=== PATIENT | female | born 1935 | race Caucasian/White ===

== ENCOUNTER 2019-08-09 13:20 | Observation (INO) | payer MEDICARE, SELFPAY ==
[2019-08-09] VITALS (11 sets, daily range): BP systolic 125–158; BP diastolic 63–87; PULSE 82–100; RESP 15–20; TEMP 36.5–36.9; O2SAT 92–100; BMI 21.1; BMI 14.7
--- NOTE | 2019-08-09 14:17 | DI.CT.S_ITS ---
PROCEDURE: CT ABDOMEN PELVIS W CON INDICATIONS: hx of bowel obstruction, nausea and abd pain TECHNIQUE: After the administration of intravenous contrast, 5 mm thick sections acquired from the diaphragm to the symphysis. 5 mm coronal and sagittal reformats were acquired. For radiation dose reduction, the following was used: automated exposure control, adjustment of mA and/or kV according to patient size. COMPARISON: None. FINDINGS: Image quality: Excellent. ABDOMEN: Lung bases: Lung bases are clear. Heart size is normal. Solid organs: Normal size and enhance the liver. Surgically absent gallbladder. There is dilatation of the common bile duct in keeping with prior cholecystectomy. Unremarkable pancreas. 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 Unremarkable adrenal glands. Symmetric enhancement of the kidneys apart from a 1 cm region of cortical hypoenhancement in the right interpolar kidney, likely sequela of remote infection or infarct. Peritoneum and bowel: Unremarkable appearance of the stomach. The bowel is fluid-filled with a centrally diffuse mild mucosal hyperenhancement. While the majority of the small bowel is not currently dilated, loops of small bowel in the left upper abdomen, likely proximal jejunum measure up to approximately 3.2 cm in diameter. There is no focal transition point identified, including at an anterior pelvic floor hernia which contains a portion of small bowel wall and intra-abdominal fluid. Surgical anastomosis present near the terminal ileum the small bowel. 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 There is stool and air throughout the colon. The small and free fluid in the pelvis. Nodes and vessels: No retroperitoneal or mesenteric adenopathy by size criteria. Aorta and inferior vena cava are normal in size. Miscellaneous: No ventral hernias. PELVIS: Genitourinary: Surgically absent bladder and uterus. Miscellaneous: Small hernia through the center pelvic floor anteriorly series 4, image 26) containing portion of a wall of a loop of bowel and peritoneal fluid. Bones: No suspicious bony lesions. No vertebral body compression fractures. Degenerative changes of the MR spine, marked at L4-5 and L5-S1 levels. IMPRESSION: Fluid filled, hyperemic appearance of the small and large bowel with a smaller region of mild bowel dilation to 3.2 cm and the left upper abdomen. This could represent very early / partial small bowel obstruction versus enteric infectious process. No transition point identified. Small hernia through defect in the anterior pelvic floor containing a portion of a loop of small bowel and intraperitoneal fluid. Small volume of free fluid in the pelvis. Dictated by: Branden Richards M.D. on 08/09/2019 at 14:50 Approved by: Branden Richards M.D. on 08/09/2019 at 15:12
[2019-08-09] MEDS: ONDANSETRON 4 MG/2 ML INJ IV (14:33)
[2019-08-09] MEDS: SODIUM CHLORIDE 0.9% 1,000 ML 150 ML IV (14:33)
[2019-08-09 14:36] LABS: Add Manual Diff / Slide Review NO; Basophils Absolute Auto 0 /uL (0-100); Basophils Percent Auto 0.4 % (0-2); Eosinophils Absolute Auto 0 /uL (0-450); Eosinophils Percent Auto 0.2 % (2-4); Hematocrit 37.2 % (36-46); Hemoglobin 12.8 g/dL (12.0-16.0); Lymphocytes Absolute Auto 700 /uL (1100-4500); Lymphocytes Percent Auto 10.6 % (25-40); Mean Corpuscular HGB Conc 34.5 % (30-36); Mean Corpuscular Hemoglobin 30.3 PG (26-34); Mean Corpuscular Volume 87.8 fL (80-100); Monocytes Absolute Auto 400 /uL (0-900); Monocytes Percent Auto 5.5 % (3-14); Neutrophils Absolute Auto 5700 /uL (1500-7000); Neutrophils Percent Auto 83.3 % (50-75); Platelet Count 226 X10^3/uL (150-400); Red Blood Cell Count 4.23 X10^6/uL (4.0-5.2); Red Cell Distribution Width 13.7 % (11.6-14.8); White Blood Cell Count 6.8 X10^3/uL (4.5-11.0)
[2019-08-09 14:55] LABS: PTT Partial Thromboplastin Tim 32 SECONDS (26.4-36.2)
[2019-08-09 14:59] LABS: Alanine Aminotransferase 17 IU/L (9-52); Albumin 4.5 g/dL (3.5-5.0); Albumin Globulin Ratio 1.4 (1.0-2.8); Alkaline Phosphatase 54 U/L (38-126); Aspartate Aminotransferase 25 IU/L (14-36); BUN Creatinine Ratio 21.1 (6-22); Bilirubin Total 1.3 mg/dL (0.2-1.3); Blood Urea Nitrogen 19 mg/dL (7-17); Calcium 10.1 mg/dL (8.4-10.2); Carbon Dioxide 29 mmol/L (22-32); Chloride 97 mmol/L (98-107); Estimated Glomerular Filt Rate 59.9 mL/min (>60); Globulin 3.2 g/dL (1.7-4.1); Glucose 113 mg/dL (80-110); HEMOLYSIS < 15 (0-50); Lipase 74 U/L (23-300); Potassium 3.3 mmol/L (3.4-5.1); Sodium 136 mmol/L (137-145); Total Protein 7.7 g/dL (6.3-8.2)
[2019-08-09 15:00] LABS: Lactate (Lactic Acid) 0.8 mmol/L (0.7-2.1)
[2019-08-09] MEDS: POTASSIUM CHLORIDE 20 MEQ TAB PO (15:23)
--- NOTE | 2019-08-09 15:52 | ED.ABDPAIN ---
HPI - Abdominal Pain <ROBINSON Kee - Last Filed: 08/09/19 23:44> General Chief Complaint: Abdominal Pain Stated Complaint: blockage, vomiting Time Seen by Provider: 08/09/19 13:26 Source: patient Mode of arrival: Ambulatory Limitations: no limitations History of Present Illness HPI narrative: This is a pleasant 83 year female who appears to be younger than her stated age, prior smoker, who presents to ED with her daughter with concerns of bowel obstruction. Patient reports she has history of bowel obstruction in April 2019 and was hospitalized with a NGT. She states she was feeling sick and throwing up x 4-5 times since yesterday morning with food particles with liquid and feeling fatigued. She reports decreased appetite and no bowel movements or flatulence for 2 days and feeling bloated in her abdomen. She denies fever or chills. She has urostomy and has a history of radical hysterectomy due to cervical cancer, cholecystectomy. She also states has a problem with bowel prolapse and at times she has to manually reduce it. She has been on low-fiber diet since last bowel obstruction per her GI specialist. She recently moved to [facility] from [place] after she lost her and to be close to her children. This has been of major stress in her life at this time. Related Data Home Medications Medication Instructions Recorded Confirmed losartan-hydrochlorothiazide 1 tab PO QAM 08/09/19 08/09/19 sertraline 25 mg PO DAILY 08/09/19 08/09/19 Previous Rx's Medication Instructions Recorded ciprofloxacin HCl 500 mg PO BID #4 tab 08/11/19 Allergies Allergy/AdvReac Type Severity Reaction Status Date / Time Sulfa (Sulfonamide Allergy Unknown Verified 08/09/19 13:32 Antibiotics) trimethaphan Allergy Unknown Verified 08/10/19 07:58 Review of Systems <ROBINSON Kee - Last Filed: 08/09/19 23:44> Review of Systems Narrative: General: See HPI HEENT: Denies sinus pain, ear pain, sore throat, difficulty swallowing, dizziness. Respiratory: Denies dyspnea, cough, wheezing, hemoptysis, sputum. Cardiovascular: Denies chest pain, palpitations, orthopnea, edema. Gastrointestinal: See HPI : See HPI Musculoskeletal: Denies weakness, joint pain or bony pain. Skin: Denies rash, skin lesions, or other. Neurologic: Denies weakness, headache, numbness, change in speech, confusion, seizures, incoordination. Psychiatric: No concerning psychosocial issues. 12-point review of systems is negative except for those stated above. Patient History <ROBINSON Kee - Last Filed: 08/09/19 23:44> Medical History (Updated 08/09/19 @ 18:42 by ROBINSON Kee) Cervical cancer (Acute) GERD (gastroesophageal reflux disease) (Acute) Hypertension (Acute) Surgical History History of cholecystectomy (Acute) History of radical hysterectomy (Acute) History of urostomy (Acute) Family History (Updated 08/09/19 @ 18:20 by Ethan Blancas MD) Father Cancer Social History (Updated 08/09/19 @ 16:03 by ROBINSON Kee) household members: none Smoking Status: Former smoker alcohol intake frequency: 0-2 drinks per day Substance Use Type: does not use Exam <ROBINSON Kee - Last Filed: 08/09/19 23:44> Narrative Exam Narrative: GEN: Alert, oriented x 3, well appearing and nourished, and in no acute distress. Head: Normal cephalic, atraumatic. No scalp or temporal tenderness, palpable mass or rash. EYES: Pupils are equal, round, and reactive to light and accommodation. Extraocular muscles are intact bilaterally. There is no subconjunctival hemorrhage, exudate and sclera non-icteric. ENT: Bilateral auditory canals and tympanic membranes clear. Hearing grossly intact. Nose without bleeding, purulent discharge or deviation. Facial sinuses nontender to palpate. Mucous membrane moist, no mucosal lesion. Throat without erythema, tonsillar hypertrophy or exudate. Uvula in midline, airway patent. Neck: Trachea in midline. No JVD, non-tender without lymphadenopathy. No masses or thyroid megaly. Supple, non-tender and no meningeal signs. CARDIAC: Normal regular rate and rhythm without murmurs, gallops, or rubs. No chest wall tenderness. No peripheral edema, cyanosis or pallor. Capillary refill is less than 2 seconds. RESPIRATORY: Lungs are cleat to auscultate bilaterally. No cough, wheezes, rales, or rhonchi. No stridor, respiratory distress, increase work of breathing, or accessary muscle used. ABD: Abdomen soft, mild tenderness to palpate in mid abdomen and non-distended. No guarding or rebound tenderness to palpate. Bowel sounds are normal in all 4 quadrants. There is no palpable masses or organomegaly. EXT: Full painless ROM of all extremities with no loss of sensation, strength, effusion or edema. SKIN: Warm, dry, normal color for patient. No erythema, lesions or rash over visible areas. BACK: Nontender without deformity or crepitance. No flank tenderness. NEUROLOGICAL: Alert and oriented to place, time and person. Sensation and motor function intact bilaterally. No facial droops, dysphasia. PSYCHIATRIC: Good judgement and reason, without hallucinations, abnormal affect or abnormal behaviors during the examination. Initial Vital Signs Initial Vital Signs: Vital Signs Temperature 97.7 F 08/09/19 13:28 Pulse Rate 100 H 08/09/19 13:28 Respiratory Rate 15 08/09/19 13:28 Blood Pressure 133/87 08/09/19 13:28 Pulse Oximetry 100 08/09/19 13:28 <Shona Krishnamurthy DO - Last Filed: 08/13/19 18:18> Initial Vital Signs Initial Vital Signs: Vital Signs Temperature 97.7 F 08/09/19 13:28 Pulse Rate 100 H 08/09/19 13:28 Respiratory Rate 15 08/09/19 13:28 Blood Pressure 133/87 08/09/19 13:28 Pulse Oximetry 100 08/09/19 13:28 Course <ROBINSON Kee - Last Filed: 08/09/19 23:44> Orders Ordered: Discontinued Medications Ciprofloxacin (Cipro) 250 mg PO BID [facility] Ciprofloxacin (Cipro) 500 mg PO BID [facility] Last Admin: 08/11/19 10:08 Dose: 500 mg Documented by: Admin: 08/10/19 21:41 Dose: 500 mg Documented by: SLY Enoxaparin Sodium (Lovenox) 40 mg SUBCUT DAILY [facility] Last Admin: 08/10/19 09:38 Dose: Not Given Documented by: CMCFARL Enoxaparin Sodium (Lovenox) 30 mg SUBCUT DAILY [facility] Last Admin: 08/11/19 10:09 Dose: 30 mg Documented by: WAYNE Hydrochlorothiazide (Hydrochlorothiazide) 25 mg PO DAILY [facility] Last Admin: 08/11/19 10:08 Dose: 25 mg Documented by: Admin: 08/10/19 09:37 Dose: 25 mg Documented by: BOOGIEFARОлег Sodium Chloride (Normal Saline 0.9%) 1,000 mls @ 150 mls/hr IV CONT [facility] Last Infusion: 08/09/19 20:56 Dose: 150 mls/hr Documented by: Admin: 08/09/19 14:33 Dose: 150 mls/hr Documented by: BELEMOTEWendi Sodium Chloride (Normal Saline 0.9%) 1,000 mls @ 150 mls/hr IV CONT [facility] Last Admin: 08/09/19 15:23 Dose: Not Given Documented by: SHASHI Lactated Ringer's (Lactated Ringers) 1,000 mls @ 125 mls/hr IV CONT [facility] Last Admin: 08/09/19 22:36 Dose: 125 mls/hr Documented by: REBECCA Potassium Chloride 40 meq/ (Sodium Chloride) 520 mls @ 130 mls/hr IV NOW ONE Stop: 08/10/19 01:02 Last Admin: 08/10/19 01:05 Dose: 130 mls/hr Documented by: CARLITOS Aldrichigned by: ELIAS Ciprofloxacin (Cipro) 400 mg in 200 mls @ 200 mls/hr IV Q12H [facility] Last Admin: 08/10/19 09:31 Dose: Not Given Documented by: Infusion: 08/10/19 09:31 Dose: 0 mls/hr Documented by: BOOGIEFARОлег Admin: 08/09/19 22:35 Dose: 200 mls/hr Documented by: REBECCA Influenza Virus Vaccine (Flu Vaccine) 0.5 ml IM .ONCE ONE Stop: 08/10/19 14:05 Last Admin: 08/10/19 16:12 Dose: 0.5 ml Documented by: SLY Losartan Potassium (Cozaar) 100 mg PO DAILY [facility] Last Admin: 08/11/19 10:09 Dose: 100 mg Documented by: Admin: 08/10/19 09:37 Dose: 100 mg Documented by: EDA Naloxone HCl (Narcan) 0.2 mg IV Q2MIN PRN PRN Reason: Opiate Reversal Ondansetron HCl (Zofran) 4 mg IV NOW ONE Stop: 08/09/19 14:04 Last Admin: 08/09/19 14:33 Dose: 4 mg Documented by: KATHY Ondansetron HCl (Zofran) 4 mg IV Q4HR PRN PRN Reason: Nausea And Vomiting Pantoprazole Sodium (Protonix) 40 mg IV NOW ONE Stop: 08/09/19 21:04 Last Admin: 08/09/19 22:36 Dose: 40 mg Documented by: REBECCA Pantoprazole Sodium (Protonix) 40 mg IV DAILY [facility] Last Admin: 08/10/19 09:31 Dose: Not Given Documented by: BOOGIEFARL Pantoprazole Sodium (Protonix) 40 mg PO 0700 [facility] Last Admin: 08/11/19 06:47 Dose: 40 mg Documented by: Admin: 08/10/19 10:27 Dose: 40 mg Documented by: EDA Potassium Chloride (Klor-Con M20) 20 meq PO NOW ONE Stop: 08/09/19 15:06 Last Admin: 08/09/19 15:23 Dose: 20 meq Documented by: SHASHI Reevaluation(s) Reevaluation #1: Reports feeling better Time: 15:30 Reevaluation #2: Recurring mild nausea and fatigue Time: 16:31 Consultations Consultation #1: Dr Blancas Time: 16:30 Vital Signs Vital signs: Vital Signs - 8 hr 08/09/19 16:53 08/09/19 17:43 Pulse Rate 83 92 H Respiratory Rate 16 Blood Pressure [Right Arm] 148/71 H 151/73 H Pulse Oximetry 97 96 <Shona Krishnamurthy DO - Last Filed: 08/13/19 18:18> Orders Ordered: Discontinued Medications Ciprofloxacin (Cipro) 250 mg PO BID [facility] Ciprofloxacin (Cipro) 500 mg PO BID [facility] Last Admin: 08/11/19 10:08 Dose: 500 mg Documented by: Admin: 08/10/19 21:41 Dose: 500 mg Documented by: SLY Enoxaparin Sodium (Lovenox) 40 mg SUBCUT DAILY [facility] Last Admin: 08/10/19 09:38 Dose: Not Given Documented by: BOOGIEFARL Enoxaparin Sodium (Lovenox) 30 mg SUBCUT DAILY [facility] Last Admin: 08/11/19 10:09 Dose: 30 mg Documented by: WAYNE Hydrochlorothiazide (Hydrochlorothiazide) 25 mg PO DAILY [facility] Last Admin: 08/11/19 10:08 Dose: 25 mg Documented by: Admin: 08/10/19 09:37 Dose: 25 mg Documented by: CMCFARОлег Sodium Chloride (Normal Saline 0.9%) 1,000 mls @ 150 mls/hr IV CONT [facility] Last Infusion: 08/09/19 20:56 Dose: 150 mls/hr Documented by: Admin: 08/09/19 14:33 Dose: 150 mls/hr Documented by: KBROTEM Sodium Chloride (Normal Saline 0.9%) 1,000 mls @ 150 mls/hr IV CONT [facility] Last Admin: 08/09/19 15:23 Dose: Not Given Documented by: SHASHI Lactated Ringer's (Lactated Ringers) 1,000 mls @ 125 mls/hr IV CONT [facility] Last Admin: 08/09/19 22:36 Dose: 125 mls/hr Documented by: REBECCA Potassium Chloride 40 meq/ (Sodium Chloride) 520 mls @ 130 mls/hr IV NOW ONE Stop: 08/10/19 01:02 Last Admin: 08/10/19 01:05 Dose: 130 mls/hr Documented by: CARLITOS Aldrichigned by: ELIAS Ciprofloxacin (Cipro) 400 mg in 200 mls @ 200 mls/hr IV Q12H [facility] Last Admin: 08/10/19 09:31 Dose: Not Given Documented by: Infusion: 08/10/19 09:31 Dose: 0 mls/hr Documented by: Admin: 08/09/19 22:35 Dose: 200 mls/hr Documented by: GPRAMAN Influenza Virus Vaccine (Flu Vaccine) 0.5 ml IM .ONCE ONE Stop: 08/10/19 14:05 Last Admin: 08/10/19 16:12 Dose: 0.5 ml Documented by: SLY Losartan Potassium (Cozaar) 100 mg PO DAILY [facility] Last Admin: 08/11/19 10:09 Dose: 100 mg Documented by: Admin: 08/10/19 09:37 Dose: 100 mg Documented by: EDA Naloxone HCl (Narcan) 0.2 mg IV Q2MIN PRN PRN Reason: Opiate Reversal Ondansetron HCl (Zofran) 4 mg IV NOW ONE Stop: 08/09/19 14:04 Last Admin: 08/09/19 14:33 Dose: 4 mg Documented by: KBRCORNELIO Ondansetron HCl (Zofran) 4 mg IV Q4HR PRN PRN Reason: Nausea And Vomiting Pantoprazole Sodium (Protonix) 40 mg IV NOW ONE Stop: 08/09/19 21:04 Last Admin: 08/09/19 22:36 Dose: 40 mg Documented by: REBECCA Pantoprazole Sodium (Protonix) 40 mg IV DAILY [facility] Last Admin: 08/10/19 09:31 Dose: Not Given Documented by: CMCFARL Pantoprazole Sodium (Protonix) 40 mg PO 0700 [facility] Last Admin: 08/11/19 06:47 Dose: 40 mg Documented by: Admin: 08/10/19 10:27 Dose: 40 mg Documented by: BOOGIEFARL Potassium Chloride (Klor-Con M20) 20 meq PO NOW ONE Stop: 08/09/19 15:06 Last Admin: 08/09/19 15:23 Dose: 20 meq Documented by: SHASHI Vital Signs Vital signs: Vital Signs - 8 hr 08/09/19 16:53 08/09/19 17:43 Pulse Rate 83 92 H Respiratory Rate 16 Blood Pressure [Right Arm] 148/71 H 151/73 H Pulse Oximetry 97 96 MDM - Abdominal Pain <Keon ROBINSON Lakhani - Last Filed: 08/09/19 23:44> Differential Diagnosis Differential diagnosis: Likely abdominal pain, small bowel obstruction and other (Constipation) Medical Records Attestation: I reviewed the patient's medical records. Lab Data Attestation: I reviewed the patient's lab results. Result diagrams: 08/10/19 05:39 08/10/19 05:39 Labs: Lab Results 08/09/19 08/09/19 08/09/19 Range/Units 14:25 14:25 14:25 WBC 6.8 (4.5-11.0) X10^3/uL RBC 4.23 (4.0-5.2) X10^6/uL Hgb 12.8 (12.0-16.0) g/dL Hct 37.2 (36-46) % MCV 87.8 (80-100) fL MCH 30.3 (26-34) PG MCHC 34.5 (30-36) % RDW 13.7 (11.6-14.8) % Plt Count 226 (150-400) X10^3/uL Neut % (Auto) 83.3 H (50-75) % Lymph % (Auto) 10.6 L (25-40) % [place] % (Auto) 5.5 (3-14) % Eos % (Auto) 0.2 L (2-4) % Baso % (Auto) 0.4 (0-2) % Neut # (Auto) 5700 (0389-5724) /uL Lymph # (Auto) 700 L (0641-9479) /uL [place] # (Auto) 400 (0-900) /uL Eos # (Auto) 0 (0-450) /uL Baso # (Auto) 0 (0-100) /uL PT 11.0 (10.1-12.7) SECONDS INR 1.0 (0.9-1.3) APTT 32 (26.4-36.2) SECONDS Sodium 136 L (137-145) mmol/L Potassium 3.3 L (3.4-5.1) mmol/L Chloride 97 L (98-107) mmol/L Carbon Dioxide 29 (22-32) mmol/L BUN 19 H (7-17) mg/dL Creatinine 0.90 (0.52-1.04) mg/dL Estimated GFR 59.9 L (>60) mL/min BUN/Creatinine Ratio 21.1 (6-22) Glucose 113 H (80-110) mg/dL Lactate (0.7-2.1) mmol/L Calcium 10.1 (8.4-10.2) mg/dL Total Bilirubin 1.3 (0.2-1.3) mg/dL AST 25 (14-36) IU/L ALT 17 (9-52) IU/L Alkaline Phosphatase 54 (38-126) U/L Total Protein 7.7 (6.3-8.2) g/dL Albumin 4.5 (3.5-5.0) g/dL Globulin 3.2 (1.7-4.1) g/dL Albumin/Globulin Ratio 1.4 (1.0-2.8) Lipase 74 (23-300) U/L Urine RBC (0-5/HPF) Urine WBC (0-5/HPF) Urine Bacteria (None) Ur Culture Indicated? 08/09/19 08/09/19 Range/Units 14:25 16:38 WBC (4.5-11.0) X10^3/uL RBC (4.0-5.2) X10^6/uL Hgb (12.0-16.0) g/dL Hct (36-46) % MCV (80-100) fL MCH (26-34) PG MCHC (30-36) % RDW (11.6-14.8) % Plt Count (150-400) X10^3/uL Neut % (Auto) (50-75) % Lymph % (Auto) (25-40) % [place] % (Auto) (3-14) % Eos % (Auto) (2-4) % Baso % (Auto) (0-2) % Neut # (Auto) (2490-7842) /uL Lymph # (Auto) (3549-3408) /uL [place] # (Auto) (0-900) /uL Eos # (Auto) (0-450) /uL Baso # (Auto) (0-100) /uL PT (10.1-12.7) SECONDS INR (0.9-1.3) APTT (26.4-36.2) SECONDS Sodium (137-145) mmol/L Potassium (3.4-5.1) mmol/L Chloride (98-107) mmol/L Carbon Dioxide (22-32) mmol/L BUN (7-17) mg/dL Creatinine (0.52-1.04) mg/dL Estimated GFR (>60) mL/min BUN/Creatinine Ratio (6-22) Glucose (80-110) mg/dL Lactate 0.8 (0.7-2.1) mmol/L Calcium (8.4-10.2) mg/dL Total Bilirubin (0.2-1.3) mg/dL AST (14-36) IU/L ALT (9-52) IU/L Alkaline Phosphatase (38-126) U/L Total Protein (6.3-8.2) g/dL Albumin (3.5-5.0) g/dL Globulin (1.7-4.1) g/dL Albumin/Globulin Ratio (1.0-2.8) Lipase (23-300) U/L Urine RBC 1-5/hpf (0-5/HPF) Urine WBC 5-10/hpf H (0-5/HPF) Urine Bacteria Many (>30) H (None) Ur Culture Indicated? Specimen cultured Point of care testing: Urine Dip Bedside Urine Glucose Negative Bedside Urine Bilirubin - Negative Bedside Urine Ketone - Negative Urine Specific Fortine 1.010 Bedside Urine Occult Blood - Negative Bedside Urine pH 6.0 Bedside Urine Protein +/- 15 Bedside Urine Urobilinogen - Negative Bedside Urine Nitrite + Positive Bedside Urine Leukocytes ++ [address] scan - abdomen: Radiologist's impression: [address] [address] [address] Scan Report Signed Patient: Hortencia Lin JMR#: [id number] : 7Acct:[id number] Age/Sex: 83 / FDate of Service: 08/09/19 Loc: ED Accession Number: [id number] Procedure: CT abdomen pelvis w con Ordering Provider: Keon Lakhani PROCEDURE: CT ABDOMEN PELVIS W CON INDICATIONS: hx of bowel obstruction, nausea and abd pain TECHNIQUE: After the administration of intravenous contrast, 5 mm thick sections acquired from the diaphragm to the symphysis. 5 mm coronal and sagittal reformats were acquired. For radiation dose reduction, the following was used: automated exposure control, adjustment of mA and/or kV according to patient size. COMPARISON: None. FINDINGS: Image quality: Excellent. ABDOMEN: Lung bases: Lung bases are clear. Heart size is normal. Solid organs: Normal size and enhance the liver. Surgically absent gallbladder. There is dilatation of the common bile duct in keeping with prior cholecystectomy. Unremarkable pancreas. 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 Unremarkable adrenal glands. Symmetric enhancement of the kidneys apart from a 1 cm region of cortical hypoenhancement in the right interpolar kidney, likely sequela of remote infection or infarct. Peritoneum and bowel: Unremarkable appearance of the stomach. The bowel is fluid-filled with a centrally diffuse mild mucosal hyperenhancement. While the majority of the small bowel is not currently dilated, loops of small bowel in the left upper abdomen, likely proximal jejunum measure up to approximately 3.2 cm in diameter. There is no focal transition point identified, including at an anterior pelvic floor hernia which contains a portion of small bowel wall and intra-abdominal fluid. Surgical anastomosis present near the terminal ileum the small bowel. 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 There is stool and air throughout the colon. The small and free fluid in the pelvis. Nodes and vessels: No retroperitoneal or mesenteric adenopathy by size criteria. Aorta and inferior vena cava are normal in size. Miscellaneous: No ventral hernias. PELVIS: Genitourinary: Surgically absent bladder and uterus. Miscellaneous: Small hernia through the center pelvic floor anteriorly series 4, image 26) containing portion of a wall of a loop of bowel and peritoneal fluid. Bones: No suspicious bony lesions. No vertebral body compression fractures. Degenerative changes of the MR spine, marked at L4-5 and L5-S1 levels. IMPRESSION: Fluid filled, hyperemic appearance of the small and large bowel with a smaller region of mild bowel dilation to 3.2 cm and the left upper abdomen. This could represent very early / partial small bowel obstruction versus enteric infectious process. No transition point identified. Small hernia through defect in the anterior pelvic floor containing a portion of a loop of small bowel and intraperitoneal fluid. Small volume of free fluid in the pelvis. Dictated by: Branden Richards M.D. on 08/09/2019 at 14:50 Approved by: Branden Richards M.D. on 08/09/2019 at 15:12 ECG Data Attestation: I personally reviewed and interpreted this ECG as follows: Prior ECG tracings: not available for review Interpretation: SR rate in 84 marked L asix deviation No ST elevation or depression MDM Narrative Medical decision making narrative: This is a pleasant 83-year-old female presents to ED with nausea and vomiting for 4-5x since yesterday with abdominal discomfort. Patient complains of feeling bloated and no bowel movements or flatulence for last 2 days with no appetite. Patient complains of feeling fatigued but denies fever or chills. Patient has history of bowel obstruction in April 2019 and she was admitted to the hospital with NG tube and IV hydration and bowel rest which resolved spontaneously. Since then she has been eating low fiber diet as suggested by GI specialist at that time. Patient has history of cholecystectomy, radical hysterectomy with urostomy due to cancer in 2006. She also states, has been experiencing prolapsed bowel through her vagina at times and she has been able to reduced this. She does takes omeprazole daily with loperamide and small dose of metalmucil. Since she has recently moved to [place] to be closed with her daughters after her 's passing, she has been experiencing increased stressed in her life. She currently does not have primary care physician established in [facility]. She has normal white count with elevated neutrophils. Mildly decreased sodium, potassium, chloride. Patient has been gently hydrated with normal saline while in ED, potassium was replaced with 20 mEq of p.o. KCl. Urine sample was obtained through urostomy which showed positive nitrite, ++ leukocytes many urine bacteria and urine WBC. Patient was not addressed with antibiotic medications at this time and is waiting for urine culture test. Abdomen CT indicates fluid filled hyperemic appearance of the small and large bowel with mild bowel dilation in the left upper abdomen which could be very early partial small-bowel obstruction versus enteric infectious process. Dr. Blanacs was consulted due to patient's advanced age and extensive abdominal surgical history and small bowel obstruction and given patient does not have PCP established in [facility]. Dr. Blancas kindly accepted patient's care. Patient was informed of treatment plan and verbalized understanding and agrees with the plan. <Shona Krishnamurthy, DO - Last Filed: 08/13/19 18:18> Lab Data Labs: Lab Results 08/09/19 08/09/19 08/09/19 Range/Units 14:25 14:25 14:25 WBC 6.8 (4.5-11.0) X10^3/uL RBC 4.23 (4.0-5.2) X10^6/uL Hgb 12.8 (12.0-16.0) g/dL Hct 37.2 (36-46) % MCV 87.8 (80-100) fL MCH 30.3 (26-34) PG MCHC 34.5 (30-36) % RDW 13.7 (11.6-14.8) % Plt Count 226 (150-400) X10^3/uL Neut % (Auto) 83.3 H (50-75) % Lymph % (Auto) 10.6 L (25-40) % [place] % (Auto) 5.5 (3-14) % Eos % (Auto) 0.2 L (2-4) % Baso % (Auto) 0.4 (0-2) % Neut # (Auto) 5700 (8256-6500) /uL Lymph # (Auto) 700 L (8390-9118) /uL [place] # (Auto) 400 (0-900) /uL Eos # (Auto) 0 (0-450) /uL Baso # (Auto) 0 (0-100) /uL PT 11.0 (10.1-12.7) SECONDS INR 1.0 (0.9-1.3) APTT 32 (26.4-36.2) SECONDS Sodium 136 L (137-145) mmol/L Potassium 3.3 L (3.4-5.1) mmol/L Chloride 97 L (98-107) mmol/L Carbon Dioxide 29 (22-32) mmol/L BUN 19 H (7-17) mg/dL Creatinine 0.90 (0.52-1.04) mg/dL Estimated GFR 59.9 L (>60) mL/min BUN/Creatinine Ratio 21.1 (6-22) Glucose 113 H (80-110) mg/dL Lactate (0.7-2.1) mmol/L Calcium 10.1 (8.4-10.2) mg/dL Total Bilirubin 1.3 (0.2-1.3) mg/dL AST 25 (14-36) IU/L ALT 17 (9-52) IU/L Alkaline Phosphatase 54 (38-126) U/L Total Protein 7.7 (6.3-8.2) g/dL Albumin 4.5 (3.5-5.0) g/dL Globulin 3.2 (1.7-4.1) g/dL Albumin/Globulin Ratio 1.4 (1.0-2.8) Lipase 74 (23-300) U/L Urine RBC (0-5/HPF) Urine WBC (0-5/HPF) Urine Bacteria (None) Ur Culture Indicated? 08/09/19 08/09/19 Range/Units 14:25 16:38 WBC (4.5-11.0) X10^3/uL RBC (4.0-5.2) X10^6/uL Hgb (12.0-16.0) g/dL Hct (36-46) % MCV (80-100) fL MCH (26-34) PG MCHC (30-36) % RDW (11.6-14.8) % Plt Count (150-400) X10^3/uL Neut % (Auto) (50-75) % Lymph % (Auto) (25-40) % [place] % (Auto) (3-14) % Eos % (Auto) (2-4) % Baso % (Auto) (0-2) % Neut # (Auto) (1318-3549) /uL Lymph # (Auto) (0183-1186) /uL [place] # (Auto) (0-900) /uL Eos # (Auto) (0-450) /uL Baso # (Auto) (0-100) /uL PT (10.1-12.7) SECONDS INR (0.9-1.3) APTT (26.4-36.2) SECONDS Sodium (137-145) mmol/L Potassium (3.4-5.1) mmol/L Chloride (98-107) mmol/L Carbon Dioxide (22-32) mmol/L BUN (7-17) mg/dL Creatinine (0.52-1.04) mg/dL Estimated GFR (>60) mL/min BUN/Creatinine Ratio (6-22) Glucose (80-110) mg/dL Lactate 0.8 (0.7-2.1) mmol/L Calcium (8.4-10.2) mg/dL Total Bilirubin (0.2-1.3) mg/dL AST (14-36) IU/L ALT (9-52) IU/L Alkaline Phosphatase (38-126) U/L Total Protein (6.3-8.2) g/dL Albumin (3.5-5.0) g/dL Globulin (1.7-4.1) g/dL Albumin/Globulin Ratio (1.0-2.8) Lipase (23-300) U/L Urine RBC 1-5/hpf (0-5/HPF) Urine WBC 5-10/hpf H (0-5/HPF) Urine Bacteria Many (>30) H (None) Ur Culture Indicated? Specimen cultured Point of care testing: Urine Dip Bedside Urine Glucose Negative Bedside Urine Bilirubin - Negative Bedside Urine Ketone - Negative Urine Specific Fortine 1.010 Bedside Urine Occult Blood - Negative Bedside Urine pH 6.0 Bedside Urine Protein +/- 15 Bedside Urine Urobilinogen - Negative Bedside Urine Nitrite + Positive Bedside Urine Leukocytes ++ 125 Esterase Discharge Plan Departure Patient Disposition: Admitted As Inpatient Clinical Impression: Small bowel obstruction, Hypokalemia Discharge Date/Time: 08/09/19 20:40 Instructions: Low-Fiber/Low-Residue Diet, DI for Small Bowel Obstruction, DI for Urinary Tract Infection (UTI), Ciprofloxacin Admit Date/Time: 08/09/19 17:46 Admit Provider: Ethan Blancas
[2019-08-09 17:02] LABS: Bacteria Urine Many (>30); RBC Urine 1-5/HPF (0-5/HPF); WBC Urine 5-10/HPF (0-5/HPF)
[2019-08-09 17:03] LABS: Culture Indicated Urine Specimen Cultured
--- NOTE | 2019-08-09 18:13 | PM.HP.1 ---
History of Present Illness History of Present Illness Date Patient Seen: 08/09/19 Time Patient Seen: 18:00 Chief complaint: blockage, vomiting Narrative: The patient is an 83-year-old with a 2 day history of nausea and vomiting. No flatus or bowel movement for the last 2 days. She did have some continuous mid abdominal pain which has resolved with anti nausea medication. She had a similar episode like this in April. She was hospitalized for 3 or 4 days with an NG tube. It resolved on her own and she has been trying to eat soft easily digestable food at the recommendation of that . She has been under a lot of stress of late including the of her and moving to [place] from [place]. Her daughter lives here in [place]. She has had a laparoscopic cholecystectomy and a cystectomy with a radical hysterectomy for vulvar cancer. She has a urostomy in her right lower quadrant. The patient is usually troubled by diarrhea and actually takes Lomotil or similar meds along with Metamucil in order to control it. Patient History Medical History (Updated 08/09/19 @ 18:41 by Ethan Blancas MD) Cervical cancer (Acute) GERD (gastroesophageal reflux disease) (Acute) Hypertension (Acute) Surgical History History of cholecystectomy (Acute) History of radical hysterectomy (Acute) History of urostomy (Acute) Family History (Updated 08/09/19 @ 18:20 by Ethan Blancas MD) Father Cancer Social History (Updated 08/09/19 @ 16:03 by ROBINSON Kee) Smoking Status: Former smoker Family & Social History Family History (Updated 08/09/19 @ 18:20 by Ethan Blancas MD) Father Cancer Safety & Behavioral: Feels Safe in Current Yes Environment Been Physically Hurt or No Threatened By a Person Tobacco & Substance use: Smoking Status Former smoker alcohol intake frequency 0-2 drinks per day Substance Use Type does not use Meds Home Medications and Allergies Home Medications Medication Instructions Recorded Confirmed Type losartan-hydrochlorothiazide 1 tab PO QAM 08/09/19 08/09/19 History Allergies Allergy/AdvReac Type Severity Reaction Status Date / Time Sulfa (Sulfonamide Allergy Unknown Verified 08/09/19 13:32 Antibiotics) TRIMETHAPHAN Allergy Unknown Uncoded 04/11/18 12:30 Review of Systems Review of Systems Narrative: No visual difficulties. No problems with her teeth. No difficulty swallowing. Unknown that she has problems with thyroid pancreas. No problems breathing cough or cold. No chest pain or heart problems. She does get reflux symptoms and is on omeprazole. Empties a run urostomy. No seizures or blackouts. Sometimes anxious. No bipolar disease. It no difficulty ambulating. No unusual bruising or bleeding. Last colonoscopy was 4 years ago. She was told she should not have any after this. Exam Vital Signs (past 8 hours): - 08/09/19 13:28 08/09/19 14:38 08/09/19 15:36 Temperature 97.7 F Pulse Rate 100 H 83 83 Respiratory Rate 15 17 18 Blood Pressure 133/87 Blood Pressure [Right Arm] 125/69 140/78 Pulse Oximetry 100 96 97 08/09/19 16:53 08/09/19 17:43 Temperature Pulse Rate 83 92 H Respiratory Rate 16 Blood Pressure Blood Pressure [Right Arm] 148/71 H 151/73 H Pulse Oximetry 97 96 Oxygen Delivery Method Room Air Narrative Exam Narrative: Thin pleasant woman in no apparent distress. Her eyes are nonicteric. Conjunctivae are little pale. Sclera white. Pupils equal round reactive to light. No swelling of the lids. She wears ear rings. No other lesions in her ears. Nasal septum is midline. Oral mucosa is pink a little dry. No open lesions. Teeth are intact. There are no nodes in the neck or supraclavicular areas. Trachea is midline and mobile. Thyroid is not enlarged. Lungs are clear to auscultation. No rales or rhonchi. Excellent effort. Abdominal symptoms do not appear to have any effect on her ability to breathe deeply. She has a 2/6 systolic murmur heard best at the right sternal border with slight radiation of the right neck. 2+ radial and brachial pulses. Her abdomen is mildly distended. There are hyperactive bowel sounds. They are fairly normal pitch. Her abdomen is soft and nontender. I do not appreciate any hernias. She has a midline scar from just above her umbilicus down to her suprapubic area. She has 3 scars barely visible under her costal margin presumptively from her laparoscopic cholecystectomy. No deformity of her 4 extremities. Her skin is attenuated and thin with some bruising where IVs were attempted. She is alert and oriented x3. Speech rate and content are appropriate. Affect is appropriate. Objective ECG Impression: CT abdomen pelvis reviewed. This may represent an early SBO. The urostomy is no the right lower quadrant. It is collapsed. Staple line also noted in the right lower quadrant from the anastomosis presumptively of small bowel to small bowel. Large amount of stool in the colon. No distention of the colon. No parastomal hernias seen. No obvious hernia elsewhere is seen either. Labs Result Diagrams: 08/09/19 14:25 08/09/19 14:25 Labs: Laboratory Results - last 24 hr 08/09/19 08/09/19 08/09/19 14:25 14:25 14:25 WBC 6.8 RBC 4.23 Hgb 12.8 Hct 37.2 MCV 87.8 MCH 30.3 MCHC 34.5 RDW 13.7 Plt Count 226 Neut % (Auto) 83.3 H Lymph % (Auto) 10.6 L [place] % (Auto) 5.5 Eos % (Auto) 0.2 L Baso % (Auto) 0.4 Neut # (Auto) 5700 Lymph # (Auto) 700 L [place] # (Auto) 400 Eos # (Auto) 0 Baso # (Auto) 0 PT 11.0 INR 1.0 APTT 32 Sodium 136 L Potassium 3.3 L Chloride 97 L Carbon Dioxide 29 BUN 19 H Creatinine 0.90 Estimated GFR 59.9 L BUN/Creatinine Ratio 21.1 Glucose 113 H Lactate Calcium 10.1 Total Bilirubin 1.3 AST 25 ALT 17 Alkaline Phosphatase 54 Total Protein 7.7 Albumin 4.5 Globulin 3.2 Albumin/Globulin Ratio 1.4 Lipase 74 Urine RBC Urine WBC Urine Bacteria Ur Culture Indicated? 08/09/19 08/09/19 14:25 16:38 WBC RBC Hgb Hct MCV MCH MCHC RDW Plt Count Neut % (Auto) Lymph % (Auto) [place] % (Auto) Eos % (Auto) Baso % (Auto) Neut # (Auto) Lymph # (Auto) [place] # (Auto) Eos # (Auto) Baso # (Auto) PT INR APTT Sodium Potassium Chloride Carbon Dioxide BUN Creatinine Estimated GFR BUN/Creatinine Ratio Glucose Lactate 0.8 Calcium Total Bilirubin AST ALT Alkaline Phosphatase Total Protein Albumin Globulin Albumin/Globulin Ratio Lipase Urine RBC 1-5/hpf Urine WBC 5-10/hpf H Urine Bacteria Many (>30) H Ur Culture Indicated? Specimen cultured Assessment & Plan Assessment and plan (1) Hypertension: Problem details: Will observe for now. When she resumes p.o. will restart her medication regimen. May need to give IV meds if her blood pressure becomes an issue. Current visit: Yes Status: Acute (2) GERD (gastroesophageal reflux disease): Problem details: Will continue a proton pump inhibitor Current visit: Yes Status: Acute (3) Nausea & vomiting: Problem details: Stomach is collapsed so I will not place an NG at this time. Will give anti nausea meds however. Current visit: Yes Status: Acute (4) Abdominal pain: Problem details: Patient may have an ileus or an obstructive process that is early. We will hydrate her with fluid. Will begin a small-bowel follow-through with water soluble contrast. Current visit: Yes Status: Acute (5) Abnormal finding on urinalysis: Problem details: Not sure what to make of the urinalysis. Since the urostomy connects to the skin there may be some skin jackie there. However she also has white blood cell counts and numerous bacteria. Because a urinary tract infection could certainly cause an ileus I will begin her on broad-spectrum antibiotics awaiting the culture results. Current visit: Yes Status: Acute
--- NOTE | 2019-08-09 19:00 | DI.RAD.S_ITS ---
PROCEDURE: FL SMALL BOWEL FOLLOW THROUGH INDICATIONS: SBFT FILMS COMPARISON: [facility], CT, CT ABDOMEN PELVIS W CON, 08/09/2019, 15:08. FINDINGS: Enteric radiopaque contrast is present in the stomach through the small bowel contains the least the mid colon. No current suggestion of distended small bowel on this limited supine radiograph. Excretory contrast also present in the kidneys from prior intravenous contrast. Surgical clips are present in the pelvis. Lung bases are clear. No acute bony abnormality. Degenerative changes of the spine. IMPRESSION: Enteric contrast containing through the small bowel into the large bowel. No identified distended loops of bowel. Dictated by: Branden Richards M.D. on 08/10/2019 at 8:40 Approved by: Branden Richards M.D. on 08/10/2019 at 8:47
[2019-08-09] MEDS: CIPROFLOXACIN 400 MG/200 ML PIGGYBACK 200 MG IV (22:35)
[2019-08-09] MEDS: PANTOPRAZOLE 40 MG VIAL IV (22:36)
[2019-08-09] MEDS: LACTATED RINGERS 1,000 ML 125 ML IV (22:36)
--- NOTE | 2019-08-09 23:28 | PC.ADMIT ---
2006 [facility] Admission Note: The patient,Hortencia Lin,83 y/o, was given written information regarding hospital policies, unit procedures and contact persons. Patient's smoking status: Former smoker. Pt arrived from ED at approx 2015. A/O. Ambulating to bathroom having watery stools from oral contrast given. Denies abd pain. Has urostomy that she care for independently. Measuring device placed in bathroom for accurate output. NPO. Oral care provided. Oriented to room and call system. Call light within reach. Vital Signs - 8 hr 08/09/19 15:36 08/09/19 16:53 08/09/19 17:43 Temperature Pulse Rate 83 83 92 H Respiratory Rate 18 16 Blood Pressure Blood Pressure [Right Arm] 140/78 148/71 H 151/73 H Pulse Oximetry 97 97 96 08/09/19 18:10 08/09/19 18:45 08/09/19 19:50 Temperature Pulse Rate 89 85 82 Respiratory Rate 18 18 Blood Pressure Blood Pressure [Right Arm] 144/67 H 134/76 151/63 H Pulse Oximetry 92 98 97 08/09/19 20:35 08/09/19 21:03 08/09/19 21:04 Temperature 98.5 F Pulse Rate 96 H 84 Respiratory Rate 20 Blood Pressure 158/87 H Blood Pressure [Right Arm] Pulse Oximetry 94 95 95
[2019-08-10] VITALS (10 sets, daily range): BP systolic 151–161; BP diastolic 74–97; PULSE 77–101; RESP 16–20; TEMP 36.3–37.3; O2SAT 92–99
[2019-08-10] MEDS: POTASSIUM CHLORIDE 40 MEQ in SODIUM CHLORIDE 0.9% 500 ML 130 ML IV (01:05)
[2019-08-10 06:05] LABS: Add Manual Diff / Slide Review NO; Basophils Absolute Auto 0 /uL (0-100); Basophils Percent Auto 0.4 % (0-2); Eosinophils Absolute Auto 0 /uL (0-450); Eosinophils Percent Auto 0.2 % (2-4); Hematocrit 36.4 % (36-46); Hemoglobin 12.1 g/dL (12.0-16.0); Lymphocytes Absolute Auto 700 /uL (1100-4500); Lymphocytes Percent Auto 17.5 % (25-40); Mean Corpuscular HGB Conc 33.4 % (30-36); Mean Corpuscular Volume 89.8 fL (80-100); Monocytes Absolute Auto 300 /uL (0-900); Monocytes Percent Auto 7.7 % (3-14); Neutrophils Absolute Auto 2900 /uL (1500-7000); Neutrophils Percent Auto 74.2 % (50-75); Platelet Count 208 X10^3/uL (150-400); Red Blood Cell Count 4.05 X10^6/uL (4.0-5.2); Red Cell Distribution Width 13.8 % (11.6-14.8); White Blood Cell Count 3.9 X10^3/uL (4.5-11.0)
[2019-08-10 06:14] LABS: BUN Creatinine Ratio 21.3 (6-22); Blood Urea Nitrogen 17 mg/dL (7-17); Calcium 9.8 mg/dL (8.4-10.2); Carbon Dioxide 28 mmol/L (22-32); Chloride 111 mmol/L (98-107); Estimated Glomerular Filt Rate > 60.0 mL/min (>60); Glucose 116 mg/dL (80-110); HEMOLYSIS < 15 (0-50); Magnesium 1.9 mg/dL (1.6-2.3); Potassium 4.1 mmol/L (3.4-5.1); Sodium 146 mmol/L (137-145)
[2019-08-10] MEDS: hydroCHLOROthiazide 25 MG TABLET PO (09:37)
[2019-08-10] MEDS: LOSARTAN 50 MG TABLET 100 MG PO (09:37)
[2019-08-10] MEDS: PANTOPRAZOLE 40 MG TABLET PO (10:27)
--- NOTE | 2019-08-10 14:15 | P.PN_ITS ---
Subjective Subjective Date Patient Seen: 08/10/19 Time Patient Seen: 14:00 Interval history: Patient feeling much better. Had a small-bowel follow- through. Contrast went straight through. She was begun on clear liquids which she tolerated well. Exam Vital Signs (past 8 hours): - 08/10/19 08:00 08/10/19 09:37 Temperature 97.7 F Pulse Rate 87 Respiratory Rate 17 Blood Pressure 151/88 H 158/81 H Pulse Oximetry 98 Fraction of Inspired Oxygen 21 Oxygen Delivery Method Room Air Oxygen Flow Rate 0 Narrative Exam Narrative: No apparent distress. Abdomen is scaphoid. No tenderness. Lungs are clear. Objective Labs Result Diagrams: 08/10/19 05:39 08/10/19 05:39 Labs: Laboratory Results - last 24 hr 08/09/19 08/09/19 08/09/19 14:25 14:25 14:25 WBC 6.8 RBC 4.23 Hgb 12.8 Hct 37.2 MCV 87.8 MCH 30.3 MCHC 34.5 RDW 13.7 Plt Count 226 Neut % (Auto) 83.3 H Lymph % (Auto) 10.6 L [place] % (Auto) 5.5 Eos % (Auto) 0.2 L Baso % (Auto) 0.4 Neut # (Auto) 5700 Lymph # (Auto) 700 L [place] # (Auto) 400 Eos # (Auto) 0 Baso # (Auto) 0 PT 11.0 INR 1.0 APTT 32 Sodium 136 L Potassium 3.3 L Chloride 97 L Carbon Dioxide 29 BUN 19 H Creatinine 0.90 Estimated GFR 59.9 L BUN/Creatinine Ratio 21.1 Glucose 113 H Lactate Calcium 10.1 Magnesium Total Bilirubin 1.3 AST 25 ALT 17 Alkaline Phosphatase 54 Total Protein 7.7 Albumin 4.5 Globulin 3.2 Albumin/Globulin Ratio 1.4 Lipase 74 Urine RBC Urine WBC Urine Bacteria Ur Culture Indicated? 08/09/19 08/09/19 08/10/19 14:25 16:38 05:39 WBC 3.9 L RBC 4.05 Hgb 12.1 Hct 36.4 MCV 89.8 MCH 30.0 MCHC 33.4 RDW 13.8 Plt Count 208 Neut % (Auto) 74.2 Lymph % (Auto) 17.5 L [place] % (Auto) 7.7 Eos % (Auto) 0.2 L Baso % (Auto) 0.4 Neut # (Auto) 2900 Lymph # (Auto) 700 L [place] # (Auto) 300 Eos # (Auto) 0 Baso # (Auto) 0 PT INR APTT Sodium Potassium Chloride Carbon Dioxide BUN Creatinine Estimated GFR BUN/Creatinine Ratio Glucose Lactate 0.8 Calcium Magnesium Total Bilirubin AST ALT Alkaline Phosphatase Total Protein Albumin Globulin Albumin/Globulin Ratio Lipase Urine RBC 1-5/hpf Urine WBC 5-10/hpf H Urine Bacteria Many (>30) H Ur Culture Indicated? Specimen cultured 08/10/19 05:39 WBC RBC Hgb Hct MCV MCH MCHC RDW Plt Count Neut % (Auto) Lymph % (Auto) [place] % (Auto) Eos % (Auto) Baso % (Auto) Neut # (Auto) Lymph # (Auto) [place] # (Auto) Eos # (Auto) Baso # (Auto) PT INR APTT Sodium 146 H D Potassium 4.1 Chloride 111 H Carbon Dioxide 28 BUN 17 Creatinine 0.80 Estimated GFR > 60.0 BUN/Creatinine Ratio 21.3 Glucose 116 H Lactate Calcium 9.8 Magnesium 1.9 Total Bilirubin AST ALT Alkaline Phosphatase Total Protein Albumin Globulin Albumin/Globulin Ratio Lipase Urine RBC Urine WBC Urine Bacteria Ur Culture Indicated? Assessment & Plan Assessment & Plan narrative: Have not seen results of the urine culture. Continue Cipro p.o.. Advance diet. Probable discharge in the morning. I have ordered a dietary consult to explain to her what a low residue diet would consist of. I spent some time talking to her about that as well.
--- NOTE | 2019-08-10 14:52 | PC.NURSE ---
Rec'd report and assumed care. Pt restful in bed and on phone. Offers no overt c/o.
--- NOTE | 2019-08-10 14:55 | CM.DANOTE ---
Discharge Planning/Care Management DCP assessment: case received, EMR reviewed and met with pt. Introduced self and role. Pt is up in room independently and says she is feeling much better. Diet is advancing and Dr. Blancas is hopeful that she will be able to go home tomorrow. Pt echos same. DCP team will follow prn for any needs that may arise but at this time a d/c tomorrow and clinic follow appears probable. Advanced directive, confirm from FAMILY Start: 08/09/19 22:19 Freq: Q24H Status: Active Protocol: Document 08/10/19 08:00 CM (Rec: 08/10/19 11:10 CM [id number]) Advance Directive, confirm on record Time 11:03 Person contacted pt Copy received No CM Discharge Assessment Start: 08/10/19 14:53 Freq: Status: Active Protocol: Document 08/10/19 14:53 ITV (Rec: 08/10/19 14:55 ITV [id number]) Discharge Planning Assessment Advance Directives? Yes History Provided By Patient,Medical Record Prior Living Arrangements House Household Members none Independent with ADL's Yes Is patient alert and oriented? Yes Comment adeel keeps me fit Review Status In Process
[2019-08-10] MEDS: INFLUENZA VACCINE 0.5 ML SYRINGE IM (16:12)
--- NOTE | 2019-08-10 17:49 | PC.NURSE ---
Assumed care of pt at 1500. Pt resting in bed during bedside hand-off. Reports she is still having watery stools. Wearing briefs and nabil-pad for dribbling of stool. No IV Access. Steady on feet. Now independent in room. Pt is to notify staff if she feels weak or changes to her mobility status occur. Flu Vaccine given; CDC hand-out given. Student nurse participating in care/assessments, all care provided by student has been under the supervision of this card writer hand.
[2019-08-10] MEDS: CIPROFLOXACIN 500 MG TABLET PO (21:41)
[2019-08-11] VITALS: BP 148/86; PULSE 78; RESP 16; TEMP 36.7; O2SAT 95
[2019-08-11 04:35] VITALS: BP 146/93; PULSE 80; RESP 16; TEMP 36.9; O2SAT 95
[2019-08-11] MEDS: PANTOPRAZOLE 40 MG TABLET PO (06:47)
[2019-08-11 08:40] VITALS: BP 140/77; PULSE 85; RESP 14; O2SAT 100
[2019-08-11 10:00] VITALS: O2SAT 99
[2019-08-11] MEDS: hydroCHLOROthiazide 25 MG TABLET PO (10:08)
[2019-08-11] MEDS: CIPROFLOXACIN 500 MG TABLET PO (10:08)
[2019-08-11] MEDS: LOSARTAN 50 MG TABLET 100 MG PO (10:09)
[2019-08-11] MEDS: ENOXAPARIN 30 MG/0.3 ML SYRINGE SUBCUT (10:09)
--- NOTE | 2019-08-11 11:36 | DIET.PN ---
Dietary Note Assessment: Ms. Lin is a 83 yof admitted for GI blockage with complaints of vomiting and abdominal pain. She reports hx of previous intestinal surgery r/t obstruction in April. HT: 154.64cm WT: 35.3 BMI: 14.7 Labs: Na: 146 Gluc: 116 MNA: 7 (malnourished) unclear if weights are accurate Milo: 19 Nutrition Diagnosis: Acute severe pcm r/t GI complications/obstruction aeb energy intake <50%EER, GI symptoms (N/V/Abd pain), BMI < 16, hx of bowel obstruction. Interventions: 1. Discussed low residue diet with patient. Recommended 8-10 g/day. Provided handouts on foods recommended and foods to avoid. 2. Discussed importance of protein and recommended amounts. 3. Discussed fluid intake and aiming for >64oz/day. 4. Discussed importance of cooked veg and peeling the skin before consumption of all produce. 5. Will order ONS ensure enlive if PO <70%. Diet Order: General EER: Basilio: 1200 basilio @ 25 basilio/kg IBW Pro: 57g @ 1.2g/kg IBW Monitoring/Evaluations: Weight, PO intake, Need for ONS
[2019-08-11 12:16] VITALS: BP 136/84; PULSE 98; RESP 15; TEMP 36.6; O2SAT 96
--- NOTE | 2019-08-11 13:12 | PC.NURSE ---
Discharge: IV dc'd previously. Reviewed all instructions thoroughly with patient. Only new script (Cipro) was called in to [facility] per patient request. Given phone #'s of 3 PCP offices in [facility] and [facility] management). Was seen by dietary and given info on low fiber/residue diet. Verbalized understanding of d/c info and stated no further questions. All belongings sent with patient at discharge. Wheeled out to private vehicle by nursing staff.
--- NOTE | 2019-08-18 10:11 | PC.NURSE ---
late entry: Potassium chloride stopped 08/10 4110
== END 2019-08-11 13:19 | disposition home or self-care (01) ==
LOC: ED 13:30 → AC 18:08
PROVIDERS: Emergency Medicine; Admitting Provider Specialist; Emergency Provider Nurse Practitioner Family; Visit Provider Specialist
DX: R10.9 Unspecified abdominal pain (principal); I10 Essential (primary) hypertension; R11.2 Nausea with vomiting, unspecified; Z23 Encounter for immunization; K21.9 Gastro-esophageal reflux disease without esophagitis; R82.90 Unspecified abnormal findings in urine
CPT/HCPCS: 36415; 74018; 74177; 74250; 80048; 80053; 81003; 81015; 83605; 83690; 83735; 85025; 85610; 85730; 87077; 87086; 87186; 90471; 90656; 93005; 94762; 96361; 96365; 96366; 96372; 96375; 99219; 99224; 99283; 99285; G0378; C9113; J0744; J1650; J2405; J3480; Q2038; Q9967

== ENCOUNTER → 2020-08-27 09:24 | Outpatient (CLI) | payer OTHER, SELFPAY ==
[2019-08-09 21:03] VITALS: BMI 14.7
[2020-08-27 10:00] LABS: Add Manual Diff / Slide Review NO; Basophils Absolute Auto 0 /uL (0-100); Basophils Percent Auto 0.7 % (0-2); Eosinophils Absolute Auto 100 /uL (0-450); Eosinophils Percent Auto 2.3 % (2-4); Hematocrit 37.4 % (36-46); Hemoglobin 12.7 g/dL (12.0-16.0); Lymphocytes Absolute Auto 900 /uL (1100-4500); Lymphocytes Percent Auto 19.6 % (25-40); Mean Corpuscular HGB Conc 33.9 % (30-36); Mean Corpuscular Hemoglobin 31.7 PG (26-34); Mean Corpuscular Volume 93.4 fL (80-100); Monocytes Absolute Auto 300 /uL (0-900); Monocytes Percent Auto 6.8 % (3-14); Neutrophils Absolute Auto 3200 /uL (1500-7000); Neutrophils Percent Auto 70.6 % (50-75); Platelet Count 223 X10^3/uL (150-400); Red Blood Cell Count 4.01 X10^6/uL (4.0-5.2); Red Cell Distribution Width 13.4 % (11.6-14.8); White Blood Cell Count 4.5 X10^3/uL (4.5-11.0)
[2020-08-27 10:37] LABS: Alanine Aminotransferase 18 IU/L (<35); Albumin 4.4 g/dL (3.5-5.0); Albumin Globulin Ratio 1.2 (1.0-2.8); Alkaline Phosphatase 54 U/L (38-126); Aspartate Aminotransferase 26 IU/L (14-36); BUN Creatinine Ratio 25.7 (6-22); Bilirubin Total 0.7 mg/dL (0.2-1.3); Blood Urea Nitrogen 18 mg/dL (7-17); Calcium 9.7 mg/dL (8.4-10.2); Carbon Dioxide 30 mmol/L (22-32); Chloride 94 mmol/L (98-107); Cholesterol 173 mg/dL (140-199); Estimated Glomerular Filt Rate > 60.0 mL/min (>60); Globulin 3.6 g/dL (1.7-4.1); Glucose 108 mg/dL (80-110); HDL Cholesterol 46 mg/dL (40-60); HEMOLYSIS < 15 (0-50); LDL Cholesterol Calculated 107 mg/dL (<100); Potassium 4.2 mmol/L (3.4-5.1); Sodium 130 mmol/L (137-145); Triglycerides 100 mg/dL (35-150)
[2020-08-27 11:03] LABS: TSH w/ Reflex to FT4 1.75 uIU/mL (0.47-4.68)
== END ==
PROVIDERS: PCP Registered Nurse Diabetes Educator; Referring Provider Registered Nurse Diabetes Educator; Visit Provider Registered Nurse Diabetes Educator
DX: Z00.00 Encounter for general adult medical examination without abnormal findings (principal)
CPT/HCPCS: 36415; 80053; 80061; 84443; 85025

== ENCOUNTER → 2020-09-20 14:53 | Outpatient (CLI) | payer OTHER, SELFPAY ==
[2019-08-09 21:03] VITALS: BMI 14.7
[2020-09-20 17:12] LABS: BUN Creatinine Ratio 25.3 (6-22); Blood Urea Nitrogen 21 mg/dL (7-17); Calcium 9.6 mg/dL (8.4-10.2); Carbon Dioxide 32 mmol/L (22-32); Chloride 100 mmol/L (98-107); Estimated Glomerular Filt Rate > 60.0 mL/min (>60); Glucose 108 mg/dL (80-110); HEMOLYSIS < 15 (0-50); Potassium 3.8 mmol/L (3.4-5.1); Sodium 136 mmol/L (137-145)
== END ==
PROVIDERS: PCP Registered Nurse Diabetes Educator; Referring Provider Registered Nurse Diabetes Educator; Visit Provider Registered Nurse Diabetes Educator
DX: E87.1 Hypo-osmolality and hyponatremia (principal)
CPT/HCPCS: 36415; 80048

== ENCOUNTER → 2020-10-07 16:26 | Outpatient (CLI) | payer OTHER, SELFPAY ==
[2019-08-09 21:03] VITALS: BMI 14.7
[2020-10-07 17:23] LABS: BUN Creatinine Ratio 22.5 (6-22); Blood Urea Nitrogen 18 mg/dL (7-17); Calcium 9.9 mg/dL (8.4-10.2); Carbon Dioxide 28 mmol/L (22-32); Chloride 104 mmol/L (98-107); Estimated Glomerular Filt Rate > 60.0 mL/min (>60); Glucose 116 mg/dL (80-110); HEMOLYSIS < 15 (0-50); Potassium 4.1 mmol/L (3.4-5.1); Sodium 137 mmol/L (137-145)
== END ==
PROVIDERS: PCP Registered Nurse Diabetes Educator; Referring Provider Registered Nurse Diabetes Educator; Visit Provider Registered Nurse Diabetes Educator
DX: I10 Essential (primary) hypertension (principal)
CPT/HCPCS: 36415; 80048

== ENCOUNTER → 2020-10-25 13:09 | Outpatient (CLI) | payer OTHER, SELFPAY ==
[2019-08-09 21:03] VITALS: BMI 14.7
[2020-10-25 14:27] LABS: BUN Creatinine Ratio 27.8 (6-22); Blood Urea Nitrogen 22 mg/dL (7-17); Calcium 9.7 mg/dL (8.4-10.2); Carbon Dioxide 28 mmol/L (22-32); Chloride 98 mmol/L (98-107); Estimated Glomerular Filt Rate > 60.0 mL/min (>60); Glucose 116 mg/dL (80-110); HEMOLYSIS < 15 (0-50); Potassium 4.4 mmol/L (3.4-5.1); Sodium 134 mmol/L (137-145)
== END ==
PROVIDERS: PCP Registered Nurse Diabetes Educator; Referring Provider Registered Nurse Diabetes Educator; Visit Provider Registered Nurse Diabetes Educator
DX: F32.9 Major depressive disorder, single episode, unspecified (principal)
CPT/HCPCS: 36415; 80048

== ENCOUNTER → 2021-01-12 09:06 | Outpatient (CLI) | payer MEDICARE, SELFPAY ==
[2019-08-09 21:03] VITALS: BMI 14.7
[2021-01-12 13:35] LABS: COVID19 -Nasal RAPID Negative (Negative)
== END ==
PROVIDERS: PCP Registered Nurse Diabetes Educator; Visit Provider Student in an Organized Health Care Education/Training Program
DX: Z20.822 Contact with and (suspected) exposure to COVID-19 (principal)
CPT/HCPCS: 87635; C9803

== ENCOUNTER → 2021-06-21 15:14 | Outpatient (CLI) | payer MEDICARE, SELFPAY ==
[2021-03-28 11:43] VITALS: BMI 14.7
[2021-06-21 16:39] LABS: BUN Creatinine Ratio 31.2 (6-22); Blood Urea Nitrogen 29 mg/dL (7-17); Calcium 9.8 mg/dL (8.4-10.2); Carbon Dioxide 27 mmol/L (22-32); Chloride 104 mmol/L (98-107); Estimated Glomerular Filt Rate 57.4 mL/min (>60); Glucose 88 mg/dL (80-110); HEMOLYSIS < 15 (0-50); Potassium 4.6 mmol/L (3.4-5.1); Sodium 139 mmol/L (137-145)
== END ==
PROVIDERS: PCP Registered Nurse Diabetes Educator; Referring Provider Registered Nurse Diabetes Educator; Visit Provider Registered Nurse Diabetes Educator
DX: Z51.81 Encounter for therapeutic drug level monitoring (principal)
CPT/HCPCS: 36415; 80048

== ENCOUNTER 2021-07-14 16:35 | Inpatient (IN) | payer MEDICARE, SELFPAY ==
[2021-03-28 11:43] VITALS: BMI 14.7
[2021-07-14 16:43] VITALS: BP 171/91; PULSE 100; RESP 16; TEMP 36.8; O2SAT 95; BMI 23.0
[2021-07-14 17:29] LABS: Add Manual Diff / Slide Review NO; Basophils Absolute Auto 0 /uL (0-100); Basophils Percent Auto 0.4 % (0-2); Eosinophils Absolute Auto 0 /uL (0-450); Eosinophils Percent Auto 0.4 % (2-4); Hematocrit 41.7 % (36-46); Hemoglobin 14.4 g/dL (12.0-16.0); Lymphocytes Absolute Auto 1300 /uL (1100-4500); Lymphocytes Percent Auto 15.3 % (25-40); Mean Corpuscular HGB Conc 34.5 % (30-36); Mean Corpuscular Hemoglobin 31.7 PG (26-34); Mean Corpuscular Volume 91.9 fL (80-100); Monocytes Absolute Auto 500 /uL (0-900); Monocytes Percent Auto 5.4 % (3-14); Neutrophils Absolute Auto 6900 /uL (1500-7000); Neutrophils Percent Auto 78.5 % (50-75); Platelet Count 262 X10^3/uL (150-400); Red Blood Cell Count 4.53 X10^6/uL (4.0-5.2); Red Cell Distribution Width 13.6 % (11.6-14.8); White Blood Cell Count 8.8 X10^3/uL (4.5-11.0)
[2021-07-14] MEDS: ONDANSETRON 4 MG/2 ML INJ (17:30)
[2021-07-14 17:40] LABS: Alanine Aminotransferase 29 IU/L (<35); Albumin 4.8 g/dL (3.5-5.0); Albumin Globulin Ratio 1.4 (1.0-2.8); Alkaline Phosphatase 65 U/L (38-126); Aspartate Aminotransferase 39 IU/L (14-36); BUN Creatinine Ratio 33.3 (6-22); Bilirubin Total 0.8 mg/dL (0.2-1.3); Blood Urea Nitrogen 27 mg/dL (7-17); Calcium 10.8 mg/dL (8.4-10.2); Carbon Dioxide 32 mmol/L (22-32); Chloride 97 mmol/L (98-107); Estimated Glomerular Filt Rate > 60.0 mL/min (>60); Globulin 3.5 g/dL (1.7-4.1); Glucose 127 mg/dL (80-110); HEMOLYSIS < 15 (0-50); Lipase 215 U/L (23-300); Potassium 3.9 mmol/L (3.4-5.1); Sodium 139 mmol/L (137-145); Total Protein 8.3 g/dL (6.3-8.2)
--- NOTE | 2021-07-14 17:40 | ED.ABDPAIN ---
HPI - Abdominal Pain <Alex Chu PA-C - Last Filed: 07/15/21 15:45> General Chief Complaint: Abdominal Pain Stated Complaint: Possible Bowel Obstruction Time Seen by Provider: 07/14/21 17:37 Source: patient and family Mode of arrival: Wheelchair Limitations: no limitations History of Present Illness HPI narrative: Hortencia presents today with chief complaint of abdominal pain, distension, not passing any gas, nausea with vomiting. She reports that her symptoms started Sunday night after she had a small hamburger. She has had multiple bowel obstructions over the last few years and reports that this feels the same as her last 1. She denies any fever, urinary symptoms, blood in her stool, rash or any other acute concerns or complaints at this time. She is vaccinated for COVID. Related Data Home Medications Medication Instructions Recorded Confirmed Bifidobacterium infantis 4 mg 4 mg PO DAILY 08/24/20 01/05/21 capsule (Align) cholecalciferol (vitamin D3) PO 08/24/20 01/05/21 loperamide 2 mg tablet (Imodium 2 mg PO Q6H PRN 08/24/20 01/05/21 A-D) magnesium chloride PO 08/24/20 01/05/21 psyllium husk (with sugar) 3.4 1 tbsp PO DAILY 08/24/20 01/05/21 gram/12 gram oral powder (Metamucil (with sugar)) triamcinolone acetonide 55 mcg 1 spray NASAL DAILY 08/24/20 01/05/21 nasal spray aerosol (Nasacort) vitamin B complex [B PO 08/24/20 01/05/21 Complex-Vitamin B12] Previous Rx's Medication Instructions Recorded losartan 100 mg tablet 100 mg PO DAILY #90 tab 10/11/20 omeprazole 20 mg capsule,delayed 20 mg PO DAILY #90 cap 12/16/20 release furosemide 20 mg tablet (Lasix) 10 mg PO QAM #30 tab 06/07/21 ketoconazole 2 % topical cream 1 applic TOPICAL BID #60 g 06/07/21 Allergies Allergy/AdvReac Type Severity Reaction Status Date / Time Sulfa (Sulfonamide Allergy Unknown Verified 01/05/21 13:40 Antibiotics) trimethaphan Allergy Unknown Verified 01/05/21 13:40 Review of Systems <Alex Chu PA-C - Last Filed: 07/15/21 15:45> Review of Systems Narrative: As per HPI Patient History <Alex Chu PA-C - Last Filed: 07/15/21 15:45> Medical History Abnormal Pap smear of cervix (~2001) Anxiety (~1977) Cervical cancer Depression (~1977) GERD (gastroesophageal reflux disease) (~1989) Hemorrhoid (~1959) Hernia, perineal History of bladder cancer (~2002) History of cervical cancer (~2002) History of urinary incontinence (~2019) History of uterine cancer (~2002) Human papilloma virus (~2001) Hypertension Measles (~194) Recurrent sinusitis (~1964) Surgical History Anesthesia History of cholecystectomy (~2001) History of hemorrhoidectomy (~1970) History of radical hysterectomy History of urostomy Family History Father Cancer Mother Hypertension Mental health problem Grandfather Diabetes mellitus Grandmother Diabetes mellitus Grandmother Diabetes mellitus Social History (Updated 08/09/19 @ 16:03 by ROBINSON Kee) household members: children Smoking Status: Former smoker Smoking Status: Current some day smoker tobacco type: vaping alcohol intake frequency: 0-2 drinks per day Alcohol type: wine Substance Use Type: does not use Exam <Alex Chu PA-C - Last Filed: 07/15/21 15:45> Narrative Exam Narrative: Exam Narrative: Const General: cooperative, healthy appearing, comfortable, no acute distress, well developed and well groomed Nutritional Appearance: average body habitus Orientation: alert and oriented x3 HENMT Head: normal to inspection and atraumatic Ears: hearing grossly normal bilaterally Nose: external nose normal and nares normal Face and sinus: normal facial exam Neck Neck: normal visual inspection and supple Resp Effort & Inspection: normal respiratory effort, able to speak in complete sentences, no audible wheezes, not labored, no nasal flaring and no respiratory distress, clear to auscultation bilaterally GI Nondistended, generalized mild tenderness with palpation. Decreased bowel sounds. Neuro General: alert, oriented x3, gait normal, tone normal and moves all extremities Cognition: normal cognition Speech: speech normal Gait: normal gait Psych Appearance: grossly normal and well kempt Mental Status: mental status grossly normal Speech and Movement: speech and movement normal Mood: congruent mood Affect: normal affect Initial Vital Signs Initial Vital Signs: Vital Signs Temperature 98.3 F 07/14/21 16:43 Pulse Rate 100 H 07/14/21 16:43 Respiratory Rate 16 07/14/21 16:43 Blood Pressure 171/91 H 07/14/21 16:43 Pulse Oximetry 95 07/14/21 16:43 <Dread Aviles DO - Last Filed: 07/18/21 07:32> Initial Vital Signs Initial Vital Signs: Vital Signs Temperature 98.3 F 07/14/21 16:43 Pulse Rate 100 H 07/14/21 16:43 Respiratory Rate 16 07/14/21 16:43 Blood Pressure 171/91 H 07/14/21 16:43 Pulse Oximetry 95 07/14/21 16:43 Course <Alex Chu PA-C - Last Filed: 07/15/21 15:45> Orders Ordered: Discontinued Medications Acetaminophen (Acetaminophen 325 Mg Tablet) 650 mg PO Q6HR PRN PRN Reason: Fever/Mild Pain (1-3) Last Admin: 07/15/21 13:21 Dose: 650 mg Documented by: BENSON Sodium Chloride (Normal Saline 0.9%) 1,000 mls @ 150 mls/hr IV CONT SMILEY Last Admin: 07/15/21 07:35 Dose: Not Given Documented by: BENSON Dextrose/Sodium Chloride (Dextrose 5%-0.45% Ns) 1,000 mls @ 100 mls/hr IV CONT SMILEY Last Infusion: 07/15/21 15:22 Dose: 0 mls/hr Documented by: Admin: 07/15/21 10:36 Dose: 100 mls/hr Documented by: Infusion: 07/15/21 10:35 Dose: 0 mls/hr Documented by: Admin: 07/14/21 22:22 Dose: 100 mls/hr Documented by: ZAK Sodium Chloride (Normal Saline 0.9%) 1,000 mls @ 150 mls/hr IV CONT SMILEY Last Admin: 07/15/21 07:35 Dose: Not Given Documented by: BENSON Morphine Sulfate (Morphine 2 Mg/Ml Inj) 2 mg IV Q4HR PRN PRN Reason: Pain, Moderate (4-6) Naloxone HCl (Naloxone 0.4 Mg/Ml Vial) 0.2 mg IV Q2MIN PRN PRN Reason: Opiate Reversal Ondansetron HCl (Ondansetron 4 Mg/2 Ml Inj) 4 mg IV NOW ONE Stop: 07/14/21 18:52 Last Admin: 07/14/21 18:53 Dose: 4 mg Documented by: NUIRS Ondansetron HCl (Ondansetron 4 Mg/2 Ml Inj) 4 mg IV Q8HR PRN PRN Reason: Nausea And Vomiting Last Admin: 07/15/21 08:08 Dose: 4 mg Documented by: BENSON Vital Signs Vital signs: Vital Signs - 8 hr 07/14/21 16:43 Temperature 98.3 F Pulse Rate 100 H Respiratory Rate 16 Blood Pressure 171/91 H Pulse Oximetry 95 <Dread Aviles DO - Last Filed: 07/18/21 07:32> Orders Ordered: Discontinued Medications Acetaminophen (Acetaminophen 325 Mg Tablet) 650 mg PO Q6HR PRN PRN Reason: Fever/Mild Pain (1-3) Last Admin: 07/15/21 13:21 Dose: 650 mg Documented by: BENSON Sodium Chloride (Normal Saline 0.9%) 1,000 mls @ 150 mls/hr IV CONT [facility] Last Admin: 07/15/21 07:35 Dose: Not Given Documented by: BENSON Dextrose/Sodium Chloride (Dextrose 5%-0.45% Ns) 1,000 mls @ 100 mls/hr IV CONT [facility] Last Infusion: 07/15/21 15:22 Dose: 0 mls/hr Documented by: Admin: 07/15/21 10:36 Dose: 100 mls/hr Documented by: Infusion: 07/15/21 10:35 Dose: 0 mls/hr Documented by: Admin: 07/14/21 22:22 Dose: 100 mls/hr Documented by: ZAK Sodium Chloride (Normal Saline 0.9%) 1,000 mls @ 150 mls/hr IV CONT [facility] Last Admin: 07/15/21 07:35 Dose: Not Given Documented by: BENSON Morphine Sulfate (Morphine 2 Mg/Ml Inj) 2 mg IV Q4HR PRN PRN Reason: Pain, Moderate (4-6) Naloxone HCl (Naloxone 0.4 Mg/Ml Vial) 0.2 mg IV Q2MIN PRN PRN Reason: Opiate Reversal Ondansetron HCl (Ondansetron 4 Mg/2 Ml Inj) 4 mg IV NOW ONE Stop: 07/14/21 18:52 Last Admin: 07/14/21 18:53 Dose: 4 mg Documented by: NURIS Ondansetron HCl (Ondansetron 4 Mg/2 Ml Inj) 4 mg IV Q8HR PRN PRN Reason: Nausea And Vomiting Last Admin: 07/15/21 08:08 Dose: 4 mg Documented by: BENSON Vital Signs Vital signs: Vital Signs - 8 hr 07/14/21 16:43 Temperature 98.3 F Pulse Rate 100 H Respiratory Rate 16 Blood Pressure 171/91 H Pulse Oximetry 95 MDM - Abdominal Pain <Alex Chu PA-C - Last Filed: 07/15/21 15:45> Lab Data Result diagrams: 07/14/21 17:20 07/14/21 17:20 Labs: Lab Results 07/14/21 07/14/21 07/14/21 Range/Units 17:20 17:20 18:55 WBC 8.8 (4.5-11.0) X10^3/uL RBC 4.53 (4.0-5.2) X10^6/uL Hgb 14.4 (12.0-16.0) g/dL Hct 41.7 (36-46) % MCV 91.9 (80-100) fL MCH 31.7 (26-34) PG MCHC 34.5 (30-36) % RDW 13.6 (11.6-14.8) % Plt Count 262 (150-400) X10^3/uL Neut % (Auto) 78.5 H (50-75) % Lymph % (Auto) 15.3 L (25-40) % Benson % (Auto) 5.4 (3-14) % Eos % (Auto) 0.4 L (2-4) % Baso % (Auto) 0.4 (0-2) % Neut # (Auto) 6900 (2207-0292) /uL Lymph # (Auto) 1300 (3788-3966) /uL [place] # (Auto) 500 (0-900) /uL Eos # (Auto) 0 (0-450) /uL Baso # (Auto) 0 (0-100) /uL Sodium 139 (137-145) mmol/L Potassium 3.9 (3.4-5.1) mmol/L Chloride 97 L (98-107) mmol/L Carbon Dioxide 32 (22-32) mmol/L BUN 27 H (7-17) mg/dL Creatinine 0.81 (0.52-1.04) mg/dL Estimated GFR > 60.0 (>60) mL/min BUN/Creatinine Ratio 33.3 H (6-22) Glucose 127 H (80-110) mg/dL Calcium 10.8 H (8.4-10.2) mg/dL Total Bilirubin 0.8 (0.2-1.3) mg/dL AST 39 H (14-36) IU/L ALT 29 (<35) IU/L Alkaline Phosphatase 65 (38-126) U/L Total Protein 8.3 H (6.3-8.2) g/dL Albumin 4.8 (3.5-5.0) g/dL Globulin 3.5 (1.7-4.1) g/dL Albumin/Globulin Ratio 1.4 (1.0-2.8) Lipase 215 (23-300) U/L SARS-CoV-2 (PCR) Negative (Negative) MDM Narrative Medical decision making narrative: Patient has a bowel obstruction diagnosed on CT scan. I consulted with General surgery Dr. Goodman and he agreed to admit this patient. No obvious evidence of infection at this time. All of this was discussed with the patient and she agreed to the plan. <Dread Aviles, DO - Last Filed: 07/18/21 07:32> Lab Data Labs: Lab Results 07/14/21 07/14/21 07/14/21 Range/Units 17:20 17:20 18:55 WBC 8.8 (4.5-11.0) X10^3/uL RBC 4.53 (4.0-5.2) X10^6/uL Hgb 14.4 (12.0-16.0) g/dL Hct 41.7 (36-46) % MCV 91.9 (80-100) fL MCH 31.7 (26-34) PG MCHC 34.5 (30-36) % RDW 13.6 (11.6-14.8) % Plt Count 262 (150-400) X10^3/uL Neut % (Auto) 78.5 H (50-75) % Lymph % (Auto) 15.3 L (25-40) % Benson % (Auto) 5.4 (3-14) % Eos % (Auto) 0.4 L (2-4) % Baso % (Auto) 0.4 (0-2) % Neut # (Auto) 6900 (9081-1302) /uL Lymph # (Auto) 1300 (0801-9090) /uL Benson # (Auto) 500 (0-900) /uL Eos # (Auto) 0 (0-450) /uL Baso # (Auto) 0 (0-100) /uL Sodium 139 (137-145) mmol/L Potassium 3.9 (3.4-5.1) mmol/L Chloride 97 L (98-107) mmol/L Carbon Dioxide 32 (22-32) mmol/L BUN 27 H (7-17) mg/dL Creatinine 0.81 (0.52-1.04) mg/dL Estimated GFR > 60.0 (>60) mL/min BUN/Creatinine Ratio 33.3 H (6-22) Glucose 127 H (80-110) mg/dL Calcium 10.8 H (8.4-10.2) mg/dL Total Bilirubin 0.8 (0.2-1.3) mg/dL AST 39 H (14-36) IU/L ALT 29 (<35) IU/L Alkaline Phosphatase 65 (38-126) U/L Total Protein 8.3 H (6.3-8.2) g/dL Albumin 4.8 (3.5-5.0) g/dL Globulin 3.5 (1.7-4.1) g/dL Albumin/Globulin Ratio 1.4 (1.0-2.8) Lipase 215 (23-300) U/L SARS-CoV-2 (PCR) Negative (Negative) Discharge Plan Departure Patient Disposition: Admitted As Inpatient Clinical Impression: Partial obstruction of small intestine Admit Date/Time: 07/14/21 20:36 Admit Provider: Yao Goodman
--- NOTE | 2021-07-14 17:52 | DI.CT.S_ITS ---
PROCEDURE: CT ABDOMEN PELVIS W CON INDICATIONS: possible bowel obstruction TECHNIQUE: After the administration of oral and IV contrast, axial sections were acquired from the lung bases to the pubic symphysis. Coronal and sagittal reformats were performed. For radiation dose reduction, the following was used: automated exposure control, adjustment of mA and/or kV according to patient size. COMPARISON: [facility], CT, CT ABDOMEN PELVIS W CON, 08/09/2019, 15:08. FINDINGS: Lower thorax: The lung bases are clear. Heart size normal. No hiatal hernia. Liver: Normal in size and attenuation. No contour deformity present. Biliary system: Cholecystectomy. No intra or extrahepatic bile duct dilation. Pancreas: Unremarkable without mass or inflammation evident. Spleen: Benign-appearing 1.9 cm low-density splenic lesion remains unchanged Adrenals: Normal morphology and density. Reproductive system: Unremarkable as visualized. Urinary system: Old right renal scar noted. Prior cystectomy associated with presacral soft tissue thickening, stable from the prior. There is an ostomy in the right lower quadrant. Gastrointestinal system: Fluid distension of the proximal small bowel measuring up to 3.8 cm in diameter, and the distal most small bowel is decompressed. The transition in the right lower quadrant was there is bowel wall edema several surgical clips present. Several foci bowel anastomosis Appendix: No findings to suggest acute appendicitis. Peritoneal spaces: No mesenteric or retroperitoneal adenopathy. No free air. No free fluid. Vasculature: The IVC, aorta and iliac vasculature are unremarkable. Musculoskeletal: Normal bone mineralization. Degenerative disc disease and arthropathy noted in lower lumbar spine. Severe central stenosis noted at L3-4. No acute fractures. Abdominal wall intact without evidence of ventral or inguinal hernias. IMPRESSION: 1. Small-bowel obstruction. Proximal small bowel is dilated to 3.8 cm, distal small bowel is decompressed. Transition point in the right lower quadrant. 2. Cystectomy and associated right lower quadrant ostomy, stable from the prior Approved by: Munir Bautista M.D. on 07/14/2021 at 17:30
[2021-07-14] MEDS: ONDANSETRON 4 MG/2 ML INJ IV (18:53)
--- NOTE | 2021-07-14 19:57 | DI.RAD.S_ITS ---
PROCEDURE: XR CHEST 1V INDICATIONS: NG tube placement TECHNIQUE: One view of the chest was acquired. COMPARISON: None. FINDINGS: Surgical changes and devices: Nasogastric tube has been placed. Distal side port appears to be near the level of the gastroesophageal junction. Lungs and pleura: Lungs are clear. No pleural effusions or pneumothorax. Mediastinum: Mediastinal contours appear normal. Heart size is normal. Bones and chest wall: No suspicious bony lesions. Overlying soft tissues appear unremarkable. IMPRESSION: Nasogastric tube is in place with the distal tip projecting below the level of the diaphragm. However, the distal side port appears to project at the level of the gastroesophageal junction. Recommend repositioning by advancing approximately 6 cm. Dictated by: Alberto Mei M.D. on 07/14/2021 at 20:12 Approved by: Alberto Mei M.D. on 07/14/2021 at 20:14
[2021-07-14 20:22] LABS: COVID19 - ADMIT (NP swab/PCR) Negative (Negative)
[2021-07-14 21:00] VITALS: BP 188/95; PULSE 90; RESP 16; TEMP 36.7; O2SAT 97
--- NOTE | 2021-07-14 21:07 | P.HP_ITS ---
History of Present Illness History of Present Illness Date Patient Seen: 07/14/21 Time Patient Seen: 21:07 Date of Onset of Symptoms: 07/14/21 Chief complaint: Possible Bowel Obstruction Narrative: Started having abdominal cramping, Nausea and vomiting earlier today Presented to ED, w/u revealed PSBO Patient History Medical History Abnormal Pap smear of cervix (~2001) Anxiety (~1977) Cervical cancer Depression (~1977) GERD (gastroesophageal reflux disease) (~1989) Hemorrhoid (~1959) Hernia, perineal History of bladder cancer (~2002) History of cervical cancer (~2002) History of urinary incontinence (~2019) History of uterine cancer (~2002) Human papilloma virus (~2001) Hypertension Measles (~194) Recurrent sinusitis (~1964) Surgical History Anesthesia History of cholecystectomy (~2001) History of hemorrhoidectomy (~1970) History of radical hysterectomy History of urostomy Comment: Major abdominal surgery including pelvic hernia and abdominal wall repair at in December Family & Social History Family History Father Cancer Mother Hypertension Mental health problem Grandfather Diabetes mellitus Grandmother Diabetes mellitus Grandmother Diabetes mellitus Social History: household members none Safety & Behavioral: Feels Safe in Current Yes Environment Been Physically Hurt or No Threatened By a Person Tobacco & Substance use: Smoking Status Current some day smoker alcohol intake frequency 0-2 drinks per day Substance Use Type does not use Meds Home Medications and Allergies Home Medications Medication Instructions Recorded Confirmed Type Bifidobacterium infantis 4 mg 4 mg PO DAILY 08/24/20 01/05/21 History capsule (Align) cholecalciferol (vitamin D3) PO 08/24/20 01/05/21 History loperamide 2 mg tablet (Imodium 2 mg PO Q6H PRN 08/24/20 01/05/21 History A-D) magnesium chloride PO 08/24/20 01/05/21 History psyllium husk (with sugar) 3.4 1 tbsp PO DAILY 08/24/20 01/05/21 History gram/12 gram oral powder (Metamucil (with sugar)) triamcinolone acetonide 55 mcg 1 spray NASAL DAILY 08/24/20 01/05/21 History nasal spray aerosol (Nasacort) vitamin B complex [B PO 08/24/20 01/05/21 History Complex-Vitamin B12] losartan 100 mg tablet 100 mg PO DAILY #90 tab 10/11/20 01/05/21 Rx omeprazole 20 mg capsule,delayed 20 mg PO DAILY #90 cap 12/16/20 01/05/21 Rx release furosemide 20 mg tablet (Lasix) 10 mg PO QAM #30 tab 06/07/21 06/07/21 Rx ketoconazole 2 % topical cream 1 applic TOPICAL BID #60 g 06/07/21 06/07/21 Rx Allergies Allergy/AdvReac Type Severity Reaction Status Date / Time Sulfa (Sulfonamide Allergy Unknown Verified 01/05/21 13:40 Antibiotics) trimethaphan Allergy Unknown Verified 01/05/21 13:40 Review of Systems Review of Systems ROS: Yes All systems reviewed with the patient and are negative except as otherwise documented Gastrointestinal Gastrointestinal: Reports abdominal pain, Reports bloating, Reports cramping, Reports nausea and Reports vomiting Exam Vital Signs (past 8 hours): - 07/14/21 16:43 Temperature 98.3 F Pulse Rate 100 H Respiratory Rate 16 Blood Pressure 171/91 H Pulse Oximetry 95 Oxygen Delivery Method Room Air Narrative Exam Narrative: She is a healthy appearing older lady in NAD Const General: cooperative HENMT Head: normal to inspection Face and sinus: normal facial exam Eyes General: appearance normal, both eyes and all related structures Pupils: PERRL EOM: EOM intact bilaterally Neck Neck: normal visual inspection and full ROM Resp Effort & Inspection: normal respiratory effort and able to speak in complete sentences Auscultation: clear to auscultation bilaterally Cardio Rate: regular rate Rhythm: regular rhythm GI Inspection: distended (mildly) and scar Palpation: soft Auscultation: hypoactive bowel sounds Skin General: dry skin and warm Neuro General: patient alert and patient awake Extrem General: normal to inspection and no pedal edema Psych Speech and Movement: speech and movement normal Affect: normal affect Attitude: cooperative Thought Process: normal Thought Content: normal Judgment: judgment good Objective Labs Result Diagrams: 07/14/21 17:20 07/14/21 17:20 Labs: Laboratory Results - last 24 hr 07/14/21 07/14/21 07/14/21 17:20 17:20 18:55 WBC 8.8 RBC 4.53 Hgb 14.4 Hct 41.7 MCV 91.9 MCH 31.7 MCHC 34.5 RDW 13.6 Plt Count 262 Neut % (Auto) 78.5 H Lymph % (Auto) 15.3 L [place] % (Auto) 5.4 Eos % (Auto) 0.4 L Baso % (Auto) 0.4 Neut # (Auto) 6900 Lymph # (Auto) 1300 [place] # (Auto) 500 Eos # (Auto) 0 Baso # (Auto) 0 Sodium 139 Potassium 3.9 Chloride 97 L Carbon Dioxide 32 BUN 27 H Creatinine 0.81 Estimated GFR > 60.0 BUN/Creatinine Ratio 33.3 H Glucose 127 H Calcium 10.8 H Total Bilirubin 0.8 AST 39 H ALT 29 Alkaline Phosphatase 65 Total Protein 8.3 H Albumin 4.8 Globulin 3.5 Albumin/Globulin Ratio 1.4 Lipase 215 SARS-CoV-2 (PCR) Negative Assessment & Plan Assessment & Plan narrative: Partial Small Bowel Obstruction Admit, NG suction, IVF's, Gastrograffin challenge in AM Time Spent With Patient Time with patient: 30 to 49 minutes with 50% spent counseling/coordinating care Critical Care time: I spent a total of [] minutes of critical care time on this patient's care today; this time is exclusive of procedural time.
[2021-07-14 21:39] VITALS: BMI 23.0
[2021-07-14] MEDS: DEXTROSE 5%-0.45% NS 1,000 ML 100 ML IV (22:22)
[2021-07-14 23:00] VITALS: O2SAT 95
[2021-07-15] VITALS: BP 143/93; PULSE 90; RESP 16; TEMP 36.6; O2SAT 95
--- NOTE | 2021-07-15 00:14 | PC.ADMIT ---
[email or web address] Admission Note: Patient arrived to floor at 21:00 via wheelchair. Alert and oriented x 4, able to make needs known. Shown how to use call light and brakes on bed locked. The patient,Hortencia Lin,85 y/o, was given written information regarding hospital policies, unit procedures and contact persons. Patient's smoking status: Former smoker. Vital Signs - 8 hr 07/14/21 16:43 07/14/21 21:00 Temperature 98.3 F 98.1 F Pulse Rate 100 H 90 Respiratory Rate 16 16 Blood Pressure 171/91 H 188/95 H Pulse Oximetry 95 97
[2021-07-15 05:25] VITALS: BP 154/76; PULSE 87; RESP 16; TEMP 36.1; O2SAT 92
--- NOTE | 2021-07-15 06:00 | DI.RAD.S_ITS ---
PROCEDURE: XR GASTROGRAFIN CHALLENGE COMPARISON: [facility], CT, CT ABDOMEN PELVIS W CON, 07/14/2021, 18:03. INDICATIONS: SBO FINDINGS: Enteric tube projects over the stomach. Post cholecystectomy clips. Clips in the pelvis. Stomach is not distended. There is prominent loops of bowel in the left abdomen. Enteric contrast transits into the proximal colon at 4 hours. No suspicious osseous lesion. Lung bases are clear. IMPRESSION: Administered contrast transits into the proximal colon at 4 hours. There are mildly dilated loops of bowel in the left abdomen. Findings most consistent with partial or resolving SBO. Dictated by: Roby Juarez M.D. on 07/15/2021 at 13:37 Approved by: Roby Juarez M.D. on 07/15/2021 at 13:39
--- NOTE | 2021-07-15 06:15 | PC.NURSE ---
2 bottles administered per NGT. Patient tolerated well.
[2021-07-15 07:23] VITALS: BP 142/81; PULSE 87; RESP 18; TEMP 36.6; O2SAT 95
[2021-07-15] MEDS: ONDANSETRON 4 MG/2 ML INJ IV (08:08)
[2021-07-15] MEDS: DEXTROSE 5%-0.45% NS 1,000 ML 100 ML IV (10:36)
[2021-07-15 11:00] VITALS: O2SAT 96
--- NOTE | 2021-07-15 11:11 | CM.DANOTE ---
Patient is an 85 yo female who was admitted on 07/14/21 for Possible SBO. Pt has [facility] and [employer] for insurance and her PCP is [place] at [facility]. EMR was reviewed. Per MD, pt with possible SBO and has NG tube and IV fluids and to have SBFT today. Per RN, pt had her contrast this morning and SBFT late morning and pt has had copious amounts of liquid stool and voiding but unclear until SBFT if her SBO is resolving conservatively. SW met bedside with pt and explained role and pt confirms that she lives at [facility] in [place] and its a cond and no assistance provided and her Dtr/DPOA Katie is currently staying with her and available for assist at d/c if needed. 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 Pt denies any hx of HH or SNF and is hopeful to treat her SBO conservatively and be able to d/c home soon. Pt states her spouse in 2018 and she then moved from [place] to live here in [place] near her two adult Dtrs and pt has remained active and independent and does not anticipate any needs at d/c at this time since her Dtr Katie is available. Plan: SW to follow closely after SBFT to determine any medical needs and confirm plan of return home with Dtr Katie to stay and assist and pt has felt quite weak and r/o HH. UNRULY Currie Discharge Planning/Care Management Advanced directive, confirm from FAMILY Start: 07/14/21 23:12 Freq: Q24H Status: Active Protocol: Document 07/15/21 00:00 DL (Rec: 07/15/21 06:23 DL [id number]) Advance Directive, confirm on record Time 00:00 Person contacted patient Copy received No CM Discharge Assessment Start: 07/15/21 11:09 Freq: Status: Active Protocol: Document 07/15/21 11:09 BF (Rec: 07/15/21 11:11 BF [id number]) Discharge Planning Assessment Assigned Blood Bank Worker UNRULY Sparrow DPXI/Assigned Designee Name Dtr Katie Mock Contact Information [phone] Advance Directives? Yes Advance Directives on File No History Provided By Patient,Medical Record Has Patient been admitted in last 30 No days? Prior Living Arrangements Apartment/Condo Household Members children Comment Pt lives in Senior [facility] and Dtr Katie has been staying with her and available to assist if needed Type of transporation used prior to Relies on Others admit Independent with ADL's Yes Is patient alert and oriented? Yes Caregiver for Another No Barriers to Discharge No Discharge Plan Home Transportation Arrangement Dtr Katie or Dtr Edith can transport at d/c, both local Referrals Initiated None needed Additional Comment Pending pt's SBFT and progress with SBO Whiteboard Updated in Patient Room with Yes name and ext. # of Blood Bank Worker Review Status In Process Please Provide Date Initial DC 07/15/21 Assessment Was Performed Next Review Type Continued Stay Review
[2021-07-15 11:32] VITALS: BP 145/87; PULSE 84; RESP 16; TEMP 36.6; O2SAT 98
[2021-07-15] MEDS: ACETAMINOPHEN 325 MG TABLET 650 MG PO (13:21)
--- NOTE | 2021-07-15 13:33 | P.PN_ITS ---
Subjective Subjective Time Patient Seen: 11:30 Interval history: Feels much better. + Flatus, multiple BM's Exam Vital Signs (past 8 hours): - 07/15/21 07:23 07/15/21 11:00 07/15/21 11:32 Temperature 97.9 F 97.8 F Pulse Rate 87 84 Respiratory Rate 18 16 Blood Pressure 142/81 H 145/87 H Pulse Oximetry 95 96 98 Oxygen Delivery Method Room Air Oxygen Flow Rate 0 GI Palpation: soft Objective Labs Result Diagrams: 07/14/21 17:20 07/14/21 17:20 Labs: Laboratory Results - last 24 hr 07/14/21 07/14/21 07/14/21 17:20 17:20 18:55 WBC 8.8 RBC 4.53 Hgb 14.4 Hct 41.7 MCV 91.9 MCH 31.7 MCHC 34.5 RDW 13.6 Plt Count 262 Neut % (Auto) 78.5 H Lymph % (Auto) 15.3 L [place] % (Auto) 5.4 Eos % (Auto) 0.4 L Baso % (Auto) 0.4 Neut # (Auto) 6900 Lymph # (Auto) 1300 [place] # (Auto) 500 Eos # (Auto) 0 Baso # (Auto) 0 Sodium 139 Potassium 3.9 Chloride 97 L Carbon Dioxide 32 BUN 27 H Creatinine 0.81 Estimated GFR > 60.0 BUN/Creatinine Ratio 33.3 H Glucose 127 H Calcium 10.8 H Total Bilirubin 0.8 AST 39 H ALT 29 Alkaline Phosphatase 65 Total Protein 8.3 H Albumin 4.8 Globulin 3.5 Albumin/Globulin Ratio 1.4 Lipase 215 SARS-CoV-2 (PCR) Negative [facility] Medical History Abnormal Pap smear of cervix (~2001) Anxiety (~1977) Cervical cancer Depression (~1977) GERD (gastroesophageal reflux disease) (~1989) Hemorrhoid (~1959) Hernia, perineal History of bladder cancer (~2002) History of cervical cancer (~2002) History of urinary incontinence (~2019) History of uterine cancer (~2002) Human papilloma virus (~2001) Hypertension Measles (~1945) Recurrent sinusitis (~1965) Surgical History Anesthesia History of cholecystectomy (~2001) History of hemorrhoidectomy (~1970) History of radical hysterectomy History of urostomy Family History Father Cancer Mother Hypertension Mental health problem Grandfather Diabetes mellitus Grandmother Diabetes mellitus Grandmother Diabetes mellitus Social History (Updated 08/09/19 @ 16:03 by ROBINSON Kee) household members: children Smoking Status: Former smoker Assessment & Plan Assessment & Plan narrative: PSBO Resolved with gastrograffin Clear liq diet, adv as vinay prob home later today Time Spent With Patient Time with patient: less than 30 minutes Critical Care time: I spent a total of [] minutes of critical care time on this patient's care today; this time is exclusive of procedural time. Quality VTE Deep Vein Thrombosis/Pulmonary Embolism Present on Admission: No
[2021-07-15 15:50] VITALS: BP 117/72; PULSE 81; RESP 17; TEMP 36.9; O2SAT 97
--- NOTE | 2021-07-15 16:29 | P.DS_ITS ---
History of Present Illness History of Present Illness Date Patient Seen: 07/15/21 Time Patient Seen: 16:29 Date of Onset of Symptoms: 07/13/21 Chief complaint: Possible Bowel Obstruction Narrative: Started having abdominal cramping, Nausea and vomiting earlier today Presented to ED, w/u revealed PSBO Discharge Providers Provider Date of admission: 07/14/21 20:36 Discharge Date: 07/15/21 Primary care physician: ROBINSON Murcia Discharge provider: Yao Goodman MD Summary Hospital Course Discharge Diagnosis: Partial SBO Hospital Course: Admitted, NG placed. Gastrograffin given, sbo resolved Status at Discharge Cognitive/behavioral status at discharge: oriented Functional status at discharge: independent ambulation Overall status at discharge: patient is back to baseline Time Spent with Patient Time spent: Less than 30 minutes Exam Vital Signs (past 8 hours): - 07/15/21 11:00 07/15/21 11:32 07/15/21 15:50 Temperature 97.8 F 98.5 F Pulse Rate 84 81 Respiratory Rate 16 17 Blood Pressure 145/87 H 117/72 Pulse Oximetry 96 98 97 Oxygen Delivery Method Room Air Oxygen Flow Rate 0 Const General: cooperative, healthy appearing and comfortable Orientation: alert and awake HENMT Head: normal to inspection Eyes General: appearance normal, both eyes and all related structures Pupils: PERRL EOM: EOM intact bilaterally Neck Neck: normal visual inspection and full ROM Resp Effort & Inspection: normal respiratory effort Auscultation: clear to auscultation bilaterally Cardio Rate: regular rate Rhythm: regular rhythm GI Inspection: normal to inspection Palpation: soft Skin General: dry skin and warm Other: Midline scar well healed, no hernia Neuro General: patient alert and patient awake Extrem General: normal to inspection Psych Mental Status: mental status grossly normal Speech and Movement: speech and movement normal Affect: normal affect Attitude: cooperative Thought Process: normal Thought Content: normal Judgment: judgment good Objective Labs Result Diagrams: 07/14/21 17:20 07/14/21 17:20 Labs: Laboratory Results - last 24 hr 07/14/21 07/14/21 07/14/21 17:20 17:20 18:55 WBC 8.8 RBC 4.53 Hgb 14.4 Hct 41.7 MCV 91.9 MCH 31.7 MCHC 34.5 RDW 13.6 Plt Count 262 Neut % (Auto) 78.5 H Lymph % (Auto) 15.3 L [place] % (Auto) 5.4 Eos % (Auto) 0.4 L Baso % (Auto) 0.4 Neut # (Auto) 6900 Lymph # (Auto) 1300 [place] # (Auto) 500 Eos # (Auto) 0 Baso # (Auto) 0 Sodium 139 Potassium 3.9 Chloride 97 L Carbon Dioxide 32 BUN 27 H Creatinine 0.81 Estimated GFR > 60.0 BUN/Creatinine Ratio 33.3 H Glucose 127 H Calcium 10.8 H Total Bilirubin 0.8 AST 39 H ALT 29 Alkaline Phosphatase 65 Total Protein 8.3 H Albumin 4.8 Globulin 3.5 Albumin/Globulin Ratio 1.4 Lipase 215 SARS-CoV-2 (PCR) Negative [facility] Medical History Abnormal Pap smear of cervix (~2001) Anxiety (~1977) Cervical cancer Depression (~1977) GERD (gastroesophageal reflux disease) (~1989) Hemorrhoid (~1959) Hernia, perineal History of bladder cancer (~2002) History of cervical cancer (~2002) History of urinary incontinence (~2019) History of uterine cancer (~2002) Human papilloma virus (~2001) Hypertension Measles (~1945) Recurrent sinusitis (~1964) Surgical History Anesthesia History of cholecystectomy (~2001) History of hemorrhoidectomy (~1970) History of radical hysterectomy History of urostomy Family History Father Cancer Mother Hypertension Mental health problem Grandfather Diabetes mellitus Grandmother Diabetes mellitus Grandmother Diabetes mellitus Social History (Updated 08/09/19 @ 16:03 by ROBINSON Kee) household members: children Smoking Status: Former smoker Discharge Assessment & Plan Assessment and Plan Assessment: Admitted with partial small bowel obstruction - Plan of Treatment: Resolved with gastrograffin Discharge Plan Discharge Plan Patient Disposition: Home Discharge orders & Medications Prescriptions: Continued omeprazole 20 mg capsule,delayed release(DR/EC) 20 mg PO DAILY Qty: 90 RF: 3 furosemide [Lasix] 20 mg tablet 10 mg PO QAM Qty: 30 RF: 0 ketoconazole 2 % cream 1 applic topical BID Qty: 60 RF: 1 loperamide [Imodium A-D] 2 mg tablet 2 mg PO Q6H PRNRF: 0 Align 4 mg capsule 4 mg PO DAILY RF: 0 Metamucil (with sugar) 3.4 gram/12 gram powder 1 tbsp PO DAILY RF: 0 triamcinolone acetonide [Nasacort] 55 mcg aerosol,spray 1 spray NASAL DAILY RF: 0 magnesium chloride PO RF: 0 vitamin B complex PO RF: 0 cholecalciferol (vitamin D3) PO RF: 0 losartan 100 mg tablet 100 mg PO DAILY Qty: 90 RF: 3 Follow up/Referrals: [place] ARNP [Primary Care Provider] - Yao Goodman MD [Physician] - (Call office for questions/problems) Skin/Wound/Dressing Care Report to your healthcare provider any signs of infection, such as:: increased pain Discharge Data Primary Care Provider: [place] VTE Deep Vein Thrombosis/Pulmonary Embolism Present on Admission: No
--- NOTE | 2021-07-15 18:32 | PC.NURSE ---
Patient discharged in stable condition at 18:20, daughter present. Discharge instructions reviewed with patient. Patient taken down via wheelchair by this RN met by daughter, all belongings taken with patient.
--- NOTE | 2021-07-16 07:53 | CM.DPC ---
DCP Discharge Home Per Surgeon, pt was medically stable to d/c home last night after SW shift as her SBFT had good results and pt was able to have bowel tones and bm. Plan: Patient discharged home via Dtr POV last night and no further SW needs. UNRULY Currie
== END 2021-07-15 18:20 | disposition home or self-care (01) | DRG 390 ==
LOC: ED 18:11 → AC 20:38
PROVIDERS: Emergency Medicine; Admitting Provider Surgery; Emergency Provider Physician Assistant; PCP Registered Nurse Diabetes Educator; Referring Provider Physician Assistant; Visit Provider Surgery
DX: K56.600 Partial intestinal obstruction, unspecified as to cause (principal); F17.200 Nicotine dependence, unspecified, uncomplicated; K21.9 Gastro-esophageal reflux disease without esophagitis; I10 Essential (primary) hypertension; Z20.822 Contact with and (suspected) exposure to COVID-19
CPT/HCPCS: 36415; 71045; 74018; 74177; 80053; 83690; 85025; 87635; 94760; 96374; 99221; 99238; 99284; 99285; C9803; J2405; Q9967

== ENCOUNTER → 2021-07-20 16:46 | Outpatient (CLI) | payer MEDICARE, SELFPAY ==
[2021-07-14 21:39] VITALS: BMI 23.0
[2021-07-20 18:14] LABS: Alanine Aminotransferase 34 IU/L (<35); Albumin Globulin Ratio 1.4 (1.0-2.8); Alkaline Phosphatase 50 U/L (38-126); Aspartate Aminotransferase 23 IU/L (14-36); BUN Creatinine Ratio 25.3 (6-22); Bilirubin Total 0.3 mg/dL (0.2-1.3); Blood Urea Nitrogen 21 mg/dL (7-17); Calcium 9.4 mg/dL (8.4-10.2); Carbon Dioxide 29 mmol/L (22-32); Chloride 101 mmol/L (98-107); Estimated Glomerular Filt Rate > 60.0 mL/min (>60); Globulin 2.8 g/dL (1.7-4.1); Glucose 101 mg/dL (80-110); HEMOLYSIS < 15 (0-50); Potassium 3.8 mmol/L (3.4-5.1); Sodium 137 mmol/L (137-145); Total Protein 6.8 g/dL (6.3-8.2)
[2021-07-21 13:14] LABS: Calcium 9.4 mg/dL (8.7-10.3); Parathyroid Hormone, Intact 31 pg/mL (15-65)
== END ==
PROVIDERS: PCP Registered Nurse Diabetes Educator; Referring Provider Family Medicine; Visit Provider Family Medicine
DX: E87.1 Hypo-osmolality and hyponatremia (principal); E87.6 Hypokalemia; I10 Essential (primary) hypertension; K56.600 Partial intestinal obstruction, unspecified as to cause; E83.52 Hypercalcemia
CPT/HCPCS: 36415; 80053; 82310; 83970

== ENCOUNTER 2021-11-17 12:25 | Inpatient (IN) | payer MEDICARE, SELFPAY ==
[2021-11-17] VITALS (12 sets, daily range): BP systolic 142–188; BP diastolic 74–109; PULSE 80–96; RESP 14–18; TEMP 36.7–37.1; O2SAT 95–98; BMI 22.6
[2021-11-17 12:55] LABS: Add Manual Diff / Slide Review NO; Basophils Absolute Auto 0 /uL (0-100); Basophils Percent Auto 0.6 % (0-2); Eosinophils Absolute Auto 0 /uL (0-450); Eosinophils Percent Auto 0.3 % (2-4); Hematocrit 39.6 % (36-46); Hemoglobin 13.6 g/dL (12.0-16.0); Lymphocytes Absolute Auto 1000 /uL (1100-4500); Lymphocytes Percent Auto 14.4 % (25-40); Mean Corpuscular HGB Conc 34.4 % (30-36); Mean Corpuscular Hemoglobin 31.5 PG (26-34); Mean Corpuscular Volume 91.6 fL (80-100); Monocytes Absolute Auto 400 /uL (0-900); Monocytes Percent Auto 5.6 % (3-14); Neutrophils Absolute Auto 5600 /uL (1500-7000); Neutrophils Percent Auto 79.1 % (50-75); Platelet Count 239 X10^3/uL (150-400); Red Blood Cell Count 4.32 X10^6/uL (4.0-5.2); Red Cell Distribution Width 13.1 % (11.6-14.8); White Blood Cell Count 7.1 X10^3/uL (4.5-11.0)
[2021-11-17 13:05] LABS: Alanine Aminotransferase 22 IU/L (<35); Albumin 4.7 g/dL (3.5-5.0); Albumin Globulin Ratio 1.3 (1.0-2.8); Alkaline Phosphatase 62 U/L (38-126); Aspartate Aminotransferase 29 IU/L (14-36); BUN Creatinine Ratio 26.1 (6-22); Bilirubin Total 1.6 mg/dL (0.2-1.3); Blood Urea Nitrogen 24 mg/dL (7-17); Calcium 10.4 mg/dL (8.4-10.2); Carbon Dioxide 26 mmol/L (22-32); Chloride 102 mmol/L (98-107); Estimated Glomerular Filt Rate 58.2 mL/min (>60); Globulin 3.6 g/dL (1.7-4.1); Glucose 132 mg/dL (80-110); HEMOLYSIS < 15 (0-50); Lipase 79 U/L (23-300); Sodium 137 mmol/L (137-145); Total Protein 8.3 g/dL (6.3-8.2)
--- NOTE | 2021-11-17 13:26 | DI.CT.S_ITS ---
PROCEDURE: CT ABDOMEN PELVIS W CON INDICATIONS: Abdominal pain, history of small-bowel obstructions TECHNIQUE: After the administration of intravenous contrast, axial sections acquired from the lung bases to the pubic symphysis. Coronal and sagittal reformats were performed. For radiation dose reduction, the following was used: automated exposure control, adjustment of mA and/or kV according to patient size. COMPARISON: [facility], CT, CT ABDOMEN PELVIS W CON, 07/14/2021, 18:03. FINDINGS: Image quality: Excellent. Lung bases: Unremarkable. Heart: No significant findings. ABDOMEN: Liver: Unremarkable. Gallbladder: Is surgically absent Biliary ducts: No change in mild intrahepatic and extrahepatic biliary ductal dilatation.. Pancreas: Unremarkable. Spleen: No change in lobular low-density focus within the medial spleen measuring roughly 22 mm diameter. Adrenal Glands: Unremarkable. Kidneys and Ureters: Mild bilateral renal scarring. Stomach and Bowel: Stomach is moderately distended. There is moderate distension of multiple proximal and mid small bowel loops within the abdomen, and pelvis. Distal ileum is decompressed. Multiple scattered regions of nodular mural enhancement within the small bowel lumen are present. Peritoneum: Small amount of free pelvic fluid. No free air. Ventral Wall: No hernias. Abdominal Nodes: No retroperitoneal or mesenteric adenopathy by size criteria. Vessels: Aorta and inferior vena cava are normal in size. PELVIS: Pelvic Organs: Unremarkable. Bladder: Unremarkable. Pelvic Nodes: No enlarged lymph nodes. Miscellaneous: No hernias are seen. Bones: Unremarkable. IMPRESSION: 1. Small-bowel obstruction. 2. Multiple enhancing mural foci within the small bowel, possibly indicating metastatic disease. 3. Small amount of free fluid in the pelvis. Dictated by: Yu Davila M.D. on 11/17/2021 at 13:50 Approved by: Yu Davila M.D. on 11/17/2021 at 13:55
[2021-11-17] MEDS: ONDANSETRON 4 MG/2 ML INJ IV ×2 (13:35→16:02)
[2021-11-17] MEDS: SODIUM CHLORIDE 0.9% 1,000 ML 100 ML IV ×2 (13:35→16:02)
--- NOTE | 2021-11-17 14:29 | ED.GENADULT ---
HPI - General Adult General Chief complaint: Abdominal Pain Stated complaint: STOMACH ACHE NAUSEA FATIGUE Time Seen by Provider: 11/17/21 13:26 Source: patient Mode of arrival: Ambulatory History of Present Illness HPI narrative: 85-year-old female who is here for evaluation of approximately 4 days of nausea and fatigue in a stomach pain. She has had bowel obstructions in the past but has never required surgery. 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 Has had her bladder removed. Has a cystostomy tube in place. This was done almost 20 years ago. She is having nausea. No vomiting. She has had a bowel movement since the onset of the symptoms but this was a couple days ago. She is not passing flatus. She does feel like her abdomen is distended. No fevers. Related Data Home Medications Medication Instructions Recorded Confirmed Bifidobacterium infantis 4 mg 4 mg PO DAILY 08/24/20 07/20/21 capsule (Align) cholecalciferol (vitamin D3) PO 08/24/20 07/20/21 loperamide 2 mg tablet (Imodium 2 mg PO Q6H PRN 08/24/20 07/20/21 A-D) magnesium chloride PO 08/24/20 07/20/21 triamcinolone acetonide 55 mcg 1 spray NASAL DAILY 08/24/20 07/20/21 nasal spray aerosol (Nasacort) vitamin B complex [B PO 08/24/20 07/20/21 Complex-Vitamin B12] polyethylene glycol 3350 17 17 g PO DAILY 08/12/21 08/12/21 gram/dose oral powder (Miralax) simethicone 125 mg capsule (Gas-X 125 mg PO QD-BID PRN 08/12/21 08/12/21 Extra Strength) Previous Rx's Medication Instructions Recorded losartan 100 mg tablet 100 mg PO DAILY #90 tab 10/11/20 omeprazole 20 mg capsule,delayed 20 mg PO DAILY #90 cap 12/16/20 release ketoconazole 2 % topical cream 1 applic TOPICAL BID #60 g 06/07/21 furosemide 20 mg tablet (Lasix) 10 mg PO QAM PRN #45 tab 07/25/21 Allergies Allergy/AdvReac Type Severity Reaction Status Date / Time Sulfa (Sulfonamide Allergy Unknown Verified 11/17/21 12:41 Antibiotics) trimethaphan Allergy Unknown Verified 11/17/21 12:41 Review of Systems Constitutional Constitutional: Reports system reviewed and no additional complaints, except as documented Cardiovascular Cardiovascular: Reports system reviewed and no additional complaints, except as documented Gastrointestinal Gastrointestinal: Reports as per HPI and Reports system reviewed and no additional complaints, except as documented Genitourinary Genitourinary: Reports system reviewed and no additional complaints, except as documented and Reports as per HPI Integumentary/Breasts Skin/Breast: Reports system reviewed and no additional complaints, except as documented Neurologic Neurologic: Reports system reviewed and no additional complaints, except as documented Hematologic/Lymphatic On Anticoagulants: No Patient History Medical History Abnormal Pap smear of cervix (~2001) Anxiety (~1977) Cervical cancer Depression (~1977) GERD (gastroesophageal reflux disease) (~1989) Hemorrhoid (~1959) Hernia, perineal History of bladder cancer (~2002) History of cervical cancer (~2002) History of urinary incontinence (~2019) History of uterine cancer (~2002) Human papilloma virus (~2001) Hypertension Measles (~1945) Recurrent sinusitis (~1964) Surgical History Anesthesia History of cholecystectomy (~2001) History of hemorrhoidectomy (~1970) History of radical hysterectomy History of urostomy Family History Father Cancer Mother Hypertension Mental health problem Grandfather Diabetes mellitus Grandmother Diabetes mellitus Grandmother Diabetes mellitus Social History household members: children Smoking Status: Former smoker Smoking Status: Former smoker tobacco type: vaping alcohol intake frequency: 0-2 drinks per day Alcohol type: wine Substance Use Type: does not use Exam Initial Vital Signs Initial Vital Signs: Vital Signs Temperature 98.4 F 11/17/21 12:41 Pulse Rate 96 H 11/17/21 12:41 Respiratory Rate 14 11/17/21 12:41 Blood Pressure 142/109 H 11/17/21 12:41 Pulse Oximetry 96 11/17/21 12:41 HENMT Head: normal to inspection and normocephalic Resp Effort & Inspection: normal respiratory effort Auscultation: clear to auscultation bilaterally Cardio Rate: regular rate Rhythm: regular rhythm GI Inspection: distended Palpation: soft and tender Other: Cystostomy tube right lower quadrant, ostomy appears well Skin General: no rashes or lesions noted Neuro General: patient alert, patient awake and moves all extremities Extrem General: normal to inspection and capillary refill normal Psych Appearance: grossly normal and well kempt Course Orders Ordered: ED Orders 11/17/21 12:43 EKG-12 Lead Stat 11/17/21 12:46 Complete Blood Count AUTO DIFF Stat Comprehensive Metabolic Panel Stat Lipase Stat 11/17/21 13:26 CT abdomen pelvis w con Stat 11/17/21 14:45 COVID19 - ADMIT ([facility]IKI PRACTITIONER swab/PCR) Stat 11/17/21 14:53 Urine Culture Stat Urine Microscopic Stat Enoxaparin Sodium (Enoxaparin 40 Mg/0.4 Ml Syringe) 40 mg SUBCUT DAILY SMILEY Hydromorphone HCl (Hydromorphone 0.5 Mg Inj) 0.5 mg IV Q6H PRN PRN Reason: Pain, Moderate (4-6) Last Admin: 11/17/21 16:02 Dose: 0.5 mg Documented by: CY Sodium Chloride (Normal Saline 0.9%) 1,000 mls @ 100 mls/hr IV CONT SMILEY Last Admin: 11/17/21 16:02 Dose: 100 mls/hr Documented by: Infusion: 11/17/21 16:02 Dose: 0 mls/hr Documented by: Infusion: 11/17/21 14:59 Dose: 0 mls/hr Documented by: Admin: 11/17/21 13:35 Dose: 100 mls/hr Documented by: MARVA Losartan Potassium (Losartan 50 Mg Tablet) 100 mg PO DAILY SMILEY Naloxone HCl (Naloxone 0.4 Mg/Ml Vial) 0.2 mg IV Q2MIN PRN PRN Reason: Opiate Reversal Ondansetron HCl (Ondansetron 4 Mg/2 Ml Inj) 4 mg IV Q8HR PRN PRN Reason: Nausea And Vomiting Last Admin: 11/17/21 16:02 Dose: 4 mg Documented by: CY Discontinued Medications Ondansetron HCl (Ondansetron 4 Mg/2 Ml Inj) 4 mg IV NOW ONE Stop: 11/17/21 13:27 Last Admin: 11/17/21 13:35 Dose: 4 mg Documented by: ATAYLOR Vital Signs Vital signs: Vital Signs - 8 hr 11/17/21 12:41 11/17/21 13:47 11/17/21 13:48 Temperature 98.4 F Pulse Rate 96 H 84 Respiratory Rate 14 Blood Pressure 142/109 H 172/74 H Pulse Oximetry 96 96 98 11/17/21 14:00 11/17/21 14:31 Temperature Pulse Rate 81 82 Respiratory Rate Blood Pressure 167/74 H Pulse Oximetry 97 97 Medical Decision Making Medical Records Medical records reviewed: Yes I reviewed the patient's medical records. Lab Data Lab results reviewed: Yes I reviewed the patient's lab results. Result diagrams: 11/17/21 12:46 11/17/21 12:46 Labs: Lab Results 11/17/21 11/17/21 11/17/21 Range/Units 12:46 12:46 14:45 WBC 7.1 (4.5-11.0) X10^3/uL RBC 4.32 (4.0-5.2) X10^6/uL Hgb 13.6 (12.0-16.0) g/dL Hct 39.6 (36-46) % MCV 91.6 (80-100) fL MCH 31.5 (26-34) PG MCHC 34.4 (30-36) % RDW 13.1 (11.6-14.8) % Plt Count 239 (150-400) X10^3/uL Neut % (Auto) 79.1 H (50-75) % Lymph % (Auto) 14.4 L (25-40) % [place] % (Auto) 5.6 (3-14) % Eos % (Auto) 0.3 L (2-4) % Baso % (Auto) 0.6 (0-2) % Neut # (Auto) 5600 (8152-8071) /uL Lymph # (Auto) 1000 L (8812-1708) /uL [place] # (Auto) 400 (0-900) /uL Eos # (Auto) 0 (0-450) /uL Baso # (Auto) 0 (0-100) /uL Sodium 137 (137-145) mmol/L Potassium 4.0 (3.4-5.1) mmol/L Chloride 102 (98-107) mmol/L Carbon Dioxide 26 (22-32) mmol/L BUN 24 H (7-17) mg/dL Creatinine 0.92 (0.52-1.04) mg/dL Estimated GFR 58.2 L (>60) mL/min BUN/Creatinine Ratio 26.1 H (6-22) Glucose 132 H (80-110) mg/dL Calcium 10.4 H (8.4-10.2) mg/dL Total Bilirubin 1.6 H (0.2-1.3) mg/dL AST 29 (14-36) IU/L ALT 22 (<35) IU/L Alkaline Phosphatase 62 (38-126) U/L Total Protein 8.3 H (6.3-8.2) g/dL Albumin 4.7 (3.5-5.0) g/dL Globulin 3.6 (1.7-4.1) g/dL Albumin/Globulin Ratio 1.3 (1.0-2.8) Lipase 79 (23-300) U/L SARS-CoV-2 (PCR) Negative (Negative) Urine Dip Bedside Urine Glucose Negative Bedside Urine Bilirubin - Negative Bedside Urine Ketone - Negative Urine Specific [place] 1.010 Bedside Urine Occult Blood - Negative Bedside Urine pH 6.0 Bedside Urine Protein +/- 15 Bedside Urine Urobilinogen - Negative Bedside Urine Nitrite - Negative Bedside Urine Leukocytes - Negative Esterase Point of care testing: Urine Dip Bedside Urine Glucose Negative Bedside Urine Bilirubin - Negative Bedside Urine Ketone - Negative Urine Specific [place] 1.010 Bedside Urine Occult Blood - Negative Bedside Urine pH 6.0 Bedside Urine Protein +/- 15 Bedside Urine Urobilinogen - Negative Bedside Urine Nitrite - Negative Bedside Urine Leukocytes - Negative Esterase Imaging Data CT scan - abdomen/pelvis: Radiologist's Impression: [address] [address] [address] Scan Report Signed Patient: Hortencia Lin MR#: [id number] : 1935 Acct:[id number] Age/Sex: 85 / F Date of Service: 11/17/21 Loc: ED Accession Number: [id number] ?? Procedure: CT abdomen pelvis w con Ordering Provider: Stephan Herrera D.O. PROCEDURE:? CT ABDOMEN PELVIS W CON ? INDICATIONS:? Abdominal pain, history of small-bowel obstructions ? TECHNIQUE:? After the administration of intravenous contrast, axial sections acquired from the lung bases to the pubic symphysis.? Coronal and sagittal reformats were performed.? For radiation dose reduction, the following was used:? automated exposure control, adjustment of mA and/or kV according to patient size.? ? COMPARISON:? [facility], CT, CT ABDOMEN PELVIS W CON, 07/14/2021, 18:03. ? FINDINGS:? Image quality:? Excellent.? ? Lung bases:? Unremarkable. Heart:? No significant findings. ? ABDOMEN: Liver:? Unremarkable.? ? Gallbladder:? Is surgically absent? ? Biliary ducts:? No change in mild intrahepatic and extrahepatic biliary ductal dilatation..? ? Pancreas:? Unremarkable.? ? Spleen:? No change in lobular low-density focus within the medial spleen measuring roughly 22 mm diameter. Adrenal Glands:? Unremarkable.? ? Kidneys and Ureters:? Mild bilateral renal scarring. ? Stomach and Bowel:? Stomach is moderately distended.? There is moderate distension of multiple proximal and mid small bowel loops within the abdomen, and pelvis.? Distal ileum is decompressed.? Multiple scattered regions of nodular mural enhancement within the small bowel lumen are present.? Peritoneum:? Small amount of free pelvic fluid.? No free air.? ? Ventral Wall: ? No hernias.? Abdominal Nodes:? No retroperitoneal or mesenteric adenopathy by size criteria.? Vessels:? Aorta and inferior vena cava are normal in size.? ? PELVIS: Pelvic Organs:? Unremarkable.? ? Bladder:? Unremarkable.? ? Pelvic Nodes: No enlarged lymph nodes.? Miscellaneous: No hernias are seen. ? ? ? Bones:? Unremarkable.? IMPRESSION:? 1. Small-bowel obstruction. 2. Multiple enhancing mural foci within the small bowel, possibly indicating metastatic disease. 3. Small amount of free fluid in the pelvis.? ? ? Dictated by: Yu Davila M.D. on 11/17/2021 at 13:50 ? ? Approved by: Yu Davila M.D. on 11/17/2021 at 13:55?? ECG Data Attestation: I personally reviewed and interpreted this ECG as follows: Interpretation: Sinus rhythm Ventricular rate 88 Normal axis Normal QRS Normal QTC No ST T wave changes MDM Narrative Medical decision making narrative: History and physical and CT scan consistent with small-bowel obstruction. Patient understands this she has had these in the past. Her nausea has improved with the Zofran. She would like to hold on a NG tube for now but understands she made knee does later on if her symptoms worsened. I did discuss the case with Dr. Ardon. We will of it for further evaluation and treatment. Patient expressed understanding agreement this plan. Discharge Plan Departure Patient Disposition: Admitted As Inpatient Clinical Impression: Small bowel obstruction Admit Date/Time: 11/17/21 14:48 Admit Provider: Rei Ardon
--- NOTE | 2021-11-17 15:31 | P.HP_ITS ---
History of Present Illness History of Present Illness Date Patient Seen: 11/17/21 Time Patient Seen: 15:31 Chief complaint: STOMACH ACHE NAUSEA FATIGUE Narrative: Hortencia Lin is an 85-year-old woman with a history of multiple prior abdominal surgeries who was admitted to the hospital for a small-bowel obstruction. She presented with abdominal pain, distension, nausea and emesis. At admission hemodynamically stable. CT abdomen and pelvis demonstrates dilated loops of small bowel with a transition point in the distal small bowel with a small amount of intra abdominal free fluid no free air. At admission WBC 7, afebrile. She has a history cervical and vulvar cancer initially treated with radiation, recurrence treated with an anterior exenteration with ileoconduit. She developed a perineal hernia which was repaired 12/2020 at , surgery was complicated by small bowel resection. She has had several previous episodes of sbo that resolved non operatively. Patient History Medical History Abnormal Pap smear of cervix (~2001) Anxiety (~1977) Cervical cancer Depression (~1977) GERD (gastroesophageal reflux disease) (~1989) Hemorrhoid (~1959) Hernia, perineal History of bladder cancer (~2002) History of cervical cancer (~2002) History of urinary incontinence (~2019) History of uterine cancer (~2002) Human papilloma virus (~2001) Hypertension Measles (~1945) Recurrent sinusitis (~1964) Surgical History Anesthesia History of cholecystectomy (~2001) History of hemorrhoidectomy (~1970) History of radical hysterectomy History of urostomy Family & Social History Family History Father Cancer Mother Hypertension Mental health problem Grandfather Diabetes mellitus Grandmother Diabetes mellitus Grandmother Diabetes mellitus Social History: household members children Safety & Behavioral: Feels Safe in Current Yes Environment Been Physically Hurt or No Threatened By a Person Tobacco & Substance use: Tobacco type cigarettes Smoking Status Former smoker alcohol intake frequency 0-2 drinks per day Substance Use Type does not use Meds Home Medications and Allergies Home Medications Medication Instructions Recorded Confirmed Type Bifidobacterium infantis 4 mg 4 mg PO DAILY 08/24/20 07/20/21 History capsule (Align) cholecalciferol (vitamin D3) PO 08/24/20 07/20/21 History loperamide 2 mg tablet (Imodium 2 mg PO Q6H PRN 08/24/20 07/20/21 History A-D) magnesium chloride PO 08/24/20 07/20/21 History triamcinolone acetonide 55 mcg 1 spray NASAL DAILY 08/24/20 07/20/21 History nasal spray aerosol (Nasacort) vitamin B complex [B PO 08/24/20 07/20/21 History Complex-Vitamin B12] losartan 100 mg tablet 100 mg PO DAILY #90 tab 10/11/20 07/20/21 Rx omeprazole 20 mg capsule,delayed 20 mg PO DAILY #90 cap 12/16/20 07/20/21 Rx release ketoconazole 2 % topical cream 1 applic TOPICAL BID #60 g 06/07/21 07/20/21 Rx furosemide 20 mg tablet (Lasix) 10 mg PO QAM PRN #45 tab 07/25/21 Rx polyethylene glycol 3350 17 17 g PO DAILY 08/12/21 08/12/21 History gram/dose oral powder (Miralax) simethicone 125 mg capsule (Gas-X 125 mg PO QD-BID PRN 08/12/21 08/12/21 History Extra Strength) Allergies Allergy/AdvReac Type Severity Reaction Status Date / Time Sulfa (Sulfonamide Allergy Unknown Verified 11/17/21 12:41 Antibiotics) trimethaphan Allergy Unknown Verified 11/17/21 12:41 Exam Vital Signs (past 8 hours): - 11/17/21 12:41 11/17/21 13:47 11/17/21 13:48 Temperature 98.4 F Pulse Rate 96 H 84 Respiratory Rate 14 Blood Pressure 142/109 H 172/74 H Pulse Oximetry 96 96 98 11/17/21 14:00 11/17/21 14:31 11/17/21 15:00 Temperature Pulse Rate 81 82 80 Respiratory Rate 16 Blood Pressure 167/74 H Pulse Oximetry 97 97 95 Oxygen Delivery Method Room Air Narrative Exam Narrative: GENERAL: Elderly woman in no apparent distress HEENT: No scleral icterus CV: Regular rate, no peripheral edema LUNGS: No increased work of breathing. Patient speaks in full sentences without oxygen support. ABDOMEN: Moderately distended, urostomy right lower quadrant, no peritonitis NEURO: Nonfocal, normal strength throughout SKIN: Warm and dry Objective Labs Result Diagrams: 11/17/21 12:46 11/17/21 12:46 Labs: Laboratory Results - last 24 hr 11/17/21 11/17/21 12:46 12:46 WBC 7.1 RBC 4.32 Hgb 13.6 Hct 39.6 MCV 91.6 MCH 31.5 MCHC 34.4 RDW 13.1 Plt Count 239 Neut % (Auto) 79.1 H Lymph % (Auto) 14.4 L [place] % (Auto) 5.6 Eos % (Auto) 0.3 L Baso % (Auto) 0.6 Neut # (Auto) 5600 Lymph # (Auto) 1000 L [place] # (Auto) 400 Eos # (Auto) 0 Baso # (Auto) 0 Sodium 137 Potassium 4.0 Chloride 102 Carbon Dioxide 26 BUN 24 H Creatinine 0.92 Estimated GFR 58.2 L BUN/Creatinine Ratio 26.1 H Glucose 132 H Calcium 10.4 H Total Bilirubin 1.6 H AST 29 ALT 22 Alkaline Phosphatase 62 Total Protein 8.3 H Albumin 4.7 Globulin 3.6 Albumin/Globulin Ratio 1.3 Lipase 79 Assessment & Plan Assessment and plan (1) Small bowel obstruction: Status: Acute Assessment & Plan narrative: 85-year-old woman history of recurrent cervical and vulvar cancer status post radiation and anterior exoneration with ileoconduit who presents with a small- bowel obstruction. No immediate indications for operative intervention. CT personally reviewed dilated loops of small bowel with distal transition point, small amount of free fluid no free air. Discussed management of SBO with patient including conservative and operative therapy. Will proceed with non operative treatment at this time. -Small bowel follow through study -NPO ok for ice chips -If persistent emesis or worsening abdominal distention NGT -SCDs and pLovenox Time Spent With Patient Critical Care time: I spent a total of [] minutes of critical care time on this patient's care today; this time is exclusive of procedural time.
[2021-11-17 15:43] LABS: Bacteria Urine Many (>30); Culture Indicated Urine Specimen Cultured; Mucus Urine 1+ (Negative); RBC Urine 0-1/HPF (0-5/HPF); Squamous Epithelial Cell Urine 0-1 /HPF (0-5/HPF); WBC Urine 5-10/HPF (0-5/HPF)
--- NOTE | 2021-11-17 15:47 | DI.RAD.S_ITS ---
PROCEDURE: [place] SMALL BOWEL FOLLOW THROUGH INDICATIONS: small bowel obstruction. Perform with gastrografin. COMPARISON: [facility], CT, CT ABDOMEN PELVIS W CON, 11/17/2021, 13:34. [facility], [place], [place] SMALL BOWEL FOLLOW THROUGH, 08/09/2019, 21:33. FINDINGS: KUB: Preprocedural geological scout film demonstrates moderate gaseous distension of small bowel, particularly seen in the mid abdomen. Findings are compatible with small bowel obstruction seen on comparison CT. No suspicious abdominal calcifications. Visualized solid organ contours appear normal. No suspicious bony abnormalities. Surgical clips project in the pelvis. Contrast opacifies the bilateral renal pelvis compatible with excretion of intravenous contrast from recent CT. Small bowel: Oral contrast on immediate images after administration of Gastrografin demonstrates relative rapid transit into the proximal small bowel. Persistent distension of small bowel in the mid abdomen. Subsequent imaging at the 3 hour-20 minutes jennifer demonstrates transit of oral contrast into the colon with resolution of small bowel distension. The 5 hour image demonstrates continued transit of oral contrast into the colon. This is compatible with reported history of patient having multiple bowel movements. Mucosal folds are smooth and of normal thickness. No obvious strictures, intraluminal masses, or extrinsic mass effects are noted. IMPRESSION: Ingested oral contrast demonstrates transit from the stomach through the colon with interval resolution of initially visualized dilated loops of small bowel. Dictated by: Alberto Mei M.D. on 11/17/2021 at 21:29 Approved by: Alberto Mei M.D. on 11/17/2021 at 21:35
[2021-11-17 15:49] LABS: COVID19 - ADMIT (NP swab/PCR) Negative (Negative)
[2021-11-17] MEDS: HYDROMORPHONE 0.5 MG INJ IV (16:02)
--- NOTE | 2021-11-17 19:14 | PC.NURSE ---
A&Ox4. VSS. Arrived from ED this afternoon. Pain 7/10 and nauseous, given PRN IV dilaudid and IV zofran. Given solution for small bowl flow test, at 1845 had explosive diarrhea and emesis. Diarrhea was watery and green. Ns @ 125. NPO besides ice chips. SCDs on BLE. Bed low, call light within reach.
[2021-11-17 21:13] LABS: Add Manual Diff / Slide Review NO; Basophils Absolute Auto 0 /uL (0-100); Basophils Percent Auto 0.3 % (0-2); Eosinophils Absolute Auto 0 /uL (0-450); Eosinophils Percent Auto 0.2 % (2-4); Hemoglobin 13.7 g/dL (12.0-16.0); Lymphocytes Absolute Auto 800 /uL (1100-4500); Lymphocytes Percent Auto 9.6 % (25-40); Mean Corpuscular HGB Conc 33.4 % (30-36); Mean Corpuscular Hemoglobin 31.3 PG (26-34); Mean Corpuscular Volume 93.7 fL (80-100); Monocytes Absolute Auto 300 /uL (0-900); Monocytes Percent Auto 3.9 % (3-14); Neutrophils Absolute Auto 7400 /uL (1500-7000); Platelet Count 223 X10^3/uL (150-400); Red Blood Cell Count 4.37 X10^6/uL (4.0-5.2); Red Cell Distribution Width 13.2 % (11.6-14.8); White Blood Cell Count 8.6 X10^3/uL (4.5-11.0)
[2021-11-17 21:16] LABS: BUN Creatinine Ratio 25.6 (6-22); Blood Urea Nitrogen 22 mg/dL (7-17); Calcium 10.1 mg/dL (8.4-10.2); Carbon Dioxide 28 mmol/L (22-32); Chloride 108 mmol/L (98-107); Estimated Glomerular Filt Rate > 60.0 mL/min (>60); Glucose 133 mg/dL (80-110); HEMOLYSIS 31 (0-50); Potassium 3.6 mmol/L (3.4-5.1); Sodium 143 mmol/L (137-145)
[2021-11-18] VITALS (11 sets, daily range): BP systolic 148–178; BP diastolic 69–86; PULSE 79–83; RESP 16–18; TEMP 36.5–37.2; O2SAT 95–99
[2021-11-18] MEDS: ACETAMINOPHEN 325 MG TABLET 650 MG PO (01:15)
[2021-11-18] MEDS: ONDANSETRON 4 MG/2 ML INJ IV (01:15)
[2021-11-18] MEDS: SODIUM CHLORIDE 0.9% 1,000 ML 100 ML IV (02:07)
[2021-11-18] MEDS: LOSARTAN 50 MG TABLET 100 MG PO (08:39)
[2021-11-18] MEDS: ENOXAPARIN 40 MG/0.4 ML SYRINGE SUBCUT (08:39)
--- NOTE | 2021-11-18 10:52 | PM.PN.1 ---
Subjective Subjective Date Patient Seen: 11/18/21 Time Patient Seen: 10:53 Interval history: Small-bowel follow-through yesterday today with numerous bowel movements and passing flatus. No abdominal pain less distended hungry Exam Vital Signs (past 8 hours): - 11/18/21 03:00 11/18/21 04:00 11/18/21 04:16 Temperature 97.9 F Pulse Rate 81 80 Respiratory Rate 16 16 Blood Pressure 148/73 H Pulse Oximetry 95 97 97 11/18/21 07:00 11/18/21 08:10 11/18/21 08:39 Temperature Pulse Rate 79 Respiratory Rate Blood Pressure 178/69 H Pulse Oximetry 98 96 11/18/21 08:43 11/18/21 09:06 Temperature 97.7 F 98.9 F Pulse Rate 79 83 Respiratory Rate 16 18 Blood Pressure 178/69 H 169/86 H Pulse Oximetry 98 99 Oxygen Delivery Method Room Air Oxygen Flow Rate 0 Narrative Exam Narrative: General elderly woman alert oriented no acute distress Abdomen soft nontender and minimally distended Objective Labs Result Diagrams: 11/17/21 20:53 11/17/21 20:53 Labs: Laboratory Results - last 24 hr 11/17/21 11/17/21 11/17/21 12:46 12:46 14:45 WBC 7.1 RBC 4.32 Hgb 13.6 Hct 39.6 MCV 91.6 MCH 31.5 MCHC 34.4 RDW 13.1 Plt Count 239 Neut % (Auto) 79.1 H Lymph % (Auto) 14.4 L [place] % (Auto) 5.6 Eos % (Auto) 0.3 L Baso % (Auto) 0.6 Neut # (Auto) 5600 Lymph # (Auto) 1000 L [place] # (Auto) 400 Eos # (Auto) 0 Baso # (Auto) 0 Sodium 137 Potassium 4.0 Chloride 102 Carbon Dioxide 26 BUN 24 H Creatinine 0.92 Estimated GFR 58.2 L BUN/Creatinine Ratio 26.1 H Glucose 132 H Calcium 10.4 H Total Bilirubin 1.6 H AST 29 ALT 22 Alkaline Phosphatase 62 Total Protein 8.3 H Albumin 4.7 Globulin 3.6 Albumin/Globulin Ratio 1.3 Lipase 79 Urine RBC Urine WBC Ur Squamous Epith Cells Urine Bacteria Urine Mucus Ur Culture Indicated? SARS-CoV-2 (PCR) Negative 11/17/21 11/17/21 11/17/21 14:53 20:53 20:53 WBC 8.6 RBC 4.37 Hgb 13.7 Hct 41.0 MCV 93.7 MCH 31.3 MCHC 33.4 RDW 13.2 Plt Count 223 Neut % (Auto) 86.0 H Lymph % (Auto) 9.6 L [place] % (Auto) 3.9 Eos % (Auto) 0.2 L Baso % (Auto) 0.3 Neut # (Auto) 7400 H Lymph # (Auto) 800 L [place] # (Auto) 300 Eos # (Auto) 0 Baso # (Auto) 0 Sodium 143 Potassium 3.6 Chloride 108 H Carbon Dioxide 28 BUN 22 H Creatinine 0.86 Estimated GFR > 60.0 BUN/Creatinine Ratio 25.6 H Glucose 133 H Calcium 10.1 Total Bilirubin AST ALT Alkaline Phosphatase Total Protein Albumin Globulin Albumin/Globulin Ratio Lipase Urine RBC 0-1/hpf Urine WBC 5-10/hpf H Ur Squamous Epith Cells 0-1 /hpf Urine Bacteria Many (>30) H Urine Mucus 1+ H Ur Culture Indicated? Specimen cultured SARS-CoV-2 (PCR) [facility] Medical History Abnormal Pap smear of cervix (~2001) Anxiety (~1977) Cervical cancer Depression (~1977) GERD (gastroesophageal reflux disease) (~1989) Hemorrhoid (~1959) Hernia, perineal History of bladder cancer (~2002) History of cervical cancer (~2002) History of urinary incontinence (~2019) History of uterine cancer (~2002) Human papilloma virus (~2001) Hypertension Measles (~1945) Recurrent sinusitis (~1965) Surgical History Anesthesia History of cholecystectomy (~2001) History of hemorrhoidectomy (~1970) History of radical hysterectomy History of urostomy Family History Father Cancer Mother Hypertension Mental health problem Grandfather Diabetes mellitus Grandmother Diabetes mellitus Grandmother Diabetes mellitus Social History household members: children Smoking Status: Former smoker Assessment & Plan Assessment and plan (1) Small bowel obstruction: Status: Acute Assessment & Plan narrative: 85-year-old woman multiple abdominal surgeries admitted with a small-bowel obstruction. Following small-bowel follow-through the obstruction has resolved. Advance diet, if tolerates may discharge home. Time Spent With Patient Critical Care time: I spent a total of [] minutes of critical care time on this patient's care today; this time is exclusive of procedural time.
--- NOTE | 2021-11-18 14:04 | CM.DANOTE ---
DCP Assessment: 85 yr old male who was admitted for SBO. CM met with the patient at the bedside and explained role. Patient was A&O x4 during meeting she states she is independent with all ADLs and drives at baseline. patient did ask CM for a list of Correction homes and Assisted living facilities to look at for possible placement at DC. Patient currently lives at [facility] and her daughter Katie lives near by. I: Medicare and AAPR Plan: DC home with no identified DC planning needs at this time. CM did give the patient a list of [facility] and Correction facilities in [facility] to review. Em Britton RNmanager aerospace. Discharge Planning/Care Management CM Discharge Assessment Start: 11/18/21 13:58 Freq: Status: Active Protocol: Document 11/18/21 13:58 HS (Rec: 11/18/21 14:02 [id number]) Discharge Planning Assessment Assigned Electron Beam Welder Em Britton RNnailer machine DPOA/Assigned Designee Name Katie Mock- Daughter Contact Information [phone] Advance Directives? Yes Advance Directives on File No History Provided By Patient,Medical Record Has Patient been admitted in last 30 No days? Prior Living Arrangements House Comment Patient lives in independent senior apartment- alone Household Members none Comment Daughter lives near by and will be available to assist as needed Type of transporation used prior to Drives own vehicle admit Independent with ADL's Yes Is patient alert and oriented? Yes Caregiver for Another No Barriers to Discharge No Discharge Plan Home Transportation Arrangement Dtr Katie or Dtr Edith can transport at d/c, both local Referrals Initiated None needed Additional Comment Pending pt's SBFT and progress with SBO Whiteboard Updated in Patient Room with Yes name and ext. # of Electron Beam Welder Review Status In Process Next Review Type Continued Stay Review
== END 2021-11-18 14:30 | disposition home or self-care (01) | DRG 390 ==
LOC: ED 14:40 → AC 14:49
PROVIDERS: Admitting Provider Surgery; Emergency Provider Emergency Medicine; PCP Registered Nurse Diabetes Educator; Referring Provider Emergency Medicine; Visit Provider Surgery
DX: K56.609 Unspecified intestinal obstruction, unspecified as to partial versus complete obstruction (principal); I10 Essential (primary) hypertension; Z87.891 Personal history of nicotine dependence; Z20.822 Contact with and (suspected) exposure to COVID-19
CPT/HCPCS: 36415; 74177; 74250; 80048; 80053; 81003; 81015; 83690; 85025; 87077; 87086; 87186; 87635; 93005; 94760; 96361; 96374; 99221; 99231; 99284; C9803; J1170; J1650; J2405; Q9967

== ENCOUNTER 2021-12-23 22:18 | Observation (INO) | payer MEDICARE, SELFPAY ==
[2021-11-17 14:51] VITALS: BMI 22.6
[2021-12-23 22:21] VITALS: BP 138/104; PULSE 100; RESP 16; TEMP 36.6; O2SAT 97; BMI 22.2
[2021-12-23] MEDS: ONDANSETRON 4 MG/2 ML INJ IV (22:36)
[2021-12-23 22:44] LABS: Add Manual Diff / Slide Review NO; Basophils Absolute Auto 0 /uL (0-100); Basophils Percent Auto 0.2 % (0-2); Eosinophils Absolute Auto 0 /uL (0-450); Eosinophils Percent Auto 0.2 % (2-4); Hematocrit 40.6 % (36-46); Hemoglobin 13.9 g/dL (12.0-16.0); Lymphocytes Absolute Auto 500 /uL (1100-4500); Lymphocytes Percent Auto 5.3 % (25-40); Mean Corpuscular HGB Conc 34.3 % (30-36); Mean Corpuscular Hemoglobin 31.9 PG (26-34); Monocytes Absolute Auto 400 /uL (0-900); Monocytes Percent Auto 4.5 % (3-14); Neutrophils Absolute Auto 8900 /uL (1500-7000); Neutrophils Percent Auto 89.8 % (50-75); Platelet Count 217 X10^3/uL (150-400); Red Blood Cell Count 4.36 X10^6/uL (4.0-5.2); Red Cell Distribution Width 13.9 % (11.6-14.8); White Blood Cell Count 9.9 X10^3/uL (4.5-11.0)
[2021-12-23 22:51] LABS: Alanine Aminotransferase 20 IU/L (<35); Albumin 4.9 g/dL (3.5-5.0); Albumin Globulin Ratio 1.4 (1.0-2.8); Alkaline Phosphatase 55 U/L (38-126); Aspartate Aminotransferase 29 IU/L (14-36); BUN Creatinine Ratio 27.5 (6-22); Bilirubin Total 0.9 mg/dL (0.2-1.3); Blood Urea Nitrogen 25 mg/dL (7-17); Calcium 10.3 mg/dL (8.4-10.2); Carbon Dioxide 28 mmol/L (22-32); Chloride 102 mmol/L (98-107); Estimated Glomerular Filt Rate 58.8 mL/min (>60); Globulin 3.5 g/dL (1.7-4.1); Glucose 154 mg/dL (80-110); HEMOLYSIS < 15 (0-50); Lipase 94 U/L (23-300); Potassium 3.8 mmol/L (3.4-5.1); Sodium 138 mmol/L (137-145); Total Protein 8.4 g/dL (6.3-8.2)
[2021-12-23 22:58] LABS: COVID19 -Nasal RAPID Negative (Negative)
[2021-12-23 23:33] LABS: Bacteria Urine Many (>30); Calcium Oxalate Crystals Urine Occasional; RBC Urine 0-1/HPF (0-5/HPF); Squamous Epithelial Cell Urine 0-1 /HPF (0-5/HPF); WBC Urine 0-1/HPF (0-5/HPF)
--- NOTE | 2021-12-23 23:34 | DI.CT.S_ITS ---
PROCEDURE: CT ABDOMEN PELVIS W CON INDICATIONS: Abdominal distention, vomiting, history of bowel obstruction TECHNIQUE: After the administration of intravenous contrast, axial sections acquired from the lung bases to the pubic symphysis. Coronal and sagittal reformats were performed. For radiation dose reduction, the following was used: automated exposure control, adjustment of mA and/or kV according to patient size. COMPARISON: [facility], CT, CT ABDOMEN PELVIS W CON, 11/17/2021, 13:34. FINDINGS: Image quality: Excellent. Lung bases: Unremarkable. Heart: No significant findings. ABDOMEN: Liver: Unremarkable. Gallbladder: Is surgically absent Biliary ducts: Unremarkable. Pancreas: Unremarkable. Spleen: No change in multi lobular low-density focus within the medial spleen measuring roughly 20 mm diameter. Adrenal Glands: Unremarkable. Kidneys and Ureters: Unremarkable. Stomach and Bowel: Stomach is mildly distended. Multiple mildly to moderately distended loops of small bowel within the abdomen and pelvis, as before. Scattered regions of mild to moderate small bowel thickening. Distal small bowel is decompressed. Colon demonstrates moderate diffuse colonic stool. Peritoneum: No abnormal intraperitoneal fluid. No free air. Ventral Wall: No hernias. Abdominal Nodes: No retroperitoneal or mesenteric adenopathy by size criteria. Vessels: Aorta and inferior vena cava are normal in size. PELVIS: Pelvic Organs: Unremarkable. Bladder: Unremarkable. Pelvic Nodes: No enlarged lymph nodes. Miscellaneous: No hernias are seen. Bones: Unremarkable. IMPRESSION: 1. Small-bowel obstruction. 2. Thickened small bowel, consistent with ischemia, infection, or inflammation. 3. No change in medial splenic focus. Dictated by: Yu Davila M.D. on 12/24/2021 at 0:48 Approved by: Yu Davila M.D. on 12/24/2021 at 0:50
--- NOTE | 2021-12-23 23:34 | ED.GENADULT ---
HPI - General Adult General Chief complaint: Abdominal Pain Stated complaint: bowel blockage Time Seen by Provider: 12/23/21 23:21 Source: patient Mode of arrival: Ambulatory Limitations: no limitations History of Present Illness HPI narrative: Patient is an 86-year-old female. Has had multiple bowel obstructions in the past. These have come because of multiple abdominal surgeries secondary to cervical and bladder cancer. She does have a urostomy in place which is not new. Over the past 24 hours she has developed abdominal pain and distention and nausea. No fevers. She states it feels like she has a bowel obstruction. She did have a very small bowel movement in the past 24 hours. Is not passing flatus. Related Data Home Medications Medication Instructions Recorded Confirmed Bifidobacterium infantis 4 mg 4 mg PO DAILY 08/24/20 12/24/21 capsule (Align) cholecalciferol (vitamin D3) PO 08/24/20 07/20/21 loperamide 2 mg tablet (Imodium 2 mg PO Q6H PRN 08/24/20 12/24/21 A-D) magnesium chloride PO 08/24/20 07/20/21 triamcinolone acetonide 55 mcg 1 spray NASAL DAILY 08/24/20 12/24/21 nasal spray aerosol (Nasacort) vitamin B complex [B PO 08/24/20 07/20/21 Complex-Vitamin B12] simethicone 125 mg capsule (Gas-X 125 mg PO QD-BID PRN 08/12/21 12/24/21 Extra Strength) Previous Rx's Medication Instructions Recorded losartan 100 mg tablet 100 mg PO DAILY #90 tab 10/11/20 omeprazole 20 mg capsule,delayed 20 mg PO DAILY #90 cap 12/16/20 release Allergies Allergy/AdvReac Type Severity Reaction Status Date / Time Sulfa (Sulfonamide Allergy Unknown Verified 11/17/21 12:41 Antibiotics) trimethaphan Allergy Unknown Verified 11/17/21 12:41 Review of Systems Constitutional Constitutional: Denies fever(s) Cardiovascular Cardiovascular: Denies chest pain and Denies dyspnea Respiratory Respiratory: Denies dyspnea Gastrointestinal Gastrointestinal: Reports as per HPI and Reports system reviewed and no additional complaints, except as documented Genitourinary Comments: Urostomy in place Musculoskeletal Musculoskeletal: Denies back pain Integumentary/Breasts Skin/Breast: Reports system reviewed and no additional complaints, except as documented Neurologic Neurologic: Reports system reviewed and no additional complaints, except as documented and Reports as per HPI Psychiatric Psychiatric: Reports system reviewed and no additional complaints, except as documented Endocrine Endocrine: Reports system reviewed and no additional complaints, except as documented Hematologic/Lymphatic On Anticoagulants: No Allergic/Immunologic Allergic/Immunologic: Reports system reviewed and no additional complaints, except as documented Patient History Medical History Abnormal Pap smear of cervix (~2001) Anxiety (~1977) Cervical cancer Depression (~1977) GERD (gastroesophageal reflux disease) (~1989) Hemorrhoid (~1959) Hernia, perineal History of bladder cancer (~2002) History of cervical cancer (~2002) History of urinary incontinence (~2019) History of uterine cancer (~2002) Human papilloma virus (~2001) Hypertension Measles (~194) Recurrent sinusitis (~1964) Surgical History Anesthesia History of cholecystectomy (~2001) History of hemorrhoidectomy (~1970) History of radical hysterectomy History of urostomy Family History Father Cancer Mother Hypertension Mental health problem Grandfather Diabetes mellitus Grandmother Diabetes mellitus Grandmother Diabetes mellitus Social History household members: none Smoking Status: Former smoker Smoking Status: Former smoker tobacco type: vaping alcohol intake frequency: 0-2 drinks per day Alcohol type: wine Substance Use Type: does not use Exam Initial Vital Signs Initial Vital Signs: Vital Signs Temperature 97.8 F 12/23/21 22:21 Pulse Rate 100 H 12/23/21 22:21 Respiratory Rate 16 12/23/21 22:21 Blood Pressure 138/104 H 12/23/21 22:21 Pulse Oximetry 97 12/23/21 22:21 Const General: cooperative, comfortable and well developed HENNC Head: normal to inspection and normocephalic Eyes General: appearance normal, both eyes and all related structures Resp Effort & Inspection: normal respiratory effort Auscultation: clear to auscultation bilaterally Cardio Rate: regular rate Rhythm: regular rhythm GI Inspection: distended Palpation: firm, No rigid and tender Skin General: no rashes or lesions noted Neuro General: patient alert, patient awake, patient oriented x3 and moves all extremities Extrem General: normal to inspection and capillary refill normal Psych Appearance: grossly normal and well kempt Course Orders Ordered: ED Orders 12/23/21 22:20 EKG-12 Lead Stat 12/23/21 22:31 Complete Blood Count AUTO DIFF Stat Comprehensive Metabolic Panel Stat Lactate (Lactic Acid) Stat Lipase Stat Urine Culture Stat Urine Microscopic Stat 12/23/21 22:37 COVID19 -Nasal swab/Pre-Proc Stat 12/23/21 23:34 CT abdomen pelvis w con Stat 12/24/21 01:07 Consult to General Surgery Stat Discontinued Medications Sodium Chloride (Normal Saline 0.9%) 1,000 mls @ 500 mls/hr IV BOLUS ONE Stop: 12/24/21 01:33 Last Admin: 12/24/21 00:00 Dose: Not Given Documented by: JOSÉ ANTONIO Ondansetron HCl (Ondansetron 4 Mg/2 Ml Inj) 4 mg IV NOW ONE Stop: 12/23/21 22:32 Last Admin: 12/23/21 22:36 Dose: 4 mg Documented by: ALIZE Vital Signs Vital signs: Vital Signs - 8 hr 12/23/21 22:21 12/24/21 01:03 Temperature 97.8 F Pulse Rate 100 H 81 Respiratory Rate 16 Blood Pressure 138/104 H Pulse Oximetry 97 94 Medical Decision Making Medical Records Medical records reviewed: Yes I reviewed the patient's medical records. Lab Data Lab results reviewed: Yes I reviewed the patient's lab results. Result diagrams: 12/23/21 22:31 12/23/21 22:31 Labs: Lab Results 12/23/21 12/23/21 12/23/21 Range/Units 22:31 22:31 22:31 WBC 9.9 (4.5-11.0) X10^3/uL RBC 4.36 (4.0-5.2) X10^6/uL Hgb 13.9 (12.0-16.0) g/dL Hct 40.6 (36-46) % MCV 93.0 (80-100) fL MCH 31.9 (26-34) PG MCHC 34.3 (30-36) % RDW 13.9 (11.6-14.8) % Plt Count 217 (150-400) X10^3/uL Neut % (Auto) 89.8 H (50-75) % Lymph % (Auto) 5.3 L (25-40) % [place] % (Auto) 4.5 (3-14) % Eos % (Auto) 0.2 L (2-4) % Baso % (Auto) 0.2 (0-2) % Neut # (Auto) 8900 H (7875-4810) /uL Lymph # (Auto) 500 L (5442-6726) /uL [place] # (Auto) 400 (0-900) /uL Eos # (Auto) 0 (0-450) /uL Baso # (Auto) 0 (0-100) /uL Sodium 138 (137-145) mmol/L Potassium 3.8 (3.4-5.1) mmol/L Chloride 102 (98-107) mmol/L Carbon Dioxide 28 (22-32) mmol/L BUN 25 H (7-17) mg/dL Creatinine 0.91 (0.52-1.04) mg/dL Estimated GFR 58.8 L (>60) mL/min BUN/Creatinine Ratio 27.5 H (6-22) Glucose 154 H (80-110) mg/dL Lactate (0.7-2.1) mmol/L Calcium 10.3 H (8.4-10.2) mg/dL Total Bilirubin 0.9 (0.2-1.3) mg/dL AST 29 (14-36) IU/L ALT 20 (<35) IU/L Alkaline Phosphatase 55 (38-126) U/L Total Protein 8.4 H (6.3-8.2) g/dL Albumin 4.9 (3.5-5.0) g/dL Globulin 3.5 (1.7-4.1) g/dL Albumin/Globulin Ratio 1.4 (1.0-2.8) Lipase 94 (23-300) U/L Urine RBC 0-1/hpf (0-5/HPF) Urine WBC 0-1/hpf (0-5/HPF) Ur Squamous Epith Cells 0-1 /hpf (0-5/HPF) Calcium Oxalate Crystal Occasional H Urine Bacteria Many (>30) H (None) Ur Culture Indicated? Culture not indicate SARS-CoV-2 (PCR) (Negative) 12/23/21 12/23/21 Range/Units 22:31 22:37 WBC (4.5-11.0) X10^3/uL RBC (4.0-5.2) X10^6/uL Hgb (12.0-16.0) g/dL Hct (36-46) % MCV (80-100) fL MCH (26-34) PG MCHC (30-36) % RDW (11.6-14.8) % Plt Count (150-400) X10^3/uL Neut % (Auto) (50-75) % Lymph % (Auto) (25-40) % [place] % (Auto) (3-14) % Eos % (Auto) (2-4) % Baso % (Auto) (0-2) % Neut # (Auto) (2231-6445) /uL Lymph # (Auto) (6664-5401) /uL [place] # (Auto) (0-900) /uL Eos # (Auto) (0-450) /uL Baso # (Auto) (0-100) /uL Sodium (137-145) mmol/L Potassium (3.4-5.1) mmol/L Chloride (98-107) mmol/L Carbon Dioxide (22-32) mmol/L BUN (7-17) mg/dL Creatinine (0.52-1.04) mg/dL Estimated GFR (>60) mL/min BUN/Creatinine Ratio (6-22) Glucose (80-110) mg/dL Lactate 1.0 (0.7-2.1) mmol/L Calcium (8.4-10.2) mg/dL Total Bilirubin (0.2-1.3) mg/dL AST (14-36) IU/L ALT (<35) IU/L Alkaline Phosphatase (38-126) U/L Total Protein (6.3-8.2) g/dL Albumin (3.5-5.0) g/dL Globulin (1.7-4.1) g/dL Albumin/Globulin Ratio (1.0-2.8) Lipase (23-300) U/L Urine RBC (0-5/HPF) Urine WBC (0-5/HPF) Ur Squamous Epith Cells (0-5/HPF) Calcium Oxalate Crystal Urine Bacteria (None) Ur Culture Indicated? SARS-CoV-2 (PCR) Negative (Negative) Urine Dip Bedside Urine Glucose Negative Bedside Urine Bilirubin - Negative Bedside Urine Ketone + 15 Urine Specific [place] 1.025 Bedside Urine Occult Blood +/- Bedside Urine pH 6.0 Bedside Urine Protein + 30 Bedside Urine Urobilinogen - Negative Bedside Urine Nitrite + Positive Bedside Urine Leukocytes - Negative Esterase Point of care testing: Urine Dip Bedside Urine Glucose Negative Bedside Urine Bilirubin - Negative Bedside Urine Ketone + 15 Urine Specific [place] 1.025 Bedside Urine Occult Blood +/- Bedside Urine pH 6.0 Bedside Urine Protein + 30 Bedside Urine Urobilinogen - Negative Bedside Urine Nitrite + Positive Bedside Urine Leukocytes - Negative Esterase Imaging Data CT scan - abdomen/pelvis: Radiologist's Impression: [address] [address] [address] Scan Report Signed Patient: Hortencia Lin MR#: [id number] : 1935 Acct:[id number] Age/Sex: 86 / F Date of Service: 12/23/21 Loc: ED Accession Number: [id number] ?? Procedure: CT abdomen pelvis w con Ordering Provider: Stephan Herrera D.O. PROCEDURE:? CT ABDOMEN PELVIS W CON ? INDICATIONS:? Abdominal distention, vomiting, history of bowel obstruction ? TECHNIQUE:? After the administration of intravenous contrast, axial sections acquired from the lung bases to the pubic symphysis.? Coronal and sagittal reformats were performed.? For radiation dose reduction, the following was used:? automated exposure control, adjustment of mA and/or kV according to patient size.? ? COMPARISON:? [facility], CT, CT ABDOMEN PELVIS W CON, 11/17/2021, 13:34. ? FINDINGS:? Image quality:? Excellent.? ? Lung bases:? Unremarkable. Heart:? No significant findings. ? ABDOMEN: Liver:? Unremarkable.? ? Gallbladder:? Is surgically absent? ? Biliary ducts:? Unremarkable.? ? Pancreas:? Unremarkable.? ? Spleen:? No change in multi lobular low-density focus within the medial spleen measuring roughly 20 mm diameter. Adrenal Glands:? Unremarkable.? ? Kidneys and Ureters:? Unremarkable.? ? ? Stomach and Bowel:? Stomach is mildly distended.? Multiple mildly to moderately distended loops of small bowel within the abdomen and pelvis, as before.? Scattered regions of mild to moderate small bowel thickening.? Distal small bowel is decompressed.? Colon demonstrates moderate diffuse colonic stool. Peritoneum:? No abnormal intraperitoneal fluid.? No free air.? ? Ventral Wall: ? No hernias.? Abdominal Nodes:? No retroperitoneal or mesenteric adenopathy by size criteria.? Vessels:? Aorta and inferior vena cava are normal in size.? ? PELVIS: Pelvic Organs:? Unremarkable.? ? Bladder:? Unremarkable.? ? Pelvic Nodes: No enlarged lymph nodes.? Miscellaneous: No hernias are seen. ? ? ? Bones:? Unremarkable.? IMPRESSION:? 1. Small-bowel obstruction. 2. Thickened small bowel, consistent with ischemia, infection, or inflammation. 3. No change in medial splenic focus.? ? ? Dictated by: Yu Davila M.D. on 12/24/2021 at 0:48 ? ? Approved by: Yu Davila M.D. on 12/24/2021 at 0:50? MDM Narrative Medical decision making narrative: Patient does have a distended firm abdomen with diffuse tenderness but not a surgical abdomen. CT scan shows small bowel obstruction. Patient does have nitrite positive urine. But no fever. No leukocytosis. We will hold on antibiotics until the culture results. Discussed the case with Dr. Cotton on-call for General surgery who recommended the patient be admitted to the medicine service. He also recommended an NG tube however the patient declined this. She states she has had NG tubes in the past and would like to hold on having it placed for now. She understands that if her symptoms worsen we may need to reconsider this. I did discuss the case with SHAWN Heredia the night hospitalist who will admit for further evaluation and treatment. Discharge Plan Departure Patient Disposition: Admitted As Inpatient Clinical Impression: Small bowel obstruction Admit Date/Time: 12/24/21 01:28 Admit Provider: Lorena Heredia
[2021-12-24] VITALS (15 sets, daily range): BP systolic 144–174; BP diastolic 72–94; PULSE 72–84; RESP 14–17; TEMP 36.1–37; O2SAT 93–96; BMI 22.2
--- NOTE | 2021-12-24 01:32 | PC.NURSE ---
pt refused ng tube
[2021-12-24] MEDS: SODIUM CHLORIDE 0.9% 1,000 ML 100 ML IV ×3 (03:07→23:14)
--- NOTE | 2021-12-24 03:15 | PC.NURSE ---
Patient refusing most care with increasing agitation. Repeatedly attempting to get out of bed and is unable to be reoriented; difficult to redirect.
[2021-12-24] MEDS: ONDANSETRON 4 MG/2 ML INJ IV (04:25)
[2021-12-24 06:09] LABS: Prothrombin Time 11.4 SECONDS (10.1-12.7)
--- NOTE | 2021-12-24 08:20 | PM.HP.1 ---
History of Present Illness History of Present Illness Date Patient Seen: 12/24/21 Time Patient Seen: 07:45 Chief complaint: bowel blockage Narrative: Patient is 86-year-old female with history of multiple small-bowel obstruction, abdominal surgery secondary to cervical and bladder cancer, chronic urostomy presented with complaints of abdominal pain, distension, nausea and vomiting over the past 24 hours. This is similar to prior presentations for SBO. Most recently admitted in end of October and resolved on its own within a couple of days. Current CT shows: Stomach is mildly distended.? Multiple mildly to moderately distended loops of small bowel within the abdomen and pelvis, as before.? Scattered regions of mild to moderate small bowel thickening.? Distal small bowel is decompressed.? Colon demonstrates moderate diffuse colonic stool. As noted she has history of cervical and vulvar cancer initially treated with radiation, recurrence treated with anterior exenteration with ileal conduit. She developed a perineal hernia which was repaired in December 2020 at , surgery complicated by small-bowel resection. Patient History Medical History Abnormal Pap smear of cervix (~2001) Anxiety (~1977) Cervical cancer Depression (~1977) GERD (gastroesophageal reflux disease) (~1989) Hemorrhoid (~1959) Hernia, perineal History of bladder cancer (~2002) History of cervical cancer (~2002) History of urinary incontinence (~2019) History of uterine cancer (~2002) Human papilloma virus (~2001) Hypertension Measles (~1945) Recurrent sinusitis (~1965) Surgical History Anesthesia History of cholecystectomy (~2001) History of hemorrhoidectomy (~1970) History of radical hysterectomy History of urostomy Family & Social History Family History Father Cancer Mother Hypertension Mental health problem Grandfather Diabetes mellitus Grandmother Diabetes mellitus Grandmother Diabetes mellitus Social History: household members none Safety & Behavioral: Feels Safe in Current Yes Environment Been Physically Hurt or No Threatened By a Person Tobacco & Substance use: Tobacco type cigarettes Smoking Status Former smoker alcohol intake frequency 0-2 drinks per day Substance Use Type does not use Meds Home Medications and Allergies Home Medications Medication Instructions Recorded Confirmed Type Bifidobacterium infantis 4 mg 4 mg PO DAILY 08/24/20 12/24/21 History capsule (Align) cholecalciferol (vitamin D3) PO 08/24/20 07/20/21 History loperamide 2 mg tablet (Imodium 2 mg PO Q6H PRN 08/24/20 12/24/21 History A-D) magnesium chloride PO 08/24/20 07/20/21 History triamcinolone acetonide 55 mcg 1 spray NASAL DAILY 08/24/20 12/24/21 History nasal spray aerosol (Nasacort) vitamin B complex [B PO 08/24/20 07/20/21 History Complex-Vitamin B12] losartan 100 mg tablet 100 mg PO DAILY #90 tab 10/11/20 12/24/21 Rx omeprazole 20 mg capsule,delayed 20 mg PO DAILY #90 cap 12/16/20 12/24/21 Rx release simethicone 125 mg capsule (Gas-X 125 mg PO QD-BID PRN 08/12/21 12/24/21 History Extra Strength) Allergies Allergy/AdvReac Type Severity Reaction Status Date / Time Sulfa (Sulfonamide Allergy Unknown Verified 11/17/21 12:41 Antibiotics) trimethaphan Allergy Unknown Verified 11/17/21 12:41 Review of Systems Review of Systems Narrative: No fevers, chills, chest pain, shortness of breath, cough, back pain, rash. Exam Vital Signs (past 8 hours): - 12/24/21 01:03 12/24/21 01:15 12/24/21 01:30 Temperature 97.5 F L Pulse Rate 81 80 80 Respiratory Rate 17 Blood Pressure 155/78 H 144/72 H Pulse Oximetry 94 95 94 12/24/21 01:36 12/24/21 02:26 12/24/21 05:56 Temperature 97.8 F Pulse Rate 84 76 Respiratory Rate 17 Blood Pressure 145/75 H 147/87 H Pulse Oximetry 96 96 96 12/24/21 06:26 Temperature Pulse Rate Respiratory Rate Blood Pressure Pulse Oximetry 95 Oxygen Delivery Method Room Air Narrative Exam Narrative: General: Alert and pleasant female in mild distress HEENT: Nontraumatic, pupils equal, anicteric Neck: No lymphadenopathy Lungs: Clear to auscultation Heart: Regular rhythm without murmur Abdomen: Mildly distended, hypoactive bowel sounds, mildly tender, urostomy noted Extremities: No edema Neurological: Fully oriented, speech normal, affect normal, no focal weakness Objective Labs Result Diagrams: 12/23/21 22:31 12/23/21 22:31 Labs: Laboratory Results - last 24 hr 12/23/21 12/23/21 12/23/21 22:31 22:31 22:31 WBC 9.9 RBC 4.36 Hgb 13.9 Hct 40.6 MCV 93.0 MCH 31.9 MCHC 34.3 RDW 13.9 Plt Count 217 Neut % (Auto) 89.8 H Lymph % (Auto) 5.3 L [place] % (Auto) 4.5 Eos % (Auto) 0.2 L Baso % (Auto) 0.2 Neut # (Auto) 8900 H Lymph # (Auto) 500 L [place] # (Auto) 400 Eos # (Auto) 0 Baso # (Auto) 0 PT INR Sodium 138 Potassium 3.8 Chloride 102 Carbon Dioxide 28 BUN 25 H Creatinine 0.91 Estimated GFR 58.8 L BUN/Creatinine Ratio 27.5 H Glucose 154 H Lactate Calcium 10.3 H Total Bilirubin 0.9 AST 29 ALT 20 Alkaline Phosphatase 55 Total Protein 8.4 H Albumin 4.9 Globulin 3.5 Albumin/Globulin Ratio 1.4 Lipase 94 Urine RBC 0-1/hpf Urine WBC 0-1/hpf Ur Squamous Epith Cells 0-1 /hpf Calcium Oxalate Crystal Occasional H Urine Bacteria Many (>30) H Ur Culture Indicated? Culture not indicate SARS-CoV-2 (PCR) 12/23/21 12/23/21 12/24/21 22:31 22:37 05:42 WBC RBC Hgb Hct MCV MCH MCHC RDW Plt Count Neut % (Auto) Lymph % (Auto) [place] % (Auto) Eos % (Auto) Baso % (Auto) Neut # (Auto) Lymph # (Auto) [place] # (Auto) Eos # (Auto) Baso # (Auto) PT 11.4 INR 1.0 Sodium Potassium Chloride Carbon Dioxide BUN Creatinine Estimated GFR BUN/Creatinine Ratio Glucose Lactate 1.0 Calcium Total Bilirubin AST ALT Alkaline Phosphatase Total Protein Albumin Globulin Albumin/Globulin Ratio Lipase Urine RBC Urine WBC Ur Squamous Epith Cells Calcium Oxalate Crystal Urine Bacteria Ur Culture Indicated? SARS-CoV-2 (PCR) Negative Assessment & Plan Assessment & Plan narrative: 86-year-old female with history of recurrent SBO, history of radiation treatment and multiple abdominal surgeries for cervical and bladder cancer, presence of urostomy presents with recurrent abdominal pain, distension nausea and vomiting. 1. Recurrent small-bowel obstruction -likely secondary to adhesions -CT consistent with SBO -Dr. Cotton to see patient for surgery consult -NPO, IV fluids, analgesics, anti emetic -patient declined NG tube but currently not actively vomiting 2. Hypertension -hold losartan -labetalol 10 mg IV q.4 hours as needed BP greater than 180/100 Time Spent With Patient Critical Care time: I spent a total of [] minutes of critical care time on this patient's care today; this time is exclusive of procedural time.
[2021-12-24] MEDS: PANTOPRAZOLE 40 MG VIAL 20 MG IV (09:20)
--- NOTE | 2021-12-24 11:29 | PM.CN ---
History of Present Illness Consult details Date Patient Seen: 12/24/21 Chief complaint: bowel blockage Narrative: Hortencia is an 86-year-old woman with a history of cervical cancer status post hysterectomy with exenteration including cystectomy and ileal conduit presented overnight with abdominal pain, nausea and distention which are the symptoms she is so sites with past bowel obstructions. She has had radiation and she had what sounds like a rather complex surgery for a hernia through her perineum that involved a small-bowel resection and a reconstructive procedure to close the hernia defect. That was performed years ago at [facility]. She has had multiple other bowel obstructions which have resolved with conservative measures including most recently in October when she opened up after Gastrografin. She has not been vomiting and has not had an NG tube. She is not passing gas. Meds Home Medications and Allergies Home Medications Medication Instructions Recorded Confirmed Type Bifidobacterium infantis 4 mg 4 mg PO DAILY 08/24/20 12/24/21 History capsule (Align) cholecalciferol (vitamin D3) PO 08/24/20 07/20/21 History loperamide 2 mg tablet (Imodium 2 mg PO Q6H PRN 08/24/20 12/24/21 History A-D) magnesium chloride PO 08/24/20 07/20/21 History triamcinolone acetonide 55 mcg 1 spray NASAL DAILY 08/24/20 12/24/21 History nasal spray aerosol (Nasacort) vitamin B complex [B PO 08/24/20 07/20/21 History Complex-Vitamin B12] losartan 100 mg tablet 100 mg PO DAILY #90 tab 10/11/20 12/24/21 Rx omeprazole 20 mg capsule,delayed 20 mg PO DAILY #90 cap 12/16/20 12/24/21 Rx release simethicone 125 mg capsule (Gas-X 125 mg PO QD-BID PRN 08/12/21 12/24/21 History Extra Strength) Allergies Allergy/AdvReac Type Severity Reaction Status Date / Time Sulfa (Sulfonamide Allergy Unknown Verified 11/17/21 12:41 Antibiotics) trimethaphan Allergy Unknown Verified 11/17/21 12:41 Exam Vital Signs (past 8 hours): - 12/24/21 05:56 12/24/21 06:26 12/24/21 08:29 Temperature 97.8 F 97.9 F Pulse Rate 76 76 Respiratory Rate 17 14 Blood Pressure 147/87 H 154/75 H Pulse Oximetry 96 95 95 12/24/21 09:12 Temperature Pulse Rate Respiratory Rate Blood Pressure Pulse Oximetry 94 Oxygen Delivery Method Room Air Oxygen Flow Rate 0 Narrative Exam Narrative: There is an ileostomy which is viable with copious amounts of urine in the bag Abdomen is otherwise soft and minimally tender, moderately distended Objective Labs Result Diagrams: 12/23/21 22:31 12/23/21 22:31 Labs: Laboratory Results - last 24 hr 12/23/21 12/23/21 12/23/21 22:31 22:31 22:31 WBC 9.9 RBC 4.36 Hgb 13.9 Hct 40.6 MCV 93.0 MCH 31.9 MCHC 34.3 RDW 13.9 Plt Count 217 Neut % (Auto) 89.8 H Lymph % (Auto) 5.3 L [place] % (Auto) 4.5 Eos % (Auto) 0.2 L Baso % (Auto) 0.2 Neut # (Auto) 8900 H Lymph # (Auto) 500 L [place] # (Auto) 400 Eos # (Auto) 0 Baso # (Auto) 0 PT INR Sodium 138 Potassium 3.8 Chloride 102 Carbon Dioxide 28 BUN 25 H Creatinine 0.91 Estimated GFR 58.8 L BUN/Creatinine Ratio 27.5 H Glucose 154 H Lactate Calcium 10.3 H Total Bilirubin 0.9 AST 29 ALT 20 Alkaline Phosphatase 55 Total Protein 8.4 H Albumin 4.9 Globulin 3.5 Albumin/Globulin Ratio 1.4 Lipase 94 Urine RBC 0-1/hpf Urine WBC 0-1/hpf Ur Squamous Epith Cells 0-1 /hpf Calcium Oxalate Crystal Occasional H Urine Bacteria Many (>30) H Ur Culture Indicated? Culture not indicate SARS-CoV-2 (PCR) 12/23/21 12/23/21 12/24/21 22:31 22:37 05:42 WBC RBC Hgb Hct MCV MCH MCHC RDW Plt Count Neut % (Auto) Lymph % (Auto) [place] % (Auto) Eos % (Auto) Baso % (Auto) Neut # (Auto) Lymph # (Auto) [place] # (Auto) Eos # (Auto) Baso # (Auto) PT 11.4 INR 1.0 Sodium Potassium Chloride Carbon Dioxide BUN Creatinine Estimated GFR BUN/Creatinine Ratio Glucose Lactate 1.0 Calcium Total Bilirubin AST ALT Alkaline Phosphatase Total Protein Albumin Globulin Albumin/Globulin Ratio Lipase Urine RBC Urine WBC Ur Squamous Epith Cells Calcium Oxalate Crystal Urine Bacteria Ur Culture Indicated? SARS-CoV-2 (PCR) Negative [facility] Medical History Abnormal Pap smear of cervix (~2001) Anxiety (~1977) Cervical cancer Depression (~1977) GERD (gastroesophageal reflux disease) (~1989) Hemorrhoid (~1959) Hernia, perineal History of bladder cancer (~2002) History of cervical cancer (~2002) History of urinary incontinence (~2019) History of uterine cancer (~2002) Human papilloma virus (~2001) Hypertension Measles (~194) Recurrent sinusitis (~1964) Surgical History Anesthesia History of cholecystectomy (~2001) History of hemorrhoidectomy (~1970) History of radical hysterectomy History of urostomy Family History Father Cancer Mother Hypertension Mental health problem Grandfather Diabetes mellitus Grandmother Diabetes mellitus Grandmother Diabetes mellitus Social History household members: none Tobacco & Substance Use Smoking Status: Former smoker Assessment & Plan Assessment and plan (1) Small bowel obstruction: Status: Acute Plan If she starts to vomit more she should have an NG tube placed. Otherwise if she starts to pass flatus we can start to advance her diet. Hopefully her obstruction can resolve without operative intervention again as she is a poor surgical candidate given her past surgical history and radiation history. Time Spent With Patient Critical Care time: I spent a total of [] minutes of critical care time on this patient's care today; this time is exclusive of procedural time.
--- NOTE | 2021-12-24 12:33 | CM.DANOTE ---
DCP Assessment: Patient is a 86 yr old female who was admitted for SBO. Patient states she has had multiple admissions over the last year for SBO. most recent hospitalization was October 2021 and the SBO was handeled with medical management no surgery required. Patient now back again with SBO pending surgical consult. Cm met with patient at the bedside and explained role. Patient is A&O x4 during CM visit. Hortencia currently lives in a single level apartment alone but her daughter Ktaie lives near by and helps her mother when needed. patient states she is completely Independent with all ADLs and Drives. Patient does not use any DME and is open to HH or SNF if it is needed at DC. I: Medicare and AARP Plan DC home when medically stable with her daughter providing transport home. If through the course of her stay and possible surgery patient is open to HH and SNF if it is determined to be needed. however at this time I do not think she will need these services. CM department will follow to assessments as DC comes closer. Em Britton RNlowerator operator Discharge Planning/Care Management Discharge Assessment Start: 12/24/21 12:18 Freq: Status: Active Protocol: Document 12/24/21 12:18 HS (Rec: 12/24/21 12:33 HS [id number]) Discharge Planning Assessment Assigned Accounts Receivable Executive Em Britton RNdoor frame assembler machine DPOA/Assigned Designee Name Katie Mock - Daughter Contact Information [phone] Advance Directives? Yes Advance Directives on File Yes History Provided By Patient,Medical Record Has Patient been admitted in last 30 No days? Prior Living Arrangements House Comment lives at [facility] Household Members none Comment Patient lives alone but her daughter lives down the block. ... Type of transporation used prior to Drives own vehicle admit Independent with ADL's Yes Is patient alert and oriented? Yes Caregiver for Another No DME Already Rented / Owned FWW / Walker,Cane Barriers to Discharge No Discharge Plan Home Transportation Arrangement Dtr Katie or Dtr Edith can transport at d/c, both local Referrals Initiated None needed Additional Comment Pending pt's SBFT and progress with SBO Whiteboard Updated in Patient Room with Yes name and ext. # of Accounts Receivable Executive Review Status In Process Next Review Type Continued Stay Review
[2021-12-25] VITALS (8 sets, daily range): BP systolic 149–162; BP diastolic 75–79; PULSE 61–76; RESP 14–17; TEMP 36.1–36.6; O2SAT 94–98
[2021-12-25 06:09] LABS: Add Manual Diff / Slide Review NO; Basophils Absolute Auto 0 /uL (0-100); Basophils Percent Auto 0.2 % (0-2); Eosinophils Absolute Auto 100 /uL (0-450); Eosinophils Percent Auto 1.7 % (2-4); Hematocrit 33.7 % (36-46); Hemoglobin 11.4 g/dL (12.0-16.0); Lymphocytes Absolute Auto 900 /uL (1100-4500); Lymphocytes Percent Auto 21.4 % (25-40); Mean Corpuscular HGB Conc 33.8 % (30-36); Mean Corpuscular Hemoglobin 31.6 PG (26-34); Mean Corpuscular Volume 93.5 fL (80-100); Monocytes Absolute Auto 300 /uL (0-900); Monocytes Percent Auto 6.1 % (3-14); Neutrophils Absolute Auto 3100 /uL (1500-7000); Neutrophils Percent Auto 70.6 % (50-75); Platelet Count 166 X10^3/uL (150-400); Red Blood Cell Count 3.61 X10^6/uL (4.0-5.2); Red Cell Distribution Width 13.9 % (11.6-14.8); White Blood Cell Count 4.4 X10^3/uL (4.5-11.0)
[2021-12-25 06:17] LABS: BUN Creatinine Ratio 16.9 (6-22); Blood Urea Nitrogen 12 mg/dL (7-17); Calcium 8.8 mg/dL (8.4-10.2); Carbon Dioxide 28 mmol/L (22-32); Chloride 108 mmol/L (98-107); Estimated Glomerular Filt Rate > 60.0 mL/min (>60); Glucose 90 mg/dL (80-110); HEMOLYSIS < 15 (0-50); Potassium 3.6 mmol/L (3.4-5.1); Sodium 139 mmol/L (137-145)
--- NOTE | 2021-12-25 10:18 | P.PN_ITS ---
Subjective Subjective Date Patient Seen: 12/25/21 Time Patient Seen: 10:19 Interval history: Feeling better today. Tolerating diet and having bowel function Exam Vital Signs (past 8 hours): - 12/25/21 03:13 12/25/21 06:00 Temperature 96.9 F L Pulse Rate 61 Respiratory Rate 17 Blood Pressure 149/75 H Pulse Oximetry 94 98 Oxygen Delivery Method Room Air Oxygen Flow Rate 0 Const General: No acute distress Objective Labs Result Diagrams: 12/25/21 05:40 12/25/21 05:40 Labs: Laboratory Results - last 24 hr 12/25/21 12/25/21 05:40 05:40 WBC 4.4 L D RBC 3.61 L Hgb 11.4 L Hct 33.7 L MCV 93.5 MCH 31.6 MCHC 33.8 RDW 13.9 Plt Count 166 Neut % (Auto) 70.6 Lymph % (Auto) 21.4 L [place] % (Auto) 6.1 Eos % (Auto) 1.7 L Baso % (Auto) 0.2 Neut # (Auto) 3100 Lymph # (Auto) 900 L [place] # (Auto) 300 Eos # (Auto) 100 Baso # (Auto) 0 Sodium 139 Potassium 3.6 Chloride 108 H Carbon Dioxide 28 BUN 12 Creatinine 0.71 Estimated GFR > 60.0 BUN/Creatinine Ratio 16.9 Glucose 90 Calcium 8.8 PFSH Medical History Abnormal Pap smear of cervix (~2001) Anxiety (~1977) Cervical cancer Depression (~1977) GERD (gastroesophageal reflux disease) (~1989) Hemorrhoid (~1959) Hernia, perineal History of bladder cancer (~2002) History of cervical cancer (~2002) History of urinary incontinence (~2019) History of uterine cancer (~2002) Human papilloma virus (~2001) Hypertension Measles (~1945) Recurrent sinusitis (~1965) Surgical History Anesthesia History of cholecystectomy (~2001) History of hemorrhoidectomy (~1970) History of radical hysterectomy History of urostomy Family History Father Cancer Mother Hypertension Mental health problem Grandfather Diabetes mellitus Grandmother Diabetes mellitus Grandmother Diabetes mellitus Social History household members: none Smoking Status: Former smoker Assessment & Plan Assessment and plan (1) Small bowel obstruction: Status: Acute Plan Bowel obstruction resolved. Okay to discharge home. Time Spent With Patient Critical Care time: I spent a total of [] minutes of critical care time on this patient's care today; this time is exclusive of procedural time.
[2021-12-25] MEDS: PANTOPRAZOLE 40 MG VIAL 20 MG IV (10:41)
--- NOTE | 2021-12-25 11:08 | PM.DS.1 ---
History of Present Illness History of Present Illness Chief complaint: bowel blockage Narrative: Patient is 86-year-old female with history of multiple small-bowel obstruction, abdominal surgery secondary to cervical and bladder cancer, chronic urostomy presented with complaints of abdominal pain, distension, nausea and vomiting over the past 24 hours. This is similar to prior presentations for SBO. Most recently admitted in end of October and resolved on its own within a couple of days. Current CT shows: Stomach is mildly distended.? Multiple mildly to moderately distended loops of small bowel within the abdomen and pelvis, as before.? Scattered regions of mild to moderate small bowel thickening.? Distal small bowel is decompressed.? Colon demonstrates moderate diffuse colonic stool. As noted she has history of cervical and vulvar cancer initially treated with radiation, recurrence treated with anterior exenteration with ileal conduit. She developed a perineal hernia which was repaired in December 2020 at , surgery complicated by small-bowel resection. Discharge Providers Provider Date of admission: 12/24/21 01:28 Discharge Date: 12/25/21 Primary care physician: ROBINSON Murcai Consults: 12/24/21 01:07 Consult to General Surgery Stat Comment: Consulting Provider: Robert Cotton Reason for consultation: SBO Has provider been notified: Yes 12/24/21 02:33 Consult to Physician Routine Comment: Consulting Provider: Robert Cotton Reason for consultation: SBO Has provider been notified: Yes Discharge provider: Jc Emmanuel MD Summary Hospital Course Discharge Diagnosis: 1. 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 History of cervical CA 3. History of bladder CA 4. History of abdominal/pelvic radiation 5. Hypertension Fence Manufacture Supervisor: Dr. Robert Cotton Hospital Course: Patient was managed conservatively with bowel rest, IV fluids, analgesics with resolution of SBO overnight. She is tolerating diet and had bowel movement prior to discharge. Status at Discharge Cognitive/behavioral status at discharge: oriented Functional status at discharge: independent ambulation Overall status at discharge: patient is back to baseline Time Spent with Patient Time spent: Less than 30 minutes Exam Vital Signs (past 8 hours): - 12/25/21 03:13 12/25/21 06:00 12/25/21 07:00 Temperature 96.9 F L 97.8 F Pulse Rate 61 76 Respiratory Rate 17 14 Blood Pressure 149/75 H 149/79 H Pulse Oximetry 94 98 98 12/25/21 10:23 12/25/21 10:26 Temperature Pulse Rate Respiratory Rate Blood Pressure Pulse Oximetry 98 98 Oxygen Delivery Method Room Air Oxygen Flow Rate 0 Objective Labs Result Diagrams: 12/25/21 05:40 12/25/21 05:40 Labs: Laboratory Results - last 24 hr 12/25/21 12/25/21 05:40 05:40 WBC 4.4 L D RBC 3.61 L Hgb 11.4 L Hct 33.7 L MCV 93.5 MCH 31.6 MCHC 33.8 RDW 13.9 Plt Count 166 Neut % (Auto) 70.6 Lymph % (Auto) 21.4 L [place] % (Auto) 6.1 Eos % (Auto) 1.7 L Baso % (Auto) 0.2 Neut # (Auto) 3100 Lymph # (Auto) 900 L [place] # (Auto) 300 Eos # (Auto) 100 Baso # (Auto) 0 Sodium 139 Potassium 3.6 Chloride 108 H Carbon Dioxide 28 BUN 12 Creatinine 0.71 Estimated GFR > 60.0 BUN/Creatinine Ratio 16.9 Glucose 90 Calcium 8.8 PFSH Medical History Abnormal Pap smear of cervix (~2001) Anxiety (~1977) Cervical cancer Depression (~1977) GERD (gastroesophageal reflux disease) (~1989) Hemorrhoid (~1959) Hernia, perineal History of bladder cancer (~2002) History of cervical cancer (~2002) History of urinary incontinence (~2019) History of uterine cancer (~2002) Human papilloma virus (~2001) Hypertension Measles (~1945) Recurrent sinusitis (~1965) Surgical History Anesthesia History of cholecystectomy (~2001) History of hemorrhoidectomy (~1970) History of radical hysterectomy History of urostomy Family History Father Cancer Mother Hypertension Mental health problem Grandfather Diabetes mellitus Grandmother Diabetes mellitus Grandmother Diabetes mellitus Social History household members: none Smoking Status: Former smoker Discharge Plan Discharge Plan Patient Disposition: Home Discharge orders & Medications Prescriptions: Continued omeprazole 20 mg capsule,delayed release(DR/EC) 20 mg PO DAILY Qty: 90 3RF loperamide [Imodium A-D] 2 mg tablet 2 mg PO Q6H PRN (Reason: Loose Stool) 0RF Align 4 mg capsule 4 mg PO DAILY 0RF triamcinolone acetonide [Nasacort] 55 mcg aerosol,spray 1 spray NASAL DAILY 0RF Rx Instructions: administer into each nostril magnesium chloride PO 0RF vitamin B complex PO 0RF cholecalciferol (vitamin D3) PO 0RF losartan 100 mg tablet 100 mg PO DAILY Qty: 90 3RF simethicone [Gas-X Extra Strength] 125 mg capsule 125 mg PO QD-BID PRN (Reason: gas) 0RF Follow up/Referrals: Blue Gan ARNP [Primary Care Provider] - Diet/Activity/Treatments Diet: Regular Discharge Data Primary Care Provider: Blue Gan
--- NOTE | 2021-12-25 13:24 | PC.NURSE ---
Pt AOx4, VS stable. Pt was able to ambulate independently without pain or discomfort. She had frequent loose stools but mentioned that she would be taking Imodium when she arrives home. IV removed, discharge instructions given, and pt was discharged with a wheelchair to her daughter. Denied pain.
== END 2021-12-25 13:23 | disposition home or self-care (01) ==
LOC: ED 12-24 00:59 → AC 12-24 01:41
PROVIDERS: Admitting Provider Nurse Practitioner Family; Emergency Provider Emergency Medicine; PCP Registered Nurse Diabetes Educator; Referring Provider Emergency Medicine; Visit Provider Nurse Practitioner Family
DX: K56.609 Unspecified intestinal obstruction, unspecified as to partial versus complete obstruction (principal); K56.50 Intestinal adhesions [bands], unspecified as to partial versus complete obstruction; I10 Essential (primary) hypertension; K21.9 Gastro-esophageal reflux disease without esophagitis; Z20.822 Contact with and (suspected) exposure to COVID-19; Z87.891 Personal history of nicotine dependence
CPT/HCPCS: 36415; 74177; 80048; 80053; 81003; 81015; 82962; 83605; 83690; 85025; 85610; 87077; 87086; 87186; 87635; 94760; 96361; 96374; 96375; 96376; 99231; 99232; 99284; C9803; G0378; C9113; J2405; Q9967

== ENCOUNTER 2022-01-10 20:43 | Observation (INO) | payer MEDICARE, SELFPAY ==
[2021-12-24 01:46] VITALS: BMI 22.2
[2022-01-10] VITALS (17 sets, daily range): BP systolic 92–229; BP diastolic 53–118; PULSE 83–116; RESP 10–22; TEMP 36.8; O2SAT 92–99; BMI 22.6
--- NOTE | 2022-01-10 20:49 | DI.CT.S_ITS ---
PROCEDURE: CT ABDOMEN PELVIS W CON INDICATIONS: severe pain, history of multiple obstructions TECHNIQUE: After the administration of IV contrast, axial sections were acquired from the lung bases to the pubic symphysis. Coronal and sagittal reformats were performed. For radiation dose reduction, the following was used: automated exposure control, adjustment of mA and/or kV according to patient size. COMPARISON: [facility], [place], [place] PET CT FUSION SKULL 2 THIGH, 08/18/2020, 16:13. [facility], CT, CT ABDOMEN PELVIS W CON, 07/14/2021, 18:03. [facility], CT, CT ABDOMEN PELVIS W CON, 11/17/2021, 13:34. [facility], CT, CT ABDOMEN PELVIS W CON, 12/24/2021, 0:07. FINDINGS: Image quality: Excellent. Lung bases: Visualized lung bases are clear. There is a small hiatal hernia. Heart: Heart is normal in size. ABDOMEN: Liver: There is mild focal fatty infiltration in the anterior left hepatic lobe. Gallbladder: Surgically absent. Biliary ducts: There is intra and extrahepatic biliary ductal dilatation redemonstrated. The common bile duct measures up to approximately 1.2 cm. No calcified obstructing stones or discrete obstructing mass visualized. Pancreas: Unremarkable. Spleen: Normal in size. There is a lobulated hypoattenuating cystic lesion redemonstrated within the spleen measuring up to 2.0 x 2.0 cm in transverse dimension, unchanged in size compared to the prior studies. This demonstrated no associated increased uptake on the prior PET-CT.. Adrenal Glands: No adrenal nodules. Kidneys and Ureters: No hydronephrosis. Stomach and Bowel: There are postsurgical changes redemonstrated in the pelvis with a right lower quadrant ileal conduit. There is segmental wall thickening involving the conduit consistent with an infectious or inflammatory process. There also multiple dilated small bowel loops, measuring up to 2.7 cm with scattered air-fluid levels. There is a transition point in the right lower quadrant associated with surgical sutures as seen on axial series 2, image 48 and coronal series 4, image 27. Associated small bowel fecalization is present. Distal to the transition point, there is mild segmental wall thickening of the bowel extending to the cecum. Peritoneum: There is a small amount of nonspecific intraperitoneal free fluid.. No free air. Ventral Wall: No hernia. Abdominal Nodes: No retroperitoneal or mesenteric adenopathy by size criteria. Vessels: Aorta and inferior vena cava are normal in size. PELVIS: Pelvic Organs: Unremarkable. Bladder: Unremarkable. Pelvic Nodes: No enlarged lymph nodes. Miscellaneous: No inguinal hernias are identified. There are presacral postsurgical changes. Bones: Visualized osseous structures demonstrate no suspicious focal lesions. IMPRESSION: 1. Dilated loops of small bowel with small bowel fecalization and a transition point in the right lower quadrant as described. Findings are compatible with a small-bowel obstruction. 2. Segmental bowel wall thickening along the ileal conduit suggestive an infectious or inflammatory process. Recommend correlation with urinalysis. 3. Lobulated cystic lesion within the spleen appears unchanged compared to prior studies. 4. Mild biliary ductal dilatation redemonstrated without calcified obstructing stones or discrete obstructing mass visualized. Dictated by: Shaheed Araujo M.D. on 01/10/2022 at 22:45 Approved by: Shaheed Araujo M.D. on 01/10/2022 at 22:59
--- NOTE | 2022-01-10 21:02 | ED_ITS ---
HPI - Abdominal Pain General Chief Complaint: Abdominal Pain Stated Complaint: thinks bowel obstruction Time Seen by Provider: 01/10/22 20:49 Mode of arrival: Family Vehicle History of Present Illness HPI narrative: 86-year-old female former smoker with history of uterine and bladder cancer as well as relatively frequent bowel obstructions presents with family in the chief complaint of relatively sudden onset severe lower abdominal pain, nausea and vomiting earlier today. She states that it feels like prior bowel obstructions. She did however have a bowel movement earlier today but states her symptoms are much worse now and she is no longer passing gas. Her pain is worse when she moves and improves with rest. She denies any dysuria, frequency or urgency. Historically her bowel obstructions are thought to be related to prior abdominal and pelvic surgeries related to cancer and adhesions. She was most recently here under similar circumstances few weeks ago Related Data Home Medications Medication Instructions Recorded Confirmed Bifidobacterium infantis 4 mg 4 mg PO DAILY 08/24/20 01/03/22 capsule (Align) cholecalciferol (vitamin D3) PO 08/24/20 01/03/22 loperamide 2 mg tablet (Imodium 2 mg PO Q6H PRN 08/24/20 01/03/22 A-D) magnesium chloride PO 08/24/20 01/03/22 triamcinolone acetonide 55 mcg 1 spray NASAL DAILY 08/24/20 01/03/22 nasal spray aerosol (Nasacort) vitamin B complex [B PO 08/24/20 01/03/22 Complex-Vitamin B12] simethicone 125 mg capsule (Gas-X 125 mg PO QD-BID PRN 08/12/21 01/03/22 Extra Strength) psyllium [Metamucil] PO 01/03/22 01/03/22 Previous Rx's Medication Instructions Recorded losartan 100 mg tablet 100 mg PO DAILY #90 tab 01/03/22 omeprazole 20 mg capsule,delayed 20 mg PO DAILY #90 cap 01/03/22 release pneumococcal 23-sue ps vaccine 25 0.5 ml IM ONCE #0.5 ml 01/03/22 mcg/0.5 mL injection solution (Pneumovax-23) varicella-zoster gE vac,2 of 2 50 0.5 ml IM ONCE #1 ea 01/03/22 mcg IM suspension (Shingrix gE Antigen Component) Allergies Allergy/AdvReac Type Severity Reaction Status Date / Time Sulfa (Sulfonamide Allergy Unknown Verified 01/10/22 20:54 Antibiotics) trimethaphan Allergy Unknown Verified 01/10/22 20:54 Review of Systems Review of Systems Narrative: GENERAL: Denies chills, fatigue, malaise, fever, sweats. HEENT: Denies sinus pain, ear pain, sore throat, difficulty swallowing, dizziness. RESPIRATORY: Denies dyspnea, cough, wheezing, hemoptysis, sputum. CARDIOVASCULAR: Denies chest pain, palpitations, orthopnea, edema, GASTROINTESTINAL: See HPI : Denies dysuria, frequency, incontinence, hematuria, urinary retention. MUSCULOSKELETAL: denies weakness, joint pain, or bony pain SKIN: Denies rash, skin lesions, or other NEUROLOGIC: Denies weakness, headache, numbness, change in speech, confusion, seizures, incoordination. PSYCHIATRIC: No concerning psychosocial issues. 12 point review of systems is negative except for those stated above Patient History Medical History Abnormal Pap smear of cervix (~2001) Anxiety (~1977) Cervical cancer Depression (~1977) GERD (gastroesophageal reflux disease) (~1989) Hemorrhoid (~1959) Hernia, perineal History of bladder cancer (~2002) History of cervical cancer (~2002) History of urinary incontinence (~2019) History of uterine cancer (~2002) Human papilloma virus (~2001) Hypertension Measles (~1945) Recurrent sinusitis (~1965) Surgical History Anesthesia History of cholecystectomy (~2001) History of hemorrhoidectomy (~1970) History of radical hysterectomy History of urostomy Family History Father Cancer Mother Hypertension Mental health problem Grandfather Diabetes mellitus Grandmother Diabetes mellitus Grandmother Diabetes mellitus Social History household members: none Smoking Status: Former smoker Smoking Status: Former smoker tobacco type: vaping alcohol intake frequency: 0-2 drinks per day Alcohol type: wine Substance Use Type: does not use Exam Narrative Exam Narrative: GENERAL: [86] year old patient appears stated age. Well-developed patient, in moderate distress, clearly in pain, holding an emesis bag HEAD: Atraumatic. Normocephalic. EYES: Pupils equal round and reactive. Extraocular motions intact. No scleral icterus. No injection or drainage. ENT: Nose without bleeding, purulent drainage. Throat without erythema, tonsillar hypertrophy or exudate. Airway patent. NECK: Trachea midline. Non tender CARDIOVASCULAR: Regular rate and rhythm without murmurs, gallops, or rubs. RESPIRATORY: Clear to auscultation. Breath sounds equal bilaterally. No wheezes, rales, or rhonchi. GASTROINTESTINAL: Abdomen soft, non-tender, nondistended. EXTREMITIES: No edema or joint tenderness. BACK: Nontender without deformity or crepitance. No flank tenderness. NEURO: AOx3. SKIN: No rash or erythema of visible areas Initial Vital Signs Initial Vital Signs: Vital Signs Temperature 98.3 F 01/10/22 20:51 Pulse Rate 116 H 01/10/22 20:51 Respiratory Rate 22 01/10/22 20:51 Blood Pressure 229/118 H 01/10/22 20:51 Pulse Oximetry 96 01/10/22 20:51 Course Orders Ordered: ED Orders 01/10/22 20:49 CT abdomen pelvis w con Stat 01/10/22 21:05 Complete Blood Count AUTO DIFF Stat Comprehensive Metabolic Panel Stat Lactate (Lactic Acid) Stat Lipase Stat 01/10/22 21:30 Urine Culture Stat Urine Microscopic Stat 01/10/22 23:03 COVID19 -Nasal swab/Pre-Proc Stat Discontinued Medications Hydromorphone HCl (Hydromorphone 0.5 Mg Inj) 0.5 mg IV NOW ONE Stop: 01/10/22 20:50 Last Admin: 01/10/22 21:05 Dose: 0.5 mg Documented by: LEONEL Hydromorphone HCl (Hydromorphone 0.5 Mg Inj) 0.5 mg IV NOW ONE Stop: 01/10/22 22:48 Last Admin: 01/10/22 23:03 Dose: 0.5 mg Documented by: Sodium Chloride (Normal Saline 0.9%) 1,000 mls @ 1,000 mls/hr IV BOLUS ONE Stop: 01/10/22 21:48 Last Admin: 01/10/22 21:06 Dose: 1,000 mls/hr Documented by: LEONEL Ceftriaxone Sodium 1,000 mg/ (Sodium Chloride) 100 mls @ 200 mls/hr IV NOW ONE Stop: 01/10/22 22:29 Last Admin: 01/10/22 23:03 Dose: 200 mls/hr Documented by: Ondansetron HCl (Ondansetron 4 Mg/2 Ml Inj) 4 mg IV NOW ONE Stop: 01/10/22 20:50 Last Admin: 01/10/22 21:05 Dose: 4 mg Documented by: LEONEL Pantoprazole Sodium (Pantoprazole 40 Mg Vial) 40 mg IV NOW ONE Stop: 01/10/22 20:50 Last Admin: 01/10/22 21:05 Dose: 40 mg Documented by: LEONEL Reevaluation(s) Reevaluation #1: Of had extensive discussion with the patient about nasogastric to given her gastric distension and ongoing pain. She is currently refusing, she understands the potential risk and benefit. She will reach think an NG to have ongoing pain medications do not provide relief Consultations Consultation #1: General surgery (Dr. Poe) consulted Consultation #2: Hospitalist happy to accept Vital Signs Vital signs: Vital Signs - 8 hr 01/10/22 20:51 01/10/22 20:53 01/10/22 21:00 Temperature 98.3 F Pulse Rate 113 H 107 H 100 H Respiratory Rate 22 21 17 Blood Pressure 229/118 H 199/80 H Pulse Oximetry 96 94 95 01/10/22 21:22 01/10/22 21:23 01/10/22 21:25 Temperature Pulse Rate 83 85 83 Respiratory Rate 20 16 10 L Blood Pressure 92/53 L 102/58 L 102/59 L Pulse Oximetry 95 92 92 01/10/22 21:30 01/10/22 21:48 01/10/22 21:50 Temperature Pulse Rate 89 92 H 90 Respiratory Rate 22 19 14 Blood Pressure 138/93 H 187/84 H 168/77 H Pulse Oximetry 95 99 98 01/10/22 22:00 01/10/22 22:10 01/10/22 22:20 Temperature Pulse Rate 88 89 87 Respiratory Rate 22 18 Blood Pressure 154/74 H 163/80 H 176/71 H Pulse Oximetry 97 97 98 01/10/22 22:30 01/10/22 22:40 01/10/22 22:50 Temperature Pulse Rate 93 H 89 93 H Respiratory Rate 19 13 Blood Pressure 178/79 H 191/81 H 194/82 H Pulse Oximetry 99 98 98 01/10/22 23:00 Temperature Pulse Rate 92 H Respiratory Rate Blood Pressure 176/63 H Pulse Oximetry 96 MDM - Abdominal Pain Lab Data Result diagrams: 01/10/22 21:05 01/10/22 21:05 Labs: Lab Results 01/10/22 01/10/22 01/10/22 Range/Units 21:05 21:05 21:05 WBC 8.5 (4.5-11.0) X10^3/uL RBC 4.31 (4.0-5.2) X10^6/uL Hgb 13.7 (12.0-16.0) g/dL Hct 39.9 (36-46) % MCV 92.7 (80-100) fL MCH 31.8 (26-34) PG MCHC 34.3 (30-36) % RDW 13.5 (11.6-14.8) % Plt Count 200 (150-400) X10^3/uL Neut % (Auto) 83.3 H (50-75) % Lymph % (Auto) 10.6 L (25-40) % [place] % (Auto) 5.2 (3-14) % Eos % (Auto) 0.4 L (2-4) % Baso % (Auto) 0.5 (0-2) % Neut # (Auto) 7100 H (2178-3538) /uL Lymph # (Auto) 900 L (5804-5779) /uL [place] # (Auto) 400 (0-900) /uL Eos # (Auto) 0 (0-450) /uL Baso # (Auto) 0 (0-100) /uL Sodium 136 L (137-145) mmol/L Potassium 3.7 (3.4-5.1) mmol/L Chloride 103 (98-107) mmol/L Carbon Dioxide 24 (22-32) mmol/L BUN 23 H (7-17) mg/dL Creatinine 0.90 (0.52-1.04) mg/dL Estimated GFR 59.5 L (>60) mL/min BUN/Creatinine Ratio 25.6 H (6-22) Glucose 155 H (80-110) mg/dL Lactate 1.1 (0.7-2.1) mmol/L Calcium 10.4 H (8.4-10.2) mg/dL Total Bilirubin 1.1 (0.2-1.3) mg/dL AST 28 (14-36) IU/L ALT 18 (<35) IU/L Alkaline Phosphatase 58 (38-126) U/L Total Protein 8.2 (6.3-8.2) g/dL Albumin 4.9 (3.5-5.0) g/dL Globulin 3.3 (1.7-4.1) g/dL Albumin/Globulin Ratio 1.5 (1.0-2.8) Lipase 148 (23-300) U/L Urine RBC (0-5/HPF) Urine WBC (0-5/HPF) Ur Squamous Epith Cells (0-5/HPF) Calcium Oxalate Crystal Urine Bacteria (None) Urine Mucus (Negative) Ur Culture Indicated? 01/10/22 Range/Units 21:30 WBC (4.5-11.0) X10^3/uL RBC (4.0-5.2) X10^6/uL Hgb (12.0-16.0) g/dL Hct (36-46) % MCV (80-100) fL MCH (26-34) PG MCHC (30-36) % RDW (11.6-14.8) % Plt Count (150-400) X10^3/uL Neut % (Auto) (50-75) % Lymph % (Auto) (25-40) % [place] % (Auto) (3-14) % Eos % (Auto) (2-4) % Baso % (Auto) (0-2) % Neut # (Auto) (9577-1978) /uL Lymph # (Auto) (0180-8405) /uL [place] # (Auto) (0-900) /uL Eos # (Auto) (0-450) /uL Baso # (Auto) (0-100) /uL Sodium (137-145) mmol/L Potassium (3.4-5.1) mmol/L Chloride (98-107) mmol/L Carbon Dioxide (22-32) mmol/L BUN (7-17) mg/dL Creatinine (0.52-1.04) mg/dL Estimated GFR (>60) mL/min BUN/Creatinine Ratio (6-22) Glucose (80-110) mg/dL Lactate (0.7-2.1) mmol/L Calcium (8.4-10.2) mg/dL Total Bilirubin (0.2-1.3) mg/dL AST (14-36) IU/L ALT (<35) IU/L Alkaline Phosphatase (38-126) U/L Total Protein (6.3-8.2) g/dL Albumin (3.5-5.0) g/dL Globulin (1.7-4.1) g/dL Albumin/Globulin Ratio (1.0-2.8) Lipase (23-300) U/L Urine RBC 0-1/hpf (0-5/HPF) Urine WBC 30-100/hpf H (0-5/HPF) Ur Squamous Epith Cells 1-5 /hpf (0-5/HPF) Calcium Oxalate Crystal Occasional H Urine Bacteria Many (>30) H (None) Urine Mucus 2+ H (Negative) Ur Culture Indicated? Specimen cultured Point of care testing: Urine Dip Bedside Urine Glucose Negative Bedside Urine Bilirubin - Negative Bedside Urine Ketone - Negative Urine Specific [place] 1.020 Bedside Urine Occult Blood +/- Bedside Urine pH 6.0 Bedside Urine Protein ++ 100 Bedside Urine Urobilinogen - Negative Bedside Urine Nitrite - Negative Bedside Urine Leukocytes - Negative Esterase Discharge Plan Departure Patient Disposition: Admitted As Inpatient Clinical Impression: Partial small bowel obstruction, Acute UTI
[2022-01-10] MEDS: PANTOPRAZOLE 40 MG VIAL IV (21:05)
[2022-01-10] MEDS: HYDROMORPHONE 0.5 MG INJ IV ×2 (21:05→23:03)
[2022-01-10] MEDS: ONDANSETRON 4 MG/2 ML INJ IV (21:05)
[2022-01-10] MEDS: SODIUM CHLORIDE 0.9% 1,000 ML 1000 ML IV (21:06)
[2022-01-10 21:13] LABS: Add Manual Diff / Slide Review NO; Basophils Absolute Auto 0 /uL (0-100); Basophils Percent Auto 0.5 % (0-2); Eosinophils Absolute Auto 0 /uL (0-450); Eosinophils Percent Auto 0.4 % (2-4); Hematocrit 39.9 % (36-46); Hemoglobin 13.7 g/dL (12.0-16.0); Lymphocytes Absolute Auto 900 /uL (1100-4500); Lymphocytes Percent Auto 10.6 % (25-40); Mean Corpuscular HGB Conc 34.3 % (30-36); Mean Corpuscular Hemoglobin 31.8 PG (26-34); Mean Corpuscular Volume 92.7 fL (80-100); Monocytes Absolute Auto 400 /uL (0-900); Monocytes Percent Auto 5.2 % (3-14); Neutrophils Absolute Auto 7100 /uL (1500-7000); Neutrophils Percent Auto 83.3 % (50-75); Platelet Count 200 X10^3/uL (150-400); Red Blood Cell Count 4.31 X10^6/uL (4.0-5.2); Red Cell Distribution Width 13.5 % (11.6-14.8); White Blood Cell Count 8.5 X10^3/uL (4.5-11.0)
[2022-01-10 21:25] LABS: Alanine Aminotransferase 18 IU/L (<35); Albumin 4.9 g/dL (3.5-5.0); Albumin Globulin Ratio 1.5 (1.0-2.8); Alkaline Phosphatase 58 U/L (38-126); Aspartate Aminotransferase 28 IU/L (14-36); BUN Creatinine Ratio 25.6 (6-22); Bilirubin Total 1.1 mg/dL (0.2-1.3); Blood Urea Nitrogen 23 mg/dL (7-17); Calcium 10.4 mg/dL (8.4-10.2); Carbon Dioxide 24 mmol/L (22-32); Chloride 103 mmol/L (98-107); Estimated Glomerular Filt Rate 59.5 mL/min (>60); Globulin 3.3 g/dL (1.7-4.1); Glucose 155 mg/dL (80-110); HEMOLYSIS < 15 (0-50); Lactate (Lactic Acid) 1.1 mmol/L (0.7-2.1); Lipase 148 U/L (23-300); Potassium 3.7 mmol/L (3.4-5.1); Sodium 136 mmol/L (137-145); Total Protein 8.2 g/dL (6.3-8.2)
[2022-01-10 22:12] LABS: RBC Urine 0-1/HPF (0-5/HPF)
[2022-01-10 22:13] LABS: Bacteria Urine Many (>30); Calcium Oxalate Crystals Urine Occasional; Culture Indicated Urine Specimen Cultured; Mucus Urine 2+ (Negative); Squamous Epithelial Cell Urine 1-5 /HPF (0-5/HPF); WBC Urine 30-100/HPF (0-5/HPF)
[2022-01-10] MEDS: cefTRIAXone 1,000 MG in SODIUM CHLORIDE 0.9% 100 ML 200 ML IV (23:03)
--- NOTE | 2022-01-10 23:42 | P.HP_ITS ---
History of Present Illness History of Present Illness Date Patient Seen: 01/11/22 Time Patient Seen: 00:42 Chief complaint: thinks bowel obstruction Narrative: is 86-year-old female with history of multiple small-bowel obstructions, abdominal surgery secondary to cervical and bladder cancer, chronic urostomy presented with complaints of abdominal pain, distension and vomiting. She states she has been feeling tired most of yesterday, woke up, and had a small breakfast and had a small bowel movement. She then went out with her daughter for [place] food for lunch, daughter in the room stated she only took a couple of bites. She returned home and started to vomit brown vomitus, stating this has occurred before. She had flushing, pain and cramps. She has a urostomy bag she has had since she had treatment for cervical cancer as she had to have her bladder rafael gómez. She states she started to have SBOs since having surgery a year ago at the [facility] for repair of a perineal hernia. CT of her abdomen reported segmental wall thickening of the right lower quadrant ileal conduit ?consistent with an infectious or inflammatory process, multiple d ilated small loops measuring up to 2.7 cm in diameter with air-fluid levels. They also noted a transition point in the right lower quadrant associated with surgical sutures. She is afebrile, blood pressure 132/95, heart rate 88, respiratory rate 18, oxygen saturation 98% on 2 L she weighs 50.8 kg with a BMI of 22.6. CBC is unremarkable platelet count of 200, she has mild left shift of 7100, sodium is 136, UA indicates ?many bacteria? and a high number of urine wbc's of which her urine will be cultured, COVID-19 PCR is negative. Patient History Medical History Abnormal Pap smear of cervix (~2001) Anxiety (~1977) Cervical cancer Depression (~1977) GERD (gastroesophageal reflux disease) (~1989) Hemorrhoid (~1959) Hernia, perineal History of bladder cancer (~2002) History of cervical cancer (~2002) History of urinary incontinence (~2019) History of uterine cancer (~2002) Human papilloma virus (~2001) Hypertension Measles (~1945) Recurrent sinusitis (~1964) Surgical History Anesthesia History of cholecystectomy (~2001) History of hemorrhoidectomy (~1970) History of radical hysterectomy History of urostomy Family & Social History Family History Father Cancer Mother Hypertension Mental health problem Grandfather Diabetes mellitus Grandmother Diabetes mellitus Grandmother Diabetes mellitus Social History: household members none Safety & Behavioral: Feels Safe in Current Yes Environment Been Physically Hurt or No Threatened By a Person Tobacco & Substance use: Tobacco type cigarettes Smoking Status Former smoker alcohol intake frequency 0-2 drinks per day Substance Use Type does not use Meds Home Medications and Allergies Home Medications Medication Instructions Recorded Confirmed Type Bifidobacterium infantis 4 mg 4 mg PO DAILY 08/24/20 01/03/22 History capsule (Align) cholecalciferol (vitamin D3) PO 08/24/20 01/03/22 History loperamide 2 mg tablet (Imodium 2 mg PO Q6H PRN 08/24/20 01/03/22 History A-D) magnesium chloride PO 08/24/20 01/03/22 History triamcinolone acetonide 55 mcg 1 spray NASAL DAILY 08/24/20 01/03/22 History nasal spray aerosol (Nasacort) vitamin B complex [B PO 08/24/20 01/03/22 History Complex-Vitamin B12] simethicone 125 mg capsule (Gas-X 125 mg PO QD-BID PRN 08/12/21 01/03/22 History Extra Strength) losartan 100 mg tablet 100 mg PO DAILY #90 tab 01/03/22 01/03/22 Rx omeprazole 20 mg capsule,delayed 20 mg PO DAILY #90 cap 01/03/22 01/03/22 Rx release pneumococcal 23-sue ps vaccine 25 0.5 ml IM ONCE #0.5 ml 01/03/22 01/03/22 Rx mcg/0.5 mL injection solution (Pneumovax-23) psyllium [Metamucil] PO 01/03/22 01/03/22 History varicella-zoster gE vac,2 of 2 50 0.5 ml IM ONCE #1 ea 01/03/22 01/03/22 Rx mcg IM suspension (Shingrix gE Antigen Component) Allergies Allergy/AdvReac Type Severity Reaction Status Date / Time Sulfa (Sulfonamide Allergy Unknown Verified 01/10/22 20:54 Antibiotics) trimethaphan Allergy Unknown Verified 01/10/22 20:54 Review of Systems Review of Systems ROS: Yes All systems reviewed with the patient and are negative except as otherwise documented Exam Vital Signs (past 8 hours): - 01/10/22 20:51 01/10/22 20:53 01/10/22 21:00 Temperature 98.3 F Pulse Rate 113 H 107 H 100 H Respiratory Rate 22 21 17 Blood Pressure 229/118 H 199/80 H Pulse Oximetry 96 94 95 01/10/22 21:22 01/10/22 21:23 01/10/22 21:25 Temperature Pulse Rate 83 85 83 Respiratory Rate 20 16 10 L Blood Pressure 92/53 L 102/58 L 102/59 L Pulse Oximetry 95 92 92 01/10/22 21:30 01/10/22 21:48 01/10/22 21:50 Temperature Pulse Rate 89 92 H 90 Respiratory Rate 22 19 14 Blood Pressure 138/93 H 187/84 H 168/77 H Pulse Oximetry 95 99 98 01/10/22 22:00 01/10/22 22:10 01/10/22 22:20 Temperature Pulse Rate 88 89 87 Respiratory Rate 22 18 Blood Pressure 154/74 H 163/80 H 176/71 H Pulse Oximetry 97 97 98 01/10/22 22:30 01/10/22 22:40 01/10/22 22:50 Temperature Pulse Rate 93 H 89 93 H Respiratory Rate 19 13 Blood Pressure 178/79 H 191/81 H 194/82 H Pulse Oximetry 99 98 98 01/10/22 23:00 Temperature Pulse Rate 92 H Respiratory Rate Blood Pressure 176/63 H Pulse Oximetry 96 Oxygen Delivery Method Nasal Cannula Oxygen Flow Rate 2 Narrative Exam Narrative: Gen: Alert, oriented, well-developed 86 y.o. female, mildly anxious HEENT: normocephalic, atraumatic, conjunctiva clear, sclera non-icteric, oral mucosa pink and moist Neck: supple, full ROM, no JVD, trachea is midline Resp: Lungs CTA, non-labored breathing CV: RRR, no murmur or rubs Abd: soft, mildly distended, diffusely tender, hypoactive BTs Skin: urostomy bag w/clear yellow urine, no signs of induration, stoma is pink, otherwise no lesions or rashes, dry and intact Neuro: Alert and oriented X 4 w/no focal deficits. Speech clear and coherent. Extremities: moves all 4 extremities, is ambulatory, negative Ashley?s sign Psyche: normal mood and affect. Objective Labs Result Diagrams: 01/10/22 21:05 01/10/22 21:05 Labs: Laboratory Results - last 24 hr 01/10/22 01/10/22 01/10/22 21:05 21:05 21:05 WBC 8.5 RBC 4.31 Hgb 13.7 Hct 39.9 MCV 92.7 MCH 31.8 MCHC 34.3 RDW 13.5 Plt Count 200 Neut % (Auto) 83.3 H Lymph % (Auto) 10.[address] [place] % (Auto) 5.2 Eos % (Auto) 0.4 L Baso % (Auto) 0.5 Neut # (Auto) 7100 H Lymph # (Auto) [address] [place] # (Auto) 400 Eos # (Auto) 0 Baso # (Auto) 0 Sodium 136 L Potassium 3.7 Chloride 103 Carbon Dioxide 24 BUN 23 H Creatinine 0.90 Estimated GFR 59.5 L BUN/Creatinine Ratio 25.6 H Glucose 155 H Lactate 1.1 Calcium 10.4 H Total Bilirubin 1.1 AST 28 ALT 18 Alkaline Phosphatase 58 Total Protein 8.2 Albumin 4.9 Globulin 3.3 Albumin/Globulin Ratio 1.5 Lipase 148 Urine RBC Urine WBC Ur Squamous Epith Cells Calcium Oxalate Crystal Urine Bacteria Urine Mucus Ur Culture Indicated? 01/10/22 21:30 WBC RBC Hgb Hct MCV MCH MCHC RDW Plt Count Neut % (Auto) Lymph % (Auto) [place] % (Auto) Eos % (Auto) Baso % (Auto) Neut # (Auto) Lymph # (Auto) [place] # (Auto) Eos # (Auto) Baso # (Auto) Sodium Potassium Chloride Carbon Dioxide BUN Creatinine Estimated GFR BUN/Creatinine Ratio Glucose Lactate Calcium Total Bilirubin AST ALT Alkaline Phosphatase Total Protein Albumin Globulin Albumin/Globulin Ratio Lipase Urine RBC 0-1/hpf Urine WBC 30-100/hpf H Ur Squamous Epith Cells 1-5 /hpf Calcium Oxalate Crystal Occasional H Urine Bacteria Many (>30) H Urine Mucus 2+ H Ur Culture Indicated? Specimen cultured Assessment & Plan Assessment & Plan narrative: Hortencia Lin is admitted for medical management of a small bowel obstruction. 1. Recurrent small-bowel obstruction, acute, present on admission * Patient will call bowel rest with NPO, pain control with IV hydromorphone 0.5 mg q.4 hours as needed, antiemetics and daily IV Protonix * She is given 1 dose of MiraLax now and will likely undergo Gastrografin study if no results tonight 2. Urinary tract infection, incidental finding on UA, * unknown if actually infection versus colonization from her urostomy * She was administered a dose of IV ceftriaxone in the emergency department and will continue this starting tomorrow of 1 g IV daily * Culture is pending 2. Essential hypertension, currently normotensive * She normally takes losartan 100 mg p.o. in the morning, this is being held due to her NPO status * IV labetalol or enalapril as needed for a systolic greater than 160. VTE Prophylaxis: Wells risk score 0 Enoxaparin 40 mg subQ once daily X Bilateral SCDs Patient is admitted to the inpatient service due to the severity of disease, risks of further disease progression and this stay is expected to exceed 2 midnights. FEN: IV fluids: , diet: NPO except chips, labs: CBC, C/BMP, liver enzymes, Mag Consultants Dr. Poe, care and involvement in the patient?s care is appreciated. Dispo: probable discharge to home Code status: Full code as discussed with the patient. [X] I have utilized all available immediate resources to obtain, update, or review of the patient's current medications COVID-19 COVID-19 status: Negative Result date/Date tested (Pos, Neg/Pending): 01/11/22 Time Spent With Patient Critical Care time: I spent a total of [] minutes of critical care time on this patient's care today; this time is exclusive of procedural time. Scores Wells' Criteria for PE Clinical signs and symptoms of DVT: No PE is #1 Dx or equally likely: No Heart rate > 100: No Immobilization at least 3 days or surg in previous 4 weeks: No History of PE or DVT: No Hemoptysis: No Malignancy w/Treatment within 6 months or palliative: No Wells' PE Score total: 0 Quality VTE Deep Vein Thrombosis/Pulmonary Embolism Present on Admission: No MIPS - Admit I confirm the patient?s Advance Care Plan is present, Code status is documented, Surrogate decision maker is in patient?s record [If Yes, STOP here]: Yes MIPS - DC The patient has current or prior documentation of left ventricular ejection frac tion (LVEF) less than 40%, or moderate or severely depressed left ventricular systolic function.: No
[2022-01-10 23:44] LABS: COVID19 -Nasal RAPID Negative (Negative)
[2022-01-11] VITALS (11 sets, daily range): BP systolic 132–151; BP diastolic 67–95; PULSE 72–93; RESP 16–18; TEMP 36.5–37.2; O2SAT 93–99
[2022-01-11] MEDS: SODIUM CHLORIDE 0.9% 1,000 ML 100 ML IV (01:08)
[2022-01-11] MEDS: polyethylene glycoL 3350 17 GM POWD.PACK PO (04:01)
[2022-01-11 05:57] LABS: Add Manual Diff / Slide Review NO; Basophils Absolute Auto 0 /uL (0-100); Basophils Percent Auto 0.4 % (0-2); Eosinophils Absolute Auto 0 /uL (0-450); Eosinophils Percent Auto 0.9 % (2-4); Hematocrit 34.6 % (36-46); Hemoglobin 11.9 g/dL (12.0-16.0); Lymphocytes Absolute Auto 600 /uL (1100-4500); Lymphocytes Percent Auto 12.1 % (25-40); Mean Corpuscular HGB Conc 34.3 % (30-36); Mean Corpuscular Volume 93.2 fL (80-100); Monocytes Absolute Auto 400 /uL (0-900); Monocytes Percent Auto 8.9 % (3-14); Neutrophils Absolute Auto 3600 /uL (1500-7000); Neutrophils Percent Auto 77.7 % (50-75); Platelet Count 157 X10^3/uL (150-400); Red Blood Cell Count 3.71 X10^6/uL (4.0-5.2); Red Cell Distribution Width 13.5 % (11.6-14.8); White Blood Cell Count 4.6 X10^3/uL (4.5-11.0)
[2022-01-11 06:05] LABS: Alanine Aminotransferase 16 IU/L (<35); Albumin 3.6 g/dL (3.5-5.0); Albumin Globulin Ratio 1.4 (1.0-2.8); Alkaline Phosphatase 38 U/L (38-126); Aspartate Aminotransferase 23 IU/L (14-36); Bilirubin Total 1.2 mg/dL (0.2-1.3); Bilirubin Unconjugated 1.2 mg/dL (0.0-1.1); Blood Urea Nitrogen 19 mg/dL (7-17); Calcium 8.7 mg/dL (8.4-10.2); Carbon Dioxide 25 mmol/L (22-32); Chloride 109 mmol/L (98-107); Estimated Glomerular Filt Rate > 60.0 mL/min (>60); Globulin 2.6 g/dL (1.7-4.1); Glucose 118 mg/dL (80-110); HEMOLYSIS < 15 (0-50); Magnesium 1.8 mg/dL (1.6-2.3); Potassium 3.9 mmol/L (3.4-5.1); Sodium 137 mmol/L (137-145); Total Protein 6.2 g/dL (6.3-8.2)
--- NOTE | 2022-01-11 06:57 | PC.NURSE ---
Pt admitted with SBO, dilaudid given in the ED for pain. Pt is A&O x 4, dilaudid given with good results, pt is passing gas, continues to have abdominal pain and bloating. Pt has urostomy, clear yellow urine. Pt sleeping well this this shift.
[2022-01-11] MEDS: PANTOPRAZOLE 40 MG VIAL IV (09:25)
--- NOTE | 2022-01-11 12:40 | PC.NURSE ---
Day shift: Pt tolerating clear liquid diet at this time.
[2022-01-11] MEDS: ACETAMINOPHEN 325 MG TABLET 650 MG PO (13:11)
--- NOTE | 2022-01-11 15:35 | CM.DANOTE ---
DCP Assessment Patient is a 86 yr old female who was admitted for SBO. Patient states she has had multiple admissions over the last year for SBO. Pt recently discharged 12/24/21 for similar and managed conservatively without surgery and discharged to home. Patient now back again with SBO and per Surg Consult no surgical intervention needed at this time. Per MD, pt already had bowel movement and tolerating clears and will advance her diet and may be able to d/c home this evening if pt tolerates diet. SW met with patient at the bedside and explained role. Patient is A&O x4 during CM visit. Hortencia currently lives in a single level apartment alone but her daughter Katie lives near by and helps her mother when needed. patient states she is completely Independent with all ADLs and Drives. Patient does not use any DME and is quite active at baseline. Pt expresses frustrations as her SBO's are not diet related and surgery not really beneficial and therefore she just deals with these when they arise but I never know when it will happen. Pt had plans tomorrow to meet her sister in [place] for a concert but plans to likely just stay home and rest. Pt states she also has another local Dtr Edith who is supportive but works a lot but would likely be the person to transport her home today if she tolerates her diet. Pt does not anticipate any SW needs and preference is home later today. Plan: SW to follow for likely d/c to home via Dtr Edith POV if she tolerates her advancing diet. No further SW needs at this time, please refer if indicated. UNRULY Currie
[2022-01-11] MEDS: ZINC OXIDE OINT 60 GM 1 APPLIC TOP (16:56)
--- NOTE | 2022-01-11 18:29 | P.DS_ITS ---
History of Present Illness History of Present Illness Date Patient Seen: 01/11/22 Time Patient Seen: 18:30 Chief complaint: thinks bowel obstruction Narrative: Per ROBINSON Llanos: This is a 86-year-old female with history of multiple small-bowel obstructions, abdominal surgery secondary to cervical and bladder cancer, chronic urostomy presented with complaints of abdominal pain, distension and vomiting. She states she has been feeling tired most of yesterday, woke up, and had a small breakfast and had a small bowel movement. She then went out with her daughter for [employer] food for lunch, daughter in the room stated she only took a couple of bites. She returned home and started to vomit brown vomitus, stating this has occurred before. She had flushing, pain and cramps. She has a urostomy bag she has had since she had treatment for cervical cancer as she had to have her bladder removed. She states she started to have SBOs since having surgery a year ago at the [facility] for repair of a perineal hernia. CT of her abdomen reported segmental wall thickening of the right lower quadrant ileal conduit ?consistent with an infectious or inflammatory process, multiple dilated small loops measuring up to 2.7 cm in diameter with air-fluid levels.? They also noted a transition point in the right lower quadrant associated with surgical sutures.? She is afebrile, blood pressure 132/95, heart rate 88, respiratory rate 18, oxygen saturation 98% on 2 L she weighs 50.8 kg with a BMI of 22.6.? CBC is unremarkable platelet count of 200, she has mild left shift of 7100, sodium is 136, UA indicates ?many bacteria? and a high number of urine wbc's of which her urine will be cultured, COVID-19 PCR is negative. Discharge Providers Provider Date of admission: 01/10/22 23:27 Discharge Date: 01/11/22 Primary care physician: ROBINSON Murcia Consults: 01/10/22 23:56 Consult to Physician Routine Comment: Consulting Provider: Edna Poe Reason for consultation: Recurrent SBO Has provider been notified: Yes Discharge provider: Jaime Palacios DO Summary Hospital Course Hospital Course: This is a 86-year-old female with history of multiple small-bowel obstructions, abdominal surgery secondary to cervical and bladder cancer, chronic urostomy presented with complaints of abdominal pain, distension and vomiting. 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 Shortly after admission the patient started having bowel movements, which were slightly liquidy, with improvement in her abdominal pain, distension, nausea, and vomiting. The following day her diet was quickly advanced and she was tolerating a regular diet at the time of discharge. No changes to her home medications are recommended. She should follow-up with her primary care provider as previously scheduled. Time Spent with Patient Time spent: Less than 30 minutes Exam Vital Signs (past 8 hours): - 01/11/22 11:08 01/11/22 12:01 01/11/22 13:00 Temperature 98.6 F Pulse Rate 74 Respiratory Rate 16 Blood Pressure 145/71 H Pulse Oximetry 98 93 97 01/11/22 16:09 01/11/22 17:00 Temperature 98.9 F Pulse Rate 72 Respiratory Rate 18 Blood Pressure 142/80 H Pulse Oximetry 93 97 Oxygen Delivery Method Room Air Oxygen Flow Rate 0 Narrative Exam Narrative: GENERAL:? PATIENT IS WELL DEVELOPED AND WELL NOURISHED, IN NO DISTRESS AT THIS TIME. HEENT:? NORMOCEPHALIC, ATRAUMATIC, EXTRAOCULAR MUSCLES INTACT, ORAL PHARYNX IS CLEAR AND MUCOUS MEMBRANES ARE MOIST. LUNGS:? CTA B/L NO WHEEZING RHONCHI OR RALES. CARDIO:?RRR NO M/R/G. ABDOMEN: S NT ND. MUSCULOSKELETAL:? MUSCLE STRENGTH AND TONE ARE EQUAL WITHIN NORMAL LIMITS, NO DEFORMITY. EXTREMITIES: NO EDEMA OR JOINT EFFUSIONS. NO CYANOSIS OR CLUBBING. SKIN:? PALE,? WARM TO TOUCH,DRY AND INTACT WITHOUT RASHES, ULCERATIONS OR BRIE CHIAE.? NEURO:? ALERT AND ORIENTATED X3,? SENSATION TO TOUCH INTACT IN ALL EXTREMITIES, NO GROSS DEFICITS NOTED OF CRANIAL NERVES. PSYCH:? PATIENT HAS A WELL-KEPT APPEARANCE, APPROPRIATE AFFECT, MENTAL STATUS ATTITUDE THOUGHT CONTEXT AND JUDGMENT ARE APPROPRIATE FOR AGE. Objective Labs Result Diagrams: 01/11/22 05:44 01/11/22 05:44 Labs: Laboratory Results - last 24 hr 01/10/22 01/10/22 01/10/22 21:05 21:05 21:05 WBC 8.5 RBC 4.31 Hgb 13.7 Hct 39.9 MCV 92.7 MCH 31.8 MCHC 34.3 RDW 13.5 Plt Count 200 Neut % (Auto) 83.3 H Lymph % (Auto) 10.6 L [place] % (Auto) 5.2 Eos % (Auto) 0.4 L Baso % (Auto) 0.5 Neut # (Auto) 7100 H Lymph # (Auto) 900 L [place] # (Auto) 400 Eos # (Auto) 0 Baso # (Auto) 0 Sodium 136 L Potassium 3.7 Chloride 103 Carbon Dioxide 24 BUN 23 H Creatinine 0.90 Estimated GFR 59.5 L BUN/Creatinine Ratio 25.6 H Glucose 155 H Lactate 1.1 Calcium 10.4 H Magnesium Total Bilirubin 1.1 Conjugated Bilirubin Unconjugated Bilirubin AST 28 ALT 18 Alkaline Phosphatase 58 Total Protein 8.2 Albumin 4.9 Globulin 3.3 Albumin/Globulin Ratio 1.5 Lipase 148 Urine RBC Urine WBC Ur Squamous Epith Cells Calcium Oxalate Crystal Urine Bacteria Urine Mucus Ur Culture Indicated? SARS-CoV-2 (PCR) 01/10/22 01/10/22 01/11/22 21:30 22:32 05:44 WBC 4.6 RBC 3.71 L Hgb 11.9 L Hct 34.6 L MCV 93.2 MCH 32.0 MCHC 34.3 RDW 13.5 Plt Count 157 Neut % (Auto) 77.7 H Lymph % (Auto) 12.1 L [place] % (Auto) 8.9 Eos % (Auto) 0.9 L Baso % (Auto) 0.4 Neut # (Auto) 3600 Lymph # (Auto) 600 L [place] # (Auto) 400 Eos # (Auto) 0 Baso # (Auto) 0 Sodium Potassium Chloride Carbon Dioxide BUN Creatinine Estimated GFR BUN/Creatinine Ratio Glucose Lactate Calcium Magnesium Total Bilirubin Conjugated Bilirubin Unconjugated Bilirubin AST ALT Alkaline Phosphatase Total Protein Albumin Globulin Albumin/Globulin Ratio Lipase Urine RBC 0-1/hpf Urine WBC 30-100/hpf H Ur Squamous Epith Cells 1-5 /hpf Calcium Oxalate Crystal Occasional H Urine Bacteria Many (>30) H Urine Mucus 2+ H Ur Culture Indicated? Specimen cultured SARS-CoV-2 (PCR) Negative 01/11/22 05:44 WBC RBC Hgb Hct MCV MCH MCHC RDW Plt Count Neut % (Auto) Lymph % (Auto) [place] % (Auto) Eos % (Auto) Baso % (Auto) Neut # (Auto) Lymph # (Auto) [place] # (Auto) Eos # (Auto) Baso # (Auto) Sodium 137 Potassium 3.9 Chloride 109 H Carbon Dioxide 25 BUN 19 H Creatinine 0.76 Estimated GFR > 60.0 BUN/Creatinine Ratio 25.0 H Glucose 118 H Lactate Calcium 8.7 Magnesium 1.8 Total Bilirubin 1.2 Conjugated Bilirubin 0.0 Unconjugated Bilirubin 1.2 H AST 23 ALT 16 Alkaline Phosphatase 38 Total Protein 6.2 L Albumin 3.6 Globulin 2.6 Albumin/Globulin Ratio 1.4 Lipase Urine RBC Urine WBC Ur Squamous Epith Cells Calcium Oxalate Crystal Urine Bacteria Urine Mucus Ur Culture Indicated? SARS-CoV-2 (PCR) [facility] Medical History Abnormal Pap smear of cervix (~2001) Anxiety (~1977) Cervical cancer Depression (~1977) GERD (gastroesophageal reflux disease) (~1989) Hemorrhoid (~1959) Hernia, perineal History of bladder cancer (~2002) History of cervical cancer (~2002) History of urinary incontinence (~2019) History of uterine cancer (~2002) Human papilloma virus (~2001) Hypertension Measles (~194) Recurrent sinusitis (~1964) Surgical History Anesthesia History of cholecystectomy (~2001) History of hemorrhoidectomy (~1970) History of radical hysterectomy History of urostomy Family History Father Cancer Mother Hypertension Mental health problem Grandfather Diabetes mellitus Grandmother Diabetes mellitus Grandmother Diabetes mellitus Social History household members: none Smoking Status: Former smoker Discharge Plan Discharge Plan Patient Disposition: Home Provider Discharge Comment: You were admitted to the hospital with a small-bowel obstruction. This resolved on its own fairly quickly. No changes are needed to your home medications. Discharge orders & Medications Prescriptions: Continued psyllium [Metamucil] 1 tbsp PO QAM 0RF losartan 100 mg tablet 100 mg PO DAILY Qty: 90 3RF omeprazole 20 mg capsule,delayed release(DR/EC) 20 mg PO DAILY Qty: 90 3RF loperamide [Imodium A-D] 2 mg tablet 2 mg PO Q6H PRN (Reason: Loose Stool) 0RF Align 4 mg capsule 4 mg PO DAILY 0RF triamcinolone acetonide [Nasacort] 55 mcg aerosol,spray 1 spray NASAL DAILY 0RF Rx Instructions: administer into each nostril vitamin B complex 1 tab PO QAM 0RF cholecalciferol (vitamin D3) 50 mcg PO QAM 0RF simethicone [Gas-X Extra Strength] 125 mg capsule 125 mg PO QD-BID PRN (Reason: gas) 0RF [id number] 333-133-5 mg tablet See Rx Instructions .ROUTE .COMPLEX 0RF Label Comments: qd Rx Instructions: take one tablet by mouth daily Follow up/Referrals: Blue Gan ARNP [Primary Care Provider] - Discharge Health Status Health Concerns: Small-bowel obstruction, resolved Diet/Activity/Treatments Diet: Diet as Tolerated Activity: As tolerated Discharge Data Primary Care Provider: Blue Gan Attending Provider: Sakshi Bolanos VTE Deep Vein Thrombosis/Pulmonary Embolism Present on Admission: No
--- NOTE | 2022-01-11 20:55 | PC.NURSE ---
Pt alert and oriented x 4, denies pain at this time. Discharged to home with daughter in POV. All belongings and discharge items taken. Pt taken to car by wheelchair by RN.
== END 2022-01-11 21:15 | disposition home or self-care (01) ==
LOC: ED 23:16 → AC 01-11 06:48
PROVIDERS: Admitting Provider Nurse Practitioner Family; Emergency Provider Emergency Medicine; PCP Registered Nurse Diabetes Educator; Referring Provider Emergency Medicine; Visit Provider Nurse Practitioner Family
DX: K56.50 Intestinal adhesions [bands], unspecified as to partial versus complete obstruction (principal); N30.00 Acute cystitis without hematuria; Z93.6 Other artificial openings of urinary tract status; Z85.51 Personal history of malignant neoplasm of bladder; I10 Essential (primary) hypertension; Z20.822 Contact with and (suspected) exposure to COVID-19
CPT/HCPCS: 36415; 74177; 80048; 80053; 80076; 81003; 81015; 83605; 83690; 83735; 85025; 87077; 87086; 87186; 87635; 93005; 94760; 96365; 96375; 96376; 99284; 99285; C9803; G0378; C9113; J0696; J1170; J2405; Q9967

== ENCOUNTER → 2022-01-19 14:45 | Outpatient (CLI) | payer MEDICARE, SELFPAY ==
[2021-12-24 01:46] VITALS: BMI 22.2
[2022-01-10 23:59] VITALS: BMI 22.6
== END ==
PROVIDERS: PCP Registered Nurse Diabetes Educator; Referring Provider Registered Nurse Diabetes Educator; Visit Provider Registered Nurse Diabetes Educator
DX: Z13.820 Encounter for screening for osteoporosis; Z78.0 Asymptomatic menopausal state; M85.89 Other specified disorders of bone density and structure, multiple sites; Z90.710 Acquired absence of both cervix and uterus
CPT/HCPCS: 77080

== ENCOUNTER → 2022-02-27 14:44 | Outpatient (CLI) | payer MEDICARE, SELFPAY ==
[2022-01-10 23:59] VITALS: BMI 22.6
[2022-02-27 17:01] LABS: Vitamin D 25 Hydroxy (D3) 56.4 ng/mL (30.0-100.0)
== END ==
PROVIDERS: PCP Registered Nurse Diabetes Educator; Referring Provider Registered Nurse Diabetes Educator; Visit Provider Registered Nurse Diabetes Educator
DX: M85.80 Other specified disorders of bone density and structure, unspecified site (principal)
CPT/HCPCS: 36415; 82306

== ENCOUNTER 2022-05-16 23:28 | Inpatient (IN) | payer MEDICARE, SELFPAY ==
[2022-01-10 23:59] VITALS: BMI 22.6
[2022-05-16 23:42] VITALS: BP 138/80; PULSE 50; RESP 18; TEMP 36.4; O2SAT 97
--- NOTE | 2022-05-16 23:50 | ED_ITS ---
HPI - Abdominal Pain General Chief Complaint: Abdominal Pain Stated Complaint: BOWEL BLOCKAGE Time Seen by Provider: 05/16/22 23:35 Source: patient Mode of arrival: Ambulatory History of Present Illness HPI narrative: 86-year-old female former smoker with a history of bladder cancer, urostomy, and prior bowel obstructions presents with family in the chief complaint of gradually worsening generalized abdominal pain. She states the pain is worse when she moves and improves with rest. She is had multiple episodes of vomiting and initially was having loose stools but now is having no bowel movements nor she even passing gas. She is had frequent bowel obstructions and was most recently admitted here a few months ago for the same. She denies any chest pain or shortness of breath and is not dizzy nor weak or lightheaded Related Data Home Medications Medication Instructions Recorded Confirmed Bifidobacterium infantis 4 mg 4 mg PO DAILY 08/24/20 04/03/22 capsule (Align) cholecalciferol (vitamin D3) 50 mcg PO QAM 08/24/20 04/03/22 loperamide 2 mg tablet (Imodium 2 mg PO Q6H PRN Loose Stool 08/24/20 04/03/22 A-D) triamcinolone acetonide 55 mcg 1 spray intranasal DAILY 08/24/20 04/03/22 nasal spray aerosol (Nasacort) vitamin B complex [B 1 tab PO QAM 08/24/20 04/03/22 Complex-Vitamin B12] simethicone 125 mg capsule (Gas-X 125 mg PO QD-BID PRN gas 08/12/21 04/03/22 Extra Strength) psyllium [Metamucil] 1 tbsp PO QAM 01/03/22 04/03/22 [id number] 333 mg-133 See Rx Instructions .Route .COMPLEX 01/11/22 04/03/22 mg-5 mg tablet Previous Rx's Medication Instructions Recorded losartan 100 mg tablet 100 mg PO DAILY #90 tabs 04/03/22 omeprazole 20 mg capsule,delayed 20 mg PO DAILY #90 caps 04/03/22 release Allergies Allergy/AdvReac Type Severity Reaction Status Date / Time Sulfa (Sulfonamide Allergy Unknown Verified 04/03/22 11:36 Antibiotics) trimethaphan Allergy Unknown Verified 04/03/22 11:36 Review of Systems Review of Systems Narrative: GENERAL: Denies chills, fatigue, malaise, fever, sweats. HEENT: Denies sinus pain, ear pain, sore throat, difficulty swallowing, dizziness. RESPIRATORY: Denies dyspnea, cough, wheezing, hemoptysis, sputum. CARDIOVASCULAR: Denies chest pain, palpitations, orthopnea, edema, GASTROINTESTINAL: See HPI : Denies dysuria, frequency, incontinence, hematuria, urinary retention. MUSCULOSKELETAL: denies weakness, joint pain, or bony pain SKIN: Denies rash, skin lesions, or other NEUROLOGIC: Denies weakness, headache, numbness, change in speech, confusion, seizures, incoordination. PSYCHIATRIC: No concerning psychosocial issues. 12 point review of systems is negative except for those stated above Patient History Medical History Abnormal Pap smear of cervix (~2001) Anxiety (~1977) Cervical cancer Depression (~1977) GERD (gastroesophageal reflux disease) (~1989) Hemorrhoid (~1959) Hernia, perineal High risk for hip fracture History of bladder cancer (~2002) History of cervical cancer (~2002) History of urinary incontinence (~2019) History of uterine cancer (~2002) Human papilloma virus (~2001) Hypertension Measles (~194) Osteopenia Osteopenia Osteopenia with high risk of fracture Recurrent sinusitis (~1964) Surgical History Anesthesia History of cholecystectomy (~2001) History of hemorrhoidectomy (~1970) History of radical hysterectomy History of urostomy Family History Father Cancer Mother Hypertension Mental health problem Grandfather Diabetes mellitus Grandmother Diabetes mellitus Grandmother Diabetes mellitus Social History household members: none Smoking Status: Former smoker Smoking Status: Former smoker tobacco type: vaping alcohol intake frequency: 0-2 drinks per day Alcohol type: wine Substance Use Type: does not use Exam Narrative Exam Narrative: GENERAL: [86] year old patient appears stated age. Well-developed patient, in mild distress. HEAD: Atraumatic. Normocephalic. EYES: Pupils equal round and reactive. Extraocular motions intact. No scleral icterus. No injection or drainage. ENT: Nose without bleeding, purulent drainage. Throat without erythema, tonsillar hypertrophy or exudate. Airway patent. NECK: Trachea midline. Non tender CARDIOVASCULAR: Regular rate and rhythm without murmurs, gallops, or rubs. RESPIRATORY: Clear to auscultation. Breath sounds equal bilaterally. No wheezes, rales, or rhonchi. GASTROINTESTINAL: Soft though tender in the epigastrium with decreased bowel sounds EXTREMITIES: No edema or joint tenderness. BACK: Nontender without deformity or crepitance. No flank tenderness. NEURO: AOx3. SKIN: No rash or erythema of visible areas Initial Vital Signs Initial Vital Signs: Vital Signs Temperature 97.6 F 05/16/22 23:42 Pulse Rate 50 L 05/16/22 23:42 Respiratory Rate 18 05/16/22 23:42 Blood Pressure 138/80 05/16/22 23:42 Pulse Oximetry 97 05/16/22 23:42 Oxygen Delivery Method 05/16/22 23:42 Course Orders Ordered: ED Orders 05/16/22 23:48 EKG-12 Lead Stat 05/16/22 23:51 XR abdomen min 2V Stat 05/16/22 23:59 Complete Blood Count AUTO DIFF Stat Comprehensive Metabolic Panel Stat Lactate (Lactic Acid) Stat Lipase Stat 05/17/22 00:10 EKG-12 Lead Routine 05/17/22 00:25 CT abdomen pelvis w con Stat 05/17/22 00:30 Urinalysis and Microscopic Stat Urine Culture Stat 05/17/22 01:08 COVID19 -Nasal RAPID/Pre-Proc Stat 05/17/22 01:55 Consult to General Surgery Stat Sodium Chloride (Normal Saline 0.9%) 1,000 mls @ 150 mls/hr IV CONT SMILEY Last Admin: 05/17/22 00:10 Dose: 150 mls/hr Documented By: AMU Ceftriaxone Sodium 1,000 mg/ (Sodium Chloride) 100 mls @ 200 mls/hr IV Q24H SMILEY Last Admin: 05/17/22 02:04 Dose: 200 mls/hr Documented By: AMU Discontinued Medications Hydromorphone HCl (Hydromorphone 0.5 Mg Inj) 0.5 mg IV NOW ONE Stop: 05/17/22 00:00 Last Admin: 05/17/22 00:10 Dose: 0.5 mg Documented By: AMU Ondansetron HCl (Ondansetron 4 Mg/2 Ml Inj) 4 mg IV NOW ONE Stop: 05/16/22 23:52 Last Admin: 05/17/22 00:10 Dose: 4 mg Documented By: AMU Consultations Consultation #1: discussed with heating and ventilation engineer surgery (Reva), happy to be notified, requests patient be admitted to medicine Consultation #2: hospitalist happy to accept on his service Vital Signs Vital signs: Vital Signs - 8 hr 05/16/22 23:42 05/16/22 23:59 05/16/22 23:59 Temperature 97.6 F Pulse Rate 50 L 81 Respiratory Rate 18 Blood Pressure 138/80 161/83 H Pulse Oximetry 97 94 Oxygen Delivery Method Room Air 05/17/22 00:00 05/17/22 00:00 05/17/22 00:24 Temperature Pulse Rate 86 Respiratory Rate Blood Pressure 156/85 H 142/119 H Pulse Oximetry 95 Oxygen Delivery Method 05/17/22 00:24 05/17/22 00:30 05/17/22 00:31 Temperature Pulse Rate 93 H 81 83 Respiratory Rate 15 19 Blood Pressure Pulse Oximetry 93 91 91 Oxygen Delivery Method 05/17/22 00:31 05/17/22 00:52 05/17/22 00:52 Temperature Pulse Rate 78 Respiratory Rate 14 Blood Pressure 135/67 169/78 H Pulse Oximetry 93 Oxygen Delivery Method 05/17/22 01:00 05/17/22 01:00 Temperature Pulse Rate 75 Respiratory Rate 16 Blood Pressure 150/69 H Pulse Oximetry 93 Oxygen Delivery Method MDM - Abdominal Pain Lab Data Result diagrams: 05/16/22 23:59 05/16/22 23:59 Labs: Lab Results 05/16/22 05/16/22 05/16/22 Range/Units 23:59 23:59 23:59 WBC 9.5 (4.5-11.0) X10^3/uL RBC 4.26 (4.0-5.2) X10^6/uL Hgb 13.9 (12.0-16.0) g/dL Hct 39.8 (36-46) % MCV 93.4 (80-100) fL MCH 32.6 (26-34) PG MCHC 34.9 (30-36) % RDW 13.6 (11.6-14.8) % Plt Count 243 (150-400) X10^3/uL Neut % (Auto) 84.0 H (50-75) % Lymph % (Auto) 10.1 L (25-40) % [place] % (Auto) 5.2 (3-14) % Eos % (Auto) 0.4 L (2-4) % Baso % (Auto) 0.3 (0-2) % Neut # (Auto) 8000 H (2372-4372) /uL Lymph # (Auto) 1000 L (6960-8363) /uL [place] # (Auto) 500 (0-900) /uL Eos # (Auto) 0 (0-450) /uL Baso # (Auto) 0 (0-100) /uL Sodium 136 L (137-145) mmol/L Potassium 3.6 (3.4-5.1) mmol/L Chloride 99 (98-107) mmol/L Carbon Dioxide 25 (22-32) mmol/L BUN 19 H (7-17) mg/dL Creatinine 0.99 (0.52-1.04) mg/dL Estimated GFR 56 L (>60) mL/min BUN/Creatinine Ratio 19.2 (6-22) Glucose 137 H (80-110) mg/dL Lactate 0.9 (0.7-2.1) mmol/L Calcium 10.4 H (8.4-10.2) mg/dL Total Bilirubin 1.5 H (0.2-1.3) mg/dL AST 26 (14-36) IU/L ALT 17 (<35) IU/L Alkaline Phosphatase 59 (38-126) U/L Total Protein 7.7 (6.3-8.2) g/dL Albumin 4.7 (3.5-5.0) g/dL Globulin 3.0 (1.7-4.1) g/dL Albumin/Globulin Ratio 1.6 (1.0-2.8) Lipase 80 (23-300) U/L Urine Color Urine Appearance Urine pH (4.5-8.0) Ur Specific [place] (1.000-1.035) Urine Protein (Negative) Urine Glucose (UA) (Negative) g/dL Urine Ketones (NEGATIVE) Urine Occult Blood (Negative) Urine Nitrate (Negative) Urine Bilirubin (NEGATIVE) Urine Urobilinogen (0.2) E.U./dL Ur Leukocyte Esterase (NEGATIVE) Urine RBC (0-5/HPF) Urine WBC (0-5/HPF) Ur Squamous Epith Cells (0-5/HPF) Calcium Oxalate Crystal Urine Bacteria (None) Hyaline Casts (None) Urine Mucus (Negative) Ur Culture Indicated? SARS-CoV-2 (PCR) (Negative) 05/17/22 05/17/22 Range/Units 00:30 01:08 WBC (4.5-11.0) X10^3/uL RBC (4.0-5.2) X10^6/uL Hgb (12.0-16.0) g/dL Hct (36-46) % MCV (80-100) fL MCH (26-34) PG MCHC (30-36) % RDW (11.6-14.8) % Plt Count (150-400) X10^3/uL Neut % (Auto) (50-75) % Lymph % (Auto) (25-40) % [place] % (Auto) (3-14) % Eos % (Auto) (2-4) % Baso % (Auto) (0-2) % Neut # (Auto) (5065-9188) /uL Lymph # (Auto) (9673-2040) /uL [place] # (Auto) (0-900) /uL Eos # (Auto) (0-450) /uL Baso # (Auto) (0-100) /uL Sodium (137-145) mmol/L Potassium (3.4-5.1) mmol/L Chloride (98-107) mmol/L Carbon Dioxide (22-32) mmol/L BUN (7-17) mg/dL Creatinine (0.52-1.04) mg/dL Estimated GFR (>60) mL/min BUN/Creatinine Ratio (6-22) Glucose (80-110) mg/dL Lactate (0.7-2.1) mmol/L Calcium (8.4-10.2) mg/dL Total Bilirubin (0.2-1.3) mg/dL AST (14-36) IU/L ALT (<35) IU/L Alkaline Phosphatase (38-126) U/L Total Protein (6.3-8.2) g/dL Albumin (3.5-5.0) g/dL Globulin (1.7-4.1) g/dL Albumin/Globulin Ratio (1.0-2.8) Lipase (23-300) U/L Urine Color Yellow Urine Appearance Sl cloudy Urine pH 7.0 (4.5-8.0) Ur Specific [place] 1.015 (1.000-1.035) Urine Protein 2+ H (Negative) Urine Glucose (UA) Negative (Negative) g/dL Urine Ketones Trace H (NEGATIVE) Urine Occult Blood Trace-intact (Negative) Urine Nitrate Positive H (Negative) Urine Bilirubin Negative (NEGATIVE) Urine Urobilinogen 0.2 (0.2) E.U./dL Ur Leukocyte Esterase 2+ H (NEGATIVE) Urine RBC 0-1/hpf (0-5/HPF) Urine WBC 5-10/hpf H (0-5/HPF) Ur Squamous Epith Cells 0-1 /hpf (0-5/HPF) Calcium Oxalate Crystal Occasional H Urine Bacteria Many (>30) H (None) Hyaline Casts 0-1/lpf (None) Urine Mucus 1+ H (Negative) Ur Culture Indicated? Specimen cultured SARS-CoV-2 (PCR) Negative (Negative) Imaging Data Abdominal x-ray: Radiologist's Impression: [address] [address] XRay Report Signed Patient: Hortencia Lin MR#: [id number] : 1935 Acct:[id number] Age/Sex: 86 / F Date of Service: 05/16/22 Loc: ED Accession Number: [id number] ?? Procedure: XR abdomen min 2V Ordering Provider: Dread Aviles D.O. PROCEDURE:? XR ABDOMEN MIN 2V ? INDICATIONS:? abd pain, history of obstruction ? TECHNIQUE:? 2 views of the abdomen were acquired.? ? COMPARISON:? None. ? FINDINGS:? No pneumoperitoneum pneumatosis.? Multiple air-fluid levels seen small bowel upright study.? Most of the bowel appears fluid filled and is not discretely visible.? There is no obvious abnormally dilated loop of bowel.? Multiple cervical lymph node ? IMPRESSION:? Multiple small bowel fluid levels raising concern for possible small bowel obstruction. ? ? Dictated by: Honorio Bilss M.D. on 05/17/2022 at 0:31 ? ? Approved by: Honorio Bliss M.D. on 05/17/2022 at 0:32 ? CT scan - abdomen/pelvis: Radiologist's Impression: Hortencia Lin??86??F??1935 ? Allergy/Adv: Sulfa (Sulfonamide Antibiotics), trimethaphan (More??) Close Abdomen/Pelvis CT (Signed) Honorio Bliss - 05/17/22 Abdomen X-Ray (Signed) Honorio Bliss - 05/16/22 Bone Densitometry 01/19/22 DEXA Result 01/19/22 Telemetry Strips 01/10/22 Telemetry Strips 01/10/22 Abdomen/Pelvis CT (Signed) Shaheed Araujo - 01/10/22 Abdomen/Pelvis CT (Signed) Yu Davila - 12/23/21 Upper GI and Small Bowel X-Ray (Signed) Alberto Mei - 11/17/21 Abdomen/Pelvis CT (Signed) Yu Davila - 11/17/21 Mammogram Result 08/03/21 DI Result 07/15/21 Gastrografin Study (Signed) Roby Juarez - 07/15/21 Chest X-Ray (Signed) Alberto Mei - 07/14/21 DI Result 07/14/21 DI Result 07/14/21 Abdomen/Pelvis CT (Signed) Munir Bautista - 07/14/21 PET, Tumor Imaging Skull-Mid Thigh (Signed) Francisco Viera - 08/18/20 Upper GI and Small Bowel X-Ray (Signed) Branden Richards - 08/09/19 Abdomen/Pelvis CT (Signed) Branden Richards - 08/09/19 Abdomen X-Ray (Cancelled) 08/09/19 [place] [address] CT Scan Report Signed Patient: Hortencia Lin MR#: [id number] : 1935 Acct:[id number] Age/Sex: 86 / F Date of Service: 05/17/22 Loc: ED Accession Number: [id number] ?? Procedure: CT abdomen pelvis w con Ordering Provider: Dread Aviles D.O. 2PROCEDURE:? CT ABDOMEN PELVIS W CON ? INDICATIONS:? Severe pain, multiple prior bowel obstructions ? TECHNIQUE:? After the administration of intravenous contrast, axial sections acquired from the lung bases to the pubic symphysis.? Coronal and sagittal reformats were performed.? For radiation dose reduction, the following was used:? automated exposure control, adjustment of mA and/or kV according to patient size.? ? COMPARISON:? None. ? FINDINGS:? Small-bowel obstruction with transition point at an anastomosis in the right lower quadrant on series 2, image 41.? No perforation.? Small volume free fluid in the inferior abdomen and pelvis.? Distal to the anastomosis , the small bowel is decompressed and continues into a right lower quadrant ileostomy.? The colon is within normal li mits.? Cholecystectomy.? Mild dilatation of the intrahepatic and extrahepatic biliary ducts likely post cholecystectomy reservoir phenomenon.? No acute finding of remaining solid abdominal visceral structures.? No significant osseous abnormality as it pertains to the chief complaint.? Included portions of the lung bases are clear. ? ? IMPRESSION:? Small-bowel obstruction with transition point in the right lower quadrant anastomosis. ? ? Dictated by: Honorio Bliss M.D. on 05/17/2022 at 1:10 ? ? Approved by: Honorio Bliss M.D. on 05/17/2022 at 1:12 ? Discharge Plan Departure Patient Disposition: Admitted As Inpatient Clinical Impression: Obstruction of bowel Admit Date/Time: 05/17/22 02:12 Admit Provider: Benito Horton
--- NOTE | 2022-05-16 23:51 | DI.RAD.S_ITS ---
PROCEDURE: XR ABDOMEN MIN 2V INDICATIONS: abd pain, history of obstruction TECHNIQUE: 2 views of the abdomen were acquired. COMPARISON: None. FINDINGS: No pneumoperitoneum pneumatosis. Multiple air-fluid levels seen small bowel upright study. Most of the bowel appears fluid filled and is not discretely visible. There is no obvious abnormally dilated loop of bowel. Multiple cervical lymph node IMPRESSION: Multiple small bowel fluid levels raising concern for possible small bowel obstruction. Dictated by: Honorio Bliss M.D. on 05/17/2022 at 0:31 Approved by: Honorio Bliss M.D. on 05/17/2022 at 0:32
[2022-05-16 23:59] VITALS: BP 161/83; PULSE 81; O2SAT 94
[2022-05-17] VITALS (14 sets, daily range): BP systolic 132–179; BP diastolic 63–119; PULSE 65–93; RESP 14–20; TEMP 36.3–36.7; O2SAT 91–98; BMI 22.8
[2022-05-17] MEDS: SODIUM CHLORIDE 0.9% 1,000 ML 150 ML IV (00:10)
[2022-05-17] MEDS: ONDANSETRON 4 MG/2 ML INJ IV (00:10)
[2022-05-17] MEDS: HYDROMORPHONE 0.5 MG INJ IV (00:10)
[2022-05-17 00:15] LABS: Add Manual Diff / Slide Review NO; Basophils Absolute Auto 0 /uL (0-100); Basophils Percent Auto 0.3 % (0-2); Eosinophils Absolute Auto 0 /uL (0-450); Eosinophils Percent Auto 0.4 % (2-4); Hematocrit 39.8 % (36-46); Hemoglobin 13.9 g/dL (12.0-16.0); Lymphocytes Absolute Auto 1000 /uL (1100-4500); Lymphocytes Percent Auto 10.1 % (25-40); Mean Corpuscular HGB Conc 34.9 % (30-36); Mean Corpuscular Hemoglobin 32.6 PG (26-34); Mean Corpuscular Volume 93.4 fL (80-100); Monocytes Absolute Auto 500 /uL (0-900); Monocytes Percent Auto 5.2 % (3-14); Neutrophils Absolute Auto 8000 /uL (1500-7000); Platelet Count 243 X10^3/uL (150-400); Red Blood Cell Count 4.26 X10^6/uL (4.0-5.2); Red Cell Distribution Width 13.6 % (11.6-14.8); White Blood Cell Count 9.5 X10^3/uL (4.5-11.0)
--- NOTE | 2022-05-17 00:25 | DI.CT.S_ITS ---
2PROCEDURE: CT ABDOMEN PELVIS W CON INDICATIONS: Severe pain, multiple prior bowel obstructions TECHNIQUE: After the administration of intravenous contrast, axial sections acquired from the lung bases to the pubic symphysis. Coronal and sagittal reformats were performed. For radiation dose reduction, the following was used: automated exposure control, adjustment of mA and/or kV according to patient size. COMPARISON: None. FINDINGS: Small-bowel obstruction with transition point at an anastomosis in the right lower quadrant on series 2, image 41. No perforation. Small volume free fluid in the inferior abdomen and pelvis. Distal to the anastomosis , the small bowel is decompressed and continues into a right lower quadrant ileostomy. The colon is within normal limits. Cholecystectomy. Mild dilatation of the intrahepatic and extrahepatic biliary ducts likely post cholecystectomy reservoir phenomenon. No acute finding of remaining solid abdominal visceral structures. No significant osseous abnormality as it pertains to the chief complaint. Included portions of the lung bases are clear. IMPRESSION: Small-bowel obstruction with transition point in the right lower quadrant anastomosis. Dictated by: Honorio Bliss M.D. on 05/17/2022 at 1:10 Approved by: Honorio Bliss M.D. on 05/17/2022 at 1:12
[2022-05-17 00:26] LABS: Alanine Aminotransferase 17 IU/L (<35); Albumin 4.7 g/dL (3.5-5.0); Albumin Globulin Ratio 1.6 (1.0-2.8); Alkaline Phosphatase 59 U/L (38-126); Aspartate Aminotransferase 26 IU/L (14-36); BUN Creatinine Ratio 19.2 (6-22); Bilirubin Total 1.5 mg/dL (0.2-1.3); Blood Urea Nitrogen 19 mg/dL (7-17); Calcium 10.4 mg/dL (8.4-10.2); Carbon Dioxide 25 mmol/L (22-32); Chloride 99 mmol/L (98-107); Estimated Glomerular Filt Rate 56 mL/min (>60); Glucose 137 mg/dL (80-110); HEMOLYSIS 16 (0-50); Lactate (Lactic Acid) 0.9 mmol/L (0.7-2.1); Lipase 80 U/L (23-300); Potassium 3.6 mmol/L (3.4-5.1); Sodium 136 mmol/L (137-145); Total Protein 7.7 g/dL (6.3-8.2)
[2022-05-17 00:50] LABS: Appearance Urine UA SL CLOUDY; Bilirubin Urine UA NEGATIVE (NEGATIVE); Color Urine UA YELLOW; Glucose Urine UA NEGATIVE (Negative); Ketones Urine UA TRACE (NEGATIVE); Leukocyte Esterase Urine UA 2+ (NEGATIVE); Nitrite Urine UA POSITIVE (Negative); Occult Blood Urine UA TRACE-INTACT (Negative); Protein Urine UA 2+ (Negative); Specific Gravity Urine UA 1.015 (1.000-1.035); Urobilinogen Urine UA 0.2 E.U./dL (0.2)
[2022-05-17 00:52] LABS: Bacteria Urine Many (>30); Calcium Oxalate Crystals Urine Occasional; Culture Indicated Urine Specimen Cultured; Hyaline Casts Urine 0-1/LPF; Mucus Urine 1+ (Negative); RBC Urine 0-1/HPF (0-5/HPF); Squamous Epithelial Cell Urine 0-1 /HPF (0-5/HPF); WBC Urine 5-10/HPF (0-5/HPF)
[2022-05-17 01:57] LABS: COVID19 -Nasal RAPID Negative (Negative)
[2022-05-17] MEDS: cefTRIAXone 1,000 MG in SODIUM CHLORIDE 0.9% 100 ML 200 MG IV (02:04)
--- NOTE | 2022-05-17 02:42 | PM.HP.1 ---
History of Present Illness History of Present Illness Date Patient Seen: 05/17/22 Time Patient Seen: 01:30 Chief complaint: BOWEL BLOCKAGE Narrative: Ms. 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 She has had previous admissions for SBO which improved with non-surgical management. She states she has felt poorly over the last few days. But in the last day she has noted vomiting what she has described as bile. She has felt nauseous. She was initially having loose stools but over the last day has not had a bowel movement and has not been passing gas. In the ED workup was done, vitals notable for mild bradycardia. Labs notable for WBC 9.5, hgb 13.9, plts 243. Creatinine 0.99. Lactate 0.9. UA showed positive nitrates, WBC, and bacteria. Abdominal xray showed multiple small bowel fluid levels. CT showed small bowel obstruction with transition in right lower quadrant. She was given pain medications and admitted for further treatment. Patient History Medical History Abnormal Pap smear of cervix (~2001) Anxiety (~1977) Cervical cancer Depression (~1977) GERD (gastroesophageal reflux disease) (~1989) Hemorrhoid (~1959) Hernia, perineal High risk for hip fracture History of bladder cancer (~2002) History of cervical cancer (~2002) History of urinary incontinence (~2019) History of uterine cancer (~2002) Human papilloma virus (~2001) Hypertension Measles (~1945) Osteopenia Osteopenia Osteopenia with high risk of fracture Recurrent sinusitis (~1965) Surgical History Anesthesia History of cholecystectomy (~2001) History of hemorrhoidectomy (~1970) History of radical hysterectomy History of urostomy Family & Social History Family History Father Cancer Mother Hypertension Mental health problem Grandfather Diabetes mellitus Grandmother Diabetes mellitus Grandmother Diabetes mellitus Social History: household members none Safety & Behavioral: Feels Safe in Current Yes Environment Tobacco & Substance use: Tobacco type cigarettes Smoking Status Former smoker alcohol intake frequency 0-2 drinks per day Substance Use Type does not use Meds Home Medications and Allergies Home Medications Medication Instructions Recorded Confirmed Type Bifidobacterium infantis 4 mg 4 mg PO DAILY 08/24/20 04/03/22 History capsule (Align) cholecalciferol (vitamin D3) 50 mcg PO QAM 08/24/20 04/03/22 History loperamide 2 mg tablet (Imodium 2 mg PO Q6H PRN Loose Stool 08/24/20 04/03/22 History A-D) triamcinolone acetonide 55 mcg 1 spray intranasal DAILY 08/24/20 04/03/22 History nasal spray aerosol (Nasacort) vitamin B complex [B 1 tab PO QAM 08/24/20 04/03/22 History Complex-Vitamin B12] simethicone 125 mg capsule (Gas-X 125 mg PO QD-BID PRN gas 08/12/21 04/03/22 History Extra Strength) psyllium [Metamucil] 1 tbsp PO QAM 01/03/22 04/03/22 History [id number] 333 mg-133 See Rx Instructions .Route .COMPLEX 01/11/22 04/03/22 History mg-5 mg tablet losartan 100 mg tablet 100 mg PO DAILY #90 tabs 04/03/22 04/03/22 Rx omeprazole 20 mg capsule,delayed 20 mg PO DAILY #90 caps 04/03/22 04/03/22 Rx release Allergies Allergy/AdvReac Type Severity Reaction Status Date / Time Sulfa (Sulfonamide Allergy Unknown Verified 04/03/22 11:36 Antibiotics) trimethaphan Allergy Unknown Verified 04/03/22 11:36 Review of Systems Review of Systems Narrative: 14 systems reviewed and negative aside from what is noted in HPI Exam Vital Signs (past 8 hours): - 05/16/22 23:42 05/16/22 23:59 05/16/22 23:59 Temperature 97.6 F Pulse Rate 50 L 81 Respiratory Rate 18 Blood Pressure 138/80 161/83 H Pulse Oximetry 97 94 Oxygen Delivery Method Room Air 05/17/22 00:00 05/17/22 00:00 05/17/22 00:24 Temperature Pulse Rate 86 Respiratory Rate Blood Pressure 156/85 H 142/119 H Pulse Oximetry 95 Oxygen Delivery Method 05/17/22 00:24 05/17/22 00:30 05/17/22 00:31 Temperature Pulse Rate 93 H 81 83 Respiratory Rate 15 19 Blood Pressure Pulse Oximetry 93 91 91 Oxygen Delivery Method 05/17/22 00:31 05/17/22 00:52 05/17/22 00:52 Temperature Pulse Rate 78 Respiratory Rate 14 Blood Pressure 135/67 169/78 H Pulse Oximetry 93 Oxygen Delivery Method 05/17/22 01:00 05/17/22 01:00 05/17/22 01:30 Temperature Pulse Rate 75 Respiratory Rate 16 Blood Pressure 150/69 H 132/63 Pulse Oximetry 93 Oxygen Delivery Method 05/17/22 01:30 05/17/22 02:00 05/17/22 02:00 Temperature Pulse Rate 65 68 Respiratory Rate 16 20 Blood Pressure 179/91 H Pulse Oximetry 97 94 Oxygen Delivery Method Oxygen Delivery Method Room Air Narrative Exam Narrative: GEN: no acute distress HEENT: moist mucous membranes, PERRL NECK: trachea midline, no JVD PULM: clear bilaterally, no wheezes, rhonchi CV: regular rate and rhythm ABD: soft, distended, decreased bowel sounds, no rebound/guarding, urostomy in place EXT: warm and well perfused, no edema NEURO: awake, alert, no focal deficits Objective Labs Result Diagrams: 05/16/22 23:59 05/16/22 23:59 Labs: Laboratory Results - last 24 hr 05/16/22 05/16/22 05/16/22 23:59 23:59 23:59 WBC 9.5 RBC 4.26 Hgb 13.9 Hct 39.8 MCV 93.4 MCH 32.6 MCHC 34.9 RDW 13.6 Plt Count 243 Neut % (Auto) 84.0 H Lymph % (Auto) 10.1 L [place] % (Auto) 5.2 Eos % (Auto) 0.4 L Baso % (Auto) 0.3 Neut # (Auto) 8000 H Lymph # (Auto) 1000 L [place] # (Auto) 500 Eos # (Auto) 0 Baso # (Auto) 0 Sodium 136 L Potassium 3.6 Chloride 99 Carbon Dioxide 25 BUN 19 H Creatinine 0.99 Estimated GFR 56 L BUN/Creatinine Ratio 19.2 Glucose 137 H Lactate 0.9 Calcium 10.4 H Total Bilirubin 1.5 H AST 26 ALT 17 Alkaline Phosphatase 59 Total Protein 7.7 Albumin 4.7 Globulin 3.0 Albumin/Globulin Ratio 1.6 Lipase 80 Urine Color Urine Appearance Urine pH Ur Specific [place] Urine Protein Urine Glucose (UA) Urine Ketones Urine Occult Blood Urine Nitrate Urine Bilirubin Urine Urobilinogen Ur Leukocyte Esterase Urine RBC Urine WBC Ur Squamous Epith Cells Calcium Oxalate Crystal Urine Bacteria Hyaline Casts Urine Mucus Ur Culture Indicated? SARS-CoV-2 (PCR) 05/17/22 05/17/22 00:30 01:08 WBC RBC Hgb Hct MCV MCH MCHC RDW Plt Count Neut % (Auto) Lymph % (Auto) [place] % (Auto) Eos % (Auto) Baso % (Auto) Neut # (Auto) Lymph # (Auto) [place] # (Auto) Eos # (Auto) Baso # (Auto) Sodium Potassium Chloride Carbon Dioxide BUN Creatinine Estimated GFR BUN/Creatinine Ratio Glucose Lactate Calcium Total Bilirubin AST ALT Alkaline Phosphatase Total Protein Albumin Globulin Albumin/Globulin Ratio Lipase Urine Color Yellow Urine Appearance Sl cloudy Urine pH 7.0 Ur Specific [place] 1.015 Urine Protein 2+ H Urine Glucose (UA) Negative Urine Ketones Trace H Urine Occult Blood Trace-intact Urine Nitrate Positive H Urine Bilirubin Negative Urine Urobilinogen 0.2 Ur Leukocyte Esterase 2+ H Urine RBC 0-1/hpf Urine WBC 5-10/hpf H Ur Squamous Epith Cells 0-1 /hpf Calcium Oxalate Crystal Occasional H Urine Bacteria Many (>30) H Hyaline Casts 0-1/lpf Urine Mucus 1+ H Ur Culture Indicated? Specimen cultured SARS-CoV-2 (PCR) Negative Assessment & Plan Assessment & Plan narrative: Ms. Lin is an 86W with PMH recurrent SBO and history of cervical and bladder cancer s/p abdominal surgeries and radiation, with urostomy who presetns with abdominal pain, nausea, and vomiting consistent with SBO. 1. Acute recurrent SBO -presented with vomiting, and no bowel movement for one day -noted on CT scan -suspect etiology secondary to adhesions -patient NPO -order IV fluids, IV pain medications and anti-emetics -surgery consulted -no NG tube for now as patient not vomiting and declining 2. Probable UTI -UA positive for WBCs and bacteria -urine culture pending -ordered for ceftriaxone -may also be secondary to urostomy status and not true infection 3. Hypertension -hold losartan CODE: Full Proxy: Katie Mock, daughter I have utilized all available resources to reconcile the patient's home medications Time Spent With Patient Critical Care time: I spent a total of [] minutes of critical care time on this patient's care today; this time is exclusive of procedural time. Quality MIPS - Admit I confirm the patient?s Advance Care Plan is present, Code status is documented, Surrogate decision maker is in patient?s record [If Yes, STOP here]: Yes
[2022-05-17 05:42] LABS: Add Manual Diff / Slide Review NO; Basophils Absolute Auto 0 /uL (0-100); Basophils Percent Auto 0.3 % (0-2); Eosinophils Absolute Auto 0 /uL (0-450); Eosinophils Percent Auto 0.5 % (2-4); Hematocrit 34.3 % (36-46); Lymphocytes Absolute Auto 900 /uL (1100-4500); Lymphocytes Percent Auto 15.9 % (25-40); Mean Corpuscular Hemoglobin 32.6 PG (26-34); Mean Corpuscular Volume 93.3 fL (80-100); Monocytes Absolute Auto 400 /uL (0-900); Monocytes Percent Auto 6.4 % (3-14); Neutrophils Absolute Auto 4400 /uL (1500-7000); Neutrophils Percent Auto 76.9 % (50-75); Platelet Count 161 X10^3/uL (150-400); Red Blood Cell Count 3.67 X10^6/uL (4.0-5.2); Red Cell Distribution Width 13.4 % (11.6-14.8); White Blood Cell Count 5.7 X10^3/uL (4.5-11.0)
[2022-05-17 05:48] LABS: BUN Creatinine Ratio 21.4 (6-22); Blood Urea Nitrogen 18 mg/dL (7-17); Calcium 9.2 mg/dL (8.4-10.2); Carbon Dioxide 29 mmol/L (22-32); Chloride 102 mmol/L (98-107); Estimated Glomerular Filt Rate > 60 mL/min (>60); Glucose 110 mg/dL (80-110); HEMOLYSIS < 15 (0-50); Potassium 3.7 mmol/L (3.4-5.1); Sodium 136 mmol/L (137-145)
[2022-05-17] MEDS: HEPARIN 5,000 UNIT/ML VIAL 5000 UNIT SUBCUT ×2 (09:18→20:25)
--- NOTE | 2022-05-17 10:40 | CM.DANOTE ---
DCP/Assessment: Patient is a 86yr old female admitted [facility] with SBO. PCP is [facility]. Primary payor is 1)Medicare 2)[facility]. Met with patient this AM explained CM/SW role. Patient reports that bowel obstructions are not new for her. Patient currently NPO hoping that this obstruction resolves on it's own. Patient does report having some gas. RN notified. Patient hopes to d/c home when medically stable to her apartment at [facility]. Patient denies any d/c planing needs and reports that her family can provide transport. P: Anticipate home when medically stable. Dr. Palacios made aware of above. Patient most likely with d/c within the next 24hrs. KJS Discharge Planning/Care Management CM Discharge Assessment Start: 05/17/22 10:36 Freq: Status: Active Protocol: Document 05/17/22 10:36 KJS (Rec: 05/17/22 10:39 KJS [id number]) Discharge Planning Assessment Assigned Algorithm Developer UNRULY Tran Contact Information Katie Mock (daughter) ph# [phone] Advance Directives? No Advance Directives on File Yes History Provided By Patient,Medical Record Prior Living Arrangements Prison Facility Comment Patient resides at [facility]. Household Members none Facility Name Admitted From: [facility] Willing to Return to Facility? Yes Independent with ADL's Yes Is patient alert and oriented? Yes DME Already Rented / Owned FWW / Walker Comment Has walker but does not use. Barriers to Discharge No Discharge Plan Home Transportation Arrangement Dtr Katie or Gordonr Edith can transport at d/c, both local Referrals Initiated None needed Additional Comment Anticipate home when stable. Patient with h/o bowel obstructions. Patient has specialist at . Whiteboard Updated in Patient Room with Yes name and ext. # of Algorithm Developer Review Status In Process Next Review Type Continued Stay Review
--- NOTE | 2022-05-17 17:13 | PM.CN ---
History of Present Illness Consult details Date Patient Seen: 05/17/22 Time Patient Seen: 17:13 Chief complaint: BOWEL BLOCKAGE Narrative: Hortencia is a pleasant 86-year-old woman who presented with symptoms of a bowel obstruction. She had a bladder resection in [place] in 2005 for cancer with a ileal conduit reconstruction. She then had some sort of hernia repair performed at [facility] about 2 years ago. She has had bowel obstructions before which have been successfully managed nonoperatively. She would be an have nausea vomiting and abdominal pain yesterday and was not passing gas or flatus. Since coming up to the floor she has had some bowel movements and passing flatus. She has tolerated clear liquid diet. She thinks that certain types of foods tend to precipitate small-bowel obstructions. Meds Home Medications and Allergies Home Medications Medication Instructions Recorded Confirmed Type Bifidobacterium infantis 4 mg 4 mg PO DAILY 08/24/20 04/03/22 History capsule (Align) cholecalciferol (vitamin D3) 50 mcg PO QAM 08/24/20 04/03/22 History loperamide 2 mg tablet (Imodium 2 mg PO Q6H PRN Loose Stool 08/24/20 04/03/22 History A-D) triamcinolone acetonide 55 mcg 1 spray intranasal DAILY 08/24/20 04/03/22 History nasal spray aerosol (Nasacort) vitamin B complex [B 1 tab PO QAM 08/24/20 04/03/22 History Complex-Vitamin B12] simethicone 125 mg capsule (Gas-X 125 mg PO QD-BID PRN gas 08/12/21 04/03/22 History Extra Strength) psyllium [Metamucil] 1 tbsp PO QAM 01/03/22 04/03/22 History [id number] 333 mg-133 See Rx Instructions .Route .COMPLEX 01/11/22 04/03/22 History mg-5 mg tablet losartan 100 mg tablet 100 mg PO DAILY #90 tabs 04/03/22 04/03/22 Rx omeprazole 20 mg capsule,delayed 20 mg PO DAILY #90 caps 04/03/22 04/03/22 Rx release Allergies Allergy/AdvReac Type Severity Reaction Status Date / Time Sulfa (Sulfonamide Allergy Unknown Verified 04/03/22 11:36 Antibiotics) trimethaphan Allergy Unknown Verified 04/03/22 11:36 Exam Vital Signs (past 8 hours): - 05/17/22 09:45 05/17/22 13:30 Temperature 98.0 F 98.1 F Pulse Rate 70 69 Respiratory Rate 18 18 Blood Pressure 154/74 H 138/70 Pulse Oximetry 97 97 Oxygen Flow Rate 0 0 Oxygen Delivery Method Room Air Oxygen Flow Rate 0 Const General: No acute distress Resp Effort & Inspection: normal respiratory effort GI Other: Soft nontender Ileal conduit in the right lower quadrant Objective Labs Result Diagrams: 05/17/22 05:10 05/17/22 05:10 Labs: Laboratory Results - last 24 hr 05/16/22 05/16/22 05/16/22 23:59 23:59 23:59 WBC 9.5 RBC 4.26 Hgb 13.9 Hct 39.8 MCV 93.4 MCH 32.6 MCHC 34.9 RDW 13.6 Plt Count 243 Neut % (Auto) 84.0 H Lymph % (Auto) 10.1 L [place] % (Auto) 5.2 Eos % (Auto) 0.4 L Baso % (Auto) 0.3 Neut # (Auto) 8000 H Lymph # (Auto) 1000 L [place] # (Auto) 500 Eos # (Auto) 0 Baso # (Auto) 0 Sodium 136 L Potassium 3.6 Chloride 99 Carbon Dioxide 25 BUN 19 H Creatinine 0.99 Estimated GFR 56 L BUN/Creatinine Ratio 19.2 Glucose 137 H Lactate 0.9 Calcium 10.4 H Total Bilirubin 1.5 H AST 26 ALT 17 Alkaline Phosphatase 59 Total Protein 7.7 Albumin 4.7 Globulin 3.0 Albumin/Globulin Ratio 1.6 Lipase 80 Urine Color Urine Appearance Urine pH Ur Specific [place] Urine Protein Urine Glucose (UA) Urine Ketones Urine Occult Blood Urine Nitrate Urine Bilirubin Urine Urobilinogen Ur Leukocyte Esterase Urine RBC Urine WBC Ur Squamous Epith Cells Calcium Oxalate Crystal Urine Bacteria Hyaline Casts Urine Mucus Ur Culture Indicated? SARS-CoV-2 (PCR) 05/17/22 05/17/22 05/17/22 00:30 01:08 05:10 WBC 5.7 RBC 3.67 L Hgb 12.0 Hct 34.3 L MCV 93.3 MCH 32.6 MCHC 35.0 RDW 13.4 Plt Count 161 Neut % (Auto) 76.9 H Lymph % (Auto) 15.9 L [place] % (Auto) 6.4 Eos % (Auto) 0.5 L Baso % (Auto) 0.3 Neut # (Auto) 4400 Lymph # (Auto) 900 L [place] # (Auto) 400 Eos # (Auto) 0 Baso # (Auto) 0 Sodium Potassium Chloride Carbon Dioxide BUN Creatinine Estimated GFR BUN/Creatinine Ratio Glucose Lactate Calcium Total Bilirubin AST ALT Alkaline Phosphatase Total Protein Albumin Globulin Albumin/Globulin Ratio Lipase Urine Color Yellow Urine Appearance Sl cloudy Urine pH 7.0 Ur Specific [place] 1.015 Urine Protein 2+ H Urine Glucose (UA) Negative Urine Ketones Trace H Urine Occult Blood Trace-intact Urine Nitrate Positive H Urine Bilirubin Negative Urine Urobilinogen 0.2 Ur Leukocyte Esterase 2+ H Urine RBC 0-1/hpf Urine WBC 5-10/hpf H Ur Squamous Epith Cells 0-1 /hpf Calcium Oxalate Crystal Occasional H Urine Bacteria Many (>30) H Hyaline Casts 0-1/lpf Urine Mucus 1+ H Ur Culture Indicated? Specimen cultured SARS-CoV-2 (PCR) Negative 05/17/22 05:10 WBC RBC Hgb Hct MCV MCH MCHC RDW Plt Count Neut % (Auto) Lymph % (Auto) [place] % (Auto) Eos % (Auto) Baso % (Auto) Neut # (Auto) Lymph # (Auto) [place] # (Auto) Eos # (Auto) Baso # (Auto) Sodium 136 L Potassium 3.7 Chloride 102 Carbon Dioxide 29 BUN 18 H Creatinine 0.84 Estimated GFR > 60 BUN/Creatinine Ratio 21.4 Glucose 110 Lactate Calcium 9.2 Total Bilirubin AST ALT Alkaline Phosphatase Total Protein Albumin Globulin Albumin/Globulin Ratio Lipase Urine Color Urine Appearance Urine pH Ur Specific [place] Urine Protein Urine Glucose (UA) Urine Ketones Urine Occult Blood Urine Nitrate Urine Bilirubin Urine Urobilinogen Ur Leukocyte Esterase Urine RBC Urine WBC Ur Squamous Epith Cells Calcium Oxalate Crystal Urine Bacteria Hyaline Casts Urine Mucus Ur Culture Indicated? SARS-CoV-2 (PCR) [facility] Medical History Abnormal Pap smear of cervix (~2001) Anxiety (~1977) Cervical cancer Depression (~1977) GERD (gastroesophageal reflux disease) (~1989) Hemorrhoid (~1959) Hernia, perineal High risk for hip fracture History of bladder cancer (~2002) History of cervical cancer (~2002) History of urinary incontinence (~2019) History of uterine cancer (~2002) Human papilloma virus (~2001) Hypertension Measles (~1945) Osteopenia Osteopenia Osteopenia with high risk of fracture Recurrent sinusitis (~1964) Surgical History Anesthesia History of cholecystectomy (~2001) History of hemorrhoidectomy (~1970) History of radical hysterectomy History of urostomy Family History Father Cancer Mother Hypertension Mental health problem Grandfather Diabetes mellitus Grandmother Diabetes mellitus Grandmother Diabetes mellitus Social History household members: none Tobacco & Substance Use Smoking Status: Former smoker alcohol intake: current Assessment & Plan Assessment and plan (1) Small bowel obstruction: Status: Acute Plan Okay to advance to regular diet. She tolerates it she could potentially go back tomorrow morning. She may need to be very selective about what she eats if she has a narrow spot in her GI tract. Time Spent With Patient Critical Care time: I spent a total of [] minutes of critical care time on this patient's care today; this time is exclusive of procedural time.
[2022-05-17] MEDS: SODIUM CHLORIDE 0.9% FLUSH 10 ML IV (20:25)
--- NOTE | 2022-05-17 21:22 | PC.NURSE ---
Patient is alert and oriented. Breath sounds CTA with RA sat of 97%. HRR but has elevated BP of 166/79 and has been trending high; MD has not yet restarted BP meds. Denies nausea. BT hyperactive and denies abdominal pain/discomfort; did have liquid stool at shift change. Is independent with mobility. Has been refusing SCD's so reminded to ankle wave. Fall risk score is low but patient instructed to call for assist if feeling weak, dizzy or unsteady when getting out of bed.
[2022-05-18] MEDS: SODIUM CHLORIDE 0.9% 250 ML 21 ML IV (01:51)
[2022-05-18] MEDS: cefTRIAXone 1,000 MG in SODIUM CHLORIDE 0.9% 100 ML 200 MG IV (01:52)
[2022-05-18] MEDS: SODIUM CHLORIDE 0.9% FLUSH 10 ML IV ×2 (01:53→08:26)
[2022-05-18 03:14] VITALS: BP 142/75; PULSE 80; RESP 16; TEMP 36.1; O2SAT 94
[2022-05-18 07:50] VITALS: O2SAT 98
[2022-05-18 08:02] VITALS: BP 170/86; PULSE 67; RESP 16; TEMP 36.1; O2SAT 98
[2022-05-18 08:25] VITALS: BP 170/86; PULSE 67
[2022-05-18] MEDS: LOSARTAN 50 MG TABLET 100 MG PO (08:25)
[2022-05-18 09:46] LABS: Clostridium Difficile Tox PCR Negative for C. diff (Negative)
--- NOTE | 2022-05-18 10:40 | CM.DPNOTE ---
DCP Note According to conversation in multidisciplinary rounds, patient expected to be discharged home today, patient eager to return to her indp apt at [address] No needs expected from this CM team JW
--- NOTE | 2022-05-18 11:31 | PM.DS.1 ---
History of Present Illness History of Present Illness Date Patient Seen: 05/18/22 Chief complaint: BOWEL BLOCKAGE Narrative: Per Dr. Horton, Ms. 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 She has had previous admissions for SBO which improved with non-surgical management. She states she has felt poorly over the last few days. But in the last day she has noted vomiting what she has described as bile. She has felt nauseous. She was initially having loose stools but over the last day has not had a bowel movement and has not been passing gas. In the ED workup was done, vitals notable for mild bradycardia. Labs notable for WBC 9.5, hgb 13.9, plts 243. Creatinine 0.99. Lactate 0.9. UA showed positive nitrates, WBC, and bacteria. Abdominal xray showed multiple small bowel fluid levels. CT showed small bowel obstruction with transition in right lower quadrant. She was given pain medications and admitted for further treatment. Discharge Providers Provider Date of admission: 05/17/22 02:12 Discharge Date: 05/18/22 Primary care physician: ROBINSON Murcia Consults: 05/17/22 01:55 Consult to General Surgery Stat Comment: Consulting Provider: Rei Ardon Reason for consultation: sbo Has provider been notified: Yes Discharge provider: Jaime Palacios DO Summary Hospital Course Discharge Diagnosis: 1. Acute recurrent SBO 2. Hypertension 3. Asymptomatic bacteruria Hospital Course: This is a 86-year-old female with history of multiple small-bowel obstructions, abdominal surgery secondary to cervical and bladder cancer, chronic urostomy presented with complaints of abdominal pain, distension and vomiting. She was admitted for a recurrent small-bowel obstruction, likely secondary to adhesive disease. Shortly after admission the patient started having small bowel movements, which were slightly liquidy, with improvement in her abdominal pain, distension, nausea, and vomiting. The following day her diet was quickly advanced and she was tolerating a regular diet at the time of discharge. No changes to her home medications are recommended. She should follow-up with her primary care provider as previously scheduled. She was noted to have a positive UA but no urinary symptoms, treatment is not recommended at this time. Exam Vital Signs (past 8 hours): - 05/18/22 07:50 05/18/22 08:02 05/18/22 08:25 Temperature 97.0 F L Pulse Rate 67 67 Respiratory Rate 16 Blood Pressure 170/86 H 170/86 H Pulse Oximetry 98 98 Oxygen Delivery Method Room Air Oxygen Flow Rate 0 0 Oxygen Delivery Method Room Air Oxygen Flow Rate 0 Narrative Exam Narrative: GEN: no acute distress HEENT: moist mucous membranes, PERRL NECK: trachea midline, no JVD PULM: clear bilaterally, no wheezes, rhonchi CV: regular rate and rhythm ABD: soft, nontender non-distended, urostomy in place EXT: warm and well perfused, no edema NEURO: awake, alert, no focal deficits Objective Labs Result Diagrams: 05/17/22 05:10 05/17/22 05:10 Labs: Laboratory Results - last 24 hr 05/17/22 05/18/22 00:30 07:52 Urine Color Yellow Urine Appearance Sl cloudy Urine pH 7.0 Ur Specific [place] 1.015 Urine Protein 2+ H Urine Glucose (UA) Negative Urine Ketones Trace H Urine Occult Blood Trace-intact Urine Nitrate Positive H Urine Bilirubin Negative Urine Urobilinogen 0.2 Ur Leukocyte Esterase 2+ H Urine RBC 0-1/hpf Urine WBC 5-10/hpf H Ur Squamous Epith Cells 0-1 /hpf Calcium Oxalate Crystal Occasional H Urine Bacteria Many (>30) H Hyaline Casts 0-1/lpf Urine Mucus 1+ H Ur Culture Indicated? Specimen cultured C. difficile Tox (PCR) Negative for c. diff [facility] Medical History Abnormal Pap smear of cervix (~2001) Anxiety (~1977) Cervical cancer Depression (~1977) GERD (gastroesophageal reflux disease) (~1989) Hemorrhoid (~1959) Hernia, perineal High risk for hip fracture History of bladder cancer (~2002) History of cervical cancer (~2002) History of urinary incontinence (~2019) History of uterine cancer (~2002) Human papilloma virus (~2001) Hypertension Measles (~1945) Osteopenia Osteopenia Osteopenia with high risk of fracture Recurrent sinusitis (~1964) Surgical History Anesthesia History of cholecystectomy (~2001) History of hemorrhoidectomy (~1970) History of radical hysterectomy History of urostomy Family History Father Cancer Mother Hypertension Mental health problem Grandfather Diabetes mellitus Grandmother Diabetes mellitus Grandmother Diabetes mellitus Social History household members: none Smoking Status: Former smoker alcohol intake: current Discharge Plan Discharge Plan Patient Disposition: Home Provider Discharge Comment: You were admitted to the hospital with a small bowel obstruction which resolved. No medication changes are recommended. Discharge orders & Medications Prescriptions: Continued psyllium [Metamucil] 1 tbsp PO QAM losartan 100 mg tablet 100 mg PO DAILY Qty: 90 3RF omeprazole 20 mg capsule,delayed release(DR/EC) 20 mg PO DAILY Qty: 90 3RF loperamide [Imodium A-D] 2 mg tablet 2 mg PO Q6H PRN (Reason: Loose Stool) Align 4 mg capsule 4 mg PO DAILY triamcinolone acetonide [Nasacort] 55 mcg aerosol,spray 1 spray NASAL DAILY Rx Instructions: administer into each nostril vitamin B complex 1 tab PO QAM cholecalciferol (vitamin D3) 50 mcg PO QAM simethicone [Gas-X Extra Strength] 125 mg capsule 125 mg PO QD-BID PRN (Reason: gas) [id number] 333-133-5 mg tablet See Rx Instructions .ROUTE .COMPLEX Label Comments: qd Rx Instructions: take one tablet by mouth daily Follow up/Referrals: Blue Gan ARNP [Primary Care Provider] - Diet/Activity/Treatments Diet: Diet as Tolerated Activity: As tolerated Visit Report/Discharge Packet Instructions: DI for Small Bowel Obstruction Discharge Data Primary Care Provider: Blue Gan Quality VTE Deep Vein Thrombosis/Pulmonary Embolism Present on Admission: No
--- NOTE | 2022-05-18 12:07 | PC.NURSE ---
Pt is dressed and ready for discharge home with Son. IV has been removed. Went over d/c instructions with Pt-discussed d/c meds, time of last dose, no new prescriptions, discussed easy to digest diet, drinking plenty of fluids to prevent constipation or dehydration, stroke education, and following up with her PCP as needed. Pt denies further questions and will be ready for discharge home with son when she finishes with her lunch. Pt will be discharged out via w/c by [facility] to POV with Son and all belongings.
== END 2022-05-18 12:28 | disposition home or self-care (01) | DRG 390 ==
LOC: ED 05-17 01:30 → AC 05-17 02:13
PROVIDERS: Internal Medicine; Admitting Provider Internal Medicine; Emergency Provider Emergency Medicine; PCP Registered Nurse Diabetes Educator; Referring Provider Emergency Medicine; Visit Provider Internal Medicine
DX: K56.50 Intestinal adhesions [bands], unspecified as to partial versus complete obstruction (principal); I10 Essential (primary) hypertension; R82.71 Bacteriuria; K21.9 Gastro-esophageal reflux disease without esophagitis; Z93.6 Other artificial openings of urinary tract status; Z87.891 Personal history of nicotine dependence; Z20.822 Contact with and (suspected) exposure to COVID-19
CPT/HCPCS: 36415; 74019; 74177; 80048; 80053; 81001; 83605; 83690; 85025; 87077; 87086; 87186; 87493; 87635; 93005; 96365; 96375; 99232; 99284; C9803; J0696; J1170; J1644; J2405; Q9967

== ENCOUNTER → 2022-06-19 15:34 | Outpatient (CLI) | payer MEDICARE, SELFPAY ==
[2022-05-17 02:50] VITALS: BMI 22.8
[2022-06-19 16:25] LABS: Hematocrit 35.5 % (36-46); Hemoglobin 12.3 g/dL (12.0-16.0); Mean Corpuscular HGB Conc 34.7 % (30-36); Mean Corpuscular Hemoglobin 32.8 PG (26-34); Mean Corpuscular Volume 94.4 fL (80-100); Platelet Count 196 X10^3/uL (150-400); Red Blood Cell Count 3.76 X10^6/uL (4.0-5.2); Red Cell Distribution Width 12.9 % (11.6-14.8); White Blood Cell Count 5.5 X10^3/uL (4.5-11.0)
[2022-06-19 16:45] LABS: BUN Creatinine Ratio 16.8 (6-22); Blood Urea Nitrogen 18 mg/dL (7-17); Calcium 9.2 mg/dL (8.4-10.2); Carbon Dioxide 26 mmol/L (22-32); Chloride 105 mmol/L (98-107); Estimated Glomerular Filt Rate 51 mL/min (>60); Glucose 115 mg/dL (80-110); HEMOLYSIS < 15 (0-50); Sodium 138 mmol/L (137-145)
== END ==
PROVIDERS: PCP Registered Nurse Diabetes Educator; Referring Provider Registered Nurse Diabetes Educator; Visit Provider Registered Nurse Diabetes Educator
DX: M85.80 Other specified disorders of bone density and structure, unspecified site (principal); Z91.89 Other specified personal risk factors, not elsewhere classified
CPT/HCPCS: 80048; 85027

== ENCOUNTER → 2022-06-30 11:14 | Outpatient (CLI) | payer MEDICARE, SELFPAY ==
[2022-05-17 02:50] VITALS: BMI 22.8
[2022-06-30 13:24] LABS: BUN Creatinine Ratio 18.8 (6-22); Blood Urea Nitrogen 16 mg/dL (7-17); Calcium 9.3 mg/dL (8.4-10.2); Carbon Dioxide 28 mmol/L (22-32); Chloride 104 mmol/L (98-107); Estimated Glomerular Filt Rate > 60 mL/min (>60); Glucose 133 mg/dL (80-110); HEMOLYSIS < 15 (0-50); Potassium 3.8 mmol/L (3.4-5.1); Sodium 138 mmol/L (137-145)
== END ==
PROVIDERS: PCP Registered Nurse Diabetes Educator; Referring Provider Registered Nurse Diabetes Educator; Visit Provider Registered Nurse Diabetes Educator
DX: E87.1 Hypo-osmolality and hyponatremia (principal); E87.6 Hypokalemia; I10 Essential (primary) hypertension
CPT/HCPCS: 36415; 80048

== ENCOUNTER → 2022-07-27 14:32 | Outpatient (CLI) | payer MEDICARE, SELFPAY ==
[2022-05-17 02:50] VITALS: BMI 22.8
[2022-07-27 15:29] LABS: Influenza A - CEPHEID Flu A NEGATIVE (NEGATIVE); Influenza B - CEPHEID Flu B NEGATIVE (NEGATIVE); Respiratory Syncytial Virus Negative (Negative)
[2022-07-27 16:34] LABS: COVID-19 CEPHEID PCR (VTM/NP) Negative (Negative)
== END ==
PROVIDERS: PCP Registered Nurse Diabetes Educator; Visit Provider Registered Nurse Diabetes Educator
DX: J02.9 Acute pharyngitis, unspecified (principal)
CPT/HCPCS: 0241U

== ENCOUNTER 2022-11-06 22:58 | Observation (INO) | payer MEDICARE, SELFPAY ==
[2022-05-17 02:50] VITALS: BMI 22.8
[2022-11-06 23:17] VITALS: BP 127/69; PULSE 93; RESP 18; TEMP 36.6; O2SAT 97; BMI 21.4
--- NOTE | 2022-11-06 23:27 | DI.RAD.S_ITS ---
PROCEDURE: XR ACUTE ABDOMEN SERIES INDICATIONS: pain, n/v, hx of blockage TECHNIQUE: One view chest and two views of the abdomen were acquired. COMPARISON: [facility], CT, CT ABDOMEN PELVIS W CON, 05/17/2022, 0:41. FINDINGS: Surgical changes and devices: Multiple surgical clips are demonstrated in the abdomen. Chest: Lungs are clear. Heart size is normal. No pleural effusions. No pneumoperitoneum. Abdomen: Bowel gas pattern demonstrates a few scattered air-fluid levels. No gas distended loops of bowel demonstrated. No suspicious calcifications. Bones: No suspicious bony lesions. IMPRESSION: 1. Nonspecific bowel gas pattern with a few scattered air-fluid levels. The differential includes an ileus, gastroenteritis, or obstruction. Dictated by: Shaheed Araujo M.D. on 11/07/2022 at 1:21 Approved by: Shaheed Araujo M.D. on 11/07/2022 at 1:28
[2022-11-07 02:57] LABS: Add Manual Diff / Slide Review NO; Basophils Absolute Auto 0 /uL (0-100); Basophils Percent Auto 0.1 % (0-2); Eosinophils Absolute Auto 0 /uL (0-450); Eosinophils Percent Auto 0.1 % (2-4); Hematocrit 41.9 % (36-46); Hemoglobin 14.3 g/dL (12.0-16.0); Lymphocytes Absolute Auto 1200 /uL (1100-4500); Lymphocytes Percent Auto 12.5 % (25-40); Mean Corpuscular HGB Conc 34.1 % (30-36); Mean Corpuscular Hemoglobin 31.5 PG (26-34); Mean Corpuscular Volume 92.3 fL (80-100); Monocytes Absolute Auto 500 /uL (0-900); Monocytes Percent Auto 5.5 % (3-14); Neutrophils Absolute Auto 7900 /uL (1500-7000); Neutrophils Percent Auto 81.8 % (50-75); Platelet Count 249 X10^3/uL (150-400); Red Blood Cell Count 4.54 X10^6/uL (4.0-5.2); Red Cell Distribution Width 13.5 % (11.6-14.8); White Blood Cell Count 9.7 X10^3/uL (4.5-11.0)
[2022-11-07 03:02] LABS: Alanine Aminotransferase 23 IU/L (<35); Alkaline Phosphatase 65 U/L (38-126); Aspartate Aminotransferase 29 IU/L (14-36); BUN Creatinine Ratio 22.3 (6-22); Blood Urea Nitrogen 35 mg/dL (7-17); Calcium 10.3 mg/dL (8.4-10.2); Carbon Dioxide 31 mmol/L (22-32); Chloride 90 mmol/L (98-107); Estimated Glomerular Filt Rate 32 mL/min (>60); Glucose 127 mg/dL (80-110); Potassium 3.6 mmol/L (3.4-5.1); Sodium 138 mmol/L (137-145); Total Protein 9.1 g/dL (6.3-8.2)
--- NOTE | 2022-11-07 04:00 | ED.NAVMDI ---
HPI - Nausea/Vomiting/Diarrhea General Chief complaint: Nausea/Vomiting/Diarrhea Stated complaint: bowel blockage Time Seen by Provider: 11/07/22 02:24 Source: patient Mode of arrival: Ambulatory History of Present Illness HPI Narrative: 86-year-old woman with a history of cervical and bladder cancer multiple abdominal surgeries and complex surgical repair of a perineal hernia with ileal conduit in December of 2020. She is had multiple episodes of small-bowel obstruction including June, October, early and late December and April of 2022 all resolved with nonsurgical management. She is been doing well the last number of months notes that she went out to the [employer] and had a bit more to eat than she typically does although still minimal intake. Over the last 24 hours she is had increasing abdominal pain, distention and minimal stool and gas output. She denies fever but has had nausea and 2 episodes of emesis over the last 12 hours. No headache, chest pain, palpitations Related Data Home Medications Medication Instructions Recorded Confirmed Bifidobacterium infantis 4 mg 4 mg PO DAILY 08/24/20 11/07/22 capsule (Align) cholecalciferol (vitamin D3) 50 mcg PO QAM 08/24/20 11/07/22 loperamide 2 mg tablet (Imodium 2 mg PO Q6H PRN Loose Stool 08/24/20 11/07/22 A-D) triamcinolone acetonide 55 mcg 1 spray intranasal DAILY 08/24/20 07/27/22 nasal spray aerosol (Nasacort) vitamin B complex [B 1 tab PO QAM 08/24/20 07/27/22 Complex-Vitamin B12] simethicone 125 mg capsule (Gas-X 125 mg PO QD-BID PRN gas 08/12/21 11/07/22 Extra Strength) psyllium [Metamucil] 1 tbsp PO QAM 01/03/22 11/07/22 [id number] 333 mg-133 See Rx Instructions .Route .COMPLEX 01/11/22 11/07/22 mg-5 mg tablet Previous Rx's Medication Instructions Recorded losartan 100 mg tablet 100 mg PO DAILY #90 tabs 04/03/22 omeprazole 20 mg capsule,delayed 20 mg PO DAILY #90 caps 04/03/22 release Allergies Allergy/AdvReac Type Severity Reaction Status Date / Time Sulfa (Sulfonamide Allergy Unknown Verified 07/27/22 13:36 Antibiotics) trimethaphan Allergy Unknown Verified 07/27/22 13:36 Review of Systems Review of Systems Narrative: Remainder of complete review of systems is otherwise unremarkable except for that included in the HPI. Patient History Medical History Abnormal Pap smear of cervix (~2001) Anxiety (~1977) Cervical cancer Depression (~1977) GERD (gastroesophageal reflux disease) (~1989) Hemorrhoid (~1959) Hernia, perineal High risk for hip fracture History of bladder cancer (~2002) History of cervical cancer (~2002) History of urinary incontinence (~2019) History of uterine cancer (~2002) Human papilloma virus (~2001) Hypertension Measles (~194) Osteopenia Osteopenia Osteopenia with high risk of fracture Recurrent sinusitis (~1964) Surgical History Anesthesia History of cholecystectomy (~2001) History of hemorrhoidectomy (~1970) History of radical hysterectomy History of urostomy Family History Father Cancer Mother Hypertension Mental health problem Grandfather Diabetes mellitus Grandmother Diabetes mellitus Grandmother Diabetes mellitus Social History household members: none Smoking Status: Former smoker alcohol intake: current Smoking Status: Former smoker tobacco type: vaping alcohol intake frequency: 0-2 drinks per day Alcohol type: wine Substance Use Type: does not use Exam Initial Vital Signs Initial Vital Signs: Vital Signs Temperature 97.8 F 11/06/22 23:17 Pulse Rate 93 H 11/06/22 23:17 Respiratory Rate 18 11/06/22 23:17 Blood Pressure 127/69 11/06/22 23:17 Pulse Oximetry 97 11/06/22 23:17 Oxygen Delivery Method 11/06/22 23:17 General: Healthy appearing, vomiting with abdominal pain. Able to give a complete and coherent history. Well-nourished well-developed HEENT: Moist mucous membranes, normal sclera with reactive pupils, Respiratory: Lungs are clear to auscultation, no wheezing no rales no rhonchi. Full and symmetrical air movement Cardiac: Regular rate and rhythm no murmurs no bruits Abdomen: Soft, minimal distention, no rebound no guarding Skin: Warm and dry, no rashes Neurologic: Grossly neurologically intact with no obvious asymmetries or abnormalities Extremities: No trauma, well perfused Psych: Cooperative, appropriate insight and affect Course Orders Ordered: ED Orders 11/06/22 23:27 XR acute abdomen series Stat 11/07/22 02:39 CBC Auto Diff [Complete Blood Count AUTO DIFF] Stat Comprehensive Metabolic Panel Stat 11/07/22 05:31 COVID19 -Nasal RAPID/Pre-Proc Stat Hydromorphone HCl (Hydromorphone 0.5 Mg Inj) 0.5 mg IV Q4H PRN PRN Reason: Pain, Moderate (4-6) Sodium Chloride (Normal Saline 0.9%) 1,000 mls @ 150 mls/hr IV CONT [facility] Last Infusion: 11/07/22 06:23 Dose: 150 mls/hr Documented By: Admin: 11/07/22 05:14 Dose: 150 mls/hr Documented By: KAVITA Ceftriaxone Sodium 1,000 mg/ (Sodium Chloride) 100 mls @ 200 mls/hr IV Q24H [facility] Stop: 11/10/22 08:14 Naloxone HCl (Naloxone 0.4 Mg/Ml Vial) 0.2 mg IV Q2MIN PRN PRN Reason: Opiate Reversal Ondansetron HCl (Ondansetron 4 Mg/2 Ml Inj) 4 mg IV Q4HR PRN PRN Reason: Nausea And Vomiting Discontinued Medications Hydromorphone HCl (Hydromorphone 0.5 Mg Inj) 0.5 mg IV Q15MIN PRN PRN Reason: Pain, Sodium Chloride (Normal Saline 0.9%) 1,000 mls @ 1,000 mls/hr IV BOLUS ONE Stop: 11/07/22 05:39 Last Infusion: 11/07/22 06:23 Dose: 1,000 mls/hr Documented By: Admin: 11/07/22 05:14 Dose: 1,000 mls/hr Documented By: KAVITA Sodium Chloride (Normal Saline 0.9%) 1,000 mls @ 150 mls/hr IV CONT [facility] Last Admin: 11/07/22 06:57 Dose: Not Given Documented By: AMILCAR Ondansetron HCl (Ondansetron 4 Mg/2 Ml Inj) 4 mg IV NOW ONE Stop: 11/07/22 04:30 Last Admin: 11/07/22 04:30 Dose: 4 mg Documented By: KAVITA Ondansetron HCl (Ondansetron 4 Mg/2 Ml Inj) 4 mg IV Q4HR PRN PRN Reason: nausea Vital Signs Vital signs: Vital Signs - 8 hr 11/06/22 23:17 Temperature 97.8 F Pulse Rate 93 H Respiratory Rate 18 Blood Pressure 127/69 Pulse Oximetry 97 Oxygen Delivery Method Room Air MDM - Nausea/Vomiting/Diarrhea Lab Data Result diagrams: 11/07/22 02:39 11/07/22 06:38 Labs: Lab Results 11/07/22 11/07/22 11/07/22 Range/Units 02:39 02:39 02:39 WBC 9.7 (4.5-11.0) X10^3/uL RBC 4.54 (4.0-5.2) X10^6/uL Hgb 14.3 (12.0-16.0) g/dL Hct 41.9 (36-46) % MCV 92.3 (80-100) fL MCH 31.5 (26-34) PG MCHC 34.1 (30-36) % RDW 13.5 (11.6-14.8) % Plt Count 249 (150-400) X10^3/uL Neut % (Auto) 81.8 H (50-75) % Lymph % (Auto) 12.5 L (25-40) % [place] % (Auto) 5.5 (3-14) % Eos % (Auto) 0.1 L (2-4) % Baso % (Auto) 0.1 (0-2) % Neut # (Auto) 7900 H (5328-5537) /uL Lymph # (Auto) 1200 (1678-8814) /uL [place] # (Auto) 500 (0-900) /uL Eos # (Auto) 0 (0-450) /uL Baso # (Auto) 0 (0-100) /uL Sodium 138 (137-145) mmol/L Potassium 3.6 (3.4-5.1) mmol/L Chloride 90 L (98-107) mmol/L Carbon Dioxide 31 (22-32) mmol/L BUN 35 H (7-17) mg/dL Creatinine 1.57 H (0.52-1.04) mg/dL Estimated GFR 32 L (>60) mL/min BUN/Creatinine Ratio 22.3 H (6-22) Glucose 127 H (80-110) mg/dL Lactate (0.7-2.1) mmol/L Calcium 10.3 H (8.4-10.2) mg/dL Total Bilirubin 2.0 H (0.2-1.3) mg/dL AST 29 (14-36) IU/L ALT 23 (<35) IU/L Alkaline Phosphatase 65 (38-126) U/L Total Protein 9.1 H (6.3-8.2) g/dL Procalcitonin 0.06 (<0.5) ng/mL 11/07/22 Range/Units 02:39 WBC (4.5-11.0) X10^3/uL RBC (4.0-5.2) X10^6/uL Hgb (12.0-16.0) g/dL Hct (36-46) % MCV (80-100) fL MCH (26-34) PG MCHC (30-36) % RDW (11.6-14.8) % Plt Count (150-400) X10^3/uL Neut % (Auto) (50-75) % Lymph % (Auto) (25-40) % [place] % (Auto) (3-14) % Eos % (Auto) (2-4) % Baso % (Auto) (0-2) % Neut # (Auto) (6503-0886) /uL Lymph # (Auto) (7780-4822) /uL [place] # (Auto) (0-900) /uL Eos # (Auto) (0-450) /uL Baso # (Auto) (0-100) /uL Sodium (137-145) mmol/L Potassium (3.4-5.1) mmol/L Chloride (98-107) mmol/L Carbon Dioxide (22-32) mmol/L BUN (7-17) mg/dL Creatinine (0.52-1.04) mg/dL Estimated GFR (>60) mL/min BUN/Creatinine Ratio (6-22) Glucose (80-110) mg/dL Lactate 1.5 (0.7-2.1) mmol/L Calcium (8.4-10.2) mg/dL Total Bilirubin (0.2-1.3) mg/dL AST (14-36) IU/L ALT (<35) IU/L Alkaline Phosphatase (38-126) U/L Total Protein (6.3-8.2) g/dL Procalcitonin (<0.5) ng/mL Point of Care Testing Glucose POC 112 Imaging Data Abdominal x-ray: Radiologist's Impression: FINDINGS:? ? Surgical changes and devices:? Multiple surgical clips are demonstrated in the abdomen. ? Chest:? Lungs are clear.? Heart size is normal.? No pleural effusions.? No pneumoperitoneum.? ? Abdomen:? Bowel gas pattern demonstrates a few scattered air-fluid levels.? No gas distended loops of bowel demonstrated.? No suspicious calcifications.? ? Bones:? No suspicious bony lesions.? ? IMPRESSION:? ? 1. Nonspecific bowel gas pattern with a few scattered air-fluid levels.? The differential includes an ileus, gastroenteritis, or obstruction. ? ? Dictated by: Shaheed Araujo M.D. on 11/07/2022 at 1:21 ? ? MDM Narrative Medical decision making narrative: CC: Acute abdominal pain; similar to prior bowel obstruction with potential for significant complication Complicating co-morbidities: Complex surgical and cancer history with recurrent prior bowel obstructions Corroborating data: Data collected from: patient, Medical records reviewed: General surgery, surgery from [facility] and prior hospital admissions Differential considered: Bowel obstruction, recurrent cancer, appendicitis, diverticulitis, gastroenteritis Exam documented above, pertinent findings include: Retching with abdominal pain Lab Test results independently reviewed as above. Pertinent findings: Cbc is unremarkable Chemistries: Stable chronic renal insufficiency, slightly low magnesium at 1.5 Urine with white blood cells bacteria leukocyte esterase and has been cultured Imaging studies independently reviewed: Small-bowel obstruction appreciated on abdominal x-ray Discussion: Given multiple prior presentations with similar findings that have resolved without surgical intervention, will try conservative management, pain control and fluids to see if her bowel obstruction will resolve without surgical intervention. Last 2 times she has not needed NG tube and would very much prefer to avoid an NG tube at this time. We talked about persistent retching and vomiting. At this point a single dose of Zofran has resolved her emesis so will hold on NG tube. Diagnosis: Small-bowel obstruction, urinary tract infection. Antibiotics started by the hospitalist service Disposition: see below, Discharge Plan Departure Patient Disposition: Admitted As Inpatient Clinical Impression: Small bowel obstruction, Urinary tract infection Admit Date/Time: 11/07/22 05:03 Admit Provider: Lorena Heredia
[2022-11-07] MEDS: ONDANSETRON 4 MG/2 ML INJ IV (04:30)
[2022-11-07] MEDS: SODIUM CHLORIDE 0.9% 1,000 ML 150 ML IV (05:14)
[2022-11-07] MEDS: SODIUM CHLORIDE 0.9% 1,000 ML 1000 ML IV (05:14)
--- NOTE | 2022-11-07 05:32 | P.HP_ITS ---
History of Present Illness History of Present Illness Date Patient Seen: 11/07/22 Time Patient Seen: 05:32 Chief complaint: bowel blockage Narrative: Ms. 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 She has had previous admissions June, October, early and late December and April of 2022 for SBO which improved with non-surgical management. She states she has felt poorly over the last few days. But in the last day she has noted vomiting what she has described as bile. She has felt nauseous. She was initially having loose stools but over the last day has not had a bowel movement and has not been passing gas. Patient denies chest pain, shortness in, fever, body aches, chills, cough, upper respiratory symptoms, urinary frequency, dysuria, hematuria, melena. Patient's vitals are stable at the time of admit temp 97.8?, BP 127/69, HR 93, R 18, O2 saturation 97% on room air. No WBC, chloride 90, BUN 35, creatinine 1.57, glucose 127, GFR 32, total protein 9.1, total bili 2.0. Because patient has been seen repeatedly for small-bowel obstructions that usually resolve via nonsurgical intervention, abdominal x-ray was obtained demonstrating possible ileus, gastroenteritis, small-bowel obstruction. Patient refuses NG tube at this time, would like to defer advanced diagnostics as well at this time but will concede to NG tube and greater workup and treatment interventions if her condition worsens. Patient for recurrent small-bowel obstruction, sepsis, JIMMY. Will place consult for Dr. Poe in AM for evaluation due to the patient's extensive history of abdominal surgical procedures Patient History Medical History Abnormal Pap smear of cervix (~2001) Anxiety (~1977) Cervical cancer Depression (~1977) GERD (gastroesophageal reflux disease) (~1989) Hemorrhoid (~1959) Hernia, perineal High risk for hip fracture History of bladder cancer (~2002) History of cervical cancer (~2002) History of urinary incontinence (~2019) History of uterine cancer (~2002) Human papilloma virus (~2001) Hypertension Measles (~1945) Osteopenia Osteopenia Osteopenia with high risk of fracture Recurrent sinusitis (~1964) Surgical History Anesthesia History of cholecystectomy (~2001) History of hemorrhoidectomy (~1970) History of radical hysterectomy History of urostomy Family & Social History Family History Father Cancer Mother Hypertension Mental health problem Grandfather Diabetes mellitus Grandmother Diabetes mellitus Grandmother Diabetes mellitus Social History: household members none Safety & Behavioral: Feels Safe in Current Yes Environment Been Physically Hurt or No Threatened By a Person Tobacco & Substance use: Tobacco type cigarettes Smoking Status Former smoker alcohol intake current alcohol intake frequency 0-2 drinks per day Substance Use Type does not use Meds Home Medications and Allergies Home Medications Medication Instructions Recorded Confirmed Type Bifidobacterium infantis 4 mg 4 mg PO DAILY 08/24/20 07/27/22 History capsule (Align) cholecalciferol (vitamin D3) 50 mcg PO QAM 08/24/20 07/27/22 History loperamide 2 mg tablet (Imodium 2 mg PO Q6H PRN Loose Stool 08/24/20 07/27/22 History A-D) triamcinolone acetonide 55 mcg 1 spray intranasal DAILY 08/24/20 07/27/22 History nasal spray aerosol (Nasacort) vitamin B complex [B 1 tab PO QAM 08/24/20 07/27/22 History Complex-Vitamin B12] simethicone 125 mg capsule (Gas-X 125 mg PO QD-BID PRN gas 08/12/21 07/27/22 History Extra Strength) psyllium [Metamucil] 1 tbsp PO QAM 01/03/22 07/27/22 History [id number] 333 mg-133 See Rx Instructions .Route .COMPLEX 01/11/22 07/27/22 History mg-5 mg tablet losartan 100 mg tablet 100 mg PO DAILY #90 tabs 04/03/22 07/27/22 Rx omeprazole 20 mg capsule,delayed 20 mg PO DAILY #90 caps 04/03/22 07/27/22 Rx release Allergies Allergy/AdvReac Type Severity Reaction Status Date / Time Sulfa (Sulfonamide Allergy Unknown Verified 07/27/22 13:36 Antibiotics) trimethaphan Allergy Unknown Verified 07/27/22 13:36 Review of Systems Review of Systems Narrative: All 12 point systems reviewed with the patient and are negative except otherwise documented. Exam Vital Signs (past 8 hours): - 11/06/22 23:17 Temperature 97.8 F Pulse Rate 93 H Respiratory Rate 18 Blood Pressure 127/69 Pulse Oximetry 97 Oxygen Delivery Method Room Air Oxygen Delivery Method Room Air Narrative Exam Narrative: General: Patient is a well-developed, well-nourished in no distress at this time. HEENT: Normocephalic, atraumatic, extraocular muscles intact, oral pharynx is clear and mucous membranes are moist. Neck is supple and symmetric, trachea is midline, no adenopathy, no thyroid enlargement, nontender, no masses palpated. Negative for JVD Chest: no nasal flaring, retractions, or tachypneic labored breathing Lungs: Auscultation of all lung inman are clear without adventitious sounds, wheezes, rhonchi, or rales. Cardio: regular rate and rhythm without murmur, rubs, or gallops, no carotid bruit, no cardiac pulsations present. Abdomen: Bowel sounds are present in all 4 quadrants without guarding or rebound, no CVA tenderness, urostomy in place Musculoskeletal: Muscle strength and tone are equal within normal limits, no deformity, crepitus, effusions, cyanosis, clubbing or edema present. Full range of motion intact radial and pedal pulses are normal. Skin: Warm dry and intact without rashes, ulcerations or petechiae. Neuro: Alert and orientated x3, strength is +5/5 in all extremities, sensation to touch intact, no gross deficits noted of cranial nerves. Psych: Patient has a well-kept appearance, appropriate affect, mental status attitude thought context and judgment are appropriate for age. Objective Labs Result Diagrams: 11/07/22 02:39 11/07/22 02:39 Labs: Laboratory Results - last 24 hr 11/07/22 11/07/22 02:39 02:39 WBC 9.7 RBC 4.54 Hgb 14.3 Hct 41.9 MCV 92.3 MCH 31.5 MCHC 34.1 RDW 13.5 Plt Count 249 Neut % (Auto) 81.8 H Lymph % (Auto) 12.5 L Dixon % (Auto) 5.5 Eos % (Auto) 0.1 L Baso % (Auto) 0.1 Neut # (Auto) 7900 H Lymph # (Auto) 1200 Dixon # (Auto) 500 Eos # (Auto) 0 Baso # (Auto) 0 Sodium 138 Potassium 3.6 Chloride 90 L Carbon Dioxide 31 BUN 35 H Creatinine 1.57 H Estimated GFR 32 L BUN/Creatinine Ratio 22.3 H Glucose 127 H Calcium 10.3 H Total Bilirubin 2.0 H AST 29 ALT 23 Alkaline Phosphatase 65 Total Protein 9.1 H Assessment & Plan Assessment & Plan narrative: Ms. Lin is an 86W with PMH recurrent SBO and history of cervical and bladder cancer s/p abdominal surgeries and radiation, with urostomy who presetns with abdominal pain, nausea, and vomiting consistent with SBO. 1.SBO, recurrent, acute on chronic, present on admission -presented with vomiting, and no bowel movement for one day -patient's previous admits for small-bowel obstructions have resolved with nonsurgical management. -abdominal x-ray demonstrated possible ileus, gastroenteritis pruritus, small- bowel obstruction. -suspect etiology secondary to adhesions -patient NPO -order IV fluids, IV pain medications and anti-emetics -surgery consulted in am -no NG tube or CT for now as patient not vomiting and declining 2. Sepsis without septic shock, renal/JIMMY, likely secondary to gastrointestinal loss, with elevated anion gap, acute, present on admission -poss hypochloremic, gastrointestinal loss due to ingestion of [id number] medications for constipation, developing decreased renal function disease -BUN 35, creatinine 1.57, GFR 32-labs 06/30/2022 ADMINISTRATIVE SUPPORT SPECIALIST 0.85, GFR> 60, BUN 16 -sofa score 3, gap 17-sodium 138, chloride 90, bicarb 31- albumin pending -UA ordered -Has a hx of UTI- secondary to urostomy status and not true infection -no WBC, ordered procalcitonin, lactate\ -fluid resuscitation, patient received a bolus in ED on NS at 150 cc/HR 3. Hypertension, essential, chronic, present on admission -hold losartan 4. Malnutrition, mild, acute on chronic, present on admission -as evidence by BMI of 21.5 -patient's malnutrition places them at high risk for medical and surgical complications because of the severe malnutrition in relation to acute illness/chronic illness. This increases the difficulty in complexity of medical management and increases the chances poor outcomes such as mortality and morbidity as well as impaired wound healing, and immune suppression. -dietary consult ordered to evaluate and implement steps to improve caloric intake and nutrition. CODE: Full Proxy: Katie Mock, daughter Disposition: Patient admitted for observation expected length of stay less than 2 midnights, expect that SBO sepsis and JIMMY will resolve with fluid rehydration, due to complicated surgical and medical history of abdomen placed consult for Dr. Poe general surgery. DVT/VTE prophylaxis: Holding medication, SCDs only as possibility of surgical intervention I have utilized all available immediate resources to obtain, update, or review the patient's current medications. I confirmed that the patient's advanced care plan is present, Code status is documented and/or surrogate decision maker is listed in the patient's medical record. I have personally reviewed patient's chart notes from PCP, specialists, diagnostic imaging, and laboratory results. Time Spent With Patient Critical Care time: I spent a total of [] minutes of critical care time on this patient's care today; this time is exclusive of procedural time.
[2022-11-07 05:47] LABS: COVID19 -Nasal RAPID Negative (Negative)
[2022-11-07 06:08] LABS: Lactate (Lactic Acid) 1.5 mmol/L (0.7-2.1)
[2022-11-07 06:25] VITALS: BP 151/71; PULSE 71; RESP 16; TEMP 36.5; O2SAT 97
[2022-11-07 06:34] LABS: Procalcitonin 0.06 ng/mL (<0.5)
[2022-11-07 06:41] VITALS: BMI 23.1
[2022-11-07 07:08] LABS: BUN Creatinine Ratio 22.2 (6-22); Blood Urea Nitrogen 34 mg/dL (7-17); Carbon Dioxide 29 mmol/L (22-32); Chloride 97 mmol/L (98-107); Estimated Glomerular Filt Rate 33 mL/min (>60); Glucose 116 mg/dL (80-110); HEMOLYSIS < 15 (0-50); Magnesium 1.5 mg/dL (1.6-2.3); Potassium 3.4 mmol/L (3.4-5.1); Sodium 137 mmol/L (137-145)
[2022-11-07 07:46] LABS: Appearance Urine UA CLOUDY; Bilirubin Urine UA 1+ (NEGATIVE); Color Urine UA YELLOW; Glucose Urine UA NEGATIVE (Negative); Ketones Urine UA 1+ (NEGATIVE); Leukocyte Esterase Urine UA 1+ (NEGATIVE); Nitrite Urine UA NEGATIVE (Negative); Occult Blood Urine UA TRACE-INTACT (Negative); Protein Urine UA 2+ (Negative); Specific Gravity Urine UA 1.015 (1.000-1.035); Urobilinogen Urine UA 0.2 E.U./dL (0.2)
[2022-11-07 08:07] LABS: pH Urine UA 6.5 (4.5-8.0)
[2022-11-07 08:08] LABS: Bacteria Urine Many (>30); Culture Indicated Urine Specimen Cultured; Hyaline Casts Urine 1-5/LPF; Ictotest Urine Negative (Negative); RBC Urine 1-5/HPF (0-5/HPF); Squamous Epithelial Cell Urine 1-5 /HPF (0-5/HPF); WBC Urine 10-30/HPF (0-5/HPF)
[2022-11-07] MEDS: cefTRIAXone 1,000 MG in SODIUM CHLORIDE 0.9% 100 ML 200 MG IV (09:08)
[2022-11-07] MEDS: MAGNESIUM SULFATE 2 GM/50 ML PIGGYBACK IV (10:19)
[2022-11-07 12:33] VITALS: BP 140/76; PULSE 75; RESP 15; TEMP 36; O2SAT 96
[2022-11-07 16:00] VITALS: BP 124/69; PULSE 74; RESP 18; TEMP 36.6; O2SAT 98
--- NOTE | 2022-11-07 17:18 | P.DS_ITS ---
History of Present Illness History of Present Illness Date Patient Seen: 11/07/22 Time Patient Seen: 17:18 Chief complaint: bowel blockage Narrative: Ms. 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 She has had previous admissions June, October, early and late December and April of 2022 for SBO which improved with non-surgical management. She states she has felt poorly over the last few days. But in the last day she has noted vomiting what she has described as bile. She has felt nauseous. She was initially having loose stools but over the last day has not had a bowel movement and has not been passing gas. Patient denies chest pain, shortness in, fever, body aches, chills, cough, upper respiratory symptoms, urinary frequency, dysuria, hematuria, melena. Patient's vitals are stable at the time of admit temp 97.8?, BP 127/69, HR 93, R 18, O2 saturation 97% on room air. No WBC, chloride 90, BUN 35, creatinine 1.57, glucose 127, GFR 32, total protein 9.1, total bili 2.0. Because patient has been seen repeatedly for small-bowel obstructions that usually resolve via nonsurgical intervention, abdominal x-ray was obtained demonstrating possible ileus, gastroenteritis, small-bowel obstruction. Patient refuses NG tube at this time, would like to defer advanced diagnostics as well at this time but will concede to NG tube and greater workup and treatment interventions if her condition worsens. Patient for recurrent small-bowel obstruction, sepsis, JIMMY. Will place consult for Dr. Poe in AM for evaluation due to the patient's extensive history of abdominal surgical procedures Discharge Providers Provider Date of admission: 11/07/22 05:03 Discharge Date: 11/07/22 Primary care physician: ROBINSON Murcia Consults: 11/07/22 05:29 Consult to Dietitian, Adult Routine Comment: Reason For Exam: BMI 21.5 11/07/22 06:52 Consult to Dietitian, Adult Routine Comment: Reason For Exam: MNA score = 11 Discharge provider: Jaime Palacios DO Summary Hospital Course Discharge Diagnosis: 1. Acute recurrent SBO secondary to adhesions 2. Hypertension, chronic 3. Acute cystitis 4. JIMMY 5. Hypomagnesemia, acute. Hospital Course: This is a 86-year-old female with history of multiple small-bowel obstructions, abdominal surgery secondary to cervical and bladder cancer, chronic urostomy presented with complaints of abdominal pain, distension and vomiting. She was admitted for a recurrent small-bowel obstruction, likely secondary to adhesive disease. Shortly after admission the patient started having small bowel movements, which were slightly liquidy, with improvement in her abdominal pain, distension, nausea, and vomiting. Her diet was quickly advanced and the evening of admission she was tolerating a diet without abdominal pain. Given likely pre- renal source of her JIMMY, shared decision making patient elected for discharge home with outpatient follow up recommened. Her urinalysis was positive and given mild abdominal pain, she was started on ceftriaxone here and complete treatment with two additional days of augmentin at home. Time Spent with Patient Time spent: Greater than 30 minutes Exam Vital Signs (past 8 hours): - 11/07/22 12:33 Temperature 96.8 F L Pulse Rate 75 Respiratory Rate 15 Blood Pressure 140/76 Pulse Oximetry 96 Oxygen Flow Rate 0 Oxygen Delivery Method Room Air Oxygen Flow Rate 0 Narrative Exam Narrative: GEN: no acute distress HEENT: moist mucous membranes, PERRL NECK: trachea midline, no JVD PULM: clear bilaterally, no wheezes, rhonchi CV: regular rate and rhythm ABD: soft, nontender non-distended, urostomy in place EXT: warm and well perfused, no edema NEURO: awake, alert, no focal deficits Objective Labs Result Diagrams: 11/07/22 02:39 11/07/22 06:38 Labs: Laboratory Results - last 24 hr 11/07/22 11/07/22 11/07/22 02:39 02:39 02:39 WBC 9.7 RBC 4.54 Hgb 14.3 Hct 41.9 MCV 92.3 MCH 31.5 MCHC 34.1 RDW 13.5 Plt Count 249 Neut % (Auto) 81.8 H Lymph % (Auto) 12.5 L [place] % (Auto) 5.5 Eos % (Auto) 0.1 L Baso % (Auto) 0.1 Neut # (Auto) 7900 H Lymph # (Auto) 1200 [place] # (Auto) 500 Eos # (Auto) 0 Baso # (Auto) 0 Sodium 138 Potassium 3.6 Chloride 90 L Carbon Dioxide 31 BUN 35 H Creatinine 1.57 H Estimated GFR 32 L BUN/Creatinine Ratio 22.3 H Glucose 127 H Lactate Calcium 10.3 H Magnesium Total Bilirubin 2.0 H AST 29 ALT 23 Alkaline Phosphatase 65 Total Protein 9.1 H Procalcitonin 0.06 Urine Color Urine Appearance Urine pH Ur Specific [place] Urine Protein Urine Glucose (UA) Urine Ketones Urine Occult Blood Urine Nitrate Urine Bilirubin Ur Bilirubin Confirm Urine Urobilinogen Ur Leukocyte Esterase Urine RBC Urine WBC Ur Squamous Epith Cells Urine Bacteria Hyaline Casts Ur Culture Indicated? SARS-CoV-2 (PCR) 11/07/22 11/07/22 11/07/22 02:39 05:31 06:38 WBC RBC Hgb Hct MCV MCH MCHC RDW Plt Count Neut % (Auto) Lymph % (Auto) [place] % (Auto) Eos % (Auto) Baso % (Auto) Neut # (Auto) Lymph # (Auto) [place] # (Auto) Eos # (Auto) Baso # (Auto) Sodium 137 Potassium 3.4 Chloride 97 L Carbon Dioxide 29 BUN 34 H Creatinine 1.53 H Estimated GFR 33 L BUN/Creatinine Ratio 22.2 H Glucose 116 H Lactate 1.5 Calcium 9.0 Magnesium 1.5 L Total Bilirubin AST ALT Alkaline Phosphatase Total Protein Procalcitonin Urine Color Urine Appearance Urine pH Ur Specific [place] Urine Protein Urine Glucose (UA) Urine Ketones Urine Occult Blood Urine Nitrate Urine Bilirubin Ur Bilirubin Confirm Urine Urobilinogen Ur Leukocyte Esterase Urine RBC Urine WBC Ur Squamous Epith Cells Urine Bacteria Hyaline Casts Ur Culture Indicated? SARS-CoV-2 (PCR) Negative 11/07/22 07:41 WBC RBC Hgb Hct MCV MCH MCHC RDW Plt Count Neut % (Auto) Lymph % (Auto) [place] % (Auto) Eos % (Auto) Baso % (Auto) Neut # (Auto) Lymph # (Auto) [place] # (Auto) Eos # (Auto) Baso # (Auto) Sodium Potassium Chloride Carbon Dioxide BUN Creatinine Estimated GFR BUN/Creatinine Ratio Glucose Lactate Calcium Magnesium Total Bilirubin AST ALT Alkaline Phosphatase Total Protein Procalcitonin Urine Color Yellow Urine Appearance Cloudy Urine pH 6.5 Ur Specific [place] 1.015 Urine Protein 2+ H Urine Glucose (UA) Negative Urine Ketones 1+ H Urine Occult Blood Trace-intact Urine Nitrate Negative Urine Bilirubin 1+ H Ur Bilirubin Confirm Negative Urine Urobilinogen 0.2 Ur Leukocyte Esterase 1+ H Urine RBC 1-5/hpf Urine WBC 10-30/hpf H Ur Squamous Epith Cells 1-5 /hpf Urine Bacteria Many (>30) H Hyaline Casts 1-5/lpf Ur Culture Indicated? Specimen cultured SARS-CoV-2 (PCR) [facility] Medical History Abnormal Pap smear of cervix (~2001) Anxiety (~1977) Cervical cancer Depression (~1977) GERD (gastroesophageal reflux disease) (~1989) Hemorrhoid (~1959) Hernia, perineal High risk for hip fracture History of bladder cancer (~2002) History of cervical cancer (~2002) History of urinary incontinence (~2019) History of uterine cancer (~2002) Human papilloma virus (~2001) Hypertension Measles (~1944) Osteopenia Osteopenia Osteopenia with high risk of fracture Recurrent sinusitis (~1964) Surgical History Anesthesia History of cholecystectomy (~2001) History of hemorrhoidectomy (~1970) History of radical hysterectomy History of urostomy Family History Father Cancer Mother Hypertension Mental health problem Grandfather Diabetes mellitus Grandmother Diabetes mellitus Grandmother Diabetes mellitus Social History household members: none Smoking Status: Former smoker alcohol intake: current Discharge Plan Discharge Plan Patient Disposition: Home Provider Discharge Comment: You were admitted to the hospital with a bowel obstruction. Improved with time and rest. You are eating and tolerating a diet. No changes to home medications are recommended. You did have a UTI on initial evaluation, antibiotics prescribed to complete therapy at home (2 additional days). Discharge orders & Medications Prescriptions: New amoxicillin-pot clavulanate 875-125 mg tablet 1 tab PO Q12H 2 Days Qty: 4 0RF Continued psyllium [Metamucil] 1 tbsp PO QAM losartan 100 mg tablet 100 mg PO DAILY Qty: 90 3RF omeprazole 20 mg capsule,delayed release(DR/EC) 20 mg PO DAILY Qty: 90 3RF loperamide [Imodium A-D] 2 mg tablet 2 mg PO Q6H PRN (Reason: Loose Stool) Align 4 mg capsule 4 mg PO DAILY triamcinolone acetonide [Nasacort] 55 mcg aerosol,spray 1 spray NASAL DAILY Rx Instructions: administer into each nostril vitamin B complex 1 tab PO QAM cholecalciferol (vitamin D3) 50 mcg PO QAM simethicone [Gas-X Extra Strength] 125 mg capsule 125 mg PO QD-BID PRN (Reason: gas) [id number] 333-133-5 mg tablet See Rx Instructions .ROUTE .COMPLEX Label Comments: qd Rx Instructions: take one tablet by mouth daily Follow up/Referrals: Blue Gan ARNP [Primary Care Provider] - Discharge Health Status Multidrug resistant organism: No MDRO Diet/Activity/Treatments Diet: Diet as Tolerated Activity: As tolerated Visit Report/Discharge Packet Stand Alone Forms: Patient Portal/API, Stroke Signs & Symptoms Discharge Data Primary Care Provider: Blue Gan Attending Provider: Lorena Heredia
--- NOTE | 2022-11-07 17:18 | P.HP_ITS ---
History of Present Illness History of Present Illness Date Patient Seen: 11/07/22 Time Patient Seen: 11:00 Chief complaint: bowel blockage Narrative: Ms. 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 She has had previous admissions June, October, early and late December and April of 2022 for SBO which improved with non-surgical management. She states she has felt poorly over the last few days. But in the last day she has noted vomiting what she has described as bile. She has felt nauseous. She was initially having loose stools but over the last day has not had a bowel movement and has not been passing gas. Patient denies chest pain, shortness in, fever, body aches, chills, cough, upper respiratory symptoms, urinary frequency, dysuria, hematuria, melena. Patient's vitals are stable at the time of admit temp 97.8?, BP 127/69, HR 93, R 18, O2 saturation 97% on room air. No WBC, chloride 90, BUN 35, creatinine 1.57, glucose 127, GFR 32, total protein 9.1, total bili 2.0. Because patient has been seen repeatedly for small-bowel obstructions that usually resolve via nonsurgical intervention, abdominal x-ray was obtained demonstrating possible ileus, gastroenteritis, small-bowel obstruction. Patient refuses NG tube at this time, would like to defer advanced diagnostics as well at this time but will concede to NG tube and greater workup and treatment interventions if her condition worsens. Patient for recurrent small-bowel obstruction, sepsis, JIMMY. Will place consult for Dr. Poe in AM for evaluation due to the patient's extensive history of abdominal surgical procedures Patient History Medical History Abnormal Pap smear of cervix (~2001) Anxiety (~1977) Cervical cancer Depression (~1977) GERD (gastroesophageal reflux disease) (~1989) Hemorrhoid (~1959) Hernia, perineal High risk for hip fracture History of bladder cancer (~2002) History of cervical cancer (~2002) History of urinary incontinence (~2019) History of uterine cancer (~2002) Human papilloma virus (~2001) Hypertension Measles (~1945) Osteopenia Osteopenia Osteopenia with high risk of fracture Recurrent sinusitis (~1964) Surgical History Anesthesia History of cholecystectomy (~2001) History of hemorrhoidectomy (~1970) History of radical hysterectomy History of urostomy Family & Social History Family History Father Cancer Mother Hypertension Mental health problem Grandfather Diabetes mellitus Grandmother Diabetes mellitus Grandmother Diabetes mellitus Social History: household members none Prior Living Arrangements Half-Way Facility Safety & Behavioral: Feels Safe in Current Yes Environment Been Physically Hurt or No Threatened By a Person Tobacco & Substance use: Tobacco type cigarettes Smoking Status Former smoker alcohol intake current alcohol intake frequency 0-2 drinks per day Substance Use Type does not use Meds Home Medications and Allergies Home Medications Medication Instructions Recorded Confirmed Type Bifidobacterium infantis 4 mg 4 mg PO DAILY 08/24/20 11/07/22 History capsule (Align) cholecalciferol (vitamin D3) 50 mcg PO QAM 08/24/20 11/07/22 History loperamide 2 mg tablet (Imodium 2 mg PO Q6H PRN Loose Stool 08/24/20 11/07/22 History A-D) triamcinolone acetonide 55 mcg 1 spray intranasal DAILY 08/24/20 07/27/22 History nasal spray aerosol (Nasacort) vitamin B complex [B 1 tab PO QAM 08/24/20 07/27/22 History Complex-Vitamin B12] simethicone 125 mg capsule (Gas-X 125 mg PO QD-BID PRN gas 08/12/21 11/07/22 History Extra Strength) psyllium [Metamucil] 1 tbsp PO QAM 01/03/22 11/07/22 History [id number] 333 mg-133 See Rx Instructions .Route .COMPLEX 01/11/22 11/07/22 History mg-5 mg tablet losartan 100 mg tablet 100 mg PO DAILY #90 tabs 04/03/22 11/07/22 Rx omeprazole 20 mg capsule,delayed 20 mg PO DAILY #90 caps 04/03/22 11/07/22 Rx release amoxicillin 875 mg-potassium 1 tab PO Q12H 2 days #4 tabs 11/07/22 Rx clavulanate 125 mg tablet Allergies Allergy/AdvReac Type Severity Reaction Status Date / Time Sulfa (Sulfonamide Allergy Unknown Verified 07/27/22 13:36 Antibiotics) trimethaphan Allergy Unknown Verified 07/27/22 13:36 Review of Systems Review of Systems Narrative: All other systems reviewed with the patient and are negative unless otherwise stated. Exam Vital Signs (past 8 hours): - 11/07/22 12:33 Temperature 96.8 F L Pulse Rate 75 Respiratory Rate 15 Blood Pressure 140/76 Pulse Oximetry 96 Oxygen Flow Rate 0 Oxygen Delivery Method Room Air Oxygen Flow Rate 0 Narrative Exam Narrative: GEN: no acute distress HEENT: moist mucous membranes, PERRL NECK: trachea midline, no JVD PULM: clear bilaterally, no wheezes, rhonchi CV: regular rate and rhythm ABD: soft, nontender non-distended, urostomy in place EXT: warm and well perfused, no edema NEURO: awake, alert, no focal deficits Objective Labs Result Diagrams: 11/07/22 02:39 11/07/22 06:38 Labs: Laboratory Results - last 24 hr 11/07/22 11/07/22 11/07/22 02:39 02:39 02:39 WBC 9.7 RBC 4.54 Hgb 14.3 Hct 41.9 MCV 92.3 MCH 31.5 MCHC 34.1 RDW 13.5 Plt Count 249 Neut % (Auto) 81.8 H Lymph % (Auto) 12.5 L [place] % (Auto) 5.5 Eos % (Auto) 0.1 L Baso % (Auto) 0.1 Neut # (Auto) 7900 H Lymph # (Auto) 1200 [place] # (Auto) 500 Eos # (Auto) 0 Baso # (Auto) 0 Sodium 138 Potassium 3.6 Chloride 90 L Carbon Dioxide 31 BUN 35 H Creatinine 1.57 H Estimated GFR 32 L BUN/Creatinine Ratio 22.3 H Glucose 127 H Lactate Calcium 10.3 H Magnesium Total Bilirubin 2.0 H AST 29 ALT 23 Alkaline Phosphatase 65 Total Protein 9.1 H Procalcitonin 0.06 Urine Color Urine Appearance Urine pH Ur Specific Eden Urine Protein Urine Glucose (UA) Urine Ketones Urine Occult Blood Urine Nitrate Urine Bilirubin Ur Bilirubin Confirm Urine Urobilinogen Ur Leukocyte Esterase Urine RBC Urine WBC Ur Squamous Epith Cells Urine Bacteria Hyaline Casts Ur Culture Indicated? SARS-CoV-2 (PCR) 11/07/22 11/07/22 11/07/22 02:39 05:31 06:38 WBC RBC Hgb Hct MCV MCH MCHC RDW Plt Count Neut % (Auto) Lymph % (Auto) [place] % (Auto) Eos % (Auto) Baso % (Auto) Neut # (Auto) Lymph # (Auto) [place] # (Auto) Eos # (Auto) Baso # (Auto) Sodium 137 Potassium 3.4 Chloride 97 L Carbon Dioxide 29 BUN 34 H Creatinine 1.53 H Estimated GFR 33 L BUN/Creatinine Ratio 22.2 H Glucose 116 H Lactate 1.5 Calcium 9.0 Magnesium 1.5 L Total Bilirubin AST ALT Alkaline Phosphatase Total Protein Procalcitonin Urine Color Urine Appearance Urine pH Ur Specific Eden Urine Protein Urine Glucose (UA) Urine Ketones Urine Occult Blood Urine Nitrate Urine Bilirubin Ur Bilirubin Confirm Urine Urobilinogen Ur Leukocyte Esterase Urine RBC Urine WBC Ur Squamous Epith Cells Urine Bacteria Hyaline Casts Ur Culture Indicated? SARS-CoV-2 (PCR) Negative 11/07/22 07:41 WBC RBC Hgb Hct MCV MCH MCHC RDW Plt Count Neut % (Auto) Lymph % (Auto) [place] % (Auto) Eos % (Auto) Baso % (Auto) Neut # (Auto) Lymph # (Auto) [place] # (Auto) Eos # (Auto) Baso # (Auto) Sodium Potassium Chloride Carbon Dioxide BUN Creatinine Estimated GFR BUN/Creatinine Ratio Glucose Lactate Calcium Magnesium Total Bilirubin AST ALT Alkaline Phosphatase Total Protein Procalcitonin Urine Color Yellow Urine Appearance Cloudy Urine pH 6.5 Ur Specific Eden 1.015 Urine Protein 2+ H Urine Glucose (UA) Negative Urine Ketones 1+ H Urine Occult Blood Trace-intact Urine Nitrate Negative Urine Bilirubin 1+ H Ur Bilirubin Confirm Negative Urine Urobilinogen 0.2 Ur Leukocyte Esterase 1+ H Urine RBC 1-5/hpf Urine WBC 10-30/hpf H Ur Squamous Epith Cells 1-5 /hpf Urine Bacteria Many (>30) H Hyaline Casts 1-5/lpf Ur Culture Indicated? Specimen cultured SARS-CoV-2 (PCR) Assessment & Plan Assessment & Plan narrative: Ms. Lin is an 86W with PMH recurrent SBO and history of cervical and bladder cancer s/p abdominal surgeries and radiation, with urostomy who presetns with abdominal pain, nausea, and vomiting consistent with SBO. 1.SBO, recurrent, acute on chronic, present on admission -presented with vomiting, and no bowel movement for one day -patient's previous admits for small-bowel obstructions have resolved with nonsu rgical management. -abdominal x-ray demonstrated possible ileus, gastroenteritis pruritus, small-bowel obstruction. -suspect etiology secondary to adhesions -initially NPO, but during my evaluation this AM patient was having bowel movements with no abdominal pain. -start clears and can quickly advance. 2. JIMMY - secondary to dehydration and vomiting. - continued on IV fluids, but now advancing diet. 3. Hypertension, essential, chronic, present on admission -held losartan 4. Malnutrition, mild, acute on chronic, present on admission -as evidence by BMI of 21.5 -patient's malnutrition places them at high risk for medical and surgical complications because of the severe malnutrition in relation to acute illness/chronic illness. This increases the difficulty in complexity of medical management and increases the chances poor outcomes such as mortality and morbidity as well as impaired wound healing, and immune suppression. -dietary consult ordered to evaluate and implement steps to improve caloric intake and nutrition. 5. Acute cystitis - start on ceftriaxone. If discharge home today, can change to augmentin. CODE: Full Proxy: Katie Mock, daughter Disposition: Observation. possible discharge home later today. I have utilized all available immediate resources to obtain, update, or review the patient's current medications. I confirmed that the patient's advanced care plan is present, Code status is documented and/or surrogate decision maker is listed in the patient's medical record. I have personally reviewed patient's chart notes from PCP, specialists, diagnos tic imaging, and laboratory results. COVID-19 COVID-19 status: Negative Time Spent With Patient Critical Care time: I spent a total of [] minutes of critical care time on this patient's care today; this time is exclusive of procedural time. Quality MIPS - Admit I confirm the patient?s Advance Care Plan is present, Code status is documented, Surrogate decision maker is in patient?s record [If Yes, STOP here]: Yes
[2022-11-10 16:06] LABS: Albumin Globulin Ratio 1.2 (1.0-2.8); Globulin 4.1 g/dL (1.7-4.1); HEMOLYSIS 19 (0-50)
== END 2022-11-07 19:05 | disposition home or self-care (01) ==
LOC: ED 11-07 02:24 → AC 11-07 05:12
PROVIDERS: Admitting Provider Nurse Practitioner Family; Emergency Provider Emergency Medicine; PCP Registered Nurse Diabetes Educator; Referring Provider Emergency Medicine; Visit Provider Nurse Practitioner Family
DX: K56.609 Unspecified intestinal obstruction, unspecified as to partial versus complete obstruction (principal); A41.9 Sepsis, unspecified organism; N17.9 Acute kidney failure, unspecified; E86.0 Dehydration; N30.00 Acute cystitis without hematuria; E83.42 Hypomagnesemia; I10 Essential (primary) hypertension; E44.1 Mild protein-calorie malnutrition; Z68.21 Body mass index [BMI] 21.0-21.9, adult; Z20.822 Contact with and (suspected) exposure to COVID-19
CPT/HCPCS: 36415; 74022; 80048; 80053; 81001; 82962; 83605; 83735; 84145; 85025; 87086; 87635; 96361; 96365; 96366; 96367; 96375; 99283; 99284; C9803; G0378; J0696; J2405; J3475

== ENCOUNTER → 2022-11-20 15:14 | Outpatient (CLI) | payer MEDICARE, SELFPAY ==
[2022-11-07 06:41] VITALS: BMI 23.1
[2022-11-20 17:34] LABS: Appearance Urine UA CLEAR; Bilirubin Urine UA NEGATIVE (NEGATIVE); Color Urine UA YELLOW; Glucose Urine UA NEGATIVE (Negative); Ketones Urine UA NEGATIVE (NEGATIVE); Leukocyte Esterase Urine UA NEGATIVE (NEGATIVE); Nitrite Urine UA POSITIVE (Negative); Occult Blood Urine UA NEGATIVE (Negative); Protein Urine UA NEGATIVE (Negative); Specific Gravity Urine UA 1.025 (1.000-1.035); Urobilinogen Urine UA 0.2 E.U./dL (0.2)
[2022-11-20 17:52] LABS: Bacteria Urine Many (>30); Culture Indicated Urine Specimen Cultured; RBC Urine None Seen (0-5/HPF); WBC Urine 1-5/HPF (0-5/HPF)
== END ==
PROVIDERS: PCP Registered Nurse Diabetes Educator; Referring Provider Nurse Practitioner Family; Visit Provider Nurse Practitioner Family
DX: N30.01 Acute cystitis with hematuria (principal)
CPT/HCPCS: 81001; 87077; 87086; 87186

== ENCOUNTER → 2022-11-24 14:40 | Outpatient (CLI) | payer MEDICARE, OTHER, SELFPAY ==
[2022-11-07 06:41] VITALS: BMI 23.1
[2022-11-24 16:17] LABS: Hematocrit 36.9 % (36-46); Hemoglobin 12.6 g/dL (12.0-16.0); Mean Corpuscular HGB Conc 34.2 % (30-36); Mean Corpuscular Hemoglobin 31.5 PG (26-34); Platelet Count 203 X10^3/uL (150-400); Red Blood Cell Count 4.02 X10^6/uL (4.0-5.2); Red Cell Distribution Width 13.4 % (11.6-14.8); White Blood Cell Count 5.4 X10^3/uL (4.5-11.0)
[2022-11-24 16:28] LABS: BUN Creatinine Ratio 16.3 (6-22); Blood Urea Nitrogen 14 mg/dL (7-17); Calcium 9.1 mg/dL (8.4-10.2); Carbon Dioxide 29 mmol/L (22-32); Chloride 100 mmol/L (98-107); Estimated Glomerular Filt Rate > 60 mL/min (>60); Glucose 88 mg/dL (80-110); HEMOLYSIS < 15 (0-50); Potassium 3.8 mmol/L (3.4-5.1); Sodium 140 mmol/L (137-145)
[2022-11-24 16:30] LABS: Bilirubin Urine UA NEGATIVE (NEGATIVE); Color Urine UA YELLOW; Glucose Urine UA NEGATIVE (Negative); Ketones Urine UA NEGATIVE (NEGATIVE); Leukocyte Esterase Urine UA NEGATIVE (NEGATIVE); Nitrite Urine UA POSITIVE (Negative); Occult Blood Urine UA NEGATIVE (Negative); Protein Urine UA NEGATIVE (Negative); Urobilinogen Urine UA 0.2 E.U./dL (0.2)
[2022-11-24 16:33] LABS: Appearance Urine UA Slightly Cloudy; pH Urine UA 6.5 (4.5-8.0)
[2022-11-24 16:41] LABS: Bacteria Urine Moderate (10-30); Culture Indicated Urine Specimen Cultured; RBC Urine None Seen (0-5/HPF); Squamous Epithelial Cell Urine 0-1 /HPF (0-5/HPF); WBC Urine 1-5/HPF (0-5/HPF)
== END ==
PROVIDERS: PCP Registered Nurse Diabetes Educator; Referring Provider Nurse Practitioner Family; Visit Provider Nurse Practitioner Family
DX: N30.01 Acute cystitis with hematuria (principal); R79.89 Other specified abnormal findings of blood chemistry
CPT/HCPCS: 36415; 80048; 81001; 85027; 87077; 87086; 87186

== ENCOUNTER → 2022-12-08 15:59 | Outpatient (CLI) | payer MEDICARE, OTHER, SELFPAY ==
[2022-12-08 16:34] LABS: Bilirubin Urine UA NEGATIVE (NEGATIVE); Color Urine UA YELLOW; Glucose Urine UA NEGATIVE (Negative); Ketones Urine UA NEGATIVE (NEGATIVE); Leukocyte Esterase Urine UA 1+ (NEGATIVE); Nitrite Urine UA NEGATIVE (Negative); Occult Blood Urine UA TRACE-INTACT (Negative); Protein Urine UA NEGATIVE (Negative); Specific Gravity Urine UA <=1.005 (1.000-1.035); Urobilinogen Urine UA 0.2 E.U./dL (0.2)
[2022-12-08 16:37] LABS: Appearance Urine UA Slightly Cloudy
[2022-12-08 16:46] LABS: Amorphous Sediment Urine 1+; Bacteria Urine Few (2-10); Culture Indicated Urine Specimen Cultured; RBC Urine 0-1/HPF (0-5/HPF); Squamous Epithelial Cell Urine 1-5 /HPF (0-5/HPF); WBC Urine 1-5/HPF (0-5/HPF)
== END ==
PROVIDERS: PCP Registered Nurse Diabetes Educator; Referring Provider Registered Nurse Diabetes Educator; Visit Provider Registered Nurse Diabetes Educator
DX: N39.0 Urinary tract infection, site not specified (principal)
CPT/HCPCS: 81001; 87077; 87086; 87147; 87186

== ENCOUNTER 2023-02-02 16:07 | Inpatient (IN) | payer MEDICARE, OTHER, SELFPAY ==
[2023-02-02] VITALS (7 sets, daily range): BP systolic 149–174; BP diastolic 77–97; PULSE 85–97; RESP 15–18; TEMP 36.7–36.9; O2SAT 91–97; BMI 19.8
--- NOTE | 2023-02-02 16:17 | DI.RAD.S_ITS ---
PROCEDURE: XR KNEE RT 3V INDICATIONS: fall, pain TECHNIQUE: 3 views of the knee were acquired. COMPARISON: None. FINDINGS: Bones: No fractures or dislocations. Nise-uc-wkpmcndy tricompartmental osteoarthritis is seen with joint space narrowing and subchondral sclerosis. No patellar subluxation. No suspicious bony lesions. Soft tissues: No joint effusion. No suspicious soft tissue calcifications. IMPRESSION: Apae-qh-kymmcogb tricompartmental osteoarthritis. No acute right knee fracture or dislocation. No significant joint effusion. Dictated by: Kenn Raymond M.D. on 02/02/2023 at 16:51 Approved by: Kenn Raymond M.D. on 02/02/2023 at 16:52
--- NOTE | 2023-02-02 16:18 | DI.RAD.S_ITS ---
PROCEDURE: XR HIP W PEL IF DONE RT 2V INDICATIONS: fall TECHNIQUE: AP pelvis with lateral view(s) of the right hip(s). COMPARISON: None. FINDINGS: Bones: No fractures or dislocations. Pelvic ring appears intact. No suspicious bony lesions. Soft tissues: The visualized bowel gas pattern is normal. No suspicious soft tissue calcifications. IMPRESSION: No evidence acute bony abnormality of the pelvis and right hip. If clinical suspicion and/or symptoms persist, further assessment with repeat plain films, or advanced imaging (e.g., CT, MRI, or bone scan) may be helpful for further assessment. Dictated by: Perico Long M.D. on 02/02/2023 at 17:13 Approved by: Perico Long M.D. on 02/02/2023 at 17:13
--- NOTE | 2023-02-02 17:36 | ED.FALL ---
HPI - Fall General Chief Complaint: Fall Stated Complaint: GLF Time Seen by Provider: 02/02/23 17:02 Source: patient Mode of arrival: EMS Limitations: no limitations History of Present Illness HPI Narrative: Patient is an 87-year-old female who is not on anticoagulation. Who was walking in a nearby town. States she was walking down a cement walkway. States she tripped over her feet and landed on her right hip. Has had pain in her right hip and right knee and the area between that since this time. She did not hit her head. No loss of consciousness. No ankle pain. No upper extremity injury. Related Data Home Medications Medication Instructions Recorded Confirmed Bifidobacterium infantis 4 mg 4 mg PO DAILY 08/24/20 01/18/23 capsule (Align) cholecalciferol (vitamin D3) 50 mcg PO QAM 08/24/20 01/18/23 loperamide 2 mg tablet (Imodium 2 mg PO Q6H PRN Loose Stool 08/24/20 01/18/23 A-D) triamcinolone acetonide 55 mcg 1 spray intranasal DAILY 08/24/20 01/18/23 nasal spray aerosol (Nasacort) vitamin B complex [B 1 tab PO QAM 08/24/20 01/18/23 Complex-Vitamin B12] simethicone 125 mg capsule (Gas-X 125 mg PO QD-BID PRN gas 08/12/21 01/18/23 Extra Strength) psyllium [Metamucil] 1 tbsp PO QAM 01/03/22 01/18/23 [id number] 333 mg-133 See Rx Instructions .Route .COMPLEX 01/11/22 01/18/23 mg-5 mg tablet Previous Rx's Medication Instructions Recorded losartan 100 mg tablet 100 mg PO DAILY #90 tabs 04/03/22 omeprazole 20 mg capsule,delayed 20 mg PO DAILY #90 caps 04/03/22 release Allergies Allergy/AdvReac Type Severity Reaction Status Date / Time Sulfa (Sulfonamide Allergy Unknown Verified 02/02/23 16:17 Antibiotics) trimethaphan Allergy Unknown Verified 02/02/23 16:17 Review of Systems Constitutional Constitutional: Reports system reviewed and no additional complaints, except as documented Cardiovascular Cardiovascular: Reports system reviewed and no additional complaints, except as documented Musculoskeletal Musculoskeletal: Reports system reviewed and no additional complaints, except as documented Integumentary/Breasts Skin/Breast: Reports system reviewed and no additional complaints, except as documented Neurologic Neurologic: Reports system reviewed and no additional complaints, except as documented Hematologic/Lymphatic On Anticoagulants: No Patient History Medical History Abnormal Pap smear of cervix (~2001) Anxiety (~1977) Cervical cancer Depression (~1977) GERD (gastroesophageal reflux disease) (~1989) Hemorrhoid (~1959) Hernia, perineal High risk for hip fracture History of bladder cancer (~2002) History of cervical cancer (~2002) History of urinary incontinence (~2019) History of uterine cancer (~2002) Human papilloma virus (~2001) Hypertension Measles (~194) Osteopenia Osteopenia Osteopenia with high risk of fracture Recurrent sinusitis (~1964) Surgical History Anesthesia History of cholecystectomy (~2001) History of hemorrhoidectomy (~1970) History of radical hysterectomy History of urostomy Family History Father Cancer Mother Hypertension Mental health problem Grandfather Diabetes mellitus Grandmother Diabetes mellitus Grandmother Diabetes mellitus Social History household members: none Smoking Status: Former smoker alcohol intake: current Smoking Status: Former smoker tobacco type: vaping alcohol intake frequency: 0-2 drinks per day Alcohol type: wine Substance Use Type: does not use Exam Initial Vital Signs Initial Vital Signs: Vital Signs Temperature 98.5 F 02/02/23 16:14 Pulse Rate 94 H 02/02/23 16:14 Respiratory Rate 18 02/02/23 16:14 Blood Pressure 149/97 H 02/02/23 16:14 Pulse Oximetry 96 02/02/23 16:14 Oxygen Delivery Method Room Air 02/02/23 16:14 HENMT Head: normal to inspection and normocephalic Resp Effort & Inspection: normal respiratory effort Skin Other: Abrasion over the anterior aspect of the right knee Neuro General: patient alert, patient awake, patient oriented x3 and moves all extremities Extrem Other: No hamstring tenderness this have tenderness with flexion of the right knee and also with flexion of the right hip. No gross deformities. Course Orders Ordered: ED Orders 02/02/23 16:17 XR knee RT 3V Stat 02/02/23 16:18 XR hip w pel if done RT 2V Stat 02/02/23 17:44 CT pelvis wo con Stat 02/02/23 17:59 XR femur RT min 2V Stat Discontinued Medications Hydrocodone Bitart/Acetaminophen (Hydrocodone/Acet 5/325 Tablet) 1 tab PO NOW ONE Stop: 02/02/23 17:46 Last Admin: 02/02/23 18:39 Dose: 1 tab Documented By: KAVITA Vital Signs Vital signs: Vital Signs - 8 hr 02/02/23 16:14 Temperature 98.5 F Pulse Rate 94 H Respiratory Rate 18 Blood Pressure 149/97 H Pulse Oximetry 96 Oxygen Delivery Method Room Air MDM - Fall Imaging Data Extremity x-ray #1: Radiologist's Impression: PROCEDURE:? XR KNEE RT 3V ? INDICATIONS:? fall, pain ? TECHNIQUE:? 3 views of the knee were acquired.? ? COMPARISON:? None. ? FINDINGS:? ? Bones:? No fractures or dislocations.? Eiwl-ft-jrikttxb tricompartmental osteoarthritis is seen with joint space narrowing and subchondral sclerosis.? No patellar subluxation.? No suspicious bony lesions.? ? Soft tissues:? No joint effusion.? No suspicious soft tissue calcifications.? ? ? IMPRESSION:? Cbnj-ku-lwppjqej tricompartmental osteoarthritis.? No acute right knee fracture or dislocation.? No significant joint effusion. Extremity x-ray #2: Radiologist's Impression: PROCEDURE:? XR HIP W PEL IF DONE RT 2V ? INDICATIONS:? fall ? TECHNIQUE:? AP pelvis with lateral view(s) of the right hip(s).? ? COMPARISON:? None. ? FINDINGS:? ? Bones:? No fractures or dislocations.? Pelvic ring appears intact.? No suspicious bony lesions.? ? Soft tissues:? The visualized bowel gas pattern is normal.? No suspicious soft tissue calcifications.? ? ? IMPRESSION:? No evidence acute bony abnormality of the pelvis and right hip. [facility] Narrative Medical decision making narrative: Patient's x-rays do not show any acute fractures however she is a very difficult time standing specifically on her right lower extremity. Will obtain a CT scan of her pelvis. Also obtain a femur x-ray. Care turned over to Dr. Daly to follow-up on radiology result and disposition. This was clearly a mechanical fall. Discharge Plan Departure Prescriptions: No Action psyllium [Metamucil] 1 tbsp PO QAM losartan 100 mg tablet 100 mg PO DAILY Qty: 90 3RF omeprazole 20 mg capsule,delayed release(DR/EC) 20 mg PO DAILY Qty: 90 3RF loperamide [Imodium A-D] 2 mg tablet 2 mg PO Q6H PRN (Reason: Loose Stool) Align 4 mg capsule 4 mg PO DAILY triamcinolone acetonide [Nasacort] 55 mcg aerosol,spray 1 spray NASAL DAILY Rx Instructions: administer into each nostril vitamin B complex 1 tab PO QAM cholecalciferol (vitamin D3) 50 mcg PO QAM simethicone [Gas-X Extra Strength] 125 mg capsule 125 mg PO QD-BID PRN (Reason: gas) [id number]-goracprew-sbsg 333-133-5 mg tablet See Rx Instructions .ROUTE .COMPLEX Patient Comments: qd Rx Instructions: take one tablet by mouth daily Referrals: Blue Gan ARNP [Primary Care Provider] -
--- NOTE | 2023-02-02 17:44 | DI.CT.S_ITS ---
PROCEDURE: CT PEL WO CON INDICATIONS: R hip pain cannot stand neg X-rays TECHNIQUE: Noncontrast 3 mm axial sections acquired through the bony pelvis, with coronal and sagittal reformatting. COMPARISON: [facility], CR, XR FEMUR RT MIN 2V, 02/02/2023, 18:03. [facility], CR, XR HIP W PEL IF DONE RT 2V, 02/02/2023, 16:17. FINDINGS: Image quality: Excellent. Bones: Nondisplaced right intertrochanteric hip fracture. No fracture of the pelvic rim. Both hips have mild degenerative changes. Soft tissues: The visualized bowel in the pelvis has a normal caliber and appearance. No fluid. No pelvic hematoma. No free air. IMPRESSION: Nondisplaced right intertrochanteric hip fracture. Dictated by: Saleem Burnette M.D. on 02/02/2023 at 19:46 Approved by: Saleem Burnette M.D. on 02/02/2023 at 19:51
--- NOTE | 2023-02-02 17:59 | DI.RAD.S_ITS ---
PROCEDURE: XR FEMUR RT MIN 2V INDICATIONS: leg pain after fall TECHNIQUE: 4 views of the femur were acquired. COMPARISON: None. FINDINGS: Bones: Nondisplaced right intertrochanteric hip fracture. Soft tissues: No suspicious soft tissue calcifications or masses. IMPRESSION: Nondisplaced right intertrochanteric hip fracture. Dictated by: Saleem Burnette M.D. on 02/02/2023 at 19:51 Approved by: Saleem Burnette M.D. on 02/02/2023 at 19:52
[2023-02-02] MEDS: HYDROCODONE/ACET 5/325 TABLET 1 TAB PO (18:39)
--- NOTE | 2023-02-02 20:17 | ED.FALL ---
HPI - Fall General Chief Complaint: Fall Stated Complaint: GLF Time Seen by Provider: 02/02/23 17:02 Source: patient Mode of arrival: EMS Limitations: no limitations Related Data Home Medications Medication Instructions Recorded Confirmed Bifidobacterium infantis 4 mg 4 mg PO DAILY 08/24/20 01/18/23 capsule (Align) cholecalciferol (vitamin D3) 50 mcg PO QAM 08/24/20 01/18/23 loperamide 2 mg tablet (Imodium 2 mg PO Q6H PRN Loose Stool 08/24/20 01/18/23 A-D) triamcinolone acetonide 55 mcg 1 spray intranasal DAILY 08/24/20 01/18/23 nasal spray aerosol (Nasacort) vitamin B complex [B 1 tab PO QAM 08/24/20 01/18/23 Complex-Vitamin B12] simethicone 125 mg capsule (Gas-X 125 mg PO QD-BID PRN gas 08/12/21 01/18/23 Extra Strength) psyllium [Metamucil] 1 tbsp PO QAM 01/03/22 01/18/23 [id number] 333 mg-133 See Rx Instructions .Route .COMPLEX 01/11/22 01/18/23 mg-5 mg tablet Previous Rx's Medication Instructions Recorded losartan 100 mg tablet 100 mg PO DAILY #90 tabs 04/03/22 omeprazole 20 mg capsule,delayed 20 mg PO DAILY #90 caps 04/03/22 release Allergies Allergy/AdvReac Type Severity Reaction Status Date / Time Sulfa (Sulfonamide Allergy Unknown Verified 02/02/23 16:17 Antibiotics) trimethaphan Allergy Unknown Verified 02/02/23 16:17 Review of Systems Neurologic Neurologic: Reports system reviewed and no additional complaints, except as documented Patient History Medical History Abnormal Pap smear of cervix (~2001) Anxiety (~1977) Cervical cancer Depression (~1977) GERD (gastroesophageal reflux disease) (~1989) Hemorrhoid (~1959) Hernia, perineal High risk for hip fracture History of bladder cancer (~2002) History of cervical cancer (~2002) History of urinary incontinence (~2019) History of uterine cancer (~2002) Human papilloma virus (~2001) Hypertension Measles (~1945) Osteopenia Osteopenia Osteopenia with high risk of fracture Recurrent sinusitis (~1964) Surgical History Anesthesia History of cholecystectomy (~2001) History of hemorrhoidectomy (~1970) History of radical hysterectomy History of urostomy Family History Father Cancer Mother Hypertension Mental health problem Grandfather Diabetes mellitus Grandmother Diabetes mellitus Grandmother Diabetes mellitus Social History household members: none Smoking Status: Former smoker alcohol intake: current Smoking Status: Former smoker tobacco type: vaping alcohol intake frequency: 0-2 drinks per day Alcohol type: wine Substance Use Type: does not use Exam Initial Vital Signs Initial Vital Signs: Vital Signs Temperature 98.5 F 02/02/23 16:14 Pulse Rate 94 H 02/02/23 16:14 Respiratory Rate 18 02/02/23 16:14 Blood Pressure 149/97 H 02/02/23 16:14 Pulse Oximetry 96 02/02/23 16:14 Oxygen Delivery Method Room Air 02/02/23 16:14 Course Orders Ordered: ED Orders 02/02/23 16:17 XR knee RT 3V Stat 02/02/23 16:18 XR hip w pel if done RT 2V Stat 02/02/23 17:44 CT pelvis wo con Stat 02/02/23 17:59 XR femur RT min 2V Stat Discontinued Medications Hydrocodone Bitart/Acetaminophen (Hydrocodone/Acet 5/325 Tablet) 1 tab PO NOW ONE Stop: 02/02/23 17:46 Last Admin: 02/02/23 18:39 Dose: 1 tab Documented By: BS Vital Signs Vital signs: Vital Signs - 8 hr 02/02/23 16:14 Temperature 98.5 F Pulse Rate 94 H Respiratory Rate 18 Blood Pressure 149/97 H Pulse Oximetry 96 Oxygen Delivery Method Room Air Discharge Plan Departure Prescriptions: No Action psyllium [Metamucil] 1 tbsp PO QAM losartan 100 mg tablet 100 mg PO DAILY Qty: 90 3RF omeprazole 20 mg capsule,delayed release(DR/EC) 20 mg PO DAILY Qty: 90 3RF loperamide [Imodium A-D] 2 mg tablet 2 mg PO Q6H PRN (Reason: Loose Stool) Align 4 mg capsule 4 mg PO DAILY triamcinolone acetonide [Nasacort] 55 mcg aerosol,spray 1 spray NASAL DAILY Rx Instructions: administer into each nostril vitamin B complex 1 tab PO QAM cholecalciferol (vitamin D3) 50 mcg PO QAM simethicone [Gas-X Extra Strength] 125 mg capsule 125 mg PO QD-BID PRN (Reason: gas) [id number] 333-133-5 mg tablet See Rx Instructions .ROUTE .COMPLEX Patient Comments: qd Rx Instructions: take one tablet by mouth daily Referrals: Blue Gan ARNP [Primary Care Provider] -
[2023-02-02 20:44] LABS: COVID19 -Nasal RAPID Negative (Negative)
[2023-02-02] MEDS: diazePAM 5 MG TABLET PO (21:04)
[2023-02-02] MEDS: MORPHINE 2 MG/ML INJ IV (21:04)
[2023-02-02 21:12] LABS: Add Manual Diff / Slide Review NO; Basophils Absolute Auto 0 /uL (0-100); Basophils Percent Auto 0.5 % (0-2); Eosinophils Absolute Auto 0 /uL (0-450); Eosinophils Percent Auto 0.5 % (2-4); Hematocrit 35.2 % (36-46); Hemoglobin 12.2 g/dL (12.0-16.0); Lymphocytes Absolute Auto 900 /uL (1100-4500); Mean Corpuscular HGB Conc 34.7 % (30-36); Mean Corpuscular Hemoglobin 31.5 PG (26-34); Mean Corpuscular Volume 90.6 fL (80-100); Monocytes Absolute Auto 400 /uL (0-900); Monocytes Percent Auto 4.4 % (3-14); Neutrophils Absolute Auto 7600 /uL (1500-7000); Neutrophils Percent Auto 84.6 % (50-75); Platelet Count 154 X10^3/uL (150-400); Red Blood Cell Count 3.88 X10^6/uL (4.0-5.2); Red Cell Distribution Width 13.2 % (11.6-14.8)
[2023-02-02 21:17] LABS: PTT Partial Thromboplastin Tim 30 SECONDS (26-36)
[2023-02-02 21:20] LABS: Alanine Aminotransferase 21 IU/L (<35); Albumin 4.1 g/dL (3.5-5.0); Albumin Globulin Ratio 1.4 (1.0-2.8); Alkaline Phosphatase 58 U/L (38-126); Aspartate Aminotransferase 29 IU/L (14-36); BUN Creatinine Ratio 21.5 (6-22); Bilirubin Total 0.8 mg/dL (0.2-1.3); Blood Urea Nitrogen 14 mg/dL (7-17); Calcium 8.9 mg/dL (8.4-10.2); Carbon Dioxide 26 mmol/L (22-32); Chloride 102 mmol/L (98-107); Estimated Glomerular Filt Rate > 60 mL/min (>60); Glucose 119 mg/dL (80-110); HEMOLYSIS 38 (0-50); Potassium 3.5 mmol/L (3.4-5.1); Sodium 135 mmol/L (137-145); Total Protein 7.1 g/dL (6.3-8.2)
--- NOTE | 2023-02-02 22:23 | PM.HP.1 ---
History of Present Illness History of Present Illness Date Patient Seen: 02/02/23 Time Patient Seen: 22:00 Chief complaint: GLF Narrative: Ms. Lin is an 86W with PMH cervical and bladder cancer s/p abdominal surgeries, radiation, and urostomy, recurrent SBOs due to adhesions, HTN who presents with right hip pain after a fall. She was walking around and felt she twisted her ankle and fell on her right side. She hit her right hip and had significnt pain. She was unable to walk after this. She had no head strike or loss of consciousness. She notes when I am talking to her she also has left lateral foot pain which she states she did not initially notice at first and has not mentioned to the ED staff. In the ED workup was done, vitals notable for afebrile, heart rate in 90s, blood pressure 140s/90s, sats 96% on room air. Labs reviewed by me and notable for WBC 9.0, hgb 12.2, plts 154. Na 135, creatinine 0.65. Imaging reviewed by me and knee xray on right shows osteoarthritis, but no acute process. Hip xray negative for acute process. CT pelvis confirms right nondisplaced intratrochanteric right hip fracture. She was given pain medications and admitted for further treatment. [facility] Medical History Abnormal Pap smear of cervix (~2001) Anxiety (~1977) Cervical cancer Depression (~1977) GERD (gastroesophageal reflux disease) (~1989) Hemorrhoid (~1959) Hernia, perineal High risk for hip fracture History of bladder cancer (~2002) History of cervical cancer (~2002) History of urinary incontinence (~2019) History of uterine cancer (~2002) Human papilloma virus (~2001) Hypertension Measles (~1945) Osteopenia Osteopenia Osteopenia with high risk of fracture Recurrent sinusitis (~1964) Surgical History Anesthesia History of cholecystectomy (~2001) History of hemorrhoidectomy (~1970) History of radical hysterectomy History of urostomy Family History Father Cancer Mother Hypertension Mental health problem Grandfather Diabetes mellitus Grandmother Diabetes mellitus Grandmother Diabetes mellitus Social History household members: none Smoking Status: Former smoker alcohol intake: current Meds Home Medications and Allergies Home Medications Medication Instructions Recorded Confirmed Type Bifidobacterium infantis 4 mg 4 mg PO DAILY 08/24/20 01/18/23 History capsule (Align) cholecalciferol (vitamin D3) 50 mcg PO QAM 08/24/20 01/18/23 History loperamide 2 mg tablet (Imodium 2 mg PO Q6H PRN Loose Stool 08/24/20 01/18/23 History A-D) triamcinolone acetonide 55 mcg 1 spray intranasal DAILY 08/24/20 01/18/23 History nasal spray aerosol (Nasacort) vitamin B complex [B 1 tab PO QAM 08/24/20 01/18/23 History Complex-Vitamin B12] simethicone 125 mg capsule (Gas-X 125 mg PO QD-BID PRN gas 08/12/21 01/18/23 History Extra Strength) psyllium [Metamucil] 1 tbsp PO QAM 01/03/22 01/18/23 History [id number] 333 mg-133 See Rx Instructions .Route .COMPLEX 01/11/22 01/18/23 History mg-5 mg tablet losartan 100 mg tablet 100 mg PO DAILY #90 tabs 04/03/22 01/18/23 Rx omeprazole 20 mg capsule,delayed 20 mg PO DAILY #90 caps 04/03/22 01/18/23 Rx release Allergies Allergy/AdvReac Type Severity Reaction Status Date / Time Sulfa (Sulfonamide Allergy Unknown Verified 02/02/23 16:17 Antibiotics) trimethaphan Allergy Unknown Verified 02/02/23 16:17 Review of Systems Review of Systems Narrative: 14 systems reviewed and negative aside from what is noted in HPI Exam Vital Signs (past 8 hours): - 02/02/23 16:14 Temperature 98.5 F Pulse Rate 94 H Respiratory Rate 18 Blood Pressure 149/97 H Pulse Oximetry 96 Oxygen Delivery Method Room Air Oxygen Delivery Method Room Air Narrative Exam Narrative: GEN: in distress from pain HEENT: moist mucous membranes, PERRL NECK: trachea midline, no JVD CV: regular rate and rhythm, no murmurs PULM: clear bilaterally, no wheezes, rhonchi, rales ABD: soft, nontender, nondistended, no organomegaly, normal bowel sounds EXT: warm and well perfused, right hip tenderness to palpation, left 5th metatarsal pain to palpation NEURO: awake, alert, oriented, no focal deficits Objective Labs 02/02/23 20:55 02/02/23 20:55 Labs: Laboratory Results - last 24 hr 02/02/23 02/02/23 02/02/23 20:05 20:55 20:55 WBC 9.0 RBC 3.88 L Hgb 12.2 Hct 35.2 L MCV 90.6 MCH 31.5 MCHC 34.7 RDW 13.2 Plt Count 154 Neut % (Auto) 84.6 H Lymph % (Auto) 10.0 L [place] % (Auto) 4.4 Eos % (Auto) 0.5 L Baso % (Auto) 0.5 Neut # (Auto) 7600 H Lymph # (Auto) 900 L [place] # (Auto) 400 Eos # (Auto) 0 Baso # (Auto) 0 PT 12.0 INR 1.0 APTT 30 Sodium Potassium Chloride Carbon Dioxide BUN Creatinine Estimated GFR BUN/Creatinine Ratio Glucose Calcium Total Bilirubin AST ALT Alkaline Phosphatase Total Protein Albumin Globulin Albumin/Globulin Ratio SARS-CoV-2 (PCR) Negative 02/02/23 20:55 WBC RBC Hgb Hct MCV MCH MCHC RDW Plt Count Neut % (Auto) Lymph % (Auto) [place] % (Auto) Eos % (Auto) Baso % (Auto) Neut # (Auto) Lymph # (Auto) [place] # (Auto) Eos # (Auto) Baso # (Auto) PT INR APTT Sodium 135 L Potassium 3.5 Chloride 102 Carbon Dioxide 26 BUN 14 Creatinine 0.65 Estimated GFR > 60 BUN/Creatinine Ratio 21.5 Glucose 119 H Calcium 8.9 Total Bilirubin 0.8 AST 29 ALT 21 Alkaline Phosphatase 58 Total Protein 7.1 Albumin 4.1 Globulin 3.0 Albumin/Globulin Ratio 1.4 SARS-CoV-2 (PCR) Assessment & Plan Assessment & Plan narrative: 1. Acute right hip fracture, secondary to mechancial fall -patient with known osteoporosis, per prevous notes -imaging confirms right hip fracture -ordered for pain medications -NPO at midnight -ortho surgery consulted and per surgeon plan for OR in AM of 02/03 2. Hypertension -hold anti-hypertensives for now 3. History of uterine and bladder cancer s/p urostomy -previous records reviewed and she has repeated SBO from adhesions from above -currently asymptomatic with no acute issues I have discussed plan and obtained history from the patient. I have discussed plan of care with ED physician and bedside nurse. I have reviewed labs, imaging, and previous medical records. CODE: Full Proxy: Hortencia Lin, daughter Quality [facility] - Meds 'Current medications' to include all prescriptions, [id number] products, herbals, cannabis/cannabidiol products, and vitamin/mineral/dietary (nutritional) supplements. I have utilized all available resources to obtain, update, or review the patient?s current medications. [If Yes, STOP here]: Yes
--- NOTE | 2023-02-02 22:37 | DI.RAD.S_ITS ---
PROCEDURE: XR FOOT LT MIN 3V INDICATIONS: left foot pain, fall TECHNIQUE: 3 views of the foot were acquired. COMPARISON: None. FINDINGS: Bones: 5th metatarsal base fracture. No significant displacement. No dislocations. No suspicious bony lesions. Soft tissues: No tibiotalar joint effusion. Achilles tendon appears normal. IMPRESSION: 5th metatarsal base fracture. Dictated by: Roby Juarez M.D. on 02/02/2023 at 23:13 Approved by: Roby Juarez M.D. on 02/02/2023 at 23:14
[2023-02-03] VITALS (19 sets, daily range): BP systolic 132–191; BP diastolic 47–89; PULSE 69–99; RESP 11–18; TEMP 36–37.6; O2SAT 92–100; BMI 19.8
--- NOTE | 2023-02-03 | DI.RAD.S_ITS ---
PROCEDURE: XR HIP W PEL IF DONE RT 2V INDICATIONS: RT HIP INTRAMEDULLARY NAILING TECHNIQUE: 4 intraoperative fluoroscopic views of the hip were acquired. COMPARISON: [facility], CR, XR HIP W PEL IF DONE RT 2V, 02/02/2023, 16:17. FINDINGS: Intraoperative fluoroscopic views of right hip shows internal fixation of right femoral neck with intramedullary mike and fixation screws in place. IMPRESSION: Fluoro guidance was provided intraoperatively for right hip fixation. Dictated by: Kenn Raymond M.D. on 02/03/2023 at 11:04 Approved by: Kenn Raymond M.D. on 02/03/2023 at 11:05
[2023-02-03] MEDS: MORPHINE 2 MG/ML INJ IV (06:24)
[2023-02-03 06:57] LABS: Add Manual Diff / Slide Review NO; Basophils Absolute Auto 0 /uL (0-100); Basophils Percent Auto 0.3 % (0-2); Eosinophils Absolute Auto 100 /uL (0-450); Eosinophils Percent Auto 1.9 % (2-4); Hemoglobin 12.2 g/dL (12.0-16.0); Lymphocytes Absolute Auto 1000 /uL (1100-4500); Mean Corpuscular HGB Conc 34.7 % (30-36); Mean Corpuscular Hemoglobin 31.6 PG (26-34); Mean Corpuscular Volume 91.1 fL (80-100); Monocytes Absolute Auto 300 /uL (0-900); Monocytes Percent Auto 5.9 % (3-14); Neutrophils Absolute Auto 4200 /uL (1500-7000); Neutrophils Percent Auto 73.9 % (50-75); Platelet Count 143 X10^3/uL (150-400); Red Blood Cell Count 3.84 X10^6/uL (4.0-5.2); Red Cell Distribution Width 13.3 % (11.6-14.8); White Blood Cell Count 5.7 X10^3/uL (4.5-11.0)
[2023-02-03 07:11] LABS: BUN Creatinine Ratio 20.5 (6-22); Blood Urea Nitrogen 15 mg/dL (7-17); Calcium 8.6 mg/dL (8.4-10.2); Carbon Dioxide 29 mmol/L (22-32); Chloride 102 mmol/L (98-107); Estimated Glomerular Filt Rate > 60 mL/min (>60); Glucose 107 mg/dL (80-110); HEMOLYSIS < 15 (0-50); Potassium 3.7 mmol/L (3.4-5.1); Sodium 137 mmol/L (137-145)
--- NOTE | 2023-02-03 07:43 | P.PN_ITS ---
Subjective Subjective Interval history: Patient back from OR and somnolent so narcan given. Patient more alert after but feeling nauseous. Family at bedside. Exam Vital Signs (past 8 hours): - 02/03/23 00:12 Temperature 96.8 F L Pulse Rate 76 Respiratory Rate 15 Blood Pressure 140/74 Pulse Oximetry 94 Oxygen Flow Rate 0 Oxygen Delivery Method Room Air Oxygen Flow Rate 0 Narrative Exam Narrative: GEN: sleepy but alert and oriented HEENT: moist mucous membranes, PERRL NECK: trachea midline, no JVD CV: regular rate and rhythm, no murmurs PULM: clear bilaterally, no wheezes, rhonchi, rales ABD: soft, nontender, nondistended, no organomegaly, normal bowel sounds EXT: warm and well perfused, right hip with postop dressing in place, left 5th metatarsal pain to palpation NEURO: somnolent, oriented, no focal deficits Objective Labs 02/03/23 06:20 02/03/23 06:20 Labs: Laboratory Results - last 24 hr 02/02/23 02/02/23 02/02/23 20:05 20:55 20:55 WBC 9.0 RBC 3.88 L Hgb 12.2 Hct 35.2 L MCV 90.6 MCH 31.5 MCHC 34.7 RDW 13.2 Plt Count 154 Neut % (Auto) 84.6 H Lymph % (Auto) 10.0 L [place] % (Auto) 4.4 Eos % (Auto) 0.5 L Baso % (Auto) 0.5 Neut # (Auto) 7600 H Lymph # (Auto) 900 L [place] # (Auto) 400 Eos # (Auto) 0 Baso # (Auto) 0 PT 12.0 INR 1.0 APTT 30 Sodium Potassium Chloride Carbon Dioxide BUN Creatinine Estimated GFR BUN/Creatinine Ratio Glucose Calcium Total Bilirubin AST ALT Alkaline Phosphatase Total Protein Albumin Globulin Albumin/Globulin Ratio SARS-CoV-2 (PCR) Negative 02/02/23 02/03/23 02/03/23 20:55 06:20 06:20 WBC 5.7 RBC 3.84 L Hgb 12.2 Hct 35.0 L MCV 91.1 MCH 31.6 MCHC 34.7 RDW 13.3 Plt Count 143 L Neut % (Auto) 73.9 Lymph % (Auto) 18.0 L [place] % (Auto) 5.9 Eos % (Auto) 1.9 L Baso % (Auto) 0.3 Neut # (Auto) 4200 Lymph # (Auto) 1000 L [place] # (Auto) 300 Eos # (Auto) 100 Baso # (Auto) 0 PT INR APTT Sodium 135 L 137 Potassium 3.5 3.7 Chloride 102 102 Carbon Dioxide 26 29 BUN 14 15 Creatinine 0.65 0.73 Estimated GFR > 60 > 60 BUN/Creatinine Ratio 21.5 20.5 Glucose 119 H 107 Calcium 8.9 8.6 Total Bilirubin 0.8 AST 29 ALT 21 Alkaline Phosphatase 58 Total Protein 7.1 Albumin 4.1 Globulin 3.0 Albumin/Globulin Ratio 1.4 SARS-CoV-2 (PCR) [facility] Medical History Abnormal Pap smear of cervix (~2001) Anxiety (~1977) Cervical cancer Depression (~1977) GERD (gastroesophageal reflux disease) (~1989) Hemorrhoid (~1959) Hernia, perineal High risk for hip fracture History of bladder cancer (~2002) History of cervical cancer (~2002) History of urinary incontinence (~2019) History of uterine cancer (~2002) Human papilloma virus (~2001) Hypertension Measles (~1944) Osteopenia Osteopenia Osteopenia with high risk of fracture Recurrent sinusitis (~1964) Surgical History Anesthesia History of cholecystectomy (~2001) History of hemorrhoidectomy (~1970) History of radical hysterectomy History of urostomy Family History Father Cancer Mother Hypertension Mental health problem Grandfather Diabetes mellitus Grandmother Diabetes mellitus Grandmother Diabetes mellitus Social History household members: none Smoking Status: Former smoker alcohol intake: current Assessment & Plan Assessment & Plan narrative: 1. Acute right hip fracture and left 5th MT fracture, secondary to mechanical fall -patient with known osteoporosis, per previous notes. Tripped on rough ground while walking. -imaging confirms right hip fracture -Dr. Kennedy ortho took for surgical repair on 02/03 -ortho recommends postop shoe on left foot when walking -pain meds PRN, cautious with them as needed narcan when coming back from OR -laxatives PRN due to previous constipation issues 2. Hypertension -continue home losartan 3. History of uterine and bladder cancer s/p urostomy -previous records reviewed and she has repeated SBO from adhesions from above -currently asymptomatic with no acute issues CODE: Full Proxy: Hortencia Lin, daughter Dispo: Likely SNF given age and left foot fracture on top of hip fracture. Pending PT eval. Quality VTE Deep Vein Thrombosis/Pulmonary Embolism Present on Admission: No
--- NOTE | 2023-02-03 08:49 | CM.DANOTE ---
Patient is an 87 yo female who was admitted on 02/02/23 after GLF. Pt has [facility] and [employer] for insurance and her PCP is Blue Gan. EMR was reviewed. Per , pt with hx of cervical and bladder CA and now with R Hip fx after GLF and Ortho to Consult. Per Ortho, plan is surgery today around 0900 for hip fx. SW met bedside with pt and local Dtr/DPOA Edith and explained role and pt confirms she still lives independently at [facility] and has a walker but does not use and her Dtr Edith helps with transport at times. Pt still quite active and has local sister as well. Pt's other Dtr Medina lives in [place] but is coming over to visit and assist for a few days. SW discussed process after surgery of working with PT/OT to help determine SNF vs HH. Pt denies any hx of HH or SNF and SW discussed the services and frequency and coverage by Medicare. Family confirms they likely could only stay with pt a few days after surgery for assist and currently leaning towards SNF at this time but will need to see how pt does after surgery with PT eval and recommendations. Plan: SW to follow closely for surgical intervention today and then PT/OT eval to help determine SNF vs return to [facility] with family to stay a couple days and HH pending progress. UNRULY Currie Discharge Planning/Care Management Advanced directive, confirm from FAMILY Start: 02/02/23 23:35 Freq: Q24H Status: Active Protocol: Document 02/02/23 23:35 MS (Rec: 02/02/23 23:48 MS [id number]) Advance Directive, confirm on record Time 23:48 Person contacted Patinet Copy received No CM Discharge Assessment Start: 02/03/23 08:46 Freq: Status: Active Protocol: Document 02/03/23 08:46 BF (Rec: 02/03/23 08:48 BF [id number]) Discharge Planning Assessment Assigned Sap Hana Architect UNRULY Sparrow/Assigned Designee Name Dtnamita Sharma and Medina Advance Directives? Yes Advance Directives on File Yes History Provided By Patient,Family Member,Medical Record Has Patient been admitted in last 30 No days? Prior Living Arrangements Longterm Facility Household Members none Type of transporation used prior to Relies on Others admit Facility Name Admitted From: [facility] Willing to Return to Facility? Yes Independent with ADL's Yes Is patient alert and oriented? Yes Needs Assistance With Home Chores / Shopping Caregiver for Another No DME Already Rented / Owned FWW / Walker Comment Has walker but does not use. Patient/Family Preference Custodial Facility,Home with Home Health Comment SNF vs HH pending progress with PT after surg Barriers to Discharge No Discharge Plan Custodial Facility Transportation Arrangement Dtr Edith can transport at d/ c if home Additional Comment Pending PT/OT eval post surgery today Whiteboard Updated in Patient Room with Yes name and ext. # of Sap Hana Architect Review Status In Process Please Provide Date Initial DC 02/03/23 Assessment Was Performed Next Review Type Continued Stay Review
[2023-02-03] MEDS: LACTATED RINGERS 1,000 ML 42 ML IV (08:57)
--- NOTE | 2023-02-03 09:01 | SUR.HOLD ---
Patient to holding area for surgery; GCS 15; VSS; lungs CTA; NSR noted on the hospital monitor with no ectopy.
--- NOTE | 2023-02-03 09:03 | PM.HP.1 ---
History of Present Illness History of Present Illness Date Patient Seen: 02/03/23 Time Patient Seen: 09:05 Chief complaint: GLF Narrative: Hortencia is a very pleasant 87-year-old female who presented to the emergency department yesterday after a ground level fall onto her right hip. She has no significant past medical history except for elevated blood pressure on losartan. No heart or lung issues and she does not take any anticoagulants. She is quite independent at baseline and walks 3-5 miles a day. She lives by herself in a house without any stairs. She lives in [place], her daughter lives nearby. She enjoys playing cards and traveling. She states that after her fall she was unable to put any weight on her leg and that she has significant pain with any rotation of the leg. She currently denies any recent nausea, vomiting, diarrhea, fevers, chills, chest pain or shortness of breath. She denies any distal numbness or tingling. She is no other complaints at this time. [facility] Medical History Abnormal Pap smear of cervix (~2001) Anxiety (~1977) Cervical cancer Depression (~1977) GERD (gastroesophageal reflux disease) (~1989) Hemorrhoid (~1959) Hernia, perineal High risk for hip fracture History of bladder cancer (~2002) History of cervical cancer (~2002) History of urinary incontinence (~2019) History of uterine cancer (~2002) Human papilloma virus (~2001) Hypertension Measles (~1945) Osteopenia Osteopenia Osteopenia with high risk of fracture Recurrent sinusitis (~1964) Surgical History Anesthesia History of cholecystectomy (~2001) History of hemorrhoidectomy (~1970) History of radical hysterectomy History of urostomy Family History Father Cancer Mother Hypertension Mental health problem Grandfather Diabetes mellitus Grandmother Diabetes mellitus Grandmother Diabetes mellitus Social History household members: none Smoking Status: Former smoker alcohol intake: current Meds Home Medications and Allergies Home Medications Medication Instructions Recorded Confirmed Type Bifidobacterium infantis 4 mg 4 mg PO DAILY 08/24/20 02/02/23 History capsule (Align) cholecalciferol (vitamin D3) 50 mcg PO QAM 08/24/20 02/02/23 History loperamide 2 mg tablet (Imodium 2 mg PO Q6H PRN Loose Stool 08/24/20 02/02/23 History A-D) triamcinolone acetonide 55 mcg 1 spray intranasal DAILY 08/24/20 02/03/23 History nasal spray aerosol (Nasacort) vitamin B complex [B 1 tab PO QAM 08/24/20 02/03/23 History Complex-Vitamin B12] simethicone 125 mg capsule (Gas-X 125 mg PO QD-BID PRN gas 08/12/21 02/03/23 History Extra Strength) psyllium [Metamucil] 1 tbsp PO QAM 01/03/22 02/03/23 History [id number] 333 mg-133 See Rx Instructions .Route .COMPLEX 01/11/22 02/02/23 History mg-5 mg tablet losartan 100 mg tablet 100 mg PO DAILY #90 tabs 04/03/22 02/02/23 Rx omeprazole 20 mg capsule,delayed 20 mg PO DAILY #90 caps 04/03/22 02/02/23 Rx release Allergies Allergy/AdvReac Type Severity Reaction Status Date / Time Sulfa (Sulfonamide Allergy Unknown Verified 02/02/23 16:17 Antibiotics) trimethaphan Allergy Unknown Verified 02/02/23 16:17 Review of Systems Review of Systems ROS: Yes All systems reviewed with the patient and are negative except as otherwise documented Exam Vital Signs (past 8 hours): - 02/03/23 08:22 02/03/23 08:54 Temperature 98.8 F 98.7 F Pulse Rate 74 80 Respiratory Rate 16 16 Blood Pressure 149/71 H 147/82 H Pulse Oximetry 97 98 Oxygen Delivery Method Room Air Oxygen Delivery Method Room Air Oxygen Flow Rate 0 Narrative Exam Narrative: HEENT: Head atraumatic eyes anicteric moist mucous membranes Cardiovascular: Palpable peripheral pulses extremities are warm and well perfused Respiratory: Breathing comfortably on room air Psychiatric: Appropriate mood and affect Neuro: No acute deficits Musculoskeletal: Exam of the right lower extremity demonstrates leg held slightly flexed and externally rotated. She has significant pain with any movement of the leg and so only a very small log roll was performed. No other range of motion was tested today. She is able to fire EHL, FHL, tibia and gastrocs. Sensation intact to light touch in sural, saphenous, superficial peroneal and deep peroneal nerve. 2+ dorsalis pedis pulse with brisk capillary refill less than [address] scan - pelvis: My impression: CT pelvis from overnight reviewed preoperatively demonstrates a nondisplaced intertrochanteric femur fracture of the right hip. Previous surgical clips noted in the pelvis. There is slight joint space narrowing however no significant osteoarthritis. Labs 02/03/23 06:20 02/03/23 06:20 Labs: Laboratory Results - last 24 hr 02/02/23 02/02/23 02/02/23 20:05 20:55 20:55 WBC 9.0 RBC 3.88 L Hgb 12.2 Hct 35.2 L MCV 90.6 MCH 31.5 MCHC 34.7 RDW 13.2 Plt Count 154 Neut % (Auto) 84.6 H Lymph % (Auto) 10.0 L [place] % (Auto) 4.4 Eos % (Auto) 0.5 L Baso % (Auto) 0.5 Neut # (Auto) 7600 H Lymph # (Auto) 900 L [place] # (Auto) 400 Eos # (Auto) 0 Baso # (Auto) 0 PT 12.0 INR 1.0 APTT 30 Sodium Potassium Chloride Carbon Dioxide BUN Creatinine Estimated GFR BUN/Creatinine Ratio Glucose Calcium Total Bilirubin AST ALT Alkaline Phosphatase Total Protein Albumin Globulin Albumin/Globulin Ratio SARS-CoV-2 (PCR) Negative 02/02/23 02/03/23 02/03/23 20:55 06:20 06:20 WBC 5.7 RBC 3.84 L Hgb 12.2 Hct 35.0 L MCV 91.1 MCH 31.6 MCHC 34.7 RDW 13.3 Plt Count 143 L Neut % (Auto) 73.9 Lymph % (Auto) 18.0 L [place] % (Auto) 5.9 Eos % (Auto) 1.9 L Baso % (Auto) 0.3 Neut # (Auto) 4200 Lymph # (Auto) 1000 L [place] # (Auto) 300 Eos # (Auto) 100 Baso # (Auto) 0 PT INR APTT Sodium 135 L 137 Potassium 3.5 3.7 Chloride 102 102 Carbon Dioxide 26 29 BUN 14 15 Creatinine 0.65 0.73 Estimated GFR > 60 > 60 BUN/Creatinine Ratio 21.5 20.5 Glucose 119 H 107 Calcium 8.9 8.6 Total Bilirubin 0.8 AST 29 ALT 21 Alkaline Phosphatase 58 Total Protein 7.1 Albumin 4.1 Globulin 3.0 Albumin/Globulin Ratio 1.4 SARS-CoV-2 (PCR) Quality VTE Deep Vein Thrombosis/Pulmonary Embolism Present on Admission: No
--- NOTE | 2023-02-03 09:11 | P.HP_ITS ---
History of Present Illness History of Present Illness Chief complaint: GLF Narrative: Hortencia is a very pleasant 87-year-old female who presented to the emergency department yesterday after a ground level fall onto her right hip. She has no significant past medical history except for elevated blood pressure on losartan. No heart or lung issues and she does not take any anticoagulants. She is quite independent at baseline and walks 3-5 miles a day. She lives by herself in a house without any stairs. She lives in [place], her daughter lives nearby. She enjoys playing cards and traveling. She states that after her fall she was unable to put any weight on her leg and that she has significant pain with any rotation of the leg. She currently denies any recent nausea, vomiting, diarrhea, fevers, chills, chest pain or shortness of breath. She denies any distal numbness or tingling. She is no other complaints at this time. [facility] Medical History Abnormal Pap smear of cervix (~2001) Anxiety (~1977) Cervical cancer Depression (~1977) GERD (gastroesophageal reflux disease) (~1989) Hemorrhoid (~1959) Hernia, perineal High risk for hip fracture History of bladder cancer (~2002) History of cervical cancer (~2002) History of urinary incontinence (~2019) History of uterine cancer (~2002) Human papilloma virus (~2001) Hypertension Measles (~194) Osteopenia Osteopenia Osteopenia with high risk of fracture Recurrent sinusitis (~1964) Surgical History Anesthesia History of cholecystectomy (~2001) History of hemorrhoidectomy (~1970) History of radical hysterectomy History of urostomy Family History Father Cancer Mother Hypertension Mental health problem Grandfather Diabetes mellitus Grandmother Diabetes mellitus Grandmother Diabetes mellitus Social History household members: none Smoking Status: Former smoker alcohol intake: current Meds Home Medications and Allergies Home Medications Medication Instructions Recorded Confirmed Type Bifidobacterium infantis 4 mg 4 mg PO DAILY 08/24/20 02/02/23 History capsule (Align) cholecalciferol (vitamin D3) 50 mcg PO QAM 08/24/20 02/02/23 History loperamide 2 mg tablet (Imodium 2 mg PO Q6H PRN Loose Stool 08/24/20 02/02/23 History A-D) triamcinolone acetonide 55 mcg 1 spray intranasal DAILY 08/24/20 02/03/23 History nasal spray aerosol (Nasacort) vitamin B complex [B 1 tab PO QAM 08/24/20 02/03/23 History Complex-Vitamin B12] simethicone 125 mg capsule (Gas-X 125 mg PO QD-BID PRN gas 08/12/21 02/03/23 History Extra Strength) psyllium [Metamucil] 1 tbsp PO QAM 01/03/22 02/03/23 History [id number] 333 mg-133 See Rx Instructions .Route .COMPLEX 01/11/22 02/02/23 History mg-5 mg tablet losartan 100 mg tablet 100 mg PO DAILY #90 tabs 04/03/22 02/02/23 Rx omeprazole 20 mg capsule,delayed 20 mg PO DAILY #90 caps 04/03/22 02/02/23 Rx release Allergies Allergy/AdvReac Type Severity Reaction Status Date / Time Sulfa (Sulfonamide Allergy Unknown Verified 02/02/23 16:17 Antibiotics) trimethaphan Allergy Unknown Verified 02/02/23 16:17 Exam Vital Signs (past 8 hours): - 02/03/23 08:22 02/03/23 08:54 Temperature 98.8 F 98.7 F Pulse Rate 74 80 Respiratory Rate 16 16 Blood Pressure 149/71 H 147/82 H Pulse Oximetry 97 98 Oxygen Delivery Method Room Air Oxygen Delivery Method Room Air Oxygen Flow Rate 0 Objective Labs 02/03/23 06:20 02/03/23 06:20 Labs: Laboratory Results - last 24 hr 02/02/23 02/02/23 02/02/23 20:05 20:55 20:55 WBC 9.0 RBC 3.88 L Hgb 12.2 Hct 35.2 L MCV 90.6 MCH 31.5 MCHC 34.7 RDW 13.2 Plt Count 154 Neut % (Auto) 84.6 H Lymph % (Auto) 10.0 L [place] % (Auto) 4.4 Eos % (Auto) 0.5 L Baso % (Auto) 0.5 Neut # (Auto) 7600 H Lymph # (Auto) 900 L [place] # (Auto) 400 Eos # (Auto) 0 Baso # (Auto) 0 PT 12.0 INR 1.0 APTT 30 Sodium Potassium Chloride Carbon Dioxide BUN Creatinine Estimated GFR BUN/Creatinine Ratio Glucose Calcium Total Bilirubin AST ALT Alkaline Phosphatase Total Protein Albumin Globulin Albumin/Globulin Ratio SARS-CoV-2 (PCR) Negative 02/02/23 02/03/23 02/03/23 20:55 06:20 06:20 WBC 5.7 RBC 3.84 L Hgb 12.2 Hct 35.0 L MCV 91.1 MCH 31.6 MCHC 34.7 RDW 13.3 Plt Count 143 L Neut % (Auto) 73.9 Lymph % (Auto) 18.0 L [place] % (Auto) 5.9 Eos % (Auto) 1.9 L Baso % (Auto) 0.3 Neut # (Auto) 4200 Lymph # (Auto) 1000 L [place] # (Auto) 300 Eos # (Auto) 100 Baso # (Auto) 0 PT INR APTT Sodium 135 L 137 Potassium 3.5 3.7 Chloride 102 102 Carbon Dioxide 26 29 BUN 14 15 Creatinine 0.65 0.73 Estimated GFR > 60 > 60 BUN/Creatinine Ratio 21.5 20.5 Glucose 119 H 107 Calcium 8.9 8.6 Total Bilirubin 0.8 AST 29 ALT 21 Alkaline Phosphatase 58 Total Protein 7.1 Albumin 4.1 Globulin 3.0 Albumin/Globulin Ratio 1.4 SARS-CoV-2 (PCR) Assessment & Plan Assessment & Plan narrative: Assessment: 87-year-old female with right nondisplaced intertrochanteric femur fracture Plan: We discussed treatment options for intertrochanteric femur fractures specifically hers which is nondisplaced. Treatment options can include nonoperative management with minimum of 6 weeks of nonweightbearing/bedrest versus operative treatment which would include intramedullary nail. The risks and benefits of both treatment options were discussed. Benefits of operative treatment would include early weight-bearing and protection of the hip. Although it is nondisplaced, she can not bear weight on it, and I would want it protected over 6 weeks well healed. Operative treatment is prophylactic for extension or displacement of the fracture. Risks and benefits of surgery were discussed again including the risk of infection, damage to internal structures, bleeding, nerve injury, instability, need for revision surgery, blood clots, anesthesia and . No guarantees were made regarding outcomes. Patient expressed understanding and accepted these risks and wished to go forward with surgery and consent was signed. She expressed understanding with these risks and wished to go forward with surgery. Her right lower extremity was marked with my initials and she signed consent in the preoperative holding area. Quality VTE Deep Vein Thrombosis/Pulmonary Embolism Present on Admission: No
[2023-02-03] MEDS: CEFAZOLIN VIAL 1 GM in SODIUM CHLORIDE 0.9% 100 ML IV (09:30)
--- NOTE | 2023-02-03 09:41 | SUR.OPER ---
Supine on padded [place] table with bilateral legs secured in padded positioning boots and suspended in positioning spars, operative leg in traction per surgeon. Head on one pillow. Arm on non-operative side secured on padded armboard <90 degrees abduction. Arm on operative side padded and resting across chest then secured with tape over sheet. Padded perineal post in place per surgeon.
[2023-02-03] MEDS: BUPIVACAINE 0.5% (PF) 30 ML, EPINEPHrine 0.15 MG INJ (10:02)
--- NOTE | 2023-02-03 10:39 | P.OP_ITS ---
Operative Date/Time/Diagnoses Date of procedure: 02/03/23 Time of procedure: 10:40 Pre-op diagnosis: right intertrochanteric femur fx Post-op diagnosis: same Procedure & Clinicians Procedure: IMN right hip Same procedure as scheduled: Yes Indications: Indications: This is a 87 year old female with the above diagnosis. We discussed that in order to facilitate mobilization early, as well as proper healing of the fracture, we recommend operative fixation using an intramedullary nail. The risks and benefits and alternatives to the procedure were discussed. The risks include bleeding, infection, damage to internal structures, failure of the implants, and future surgery as well as anesthesia. No guarantees were made regarding outcomes. Patient expressed understanding with these risks and wished to go forth with surgery. Surgeon: Heron Kennedy Click Yes if Unassisted: Yes Anesthesia Type: General Operative Notes Findings: Operative findings: Intertrochanteric hip fracture as seen on preoperative imaging with CT and x-ray as well as intraoperative fluoroscopy Closure Type: primary Specimen(s): none sent Prosthetic devices, grafts, tissues, transplants, or devices: Implants: [employer] InterTAN nail, short, size 10 with 1 single distal interlocking screw Procedure in detail: Details of operation: The patient's identity was verified. The right hip was verified and site of surgery was marked. Prophylactic antibiotics were administered. The patient was taken to the operating room and anesthesia was established. Patient was positioned supine on the operating table. The feet were padded and placed into the traction boots with the injured hip in slight adduction and the uninjured hip extended about 30?. A C-arm was then brought into the OR and positioned perpendicularly to allow visualization of the hip and AP and lateral planes. The fracture was minimally displaced and so no reduction maneuver was necessary. The lateral surface of the hip was sterilely prepped after which a vertical isolation drape was placed. The surgical team paused in the patient's identity, surgical procedure and surgical site were verified. A small incision was made proximal to the greater trochanter through the fascia to the tip of the trochanter could be palpated. A threaded guide pin was then inserted through the tip of the greater trochanter to the level of the lesser tuberosity. Once the wire was appropriately positioned the entry hole was drilled. The entry/channel Reamer was used to enter the cortex and reamed the metaphyseal portion of the canal. The intramedullary nail was assembled on the insertion handle and the nail was inserted and its depth verified. Our attention was then turned to the proximal locking of the nail. A small incision was made laterally over the distal vastus tubercle, through the fascia down to the bone and the targeting jig sleeve was advanced to the bone. Under fluoroscopic control, a guidewire was positioned through the lateral cortex of the femoral neck and into the center of the femoral head. Once the wire was appropriately positioned, the length of nail was measured the lateral cortex was opened with a drill. The lag screw was assembled on the insertion handle and advanced over the guidewire into the center of the femoral head to beneath the subchondral surface. The compression screw was then placed and compressed under fluoroscopic imaging. Final AP and lateral projections were taken confirming correct nail and screw placement. Our attention was then directed distally to the interlocking of the nail. An incision was made and the guide was used to place the sleeve down to the bone. The bone was then drilled and measured and interlocking screw was placed. The wounds were copiously irrigated. The subcutaneous area was closed with interrupted 2-0 Vicryl. The wound was then infiltrated with 0.5% marcaine with epinephrine. The skin was then closed with marilu after which a sterile dressing was applied. Patient was subsequently transferred from the [place] table to the hospital bed. Disposition: The patient was taken to the recovery room in stable condition having tolerated the procedure without difficulty. Complications: none Post-operative Condition: stable Disposition: PACU Plan for aftercare: Postoperative plan: Weightbearing as tolerated with crutches or walker for 4 weeks. After 4 weeks it is okay to ambulate without assistance if stable and strong enough. DVT prophylaxis for 4 weeks (default aspirin 81 mg b.i.d., is unable to take aspirin, and then Lovenox, 40 mg subcutaneous daily). Okay to change dressings to clean dry dressings after 3 days. Okay for dressings to come off completely at 7 days. Okay for warm soap and water to run over the incision and a shower or sponge bath, however no soaking the wound. Follow-up in 2 weeks for staple removal, and follow-up in [address] Kennedy with x- rays on arrival
[2023-02-03] MEDS: ONDANSETRON 4 MG/2 ML INJ IV ×2 (10:45→12:27)
[2023-02-03] MEDS: OXYCODONE/ACETAMINOPHEN 5/325 TABLET 1 TAB PO (10:45)
[2023-02-03] MEDS: HYDROMORPHONE 2 MG INJ IV ×4 (10:45→11:12)
--- NOTE | 2023-02-03 10:58 | SUR.PHASEI ---
Patient following all commands; GCS 15; vss; patient states pain is getting a little better. Ice pack to right hip; pillow under the right knee for comfort. Warm blankets provided. Taking PO fluids and swallowing without difficulty.
--- NOTE | 2023-02-03 11:08 | SUR.PHASEI ---
Placed patient on oxygen at 2 liters via nasal cannula after additional dose of IV dilaudid for pain.
[2023-02-03] MEDS: NALOXONE 0.4 MG/ML VIAL 0.2 MG IV (12:21)
--- NOTE | 2023-02-03 13:29 | PC.NURSE ---
Pt arrived from PACU at 1140, disoriented to year, otherwise oriented but very lethargic. VSS on 4L O2. Gauze dressing to R hip c/d/i, sensation intact to bilat LE, able to wiggle toes to RLE. Pain controlled. After being settled in the room, pt experiencing significant periods of apnea resulting in occasional oxygen desaturating, RT called for eval. Mask not recommended and Narcan administered instead. Pt now awake, more easily arousable. Family at bedside. Patient and family oriented to room and call light. Bed in low position, SCDs to bilat LE.
[2023-02-03] MEDS: ACETAMINOPHEN 325 MG TABLET 650 MG PO (17:33)
[2023-02-03] MEDS: OXYCODONE IR 5 MG TABLET PO ×2 (17:33→21:15)
[2023-02-03] MEDS: SIMETHICONE 80 MG TABLET PO (21:15)
[2023-02-03] MEDS: ASPIRIN EC 81 MG TABLET PO (21:15)
[2023-02-03] MEDS: SENNOSIDES 8.6 MG TABLET PO (21:21)
[2023-02-04] MEDS: OXYCODONE IR 5 MG TABLET PO ×3 (00:21→21:25)
[2023-02-04 03:06] VITALS: BP 167/65; PULSE 83; RESP 15; TEMP 37.2; O2SAT 99
[2023-02-04] MEDS: OXYCODONE IR 10 MG TABLET PO ×3 (03:40→12:05)
--- NOTE | 2023-02-04 05:21 | PC.NURSE ---
Medicating patient as necessary for pain. at 0340 patient calling for pain medication, and given 10mg of oxycodone instead of 5mg. Patient given 5mg about 2 hours prior with minimal relief.
[2023-02-04] MEDS: PANTOPRAZOLE DR 20 MG TABLET PO (05:48)
--- NOTE | 2023-02-04 07:29 | PM.PN.1 ---
Subjective Subjective Interval history: Patient notes achy pain in her right hip. Will work with PT today to determine if SNF needed. Exam Vital Signs (past 8 hours): - 02/04/23 03:06 Temperature 98.9 F Pulse Rate 83 Respiratory Rate 15 Blood Pressure 167/65 H Pulse Oximetry 99 Oxygen Flow Rate 2 Oxygen Delivery Method Nasal Cannula Oxygen Flow Rate 2 Narrative Exam Narrative: GEN: NAD HEENT: moist mucous membranes, PERRL NECK: trachea midline, no JVD CV: regular rate and rhythm, no murmurs PULM: clear bilaterally, no wheezes, rhonchi, rales ABD: soft, nontender, nondistended, no organomegaly, normal bowel sounds EXT: warm and well perfused, right hip with postop dressing in place, left 5th metatarsal pain to palpation NEURO: somnolent, oriented, no focal deficits Objective Labs 02/03/23 06:20 02/03/23 06:20 [facility] Medical History Abnormal Pap smear of cervix (~2001) Anxiety (~1977) Cervical cancer Depression (~1977) GERD (gastroesophageal reflux disease) (~1989) Hemorrhoid (~1959) Hernia, perineal High risk for hip fracture History of bladder cancer (~2002) History of cervical cancer (~2002) History of urinary incontinence (~2019) History of uterine cancer (~2002) Human papilloma virus (~2001) Hypertension Measles (~1945) Osteopenia Osteopenia Osteopenia with high risk of fracture Recurrent sinusitis (~1965) Surgical History Anesthesia History of cholecystectomy (~2001) History of hemorrhoidectomy (~1970) History of radical hysterectomy History of urostomy Family History Father Cancer Mother Hypertension Mental health problem Grandfather Diabetes mellitus Grandmother Diabetes mellitus Grandmother Diabetes mellitus Social History household members: none Smoking Status: Former smoker alcohol intake: current Assessment & Plan Assessment & Plan narrative: 1. Acute right hip fracture and left 5th MT fracture, secondary to mechanical fall -patient with known osteoporosis, per previous notes. Tripped on rough ground while walking. -imaging confirms right hip fracture -Dr. Kennedy ortho took for surgical repair on 02/03 -ortho recommends postop shoe on left foot when walking -pain meds PRN, cautious with them as needed narcan when coming back from OR -laxatives PRN due to previous constipation issues 2. Hypertension -continue home losartan 3. History of uterine and bladder cancer s/p urostomy -previous records reviewed and she has repeated SBO from adhesions from above -currently asymptomatic with no acute issues CODE: Full Proxy: Hortencia Lin, daughter Dispo: Likely SNF given age and left foot fracture on top of hip fracture. Pending PT eval. Quality VTE Deep Vein Thrombosis/Pulmonary Embolism Present on Admission: No
[2023-02-04 08:00] VITALS: BP 143/66; PULSE 84; RESP 18; TEMP 37.9; O2SAT 93
[2023-02-04] MEDS: ASPIRIN EC 81 MG TABLET PO ×2 (08:29→21:25)
[2023-02-04] MEDS: CHOLECALCIFEROL (VITAMIN D3) 1,000 UNIT TABLET 2000 UNIT PO (08:30)
[2023-02-04] MEDS: PSYLLIUM HUSK 1 PACKET PO (08:30)
[2023-02-04] MEDS: LOSARTAN 50 MG TABLET 100 MG PO (08:33)
[2023-02-04] MEDS: SIMETHICONE 80 MG TABLET PO ×2 (08:39→21:25)
[2023-02-04] MEDS: ACETAMINOPHEN 325 MG TABLET 650 MG PO ×2 (10:41→18:01)
--- NOTE | 2023-02-04 13:12 | P.PN_ITS ---
Subjective Subjective Date Patient Seen: 02/04/23 Time Patient Seen: 13:12 Interval history: Patient seen postop day 1 from a right hip nailing for right intertrochanteric femur fracture. She is sitting up eating lunch, already has worked with physical therapy today. Her is in the room. She is in minimal pain. Denies any distal numbness or tingling. Has no other complaints at this time. Exam Vital Signs (past 8 hours): - 02/04/23 08:00 Temperature 100.2 F H Pulse Rate 84 Respiratory Rate 18 Blood Pressure 143/66 H Pulse Oximetry 93 Oxygen Flow Rate 0 Oxygen Delivery Method Nasal Cannula Oxygen Flow Rate 0 Narrative Exam Narrative: HEENT: Head atraumatic eyes anicteric moist mucous membranes Cardiovascular: Palpable peripheral pulses extremities are warm and well perfused Respiratory: Breathing comfortably on room air Psychiatric: Appropriate mood and affect Neuro: No acute deficits Musculoskeletal: Exam of the right hip demonstrates incisions clean dry and intact without any signs of bleeding through her bandages. She is able to flex EHL, FHL, tib ant and gastrocs. Sensation intact from L2 through S2. 2+ dorsalis pedis pulse with brisk capillary refill less than 2 seconds. Objective Labs 02/03/23 06:20 02/03/23 06:20 [facility] Medical History Abnormal Pap smear of cervix (~2001) Anxiety (~1977) Cervical cancer Depression (~1977) GERD (gastroesophageal reflux disease) (~1989) Hemorrhoid (~1959) Hernia, perineal High risk for hip fracture History of bladder cancer (~2002) History of cervical cancer (~2002) History of urinary incontinence (~2019) History of uterine cancer (~2002) Human papilloma virus (~2001) Hypertension Measles (~1945) Osteopenia Osteopenia Osteopenia with high risk of fracture Recurrent sinusitis (~1964) Surgical History Anesthesia History of cholecystectomy (~2001) History of hemorrhoidectomy (~1970) History of radical hysterectomy History of urostomy Family History Father Cancer Mother Hypertension Mental health problem Grandfather Diabetes mellitus Grandmother Diabetes mellitus Grandmother Diabetes mellitus Social History household members: none Smoking Status: Former smoker alcohol intake: current Assessment & Plan Assessment & Plan narrative: Assessment: 87-year-old female postop day 1 from right hip nail Plan: Weightbear as tolerated, discharge from the hospital as soon as possible. Follow up in clinic in 2 weeks. She will likely need a walker. She also has metatarsal fractures on the left for which she may need a boot for. Quality VTE Deep Vein Thrombosis/Pulmonary Embolism Present on Admission: No
--- NOTE | 2023-02-04 13:41 | PT.IIE ---
Current Diagnoses Fracture of unspecified part of neck of right femur, initial encounter for closed fracture (02/02/23) Surgery Performed Operation Date: 02/03/23 09:45 Actual Procedures p Intramedullary Nailing Femur(Right) - Heron Kennedy MD Surgical History (Last Reviewed 02/02/23 @ 22:23 by Benito Horton MD) Anesthesia History of cholecystectomy (~2001) History of hemorrhoidectomy (~1970) History of radical hysterectomy History of urostomy Medical History (Last Reviewed 02/03/23 @ 09:07 by Heron Kennedy MD) Abnormal Pap smear of cervix (~2001) Anxiety (~1977) Cervical cancer Depression (~1977) GERD (gastroesophageal reflux disease) (~1989) Hemorrhoid (~1959) Hernia, perineal High risk for hip fracture History of bladder cancer (~2002) History of cervical cancer (~2002) History of urinary incontinence (~2019) History of uterine cancer (~2002) Human papilloma virus (~2001) Hypertension Measles (~194) Osteopenia Osteopenia Osteopenia with high risk of fracture Recurrent sinusitis (~1964) Physical Therapy Inpatient Evaluation/Re-Eval M1 PT/OT-IP Prior Functional Status Start: 02/04/23 12:35 Freq: NEEDED Status: Active Protocol: Document 02/04/23 13:15 [facility] (Rec: 02/04/23 13:41 [facility] [id number]) Medical Review Prior Functional Status Medical History Reviewed Yes Diet/Fluid Consistency Regular Communication communication with nursing regarding left flat shoe brace Social History Household Members none Living Arrangements [facility] M2 PT-IP Current Condition Start: 02/04/23 12:35 Freq: NEEDED Status: Active Protocol: Document 02/04/23 13:15 [facility] (Rec: 02/04/23 13:41 [facility] [id number]) Physical Therapy Current Condition Current Condition Evaluation Date 02/04/23 Treatment Diagnosis right intertronchanteric femur fracture s/p ORIF and 5th MT fracture Onset Date 02/03/23 M3 PT-IP Subjective Start: 02/04/23 12:35 Freq: NEEDED Status: Active Protocol: Document 02/04/23 13:15 [facility] (Rec: 02/04/23 13:41 [facility] [id number]) Subjective Physical Therapy Visit Type Type Initial Evaluation Visit Start Time 12:40 Visit Stop Time 13:15 Total Visit Minutes 35 Physical Therapy Visit Comments Patient Comments pt has been premedicated prior to PT , she notes her pain is 4/10 at this time. Her daughter is present for her PT treatment Patient Goals pt would like to return home to [place] but she is not sure if she can manage it on her own yet Therapy Pain Assessment Pain When Pain Assessed At Rest Pain Present Pain Present Pain Reported Location Right Hip Intensity 4 Scale Used Numeric (0 - 10) Description With Movement M4 PT-IP Mobility and Gait Start: 02/04/23 12:35 Freq: NEEDED Status: Active Protocol: Document 02/04/23 13:15 [facility] (Rec: 02/04/23 13:41 [facility] [id number]) PT-Bed Mobility Assessment Rolling Type of Rolling Roll to Left Level of Assist Minimal Assistance Supine to Sit Supine to Sit Minimal Assistance Sit to Supine Sit to Supine Minimal Assistance Scooting Scooting to Edge of Bed Minimal Assistance PT-Transfer Assessment Sit to and From Stand Sit to and from Stand Minimal Assistance Equipment Transfer Assistive Device Gait Belt,Front Wheeled Walker Orthotic/Prosthetic Devices or Brace: Yes Transfers Transfer Destination Bed Transfer Technique pt ambulated Transfer Ability Level of Assist Minimal Assistance Comments Mobility Comments pt was given a let flat shoe for her MT fx and she is WBAT for R femur fx, she is min A for bed mobility and for transfers, pt was able to put a good amount of weight on the left LE with the shoe and this helped with weight bearing and transfers. Pain did not increase with activity . Gait Assessment Gait Gait Assistance Required: Contact Guard Assist Distance (Feet) 15 Able to Maintain Weight Bearing Status Yes During Gait Assistive Devices Assistive Device Gait Belt,Front Wheeled Walker Orthotic/Prosthetic Devices or Brace: Yes Gait Deviations General Gait Pattern Decreased Stride Length,Step- to Gait Factors Limiting Gait Function Factors Limiting Gait Function Decreased Strength,Pain Comments Gait Comments pt ambulated with the left foot flat shoe brace, fww and WBAT with her R LE with CGA and gait belt. She ambulated to the bathroom and was able to sit on the toilet seat with MIN A to lower her. She was not able to have a bowel movement. To return to standing it took Min A, she then ambulated with CGA to the bedside chair. Ice was placed on the right hip and her legs were elevated. She was positioned comfortably in the chair with the call light within reach. PT-Balance Assessment Sitting Balance and Reactions Static Sitting Balance Ability Good Dynamic Sitting Balance Ability Good Standing Balance and Reactions Static Standing Balance Ability Good Dynamic Standing Balance Ability Good M5 PT-IP Objective Assessments Start: 02/04/23 12:35 Freq: NEEDED Status: Active Protocol: Document 02/04/23 13:15 [facility] (Rec: 02/04/23 13:41 [facility] [id number]) Orientation Orientation/Cognition Level of Alertness Alert Gross Range of Motion Upper Extremity ROM Assessment Within Functional Limits Lower Extremity ROM Assessment Right Impaired Impairments left foot broken 5th MT otherwise WNL Strength Upper Extremity Strength Assessment Within Functional Limits Lower Extremity Strength Assessment Bilaterally Impaired Coordination Assessment Gross Coordination Gross Coordination WNL Sensation Assessment Sensation Gross Sensation WNL Muscle Tone Muscle Tone WNL Yes M6 PT-IP Treatment Start: 02/04/23 12:35 Freq: NEEDED Status: Active Protocol: Document 02/04/23 13:15 [facility] (Rec: 02/04/23 13:41 [facility] [id number]) Physical Therapy Treatment Education Education Provided Weight Bearing Status,Safety M7 PT-IP Assessment and Plan Start: 02/04/23 12:35 Freq: NEEDED Status: Active Protocol: Document 02/04/23 13:15 [facility] (Rec: 02/04/23 13:41 [facility] [id number]) PT Summary Assessment and Plan Potential Rehabilitation Potential Excellent Status of Condition at Evaluation Stable Summary Impairments Pain,ROM,Strength,Balance,Bed Mobility,Transfers,Gait, Activity Tolerance Assessment Summary 87 year old female day 1 s/p ORIF right femur intertrochaneric fx. Also presenting with a left 5th MT fx secondary to a fall. She is WBAT for the right LE. She was fitted with a flat shoe for left foot protection today and felt comfortable with this. Pt lives alone at [facility]. Her daughter was present for PT evaluation today. Pt demonstrated min A for all bed mobility and transfers. Once up she is CGA for ambulation with fww. She was able to ambulate to the bathroom and needed Min A for transfer to the toilet seat. She needed Min A for sit-stand from the toilet and then was CGA for ambulation to the bedside chair. Pt may benefit from a short time at [facility] since she does live alone. She did agree that this may indeed help her get a little strength back prior to going back to [facility] Goals Bed Mobility Goal Standby Assistance Transfer Goal Contact Guard Assistance Gait Goal Contact Guard Assistance Gait Distance 50 Days to Meet Goals 5 Frequency of Treatment Frequency Of Treatment Twice a Day Treatment Plan Physical Therapy Treatment Plan Bed Mobility Training,Transfer Training,Gait Training, Therapeutic Exercise,Hot or Cold Pack Other Recommendations and Next Treatment focus on progressing distance Focus with gait, transfer training and ther ex next visit Precautions Other Precautions WBAT R LE, pt to wear flat shoe on left to protect the fx Weight Bearing Status Weight Bearing Status Weight Bear as Tolerated Recommendations To Nursing Amount of Assist Needed 1 Person Assist Discharge Recommendations PT Discharge Recommendations SNF Rehab Other Discharge Recommendations fww for return to [facility] Equipment Needed for Home Before fww Discharge Transportation Needs at Discharge Wheelchair/Cabulance
[2023-02-04 16:35] VITALS: BP 117/57; PULSE 83; RESP 18; TEMP 37.6; O2SAT 94
[2023-02-04 20:56] VITALS: BP 138/61; PULSE 85; TEMP 39.3; O2SAT 90
[2023-02-04 21:05] VITALS: O2SAT 96
[2023-02-04 21:23] VITALS: TEMP 37.6
--- NOTE | 2023-02-04 23:15 | PC.NURSE ---
Pt pulse ox reading 80s, 2L O2 NC placed on patient. Educated on how to use and importance of IS, details charted. While sleeping pt still reading in 80s as pt is mouth breathing, switched over to oximask and reading in 90s with 1L.
[2023-02-05] VITALS (7 sets, daily range): BP systolic 124–147; BP diastolic 59–93; PULSE 82–95; RESP 14–18; TEMP 36.8–37.1; O2SAT 94–97
[2023-02-05] MEDS: PANTOPRAZOLE DR 20 MG TABLET PO (05:50)
--- NOTE | 2023-02-05 06:48 | PC.NURSE ---
Pt told this RN that she was seeing 'floaties' in left eye and stated she sees them when a migraine is coming on. Pt denied pain at this time.
--- NOTE | 2023-02-05 07:28 | DI.RAD.S_ITS ---
PROCEDURE: XR CHEST 1V INDICATIONS: new fever TECHNIQUE: One view of the chest was acquired. COMPARISON: [facility], CR, XR CHEST 1V, 07/14/2021, 19:47. FINDINGS: Surgical changes and devices: None. Lungs and pleura: Lungs are clear. No pleural effusions or pneumothorax. Mediastinum: Mediastinal contours appear normal. Heart size is normal. Bones and chest wall: No suspicious bony lesions. Overlying soft tissues appear unremarkable. IMPRESSION: No acute cardiopulmonary process. Dictated by: Edgar Turner M.D. on 02/05/2023 at 9:04 Approved by: Edgar Turner M.D. on 02/05/2023 at 9:04
--- NOTE | 2023-02-05 07:36 | PM.PN.1 ---
Subjective Subjective Interval history: Patient was febrile to 102.7F overnight on forehead but recheck of mouth was 97F. CXR normal. Patient feels better this morning in terms of pain. Exam Vital Signs (past 8 hours): - 02/05/23 00:00 Temperature 98.2 F Pulse Rate 82 Respiratory Rate 14 Blood Pressure 124/63 Pulse Oximetry 95 Oxygen Flow Rate 1 Oxygen Delivery Method Nasal Cannula,Oximask Oxygen Flow Rate 1 Narrative Exam Narrative: GEN: NAD HEENT: moist mucous membranes, PERRL NECK: trachea midline, no JVD CV: regular rate and rhythm, no murmurs PULM: clear bilaterally, no wheezes, rhonchi, rales ABD: soft, nontender, nondistended, no organomegaly, normal bowel sounds EXT: warm and well perfused, right hip with postop dressing in place, left 5th metatarsal pain to palpation NEURO: somnolent, oriented, no focal deficits Objective Labs 02/05/23 07:52 02/05/23 07:52 PFS Medical History Abnormal Pap smear of cervix (~2001) Anxiety (~1977) Cervical cancer Depression (~1977) GERD (gastroesophageal reflux disease) (~1989) Hemorrhoid (~1959) Hernia, perineal High risk for hip fracture History of bladder cancer (~2002) History of cervical cancer (~2002) History of urinary incontinence (~2019) History of uterine cancer (~2002) Human papilloma virus (~2001) Hypertension Measles (~1945) Osteopenia Osteopenia Osteopenia with high risk of fracture Recurrent sinusitis (~1964) Surgical History Anesthesia History of cholecystectomy (~2001) History of hemorrhoidectomy (~1970) History of radical hysterectomy History of urostomy Family History Father Cancer Mother Hypertension Mental health problem Grandfather Diabetes mellitus Grandmother Diabetes mellitus Grandmother Diabetes mellitus Social History household members: none Smoking Status: Former smoker alcohol intake: current Assessment & Plan Assessment & Plan narrative: 1. Acute right hip fracture and left 5th MT fracture, secondary to mechanical fall -patient with known osteoporosis, per previous notes. Tripped on rough ground while walking. -imaging confirms right hip fracture -Dr. Kennedy ortho took for surgical repair on 02/03 -ortho recommends postop shoe on left foot when walking -pain meds PRN, cautious with them as needed narcan when coming back from OR -laxatives PRN due to previous constipation issues -PT rec SNF 2. Hypertension -continue home losartan 3. History of uterine and bladder cancer s/p urostomy -previous records reviewed and she has repeated SBO from adhesions from above -currently asymptomatic with no acute issues 4. UTI -UA with pyuria after admission -continue rocephin x3 days CODE: Full Proxy: Hortencia Lin, daughter Dispo: Pending SNF. Quality VTE Deep Vein Thrombosis/Pulmonary Embolism Present on Admission: No
[2023-02-05 08:28] LABS: Add Manual Diff / Slide Review NO; Basophils Absolute Auto 0 /uL (0-100); Basophils Percent Auto 0.5 % (0-2); Eosinophils Absolute Auto 100 /uL (0-450); Eosinophils Percent Auto 1.8 % (2-4); Hematocrit 30.6 % (36-46); Hemoglobin 10.7 g/dL (12.0-16.0); Lymphocytes Absolute Auto 700 /uL (1100-4500); Lymphocytes Percent Auto 13.5 % (25-40); Mean Corpuscular HGB Conc 34.8 % (30-36); Monocytes Absolute Auto 300 /uL (0-900); Monocytes Percent Auto 6.5 % (3-14); Neutrophils Absolute Auto 3800 /uL (1500-7000); Neutrophils Percent Auto 77.7 % (50-75); Platelet Count 108 X10^3/uL (150-400); Red Blood Cell Count 3.33 X10^6/uL (4.0-5.2); White Blood Cell Count 4.9 X10^3/uL (4.5-11.0)
[2023-02-05 08:50] LABS: Alanine Aminotransferase 40 IU/L (<35); Albumin 3.2 g/dL (3.5-5.0); Albumin Globulin Ratio 1.1 (1.0-2.8); Alkaline Phosphatase 57 U/L (38-126); Aspartate Aminotransferase 37 IU/L (14-36); BUN Creatinine Ratio 15.6 (6-22); Bilirubin Total 1.7 mg/dL (0.2-1.3); Blood Urea Nitrogen 12 mg/dL (7-17); Calcium 8.7 mg/dL (8.4-10.2); Carbon Dioxide 28 mmol/L (22-32); Chloride 98 mmol/L (98-107); Estimated Glomerular Filt Rate > 60 mL/min (>60); Globulin 2.8 g/dL (1.7-4.1); Glucose 108 mg/dL (80-110); HEMOLYSIS < 15 (0-50); Potassium 3.9 mmol/L (3.4-5.1); Sodium 132 mmol/L (137-145)
[2023-02-05] MEDS: cefTRIAXone 2,000 MG in SODIUM CHLORIDE 0.9% 100 ML 200 MG IV (08:51)
[2023-02-05] MEDS: OXYCODONE IR 5 MG TABLET PO ×4 (08:52→21:27)
[2023-02-05] MEDS: CHOLECALCIFEROL (VITAMIN D3) 1,000 UNIT TABLET 2000 UNIT PO (08:52)
[2023-02-05] MEDS: ACETAMINOPHEN 325 MG TABLET 650 MG PO (08:52)
[2023-02-05] MEDS: ASPIRIN EC 81 MG TABLET PO ×2 (08:53→21:26)
[2023-02-05] MEDS: PSYLLIUM HUSK 1 PACKET PO (08:53)
[2023-02-05] MEDS: LOSARTAN 50 MG TABLET 100 MG PO (08:54)
[2023-02-05] MEDS: SIMETHICONE 80 MG TABLET PO ×2 (08:55→21:27)
[2023-02-05] MEDS: FLUTICASONE PROPIONATE 50 MCG 2 EACH NASAL (09:04)
--- NOTE | 2023-02-05 09:06 | CM.DPC ---
Addendum entered by Felicity Brandt R.N. 02/05/23 12:55: Met with patient's daughter, Edith, who was at bedside. Edith also indicated that she had been in contact with [facility]. Patient is concerned about two stars, daughter indicated, you probably won't be there for very long. Did send alternate referral to [facility], did not hear back, and [facility] who can also accept. At this point, most likely will be [facility], they can accept tomorrow. PASSR completed. Addendum entered by Felicity Brandt R.N. 02/05/23 12:21: Met with patient and brought in ipad with Medicare reviews. She was concerned about the two stars, although it's convenient if she can be here in town so family can visit. The other possibility is [facility]. Two choices at this time are [facility]. March at [facility] has already confirmed acceptance. Hospitalist indicated that patient most likely is not ready, did have a fever yesterday, want to check blood cultures, rule out pneumonia. Asked CASSIUS Crenshaw legal executive assistant to send referral over to [facility] as well. Original Note: DCP Cont: Met with patient in her room. She is alert and oriented, had just been in the restroom. She resides at [facility] alone. Asked her if she would be interested in rehab for a short amount of time, as she confirmed that she is alone, and family can't stay with her. Gave her the Medicare Choice List, daughter will be in, she will discuss with daughter when she arrives. Did give [facility] at [facility] the referral, in case she decides that she wants to go there. Will follow up with patient later today. P: DCP to continue to follow. Plan is most likely skilled versus home health, but family would need to stay with patient. Felicity Brandt RN/Check Grader
--- NOTE | 2023-02-05 10:20 | PT.IPTN ---
Current Diagnoses Fracture of unspecified part of neck of right femur, initial encounter for closed fracture (02/02/23) Surgery Performed Operation Date: 02/03/23 09:45 Actual Procedures p Intramedullary Nailing Femur(Right) - Heron Kennedy MD Physical Therapy Treatment Note M2 PT-IP Current Condition Start: 02/04/23 12:35 Freq: NEEDED Status: Active Protocol: Document 02/04/23 13:15 [facility] (Rec: 02/04/23 13:41 [facility] [id number]) Physical Therapy Current Condition Current Condition Evaluation Date 02/04/23 Treatment Diagnosis right intertronchanteric femur fracture s/p ORIF and 5th MT fracture Onset Date 02/03/23 M3 PT-IP Subjective Start: 02/04/23 12:35 Freq: NEEDED Status: Active Protocol: Document 02/05/23 10:56 TS (Rec: 02/05/23 11:08 TS [id number]) Subjective Physical Therapy Visit Type Type Treatment Note Visit Start Time 10:20 Visit Stop Time 10:50 Total Visit Minutes 30 Physical Therapy Visit Comments Patient Comments Pt reports feeling good this morning, got up with nursing, would like to try and have a BM. Patient Goals pt would like to return home to [place] but she is not sure if she can manage it on her own yet Therapy Pain Assessment Pain When Pain Assessed At Rest Pain Present Pain Present Pain Reported M4 PT-IP Mobility and Gait Start: 02/04/23 12:35 Freq: NEEDED Status: Active Protocol: Document 02/05/23 10:56 TS (Rec: 02/05/23 11:08 TS [id number]) PT-Transfer Assessment Sit to and From Stand Sit to and from Stand Standby Assistance Equipment Transfer Assistive Device Gait Belt,Front Wheeled Walker Orthotic/Prosthetic Devices or Brace: Yes Transfer Ability Level of Assist Standby Assistance Comments Mobility Comments Pt found resting in chair, agreeable to PT session. Sit to stand x1 SBA with FWW, cues provided for weight forward, emonstrates good use of UEs. Pt ambulated to bathroom ~8' SBA, step to gait. Pt sat on toilet for BM, doffed/donned briefs SBA in FWW. Pt ambulated in hallway ~100' SBA , c/o of some weakness/fatigue but no signs of buckling or LOB. Sit to supine CGA for RLE into bed, pt scooted to HOB SBA. She was left back in bed, call light nearby and all needs met. Gait Assessment Gait Gait Assistance Required: Contact Guard Assist Distance (Feet) 108 Able to Maintain Weight Bearing Status Yes During Gait Assistive Devices Assistive Device Gait Belt,Front Wheeled Walker Orthotic/Prosthetic Devices or Brace: Yes Gait Deviations General Gait Pattern Decreased Stride Length,Step- to Gait Factors Limiting Gait Function Factors Limiting Gait Function Decreased Strength,Pain Comments Gait Comments Pt ambulated ot toilet and hallway ~108' SBA with step to gait. Pt has ortho shoe donned for ambulation due to fracture in L foot. PT-Balance Assessment Sitting Balance and Reactions Static Sitting Balance Ability Good Dynamic Sitting Balance Ability Good Standing Balance and Reactions Static Standing Balance Ability Good Dynamic Standing Balance Ability Good M5 PT-IP Objective Assessments Start: 02/04/23 12:35 Freq: NEEDED Status: Active Protocol: Document 02/04/23 13:15 [facility] (Rec: 02/04/23 13:41 [facility] [id number]) Orientation Orientation/Cognition Level of Alertness Alert Gross Range of Motion Upper Extremity ROM Assessment Within Functional Limits Lower Extremity ROM Assessment Right Impaired Impairments left foot broken 5th MT otherwise WNL Strength Upper Extremity Strength Assessment Within Functional Limits Lower Extremity Strength Assessment Bilaterally Impaired Coordination Assessment Gross Coordination Gross Coordination WNL Sensation Assessment Sensation Gross Sensation WNL Muscle Tone Muscle Tone WNL Yes M6 PT-IP Treatment Start: 02/04/23 12:35 Freq: NEEDED Status: Active Protocol: Document 02/05/23 10:56 TS (Rec: 02/05/23 11:08 [id number]) Physical Therapy Treatment Education Education Provided Weight Bearing Status,Safety M7 PT-IP Assessment and Plan Start: 02/04/23 12:35 Freq: NEEDED Status: Active Protocol: Document 02/05/23 10:56 TS (Rec: 02/05/23 11:08 TS [id number]) PT Summary Assessment and Plan Potential Rehabilitation Potential Excellent Status of Condition at Evaluation Stable Summary Impairments Pain,ROM,Strength,Balance,Bed Mobility,Transfers,Gait, Activity Tolerance Assessment Summary Pt progressed sit to stands to SBA in FWW, demonstrated good carryover from previous sessions. She progressed her ambulation to ~108' SBA, has some weakness/fatigue, required back to bed to rest. PT is recommending SNF to improve activity tolerance, transfers and gait. Pt lives alone in at [facility], will need to be independent before returning home. Goals Bed Mobility Goal Standby Assistance Transfer Goal Contact Guard Assistance Gait Goal Contact Guard Assistance Gait Distance 50 Days to Meet Goals 5 Frequency of Treatment Frequency Of Treatment Twice a Day Treatment Plan Physical Therapy Treatment Plan Bed Mobility Training,Transfer Training,Gait Training, Therapeutic Exercise,Hot or Cold Pack Other Recommendations and Next Treatment focus on progressing distance Focus with gait, transfer training and ther ex next visit Precautions Other Precautions WBAT R LE, pt to wear flat shoe on left to protect the fx Weight Bearing Status Weight Bearing Status Weight Bear as Tolerated Recommendations To Nursing Amount of Assist Needed Standby Assistance Discharge Recommendations PT Discharge Recommendations SNF Rehab Other Discharge Recommendations fww for return to [facility] Equipment Needed for Home Before fww Discharge Transportation Needs at Discharge Wheelchair/Cabulance
--- NOTE | 2023-02-05 12:00 | OT.IP.EVAL ---
Current Diagnoses Fracture of unspecified part of neck of right femur, initial encounter for closed fracture (02/02/23) Surgery Performed Operation Date: 02/03/23 09:45 Actual Procedures p Intramedullary Nailing Femur(Right) - Heron Kennedy MD Past Medical History (Last Reviewed 02/03/23 @ 09:07 by Heron Kennedy MD) Abnormal Pap smear of cervix (~2001) Anxiety (~1977) Cervical cancer Depression (~1977) GERD (gastroesophageal reflux disease) (~1989) Hemorrhoid (~1959) Hernia, perineal High risk for hip fracture History of bladder cancer (~2002) History of cervical cancer (~2002) History of urinary incontinence (~2019) History of uterine cancer (~2002) Human papilloma virus (~2001) Hypertension Measles (~194) Osteopenia Osteopenia Osteopenia with high risk of fracture Recurrent sinusitis (~1964) Surgical History (Last Reviewed 02/02/23 @ 22:23 by Benito Horton MD) Anesthesia History of cholecystectomy (~2001) History of hemorrhoidectomy (~1970) History of radical hysterectomy History of urostomy Occupational Therapy Inpatient Evaluation/Re-Eval M1 PT/OT-IP Prior Functional Status Start: 02/04/23 12:35 Freq: NEEDED Status: Active Protocol: Document 02/05/23 12:17 CGR (Rec: 02/05/23 12:49 CGR [id number]) Medical Review Prior Functional Status Medical History Reviewed Yes Diet/Fluid Consistency Regular Communication Pt is an effective verbal communicator. Mobility and Gait Pt was IND in all mobility at baseline. Activities of Daily Living and IADL's Pt was IND in all ADLs at baseline but states that she has house keeping that comes in once and week and assists with cleaning and changing her sheets. Social History Household Members none Living Arrangements [facility] Facility Home Environment Standard Height Toilet,Walk in Shower Home Equipment Front Wheel Walker Employment Status Retired Additional Social History Comment Pt has an adjustable bed. M2 OT-IP Current Condition Start: 02/05/23 12:16 Freq: Status: Active Protocol: Document 02/05/23 12:17 CGR (Rec: 02/05/23 12:49 CGR [id number]) Occupational Therapy Current Condition Current Condition Evaluation Date 02/05/23 Treatment Diagnosis IM nailing repair of R hip, L %th MT fx. Diagnosis Onset Date 02/05/23 Weight Bearing Status Weight Bearing Status Weight Bear as Tolerated M3 OT- IP Subjective and Pain Start: 02/05/23 12:16 Freq: Status: Active Protocol: Document 02/05/23 12:17 CGR (Rec: 02/05/23 12:49 CGR [id number]) OT- Subjective Occupational Therapy Visit Type Type Initial Evaluation Visit Start Time 11:40 Visit Stop Time 12:00 Total Visit Minutes 20 Notes Attemtped to see pt for OT services x2 prior to seeing pt . OT Pain Assessment Pain When Pain Assessed At Rest Pain Present Pain Present Pain Reported Location Right Hip Intensity 2 Scale Used Numeric (0 - 10) Management Techniques Modification of Treatment,Re- positioning M4 OT- IP ADL's Start: 02/05/23 12:16 Freq: Status: Active Protocol: Document 02/05/23 12:17 CGR (Rec: 02/05/23 12:49 CGR [id number]) OT MTX-Gmiv-Fxqdjel General Evaluation Self-Feeding Ability Independent Comments OT Self-Feeding Comments Pt set up for lunch at end of session. OT ADL-Grooming General Evaluation Grooming Ability Independent Areas Needing Assistance Combing/Brushing Hair,Face Washing Comments OT Grooming Comments standing at sink OT ADL-Oral Care Comments Oral Care Comments not performed, pt declined to perform just before eating lunch. OT ADL-Dressing General Eval Upper Body Dressing Ability Minimal Assistance Comments OT Dressing Comments min a for donning robe over hosptial gown. OT ADL-Toileting Comments OT Toileting Comments not performed, pt has a catheter for urine that is long-term. OT ADL-Bathing Comments OT Bathing Comments not performed M5 OT- IP IADL's Start: 02/05/23 12:16 Freq: Status: Active Protocol: Document 02/05/23 12:17 CGR (Rec: 02/05/23 12:49 CGR [id number]) OT-Instrumental Activities of Daily Living Deficits IADL Deficits Identified No Deficits Home Safety Awareness Awareness of Need for Assistance at Home Good Awareness Ability to Problem Solve Emergency Able to Problem Solve Situations Medication Management Medication Management No Deficits Identified Money Management Money Management No Deficits Identified Meal Preparation Meal Preparation Comments concerns for pt to perform now Formal Waiter/Waitress Formal Waiter/Waitress Caregiver Provides Assist 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 She understands she can't drive till cleared by . M6 OT- IP Functional Cognition Start: 02/05/23 12:16 Freq: Status: Active Protocol: Document 02/05/23 12:17 CGR (Rec: 02/05/23 12:49 CGR [id number]) Cognitive Factors Limiting Selfcare Function Cognitive Ability Level of Alertness Alert Patient Orientation Name,Age,Birthday,Month,Date, Year,Day of Week,Place, Situation Attention Span Ability Capable of Focused Attention, Capable of Sustained Attention Ability to Follow Commands Able to Follow Multi-Step Commands OT- Vision and Hearing OT- Hearing Assessment OT- Hearing Assessment WFL OT- Vision Assessment Visual Acuity Glasses All The Time Visual Attentiveness WFL Occular Pursuits WFL Visual Convergence WFL M7 OT- IP Mobility and Balance Start: 02/05/23 12:16 Freq: Status: Active Protocol: Document 02/05/23 12:17 CGR (Rec: 02/05/23 12:49 CGR [id number]) OT- Bed Mobility Assessment Supine to Sit Supine to Sit Assist Standby Assistance Scooting Scooting to Edge of Bed Standby Assistance OT-Transfer Assessment Sit to and From Stand Sit to and from Stand Contact Guard Assistance Transfers Transfer Ability Minimal Assistance Technique Transfer Destination Bed,Chair Transfer Technique Stand Step Pivot Devices Transfer Assistive Devices Gait Belt,Front Wheeled Walker Comments Mobility Comments One LOB with ambulation to sink. Pt wearing surgical shoe to the LLE. OT- Balance Assessment Sitting Balance and Reactions Static Sitting Balance Ability Normal Dynamic Sitting Balance Ability Good M8 OT- IP Objective Assessments Start: 02/05/23 12:16 Freq: Status: Active Protocol: Document 02/05/23 12:17 CGR (Rec: 02/05/23 12:49 CGR [id number]) OT Gross Range of Motion Upper Extremity Range of Motion Assessment Within Functional Limits OT Strength Upper Extremity Strength Assessment Within Functional Limits Comments Strength Comments grossly 4-/5 OT- Coordination Assessment Upper Extremity Finger to Nose Test Within Functional Limits Finger Tapping Test Within Functional Limits OT-Muscle Tone Assessment Muscle Tone WNL Yes OT Sensation Assessment Edema Edema Absent M9 OT- IP Assessment and Plan Start: 02/05/23 12:16 Freq: Status: Active Protocol: Document 02/05/23 12:17 CGR (Rec: 02/05/23 12:49 CGR [id number]) OT Summary Assessment and Plan Potential Rehabilitation Potential Good Analytic Complexity at Evaluation Moderate Summary OT Impairments Pain,Strength,Balance, Functional Mobility,Grooming, Dressing,Toileting,Bathing, Toilet Transfers,Shower Transfers,Activity Tolerance Progress Towards Goals Progressing Toward Goals Assessment Summary Pt presents as a moderate complexity evaluation s/p admit for fall with R hip fx and L 5th MT fx. Pt underwent 02/03 IM nailing to the R hip and is WBAT. Pt is ambulating with min a in the room with one LOB noted. Pt states increased pain with activity and is agreeable to SNF. Pt will benefit from SNF prior to discharge home. Goals Grooming Goal Independent Dressing Goal Independent Toileting Goal Independent Bathing Goal Independent Toilet Transfer Goal Independent Shower Transfer Goal Independent Frequency of Treatment Frequency Of Treatment Once a Day Treatment Plan OT Treatment Plan ADL Training,Functional Mobility,Patient/Family Education,Discharge Planning Other Treatment Recommendations and Next LB dressing, home safety, Treatment Focus shower Discharge Recommendations OT Discharge Recommendations SNF Rehab Transportation Needs at Discharge Private Vehicle
[2023-02-05 13:18] LABS: Appearance Urine UA CLEAR; Bilirubin Urine UA NEGATIVE (NEGATIVE); Color Urine UA YELLOW; Glucose Urine UA NEGATIVE (Negative); Ketones Urine UA NEGATIVE (NEGATIVE); Leukocyte Esterase Urine UA 1+ (NEGATIVE); Nitrite Urine UA NEGATIVE (Negative); Occult Blood Urine UA NEGATIVE (Negative); Protein Urine UA NEGATIVE (Negative); Urobilinogen Urine UA 0.2 E.U./dL (0.2)
--- NOTE | 2023-02-05 13:32 | PT.IPTN ---
Current Diagnoses Fracture of unspecified part of neck of right femur, initial encounter for closed fracture (02/02/23) Surgery Performed Operation Date: 02/03/23 09:45 Actual Procedures p Intramedullary Nailing Femur(Right) - Heron Kennedy MD Physical Therapy Treatment Note M2 PT-IP Current Condition Start: 02/04/23 12:35 Freq: NEEDED Status: Active Protocol: Document 02/04/23 13:15 AMH (Rec: 02/04/23 13:41 AMH [id number]) Physical Therapy Current Condition Current Condition Evaluation Date 02/04/23 Treatment Diagnosis right intertronchanteric femur fracture s/p ORIF and 5th MT fracture Onset Date 02/03/23 M3 PT-IP Subjective Start: 02/04/23 12:35 Freq: NEEDED Status: Active Protocol: Document 02/05/23 13:50 TS (Rec: 02/05/23 14:00 TS [id number]) Subjective Physical Therapy Visit Type Type Treatment Note Visit Start Time 13:32 Visit Stop Time 13:46 Total Visit Minutes 14 Physical Therapy Visit Comments Patient Comments Pt reports feeling like her pain is improving, daughter present in room. Patient Goals [facility] but she is not sure if she can manage it on her own yet Therapy Pain Assessment Pain When Pain Assessed At Rest Pain Present Pain Present Pain Reported M4 PT-IP Mobility and Gait Start: 02/04/23 12:35 Freq: NEEDED Status: Active Protocol: Document 02/05/23 13:50 TS (Rec: 02/05/23 14:00 TS [id number]) PT-Transfer Assessment Sit to and From Stand Sit to and from Stand Contact Guard Assistance Equipment Transfer Assistive Device Gait Belt,Front Wheeled Walker Orthotic/Prosthetic Devices or Brace: Yes Transfer Ability Level of Assist Standby Assistance Comments Mobility Comments Pt found resting in chair, agreeable to PT session. Pt performed sit to stand x2 no AD SBA, demonstrated good carryover from previous session. Pt ambulated in hallway ~250' w/FWW emerging step thru gait, heavy use of UEs to offload weight, SBA. Sit to supine Zhane for RLE into bed. Pt performed ankle pumps, glute sets and quad sets x5. Pt was left in bed will call light nearby, daughter present in room. Gait Assessment Gait Gait Assistance Required: Contact Guard Assist Distance (Feet) 250 Able to Maintain Weight Bearing Status Yes During Gait Assistive Devices Assistive Device Gait Belt,Front Wheeled Walker Orthotic/Prosthetic Devices or Brace: Yes Gait Deviations General Gait Pattern Decreased Stride Length,Step- to Gait Factors Limiting Gait Function Factors Limiting Gait Function Decreased Strength,Pain Comments Gait Comments See mobility comments. PT-Balance Assessment Sitting Balance and Reactions Static Sitting Balance Ability Normal Dynamic Sitting Balance Ability Good Standing Balance and Reactions Static Standing Balance Ability Normal Dynamic Standing Balance Ability Good M5 PT-IP Objective Assessments Start: 02/04/23 12:35 Freq: NEEDED Status: Active Protocol: Document 02/04/23 13:15 AMH (Rec: 02/04/23 13:41 AMH [id number]) Orientation Orientation/Cognition Level of Alertness Alert Gross Range of Motion Upper Extremity ROM Assessment Within Functional Limits Lower Extremity ROM Assessment Right Impaired Impairments left foot broken 5th MT otherwise WNL Strength Upper Extremity Strength Assessment Within Functional Limits Lower Extremity Strength Assessment Bilaterally Impaired Coordination Assessment Gross Coordination Gross Coordination WNL Sensation Assessment Sensation Gross Sensation WNL Muscle Tone Muscle Tone WNL Yes M6 PT-IP Treatment Start: 02/04/23 12:35 Freq: NEEDED Status: Active Protocol: Document 02/05/23 13:50 TS (Rec: 02/05/23 14:00 TS [id number]) Physical Therapy Treatment Education Education Provided Weight Bearing Status,Safety M7 PT-IP Assessment and Plan Start: 02/04/23 12:35 Freq: NEEDED Status: Active Protocol: Document 02/05/23 13:50 TS (Rec: 02/05/23 14:00 TS [id number]) PT Summary Assessment and Plan Potential Rehabilitation Potential Excellent Status of Condition at Evaluation Stable Summary Impairments Pain,ROM,Strength,Balance,Bed Mobility,Transfers,Gait, Activity Tolerance Assessment Summary Pt continues to progress her ambulation to ~250' in hallway this session, c/o pain in R hip and L foot. She progressed her sit to stands x2 with no AD, slight flexed posture in standing. PT continues to recommend SNF to progress transfers, bed mobiltiy and gait. Pt lives alone in at [facility], will need to be independent before returning home. Goals Bed Mobility Goal Standby Assistance Transfer Goal Contact Guard Assistance Gait Goal Contact Guard Assistance Gait Distance 50 Days to Meet Goals 5 Frequency of Treatment Frequency Of Treatment Twice a Day Treatment Plan Physical Therapy Treatment Plan Bed Mobility Training,Transfer Training,Gait Training, Therapeutic Exercise,Hot or Cold Pack Other Recommendations and Next Treatment focus on progressing distance Focus with gait, transfer training and ther ex next visit Precautions Other Precautions WBAT R LE, pt to wear flat shoe on left to protect the fx Weight Bearing Status Weight Bearing Status Weight Bear as Tolerated Recommendations To Nursing Amount of Assist Needed Standby Assistance Discharge Recommendations PT Discharge Recommendations SNF Rehab Other Discharge Recommendations fww for return to [facility] Equipment Needed for Home Before fww Discharge Transportation Needs at Discharge Wheelchair/Cabulance
[2023-02-05 13:45] LABS: Bacteria Urine Few (2-10); RBC Urine 0-1/HPF (0-5/HPF); Squamous Epithelial Cell Urine 1-5 /HPF (0-5/HPF); WBC Urine 10-30/HPF (0-5/HPF)
[2023-02-05 13:46] LABS: Culture Indicated Urine Specimen Cultured
--- NOTE | 2023-02-05 14:34 | PM.PNPO.1 ---
Subjective Subjective Date Patient Seen: 02/05/23 Time Patient Seen: 14:34 Interval history: States mild hip pain. No fever or chills. Exam Vital Signs (past 8 hours): - 02/05/23 07:35 02/05/23 08:45 Temperature 98.8 F Pulse Rate 95 H Respiratory Rate 18 Blood Pressure 130/93 H Pulse Oximetry 97 96 Oxygen Delivery Method Nasal Cannula Oxygen Flow Rate 1 0 Oxygen Delivery Method Nasal Cannula Oxygen Flow Rate 0 Narrative Exam Narrative: 87-year-old female resting bed in no apparent distress. Dressing is clean, dry and intact. Neurovascular status is intact bilateral lower extremities. Const General: cooperative and comfortable Objective Labs 02/05/23 07:52 02/05/23 07:52 Labs: Laboratory Results - last 24 hr 02/05/23 02/05/23 02/05/23 07:45 07:52 07:52 WBC 4.9 RBC 3.33 L Hgb 10.7 L Hct 30.6 L MCV 92.0 MCH 32.0 MCHC 34.8 RDW 13.0 Plt Count 108 L Neut % (Auto) 77.7 H Lymph % (Auto) 13.5 L [place] % (Auto) 6.5 Eos % (Auto) 1.8 L Baso % (Auto) 0.5 Neut # (Auto) 3800 Lymph # (Auto) 700 L [place] # (Auto) 300 Eos # (Auto) 100 Baso # (Auto) 0 Sodium 132 L Potassium 3.9 Chloride 98 Carbon Dioxide 28 BUN 12 Creatinine 0.77 Estimated GFR > 60 BUN/Creatinine Ratio 15.6 Glucose 108 Calcium 8.7 Total Bilirubin 1.7 H AST 37 H ALT 40 H Alkaline Phosphatase 57 Total Protein 6.0 L Albumin 3.2 L Globulin 2.8 Albumin/Globulin Ratio 1.1 Urine Color Yellow Urine Appearance Clear Urine pH 6.0 Ur Specific [place] 1.010 Urine Protein Negative Urine Glucose (UA) Negative Urine Ketones Negative Urine Occult Blood Negative Urine Nitrate Negative Urine Bilirubin Negative Urine Urobilinogen 0.2 Ur Leukocyte Esterase 1+ H Urine RBC 0-1/hpf Urine WBC 10-30/hpf H Ur Squamous Epith Cells 1-5 /hpf Urine Bacteria Few (2-10) H Urine Yeast 10-30/hpf H Ur Culture Indicated? Specimen cultured [facility] Medical History Abnormal Pap smear of cervix (~2001) Anxiety (~1977) Cervical cancer Depression (~1977) GERD (gastroesophageal reflux disease) (~1989) Hemorrhoid (~1959) Hernia, perineal High risk for hip fracture History of bladder cancer (~2002) History of cervical cancer (~2002) History of urinary incontinence (~2019) History of uterine cancer (~2002) Human papilloma virus (~2001) Hypertension Measles (~194) Osteopenia Osteopenia Osteopenia with high risk of fracture Recurrent sinusitis (~1964) Surgical History Anesthesia History of cholecystectomy (~2001) History of hemorrhoidectomy (~1970) History of radical hysterectomy History of urostomy Family History Father Cancer Mother Hypertension Mental health problem Grandfather Diabetes mellitus Grandmother Diabetes mellitus Grandmother Diabetes mellitus Social History household members: none Smoking Status: Former smoker alcohol intake: current Assessment & Plan Post-op Postoperative Procedures: Procedures Operation Date: 02/03/23 09:45 Actual Procedure Side Surgeon p Intramedullary Nailing Femur Right Heron Kennedy MD Postoperative day: 2 Postoperative status: doing well Postoperative plan: routine post-op care Postoperative plan narrative: Weight-bearing as tolerated right lower extremity Follow-up in 2 weeks Discharge per hospitalist when stable Quality VTE Deep Vein Thrombosis/Pulmonary Embolism Present on Admission: No
[2023-02-05 20:27] LABS: MRSA (Nasal) PCR Not Detected (Not Detect)
[2023-02-06] MEDS: OXYCODONE IR 5 MG TABLET PO ×4 (01:29→12:50)
[2023-02-06] MEDS: PANTOPRAZOLE DR 20 MG TABLET PO (05:57)
[2023-02-06] MEDS: cefTRIAXone 2,000 MG in SODIUM CHLORIDE 0.9% 100 ML 200 MG IV (06:29)
[2023-02-06 06:30] LABS: Add Manual Diff / Slide Review NO; Basophils Absolute Auto 0 /uL (0-100); Basophils Percent Auto 0.6 % (0-2); Eosinophils Absolute Auto 100 /uL (0-450); Eosinophils Percent Auto 2.5 % (2-4); Hematocrit 29.5 % (36-46); Hemoglobin 10.1 g/dL (12.0-16.0); Lymphocytes Absolute Auto 900 /uL (1100-4500); Lymphocytes Percent Auto 20.4 % (25-40); Mean Corpuscular HGB Conc 34.2 % (30-36); Mean Corpuscular Hemoglobin 31.8 PG (26-34); Mean Corpuscular Volume 93.2 fL (80-100); Monocytes Absolute Auto 300 /uL (0-900); Monocytes Percent Auto 7.7 % (3-14); Neutrophils Absolute Auto 3100 /uL (1500-7000); Neutrophils Percent Auto 68.8 % (50-75); Platelet Count 118 X10^3/uL (150-400); Red Blood Cell Count 3.16 X10^6/uL (4.0-5.2); Red Cell Distribution Width 12.9 % (11.6-14.8); White Blood Cell Count 4.5 X10^3/uL (4.5-11.0)
[2023-02-06 06:37] LABS: BUN Creatinine Ratio 14.1 (6-22); Blood Urea Nitrogen 9 mg/dL (7-17); Calcium 8.6 mg/dL (8.4-10.2); Carbon Dioxide 29 mmol/L (22-32); Chloride 99 mmol/L (98-107); Estimated Glomerular Filt Rate > 60 mL/min (>60); Glucose 102 mg/dL (80-110); HEMOLYSIS < 15 (0-50); Potassium 3.6 mmol/L (3.4-5.1); Sodium 133 mmol/L (137-145)
[2023-02-06 07:00] VITALS: O2SAT 95
[2023-02-06 08:00] VITALS: BP 129/65; PULSE 91; RESP 17; TEMP 37.1; O2SAT 96
--- NOTE | 2023-02-06 08:30 | PT.IPTN ---
Current Diagnoses Fracture of unspecified part of neck of right femur, initial encounter for closed fracture (02/02/23) Surgery Performed Operation Date: 02/03/23 09:45 Actual Procedures p Intramedullary Nailing Femur(Right) - Heron Kennedy MD Physical Therapy Treatment Note M2 PT-IP Current Condition Start: 02/04/23 12:35 Freq: NEEDED Status: Active Protocol: Document 02/04/23 13:15 AMH (Rec: 02/04/23 13:41 AMH [id number]) Physical Therapy Current Condition Current Condition Evaluation Date 02/04/23 Treatment Diagnosis right intertronchanteric femur fracture s/p ORIF and 5th MT fracture Onset Date 02/03/23 M3 PT-IP Subjective Start: 02/04/23 12:35 Freq: NEEDED Status: Active Protocol: Document 02/06/23 09:00 TS (Rec: 02/06/23 09:26 TS [id number]) Subjective Physical Therapy Visit Type Type Treatment Note Visit Start Time 08:30 Visit Stop Time 08:56 Total Visit Minutes 26 Physical Therapy Visit Comments Patient Comments Pt reporting increase soreness in L foot this morning, having some tightness in R hip . Patient Goals [facility] but she is not sure if she can manage it on her own yet Therapy Pain Assessment Pain When Pain Assessed At Rest Pain Present Pain Present Pain Reported M4 PT-IP Mobility and Gait Start: 02/04/23 12:35 Freq: NEEDED Status: Active Protocol: Document 02/06/23 09:00 TS (Rec: 02/06/23 09:26 TS [id number]) PT-Bed Mobility Assessment Supine to Sit Supine to Sit Standby Assistance Scooting Scooting to Edge of Bed Standby Assistance PT-Transfer Assessment Sit to and From Stand Sit to and from Stand Standby Assistance Equipment Transfer Assistive Device Gait Belt,Front Wheeled Walker Orthotic/Prosthetic Devices or Brace: Yes Comments Mobility Comments Pt found resting in bed, agreeable to PT session. Supine to sit SBA with HOB elevated, BUE support for scooting to EOB. Sit to stand x1 SBA, UE support on FWW. Pt ambulated ~8 to toilet, donned /doffed briefs with no AD support. Sit to stand from toilet SBA LUE handrail assist . Pt ambulated in hallway ~200 ' SBA w/FWW emerging step thru gait, x1 LOB with pivoting on RLE. Stand to sit SBA, provided cues for BUE support on arms of chair for slow eccentric control. Pt was left in chair with call light nearby, RN notified. Gait Assessment Gait Gait Assistance Required: Standby Assistance Distance (Feet) 200 Able to Maintain Weight Bearing Status Yes During Gait Assistive Devices Assistive Device Gait Belt,Front Wheeled Walker Orthotic/Prosthetic Devices or Brace: Yes Gait Deviations General Gait Pattern Decreased Stride Length,Step- to Gait Factors Limiting Gait Function Factors Limiting Gait Function Decreased Strength,Pain Comments Gait Comments See mobility comments. PT-Balance Assessment Sitting Balance and Reactions Static Sitting Balance Ability Normal Dynamic Sitting Balance Ability Good Standing Balance and Reactions Static Standing Balance Ability Normal Dynamic Standing Balance Ability Good M5 PT-IP Objective Assessments Start: 02/04/23 12:35 Freq: NEEDED Status: Active Protocol: Document 02/04/23 13:15 AMH (Rec: 02/04/23 13:41 AMH [id number]) Orientation Orientation/Cognition Level of Alertness Alert Gross Range of Motion Upper Extremity ROM Assessment Within Functional Limits Lower Extremity ROM Assessment Right Impaired Impairments left foot broken 5th MT otherwise WNL Strength Upper Extremity Strength Assessment Within Functional Limits Lower Extremity Strength Assessment Bilaterally Impaired Coordination Assessment Gross Coordination Gross Coordination WNL Sensation Assessment Sensation Gross Sensation WNL Muscle Tone Muscle Tone WNL Yes M6 PT-IP Treatment Start: 02/04/23 12:35 Freq: NEEDED Status: Active Protocol: Document 02/06/23 09:00 TS (Rec: 02/06/23 09:26 TS [id number]) Physical Therapy Treatment Education Education Provided Weight Bearing Status,Safety Other Treatments Other Treatment Performed Edcuated pt on continuing bed exercises. M7 PT-IP Assessment and Plan Start: 02/04/23 12:35 Freq: NEEDED Status: Active Protocol: Document 02/06/23 09:00 TS (Rec: 02/06/23 09:26 TS [id number]) PT Summary Assessment and Plan Potential Rehabilitation Potential Excellent Status of Condition at Evaluation Stable Summary Impairments Pain,ROM,Strength,Balance,Bed Mobility,Transfers,Gait, Activity Tolerance Assessment Summary Pt continues to be SBA for all mobility. She has some increasing pain in her L foot and tightness in her R hip increasing her antalgic gait this session. She continues to ambulate ~200' before requiring a rest break due to fatigue/pain. During ambulation x1 LOB while pivoting on RLE in FWW, maintained her balance in FWW. PT continues to recommend SNF rehab to progress gait activity tolerance and improve transfers. Pt will need to be independent to return back to [facility]. Goals Bed Mobility Goal Standby Assistance Transfer Goal Contact Guard Assistance Gait Goal Contact Guard Assistance Gait Distance 50 Days to Meet Goals 5 Frequency of Treatment Frequency Of Treatment Twice a Day Treatment Plan Physical Therapy Treatment Plan Bed Mobility Training,Transfer Training,Gait Training, Therapeutic Exercise,Hot or Cold Pack Other Recommendations and Next Treatment focus on progressing distance Focus with gait, transfer training and ther ex next visit Precautions Other Precautions WBAT R LE, pt to wear flat shoe on left to protect the fx Weight Bearing Status Weight Bearing Status Weight Bear as Tolerated Recommendations To Nursing Amount of Assist Needed Standby Assistance Discharge Recommendations PT Discharge Recommendations SNF Rehab Other Discharge Recommendations fww for return to [facility] Equipment Needed for Home Before fww Discharge Transportation Needs at Discharge Wheelchair/Cabulance
[2023-02-06] MEDS: SIMETHICONE 80 MG TABLET PO (09:01)
[2023-02-06] MEDS: ASPIRIN EC 81 MG TABLET PO (09:01)
[2023-02-06] MEDS: CHOLECALCIFEROL (VITAMIN D3) 1,000 UNIT TABLET 2000 UNIT PO (09:02)
[2023-02-06 09:04] VITALS: BP 137/65; PULSE 94
[2023-02-06] MEDS: PSYLLIUM HUSK 1 PACKET PO (09:04)
[2023-02-06] MEDS: LOSARTAN 50 MG TABLET 100 MG PO (09:04)
[2023-02-06] MEDS: FLUTICASONE PROPIONATE 50 MCG 2 EACH NASAL (09:06)
--- NOTE | 2023-02-06 10:12 | P.DS_ITS ---
History of Present Illness History of Present Illness Date Patient Seen: 02/06/23 Time Patient Seen: 10:13 Chief complaint: GLF Narrative: Per admitting provider, Ms. 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 She was walking around and felt she twisted her ankle and fell on her right side. She hit her right hip and had significnt pain. She was unable to walk after this. She had no head strike or loss of consciousness. She notes when I am talking to her she also has left lateral foot pain which she states she did not initially notice at first and has not mentioned to the ED staff. In the ED workup was done, vitals notable for afebrile, heart rate in 90s, blood pressure 140s/90s, sats 96% on room air. Labs reviewed by me and notable for WBC 9.0, hgb 12.2, plts 154. Na 135, creatinine 0.65. Imaging reviewed by me and knee xray on right shows osteoarthritis, but no acute process. Hip xray negative for acute process. CT pelvis confirms right nondisplaced intratrochanteric right hip fracture. She was given pain medications and admitted for further treatment. Discharge Providers Provider Date of admission: 02/02/23 22:06 Discharge Date: 02/06/23 Primary care physician: ROBINSON Murcia Consults: 02/02/23 22:37 Consult to Orthopedic Surgery Routine Comment: Consulting Provider: Heron Kennedy Reason for consultation: hip fracture Has provider been notified: Yes 02/03/23 13:01 Consult to Occupational Therapy Evaluate & Treat Comment: Physician Instructions: Evaluate and treat Consult to Physical Therapy Evaluate & Treat Comment: Physician Instructions: Evaluate and Treat Discharge provider: Jaime Palacios DO Summary Hospital Course Discharge Diagnosis: 1. Acute right hip fracture and left 5th MT fracture, secondary to mechanical fall 2. Hypertension 3. History of uterine and bladder cancer s/p urostomy 4. UTI, complicated by patient's urostomy. Hospital Course: Ms. 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 She was found to have a right hip fracture and a left 5th metatarsal fx as well. Patient was recommended for a post op shoe on her left foot for the foot fracture, but took her to the OR for repair of the R hip fracture. Her course was complicated by a fever, found to have a probable UTI which is complicated given her urostomy. Cultures are currently growing gram positive cocci. Based on previous cultures of staph epidermidis, she was discharged on doxycycline for continued therapies after surgical interventions. Time Spent with Patient Time spent: Greater than 30 minutes Exam Vital Signs (past 8 hours): - 02/06/23 09:04 02/06/23 08:00 Temperature 98.7 F Pulse Rate 94 H 91 H Respiratory Rate 17 Blood Pressure 137/65 129/65 Pulse Oximetry 96 Oxygen Flow Rate 0 Oxygen Delivery Method Room Air Oxygen Flow Rate 0 Narrative Exam Narrative: GEN: NAD HEENT: moist mucous membranes, PERRL NECK: trachea midline, no JVD CV: regular rate and rhythm, no murmurs PULM: clear bilaterally, no wheezes, rhonchi, rales ABD: soft, nontender, nondistended, no organomegaly, normal bowel sounds EXT: warm and well perfused, right hip with postop dressing in place NEURO: somnolent, oriented, no focal deficits Objective Labs 02/06/23 05:47 02/06/23 05:47 Labs: Laboratory Results - last 24 hr 02/05/23 02/05/23 02/06/23 07:45 18:30 05:47 WBC 4.5 RBC 3.16 L Hgb 10.1 L Hct 29.5 L MCV 93.2 MCH 31.8 MCHC 34.2 RDW 12.9 Plt Count 118 L Neut % (Auto) 68.8 Lymph % (Auto) 20.4 L [place] % (Auto) 7.7 Eos % (Auto) 2.5 Baso % (Auto) 0.6 Neut # (Auto) 3100 Lymph # (Auto) 900 L [place] # (Auto) 300 Eos # (Auto) 100 Baso # (Auto) 0 Sodium Potassium Chloride Carbon Dioxide BUN Creatinine Estimated GFR BUN/Creatinine Ratio Glucose Calcium Urine Color Yellow Urine Appearance Clear Urine pH 6.0 Ur Specific [place] 1.010 Urine Protein Negative Urine Glucose (UA) Negative Urine Ketones Negative Urine Occult Blood Negative Urine Nitrate Negative Urine Bilirubin Negative Urine Urobilinogen 0.2 Ur Leukocyte Esterase 1+ H Urine RBC 0-1/hpf Urine WBC 10-30/hpf H Ur Squamous Epith Cells 1-5 /hpf Urine Bacteria Few (2-10) H Urine Yeast 10-30/hpf H Ur Culture Indicated? Specimen cultured Nasal Screen MRSA (PCR) Not detected 02/06/23 05:47 WBC RBC Hgb Hct MCV MCH MCHC RDW Plt Count Neut % (Auto) Lymph % (Auto) [place] % (Auto) Eos % (Auto) Baso % (Auto) Neut # (Auto) Lymph # (Auto) [place] # (Auto) Eos # (Auto) Baso # (Auto) Sodium 133 L Potassium 3.6 Chloride 99 Carbon Dioxide 29 BUN 9 Creatinine 0.64 Estimated GFR > 60 BUN/Creatinine Ratio 14.1 Glucose 102 Calcium 8.6 Urine Color Urine Appearance Urine pH Ur Specific [place] Urine Protein Urine Glucose (UA) Urine Ketones Urine Occult Blood Urine Nitrate Urine Bilirubin Urine Urobilinogen Ur Leukocyte Esterase Urine RBC Urine WBC Ur Squamous Epith Cells Urine Bacteria Urine Yeast Ur Culture Indicated? Nasal Screen MRSA (PCR) [facility] Medical History Abnormal Pap smear of cervix (~2001) Anxiety (~1977) Cervical cancer Depression (~1977) GERD (gastroesophageal reflux disease) (~1989) Hemorrhoid (~1959) Hernia, perineal High risk for hip fracture History of bladder cancer (~2002) History of cervical cancer (~2002) History of urinary incontinence (~2019) History of uterine cancer (~2002) Human papilloma virus (~2001) Hypertension Measles (~1945) Osteopenia Osteopenia Osteopenia with high risk of fracture Recurrent sinusitis (~1964) Surgical History Anesthesia History of cholecystectomy (~2001) History of hemorrhoidectomy (~1970) History of radical hysterectomy History of urostomy Family History Father Cancer Mother Hypertension Mental health problem Grandfather Diabetes mellitus Grandmother Diabetes mellitus Grandmother Diabetes mellitus Social History household members: none Smoking Status: Former smoker alcohol intake: current Discharge Plan Discharge Plan Patient Disposition: SNF [facility] Discharge Comment: 87 F admitted with a hip fracture. S/p repair with orthopedics, transfer to SNF for ongoing therapies. Course complicated by UTI, cultures with gram positive cocci, has history of staph epidermidis will discharge based on prior cultures. Discharge orders & Medications Prescriptions: New sennosides [senna] 8.6 mg Tablet 8.6 mg PO BID PRN (Reason: Constipation) 30 Days Qty: 30 0RF acetaminophen 325 mg Tablet 650 mg PO Q6H PRN (Reason: Fever/Mild Pain (1-3)) Qty: 60 0RF polyethylene glycol 3350 17 gram Powder In Packet 17 gm PO DAILY PRN (Reason: Constipation) 30 Days Qty: 30 0RF aspirin 81 mg Tablet,Delayed Release (Dr/Ec) 81 mg PO BID 42 Days Qty: 84 0RF doxycycline hyclate 100 mg Tablet 100 mg PO BID 5 Days Qty: 10 0RF oxycodone 10 mg Tablet 5 - 10 mg PO Q4HR PRN (Reason: Pain, Severe (7-10)) 7 Days Qty: 25 0RF triamcinolone acetonide [Nasacort] 55 mcg aerosol,spray 1 spray intranasal DAILY 30 Days Qty: 16.9 0RF Rx Instructions: administer into each nostril Continued psyllium [Metamucil] 1 tbsp PO QAM losartan 100 mg tablet 100 mg PO DAILY Qty: 90 3RF omeprazole 20 mg capsule,delayed release(DR/EC) 20 mg PO DAILY Qty: 90 3RF loperamide [Imodium A-D] 2 mg tablet 2 mg PO Q6H PRN (Reason: Loose Stool) Align 4 mg capsule 4 mg PO DAILY vitamin B complex 1 tab PO QAM cholecalciferol (vitamin D3) 50 mcg PO QAM simethicone [Gas-X Extra Strength] 125 mg capsule 125 mg PO QD-BID PRN (Reason: gas) fluticasone propionate 50 mcg/actuation [place],Suspension 2 spray INTRANASAL DAILY Rx Instructions: 2 sprays each nare [id number] 333-133-5 mg tablet See Rx Instructions .ROUTE .COMPLEX Patient Comments: qd Rx Instructions: take one tablet by mouth daily Follow up/Referrals: Heron Kennedy MD [Physician] - 2 Weeks (Please call for a 10-14 days for postoperative visit and x-rays) Blue Gan ARNP [Primary Care Provider] - Diet/Activity/Treatments Other treatments: -Aspirin 81mg twice daily x4 weeks to prevent blood clots. Dressing/Wound care: -Keep tegaderm dressing in place until postoperative follow-up office visit. -Okay to shower. Keep wound out of direct water stream. No soaking or submerging until all the scabs fall off (approximately 6 weeks). -No lotions, ointments, or scar creams directly to the incision until the wound is healed (4-6 weeks), -Please call the office if dressing becomes wet, soiled, or saturated. Activities: -Walk frequently: approximately 5-10 minutes every hour. -Weight-bearing as tolerated on right lower extremity. Use front wheeled walker, and progress to cane when safe. -Continue with home exercises as directed by your physical therapist. -Elevate ?toes above the nose if you have significant swelling in your lower leg. (A wedge pillow is easiest.) -Ice your incision as needed for pain/inflammation/swelling. Protect your skin with a folded pillowcase. Follow-up: -Follow-up with your surgeon or PA in the office in 10-14 days after surgery. -Follow-up with your surgeon 6 weeks postoperatively. Call the office if you have chest pain, shortness of breath, significant swelling that will not resolve with elevating, fever over 101?, significantly worsening pain, or are concerned you might need to go to the Emergency Room. [facility]: [phone] Skin/Wound/Dressing Care Report to your healthcare provider any signs of infection, such as:: chills, fever, night sweats, unusual drainage and unusual redness Visit Report/Discharge Packet Instructions: DI for Minimally Invasive Hip Replacement, DI for Urinary Tract Infection (UTI) Stand Alone Forms: Patient Portal/API, Surgery Discharge Discharge Data Primary Care Provider: Blue Gan Discharges patient from system. Discharge Date/Time: 02/06/23 13:05 Quality VTE Deep Vein Thrombosis/Pulmonary Embolism Present on Admission: No
[2023-02-06] MEDS: ACETAMINOPHEN 325 MG TABLET 650 MG PO (11:02)
[2023-02-06] MEDS: OXYCODONE IR 10 MG TABLET PO (11:02)
[2023-02-06 11:03] LABS: COVID19 -Nasal RAPID Negative (Negative)
--- NOTE | 2023-02-06 11:33 | PM.PNPO.1 ---
Subjective Subjective Date Patient Seen: 02/06/23 Time Patient Seen: 11:33 Interval history: Patient states she is doing well, her pain is well managed. Her daughter is at bedside. She is planning on being discharged to [facility] [place] this afternoon. She is been able to put some weight on her leg. Denies any numbness or tingling. Exam Vital Signs (past 8 hours): - 02/06/23 09:04 02/06/23 08:00 02/06/23 07:00 Temperature 98.7 F Pulse Rate 94 H 91 H Respiratory Rate 17 Blood Pressure 137/65 129/65 Pulse Oximetry 96 95 Oxygen Delivery Method Room Air Oxygen Flow Rate 0 0 Oxygen Delivery Method Room Air Oxygen Flow Rate 0 Narrative Exam Narrative: Pleasant 87-year-old female, resting comfortably in her chair, no acute distress. Her daughter is at bedside. Right hip dressing is clean, dry, intact. Bilateral lower extremity: Motor functions are grossly intact, sensation is grossly intact to light touch, calves are soft and nontender to palpation. Objective Labs 02/06/23 05:47 02/06/23 05:47 Labs: Laboratory Results - last 24 hr 02/05/23 02/05/23 02/06/23 07:45 18:30 05:47 WBC 4.5 RBC 3.16 L Hgb 10.1 L Hct 29.5 L MCV 93.2 MCH 31.8 MCHC 34.2 RDW 12.9 Plt Count 118 L Neut % (Auto) 68.8 Lymph % (Auto) 20.4 L [place] % (Auto) 7.7 Eos % (Auto) 2.5 Baso % (Auto) 0.6 Neut # (Auto) 3100 Lymph # (Auto) 900 L [place] # (Auto) 300 Eos # (Auto) 100 Baso # (Auto) 0 Sodium Potassium Chloride Carbon Dioxide BUN Creatinine Estimated GFR BUN/Creatinine Ratio Glucose Calcium Urine Color Yellow Urine Appearance Clear Urine pH 6.0 Ur Specific [place] 1.010 Urine Protein Negative Urine Glucose (UA) Negative Urine Ketones Negative Urine Occult Blood Negative Urine Nitrate Negative Urine Bilirubin Negative Urine Urobilinogen 0.2 Ur Leukocyte Esterase 1+ H Urine RBC 0-1/hpf Urine WBC 10-30/hpf H Ur Squamous Epith Cells 1-5 /hpf Urine Bacteria Few (2-10) H Urine Yeast 10-30/hpf H Ur Culture Indicated? Specimen cultured Nasal Screen MRSA (PCR) Not detected SARS-CoV-2 (PCR) 02/06/23 02/06/23 05:47 10:43 WBC RBC Hgb Hct MCV MCH MCHC RDW Plt Count Neut % (Auto) Lymph % (Auto) [place] % (Auto) Eos % (Auto) Baso % (Auto) Neut # (Auto) Lymph # (Auto) [place] # (Auto) Eos # (Auto) Baso # (Auto) Sodium 133 L Potassium 3.6 Chloride 99 Carbon Dioxide 29 BUN 9 Creatinine 0.64 Estimated GFR > 60 BUN/Creatinine Ratio 14.1 Glucose 102 Calcium 8.6 Urine Color Urine Appearance Urine pH Ur Specific [place] Urine Protein Urine Glucose (UA) Urine Ketones Urine Occult Blood Urine Nitrate Urine Bilirubin Urine Urobilinogen Ur Leukocyte Esterase Urine RBC Urine WBC Ur Squamous Epith Cells Urine Bacteria Urine Yeast Ur Culture Indicated? Nasal Screen MRSA (PCR) SARS-CoV-2 (PCR) Negative PFSH Medical History Abnormal Pap smear of cervix (~2001) Anxiety (~1977) Cervical cancer Depression (~1977) GERD (gastroesophageal reflux disease) (~1989) Hemorrhoid (~1959) Hernia, perineal High risk for hip fracture History of bladder cancer (~2002) History of cervical cancer (~2002) History of urinary incontinence (~2019) History of uterine cancer (~2002) Human papilloma virus (~2001) Hypertension Measles (~1944) Osteopenia Osteopenia Osteopenia with high risk of fracture Recurrent sinusitis (~1964) Surgical History Anesthesia History of cholecystectomy (~2001) History of hemorrhoidectomy (~1970) History of radical hysterectomy History of urostomy Family History Father Cancer Mother Hypertension Mental health problem Grandfather Diabetes mellitus Grandmother Diabetes mellitus Grandmother Diabetes mellitus Social History household members: none Smoking Status: Former smoker alcohol intake: current Assessment & Plan Post-op Postoperative Procedures: Procedures Operation Date: 02/03/23 09:45 Actual Procedure Side Surgeon p Intramedullary Nailing Femur Right Heron Kennedy MD Postoperative day: 3 Postoperative status: doing well Postoperative status narrative: Stable status post right femur IM nailing Postoperative plan narrative: -mobilize with PT. Weight-bearing as tolerated right lower extremity with front wheel walker -continue with multimodal pain management -DVT prophylaxis: Aspirin 81 mg b.i.d. x4 weeks for DVT prophylaxis -follow-up with ortho in 2 weeks for wound check -discharge per hospitalist when stable Quality VTE Deep Vein Thrombosis/Pulmonary Embolism Present on Admission: No
[2023-02-06 12:23] VITALS: BP 133/73; PULSE 92; RESP 16; TEMP 37.3; O2SAT 93
--- NOTE | 2023-02-06 12:31 | CM.DPNOTE ---
DC Note Discharge to [facility] today. Spoke w/patient and her daughter this morning who are both agreeable to plan and state appreciation NIALL Crenshaw, kindly coordinated this DCP to include transport arranged for 1300, COVID PCR updated, PASRR completed and signed by this [employer] which was faxed alongside all DC ppk from Dr Palacios Plan: DC to [facility] via w/c marjorie MENDOZA
--- NOTE | 2023-02-06 12:58 | PC.NURSE ---
Gave nurse to nurse report to [employer] security manager at 1147 at [facility]. Pt has a cell phone, clothing, post op shoe for left foot, glasses, urostomy bags, and pt's glasses, and pt's generic flonase. Pt's last BM was today. Physical prescriptions were sent with pt in the discharge packet which was handed to transportation program director from [facility]. Pt is A&Ox4, afebrile, uses FWW to ambulate. Pt was wheeled out of the hospital with [facility] staff in a WC. Pt and pt's daughter verbalized understanding of D/C instructions, when to follow up with ortho for post op care, physical activity, and what s/s to watch for infection and how to care for the surgical site.
== END 2023-02-06 13:05 | DRG 481 ==
LOC: ED 22:06 → AC 22:07
PROVIDERS: Internal Medicine; Orthopaedic Surgery; Student in an Organized Health Care Education/Training Program; Admitting Provider Internal Medicine; Emergency Provider Emergency Medicine; PCP Registered Nurse Diabetes Educator; Referring Provider Emergency Medicine; Visit Provider Internal Medicine
PROC: 0QH606Z Insertion of Intramedullary Internal Fixation Device into Right Upper Femur, Open Approach (ICD-10-PCS; CPT 27245; principal; 2023-02-03 09:45)
DX: S72.144A Nondisplaced intertrochanteric fracture of right femur, initial encounter for closed fracture (principal); N39.0 Urinary tract infection, site not specified; I10 Essential (primary) hypertension; S92.352A Displaced fracture of fifth metatarsal bone, left foot, initial encounter for closed fracture; K21.9 Gastro-esophageal reflux disease without esophagitis; W18.30XA Fall on same level, unspecified, initial encounter; Z87.891 Personal history of nicotine dependence; Z20.822 Contact with and (suspected) exposure to COVID-19; Z93.6 Other artificial openings of urinary tract status
CPT/HCPCS: 36415; 71045; 72192; 73502; 73552; 73562; 73630; 76000; 80048; 80053; 81001; 85025; 85610; 85730; 87040; 87077; 87086; 87186; 87635; 87797; 97116; 97161; 97166; 97530; 97535; 99284; C9803; J0171; J0690; J0696; J1170; J2270; J2310; J2405; J2704; J3010

== ENCOUNTER → 2023-02-21 13:57 | Outpatient (CLI) | payer MEDICARE, OTHER, SELFPAY ==
[2023-02-02 23:01] VITALS: BMI 19.8
== END ==
PROVIDERS: PCP Registered Nurse Diabetes Educator; Referring Provider Registered Nurse Diabetes Educator; Visit Provider Surgery
DX: Z93.8 Other artificial opening status (principal)
CPT/HCPCS: 99212

== ENCOUNTER → 2023-02-28 10:06 | Outpatient (CLI) | payer MEDICARE, OTHER, SELFPAY ==
[2023-02-02 23:01] VITALS: BMI 19.8
== END ==
PROVIDERS: PCP Registered Nurse Diabetes Educator; Referring Provider Registered Nurse Diabetes Educator; Visit Provider Surgery
DX: N99.528 Other complication of incontinent external stoma of urinary tract (principal)
CPT/HCPCS: 99212; 99213

== ENCOUNTER → 2023-03-02 11:14 | Outpatient (CLI) | payer MEDICARE, OTHER, SELFPAY ==
[2023-02-02 23:01] VITALS: BMI 19.8
[2023-03-02 13:16] LABS: BUN Creatinine Ratio 15.7 (6-22); Blood Urea Nitrogen 14 mg/dL (7-17); Calcium 9.4 mg/dL (8.4-10.2); Carbon Dioxide 27 mmol/L (22-32); Chloride 102 mmol/L (98-107); Estimated Glomerular Filt Rate > 60 mL/min (>60); Glucose 122 mg/dL (80-110); HEMOLYSIS < 15 (0-50); Magnesium 1.5 mg/dL (1.6-2.3); Phosphorous 3.9 mg/dL (2.8-4.1); Sodium 139 mmol/L (137-145)
[2023-03-02 14:51] LABS: Vitamin D 25 Hydroxy (D3) 48.6 ng/mL (30.0-100.0)
== END ==
PROVIDERS: PCP Registered Nurse Diabetes Educator; Referring Provider Registered Nurse Diabetes Educator; Visit Provider Registered Nurse Diabetes Educator
DX: Z91.89 Other specified personal risk factors, not elsewhere classified (principal); M85.80 Other specified disorders of bone density and structure, unspecified site; Z87.81 Personal history of (healed) traumatic fracture
CPT/HCPCS: 36415; 80048; 82306; 83735; 84100

== ENCOUNTER → 2023-03-14 10:47 | Outpatient (CLI) | payer MEDICARE, OTHER, SELFPAY ==
[2023-02-02 23:01] VITALS: BMI 19.8
== END ==
PROVIDERS: PCP Registered Nurse Diabetes Educator; Referring Provider Registered Nurse Diabetes Educator; Visit Provider Surgery
DX: Z93.59 Other cystostomy status (principal)
CPT/HCPCS: 99213

== ENCOUNTER 2023-03-17 02:38 | Observation (INO) | payer MEDICARE, OTHER, SELFPAY ==
[2023-02-02 23:01] VITALS: BMI 19.8
[2023-03-17] VITALS (14 sets, daily range): BP systolic 126–195; BP diastolic 63–101; PULSE 70–100; RESP 16–18; TEMP 36.3–36.8; O2SAT 94–98; BMI 21.2
--- NOTE | 2023-03-17 02:41 | DI.CT.S_ITS ---
PROCEDURE: CT ABDOMEN PELVIS W CON INDICATIONS: hx of SBO now with constipation with SBO TECHNIQUE: After the administration of intravenous contrast, axial sections acquired from the lung bases to the pubic symphysis. Coronal and sagittal reformats were performed. For radiation dose reduction, the following was used: automated exposure control, adjustment of mA and/or kV according to patient size. COMPARISON: None. FINDINGS: Image quality: Excellent. Lung bases: Unremarkable. Heart: No significant findings. ABDOMEN: Liver: Normal. Gallbladder: Surgically absent. Biliary ducts: Appropriate post cholecystectomy. Pancreas: Normal. Spleen: Microlobulated lymphangioma or hemangioma. Adrenal Glands: No nodules. Kidneys and Ureters: Mild prominence of both intrarenal collecting systems and ureters. There is been ileal conduit creation. Mild cortical thinning along mid pole laterally in the right kidney and slightly heterogeneous cortical enhancement bilaterally. Stomach and Bowel: Several dilated, fluid-filled small bowel loops in the left abdomen. There are several small bowel anastomoses. Possible transition point in the right lower quadrant. No evidence of colitis. Solid stool present. Peritoneum: Mild interloop and peritoneal inflammation. Trace perisplenic ascites. No pneumatosis or free intraperitoneal air. Ventral Wall: No hernias. Abdominal Nodes: No retroperitoneal or mesenteric adenopathy by size criteria. Vessels: Aorta and inferior vena cava are normal in size. PELVIS: Pelvic Organs: Absent uterus. Bladder: Absent. Pelvic Nodes: No adenopathy. Miscellaneous: No hernias are seen. Bones: Right hip pinning an intramedullary mike. Degenerative disc and endplate changes in the lumbar spine. No suspicious bone lesions. IMPRESSION: 1. Prominent small bowel loops with possible right lower quadrant transition point suggestive adhesion related partial or early small bowel obstruction. 2. Postsurgical changes of cystectomy with urinary diversion and small bowel anastomoses. Mild heterogeneous attenuation of the kidneys may be secondary to chronic, low-grade infection. 3. Cholecystectomy change. 4. Final interpretation is concordant with preliminary report. Dictated by: Chari Stubbs M.D. on 03/17/2023 at 9:42 Approved by: Chari Stubbs M.D. on 03/17/2023 at 9:52
--- NOTE | 2023-03-17 02:41 | ED.GENADULT ---
HPI - General Adult General Chief complaint: Nausea/Vomiting/Diarrhea Stated complaint: abd pain, NV Time Seen by Provider: 03/17/23 02:39 Source: patient Mode of arrival: EMS Limitations: no limitations History of Present Illness HPI narrative: Patient is an 87-year-old female with a history of multiple small-bowel obstructions. Has had multiple abdominal surgeries in the past secondary to uterine and cervical cancer. She thinks there are certain types of food that cause her to have these obstructions. States yesterday she ate some corn on the cob and afterwards started to have abdominal distention and bloating and vomiting. No fevers. No chest pain. No shortness of breath. She states it feels like her prior bowel obstructions Related Data Home Medications Medication Instructions Recorded Confirmed Bifidobacterium infantis 4 mg 4 mg PO DAILY 08/24/20 02/02/23 capsule (Align) cholecalciferol (vitamin D3) 50 mcg PO QAM 08/24/20 02/20/23 loperamide 2 mg tablet (Imodium 2 mg PO Q6H PRN Loose Stool 08/24/20 02/20/23 A-D) vitamin B complex [B 1 tab PO QAM 08/24/20 02/20/23 Complex-Vitamin B12] simethicone 125 mg capsule (Gas-X 125 mg PO QD-BID PRN gas 08/12/21 02/20/23 Extra Strength) psyllium [Metamucil] 1 tbsp PO QAM 01/03/22 02/20/23 [id number] 333 mg-133 See Rx Instructions .Route .COMPLEX 01/11/22 02/20/23 mg-5 mg tablet fluticasone propionate 50 2 spray intranasal DAILY dry nasal 02/04/23 02/20/23 mcg/actuation nasal passages spray,suspension oxycodone 5 mg tablet 5 mg PO 02/20/23 02/20/23 Previous Rx's Medication Instructions Recorded losartan 100 mg tablet 100 mg PO DAILY #90 tabs 04/03/22 omeprazole 20 mg capsule,delayed 20 mg PO DAILY #90 caps 04/03/22 release acetaminophen 325 mg tablet 650 mg PO Q6H PRN Fever/Mild Pain 02/06/23 (1-3) #60 tabs denosumab 60 mg/mL subcutaneous 60 mg SUBCUT [id number] #1 mL 03/10/23 syringe (Prolia) magnesium oxide 400 mg (241.3 mg 800 mg PO DAILY #60 tabs 03/10/23 magnesium) tablet Allergies Allergy/AdvReac Type Severity Reaction Status Date / Time Sulfa (Sulfonamide Allergy Unknown Verified 02/20/23 11:35 Antibiotics) trimethaphan Allergy Unknown Verified 02/20/23 11:35 Review of Systems Review of Systems ROS Unobtainable: All systems reviewed & are unremarkable except as noted in HPI and below Patient History Medical History Abnormal Pap smear of cervix (~2001) Anxiety (~1977) Cervical cancer Depression (~1977) GERD (gastroesophageal reflux disease) (~1989) Hemorrhoid (~1959) Hernia, perineal High risk for hip fracture History of bladder cancer (~2002) History of cervical cancer (~2002) History of hip fracture History of urinary incontinence (~2019) History of uterine cancer (~2002) Human papilloma virus (~2001) Hypertension Measles (~1944) Osteopenia Osteopenia Osteopenia with high risk of fracture Recurrent sinusitis (~1964) Surgical History Anesthesia History of cholecystectomy (~2001) History of hemorrhoidectomy (~1970) History of radical hysterectomy History of urostomy Family History Father Cancer Mother Hypertension Mental health problem Grandfather Diabetes mellitus Grandmother Diabetes mellitus Grandmother Diabetes mellitus Social History household members: none Smoking Status: Former smoker alcohol intake: current Smoking Status: Former smoker tobacco type: vaping alcohol intake frequency: 0-2 drinks per day Alcohol type: wine Substance Use Type: does not use Exam Initial Vital Signs Initial Vital Signs: Vital Signs Pulse Rate 93 H 03/17/23 02:40 Pulse Oximetry 97 03/17/23 02:40 HENMT Head: normal to inspection and normocephalic Resp Effort & Inspection: normal respiratory effort Auscultation: clear to auscultation bilaterally Cardio Rate: regular rate Rhythm: regular rhythm GI Inspection: normal to inspection and distended Palpation: soft, No guarding and tender Neuro General: patient alert, patient awake and moves all extremities Extrem General: capillary refill normal Course Orders Ordered: ED Orders 03/17/23 02:41 CT abdomen pelvis w con Stat 03/17/23 03:00 Complete Blood Count AUTO DIFF Stat Comprehensive Metabolic Panel Stat Lipase Stat 03/17/23 04:53 Consult to General Surgery Stat Sodium Chloride (Normal Saline 0.9%) 1,000 mls @ 125 mls/hr IV CONT SMILEY Last Admin: 03/17/23 02:52 Dose: 125 mls/hr Documented By: CORINNA Discontinued Medications Ondansetron HCl (Ondansetron 4 Mg/2 Ml Inj) 4 mg IV NOW ONE Stop: 03/17/23 02:44 Last Admin: 03/17/23 02:52 Dose: 4 mg Documented By: CORINNA Vital Signs Vital signs: Vital Signs - 8 hr 03/17/23 02:43 03/17/23 02:40 03/17/23 02:42 Temperature 97.8 F Pulse Rate 93 H 93 H 91 H Respiratory Rate 18 Blood Pressure 186/101 H Pulse Oximetry 98 97 98 Oxygen Delivery Method Room Air 03/17/23 02:42 03/17/23 02:43 03/17/23 02:43 Temperature Pulse Rate 70 Respiratory Rate Blood Pressure 193/95 H 195/94 H Pulse Oximetry 98 Oxygen Delivery Method 03/17/23 02:44 03/17/23 03:01 03/17/23 03:04 Temperature Pulse Rate 100 H 85 Respiratory Rate Blood Pressure 126/92 H Pulse Oximetry 98 95 Oxygen Delivery Method 03/17/23 03:36 03/17/23 03:37 03/17/23 03:37 Temperature Pulse Rate 85 83 Respiratory Rate Blood Pressure 156/75 H Pulse Oximetry 96 96 Oxygen Delivery Method 03/17/23 04:00 03/17/23 04:00 Temperature Pulse Rate 80 Respiratory Rate 16 Blood Pressure 142/63 H Pulse Oximetry 94 Oxygen Delivery Method Medical Decision Making Medical Records Medical records reviewed: Yes I reviewed the patient's medical records. Lab Data Lab results reviewed: Yes I reviewed the patient's lab results. 03/17/23 03:00 03/17/23 03:00 Labs: Lab Results 03/17/23 03/17/23 Range/Units 03:00 03:00 WBC 8.5 (4.5-11.0) X10^3/uL RBC 3.87 L (4.0-5.2) X10^6/uL Hgb 12.3 (12.0-16.0) g/dL Hct 35.8 L (36-46) % MCV 92.6 (80-100) fL MCH 31.8 (26-34) PG MCHC 34.3 (30-36) % RDW 14.0 (11.6-14.8) % Plt Count 217 (150-400) X10^3/uL Neut % (Auto) 84.4 H (50-75) % Lymph % (Auto) 11.6 L (25-40) % [place] % (Auto) 3.1 (3-14) % Eos % (Auto) 0.4 L (2-4) % Baso % (Auto) 0.5 (0-2) % Neut # (Auto) 7100 H (7981-0481) /uL Lymph # (Auto) 1000 L (7054-7940) /uL [place] # (Auto) 300 (0-900) /uL Eos # (Auto) 0 (0-450) /uL Baso # (Auto) 0 (0-100) /uL Sodium 135 L (137-145) mmol/L Potassium 4.0 (3.4-5.1) mmol/L Chloride 99 (98-107) mmol/L Carbon Dioxide 29 (22-32) mmol/L BUN 19 H (7-17) mg/dL Creatinine 0.67 (0.52-1.04) mg/dL Estimated GFR > 60 (>60) mL/min BUN/Creatinine Ratio 28.4 H (6-22) Glucose 174 H (80-110) mg/dL Calcium 9.8 (8.4-10.2) mg/dL Total Bilirubin 1.1 (0.2-1.3) mg/dL AST 24 (14-36) IU/L ALT 17 (<35) IU/L Alkaline Phosphatase 99 (38-126) U/L Total Protein 7.6 (6.3-8.2) g/dL Albumin 4.3 (3.5-5.0) g/dL Globulin 3.3 (1.7-4.1) g/dL Albumin/Globulin Ratio 1.3 (1.0-2.8) Lipase 76 (23-300) U/L Imaging Data CT scan - abdomen/pelvis: Radiologist's Impression: Enteritis Distended proximal small bowel without definite abrupt transition point probably ileus. Mechanical obstruction not excluded. Mild perisplenic fluid portion of which higher attenuation than expected for simple fluid maybe incidental, can not exclude hemorrhagic or purulent component MDM Narrative Medical decision making narrative: Review the patient's record shows that back in October she would very similar symptoms that brought her into the emergency department this evening. The CT scan shows ileus versus bowel obstruction however given her history we will admit to the hospital for further evaluation and treatment. I did discuss the case with Dr. Ardon on-call for General surgery who will follow along as an inpatient. Discussed the case with the CLOCK REPAIRER Yan in the night hospitalist who will admit for further evaluation and treatment as well. Discussed the need for admission with the patient who expressed understanding. Discharge Plan Departure Patient Disposition: Admitted As Inpatient Clinical Impression: Small bowel obstruction Admit Date/Time: 03/17/23 04:54 Admit Provider: Lorena Heredia
[2023-03-17] MEDS: ONDANSETRON 4 MG/2 ML INJ IV (02:52)
[2023-03-17] MEDS: SODIUM CHLORIDE 0.9% 1,000 ML 125 ML IV (02:52)
[2023-03-17 03:06] LABS: Add Manual Diff / Slide Review NO; Basophils Absolute Auto 0 /uL (0-100); Basophils Percent Auto 0.5 % (0-2); Eosinophils Absolute Auto 0 /uL (0-450); Eosinophils Percent Auto 0.4 % (2-4); Hematocrit 35.8 % (36-46); Hemoglobin 12.3 g/dL (12.0-16.0); Lymphocytes Absolute Auto 1000 /uL (1100-4500); Lymphocytes Percent Auto 11.6 % (25-40); Mean Corpuscular HGB Conc 34.3 % (30-36); Mean Corpuscular Hemoglobin 31.8 PG (26-34); Mean Corpuscular Volume 92.6 fL (80-100); Monocytes Absolute Auto 300 /uL (0-900); Monocytes Percent Auto 3.1 % (3-14); Neutrophils Absolute Auto 7100 /uL (1500-7000); Neutrophils Percent Auto 84.4 % (50-75); Platelet Count 217 X10^3/uL (150-400); Red Blood Cell Count 3.87 X10^6/uL (4.0-5.2); White Blood Cell Count 8.5 X10^3/uL (4.5-11.0)
[2023-03-17 03:18] LABS: Alanine Aminotransferase 17 IU/L (<35); Albumin 4.3 g/dL (3.5-5.0); Albumin Globulin Ratio 1.3 (1.0-2.8); Alkaline Phosphatase 99 U/L (38-126); Aspartate Aminotransferase 24 IU/L (14-36); BUN Creatinine Ratio 28.4 (6-22); Bilirubin Total 1.1 mg/dL (0.2-1.3); Blood Urea Nitrogen 19 mg/dL (7-17); Calcium 9.8 mg/dL (8.4-10.2); Carbon Dioxide 29 mmol/L (22-32); Chloride 99 mmol/L (98-107); Estimated Glomerular Filt Rate > 60 mL/min (>60); Globulin 3.3 g/dL (1.7-4.1); Glucose 174 mg/dL (80-110); HEMOLYSIS 20 (0-50); Lipase 76 U/L (23-300); Sodium 135 mmol/L (137-145); Total Protein 7.6 g/dL (6.3-8.2)
--- NOTE | 2023-03-17 05:06 | PM.HP.1 ---
History of Present Illness History of Present Illness Date Patient Seen: 03/17/23 Time Patient Seen: 05:06 Chief complaint: ilieus vs SBO Narrative: Ms. 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 She has had previous admissions June 2021, October, December & April 2022, and last 10/2022 for SBO which improved with non-surgical management. She states she has felt poorly over the last few days. But in the last day she has noted vomiting what she has described as bile. She has felt nauseous. She was initially having loose stools but over the last day has not had a bowel movement and has not been passing gas.? Patient denies chest pain, shortness in, fever, body aches, chills, cough, upper respiratory symptoms, urinary frequency, dysuria, hematuria, melena. Patient's labs are unremarkable with the exception of glucose 174, patient's vitals are stable temp 97.8?, 142/63, 80, 16, 94% on room air. On abdominal imaging Enteritis, Distended proximal small bowel without definite abrupt transition point probably ileus.? Mechanical obstruction not excluded, Mild perisplenic fluid portion of which higher attenuation than expected for simple fluid maybe incidental, can not exclude hemorrhagic or purulent component. ED consulted Dr. Ardno, general surgery will consult. Patient admitted for small-bowel obstruction. [facility] Medical History Abnormal Pap smear of cervix (~2001) Anxiety (~1977) Cervical cancer Depression (~1977) GERD (gastroesophageal reflux disease) (~1989) Hemorrhoid (~1959) Hernia, perineal High risk for hip fracture History of bladder cancer (~2002) History of cervical cancer (~2002) History of hip fracture History of urinary incontinence (~2019) History of uterine cancer (~2002) Human papilloma virus (~2001) Hypertension Measles (~1945) Osteopenia Osteopenia Osteopenia with high risk of fracture Recurrent sinusitis (~1964) Surgical History Anesthesia History of cholecystectomy (~2001) History of hemorrhoidectomy (~1970) History of radical hysterectomy History of urostomy Family History Father Cancer Mother Hypertension Mental health problem Grandfather Diabetes mellitus Grandmother Diabetes mellitus Grandmother Diabetes mellitus Social History household members: none Smoking Status: Former smoker alcohol intake: current Meds Home Medications and Allergies Home Medications Medication Instructions Recorded Confirmed Type Bifidobacterium infantis 4 mg 4 mg PO DAILY 08/24/20 02/02/23 History capsule (Align) cholecalciferol (vitamin D3) 50 mcg PO QAM 08/24/20 02/20/23 History loperamide 2 mg tablet (Imodium 2 mg PO Q6H PRN Loose Stool 08/24/20 02/20/23 History A-D) vitamin B complex [B 1 tab PO QAM 08/24/20 02/20/23 History Complex-Vitamin B12] simethicone 125 mg capsule (Gas-X 125 mg PO QD-BID PRN gas 08/12/21 02/20/23 History Extra Strength) psyllium [Metamucil] 1 tbsp PO QAM 01/03/22 02/20/23 History [id number] 333 mg-133 See Rx Instructions .Route .COMPLEX 01/11/22 02/20/23 History mg-5 mg tablet losartan 100 mg tablet 100 mg PO DAILY #90 tabs 04/03/22 02/20/23 Rx omeprazole 20 mg capsule,delayed 20 mg PO DAILY #90 caps 04/03/22 02/20/23 Rx release fluticasone propionate 50 2 spray intranasal DAILY dry nasal 02/04/23 02/20/23 History mcg/actuation nasal passages spray,suspension acetaminophen 325 mg tablet 650 mg PO Q6H PRN Fever/Mild Pain 02/06/23 02/20/23 Rx (1-3) #60 tabs oxycodone 5 mg tablet 5 mg PO 02/20/23 02/20/23 History denosumab 60 mg/mL subcutaneous 60 mg SUBCUT [id number] #1 mL 03/10/23 Rx syringe (Prolia) magnesium oxide 400 mg (241.3 mg 800 mg PO DAILY #60 tabs 03/10/23 Rx magnesium) tablet Allergies Allergy/AdvReac Type Severity Reaction Status Date / Time Sulfa (Sulfonamide Allergy Unknown Verified 02/20/23 11:35 Antibiotics) trimethaphan Allergy Unknown Verified 02/20/23 11:35 Review of Systems Review of Systems Narrative: All 12 point systems reviewed with the patient and are negative except otherwise documented. Exam Vital Signs (past 8 hours): - 03/17/23 02:43 03/17/23 02:40 03/17/23 02:42 Temperature 97.8 F Pulse Rate 93 H 93 H 91 H Respiratory Rate 18 Blood Pressure 186/101 H Pulse Oximetry 98 97 98 Oxygen Delivery Method Room Air 03/17/23 02:42 03/17/23 02:43 03/17/23 02:43 Temperature Pulse Rate 70 Respiratory Rate Blood Pressure 193/95 H 195/94 H Pulse Oximetry 98 Oxygen Delivery Method 03/17/23 02:44 03/17/23 03:01 03/17/23 03:04 Temperature Pulse Rate 100 H 85 Respiratory Rate Blood Pressure 126/92 H Pulse Oximetry 98 95 Oxygen Delivery Method 03/17/23 03:36 03/17/23 03:37 03/17/23 03:37 Temperature Pulse Rate 85 83 Respiratory Rate Blood Pressure 156/75 H Pulse Oximetry 96 96 Oxygen Delivery Method 03/17/23 04:00 03/17/23 04:00 Temperature Pulse Rate 80 Respiratory Rate 16 Blood Pressure 142/63 H Pulse Oximetry 94 Oxygen Delivery Method Oxygen Delivery Method Room Air Narrative Exam Narrative: General: Patient is a well-developed, well-nourished female in no distress at this time. HEENT: Normocephalic, atraumatic, extraocular muscles intact, oral pharynx is clear and mucous membranes are moist. Neck is supple and symmetric, trachea is midline, no adenopathy, no thyroid enlargement, nontender, no masses palpated. Negative for JVD Chest: Normal AP diameter and contour without kyphoscoliosis, no nasal flaring, retractions, or tachypneic labored breathing Lungs: Auscultation of all lung inman are clear without adventitious sounds, wheezes, rhonchi, or rales. Cardio: regular rate and rhythm without murmur, rubs, or gallops, no carotid bruit, no cardiac pulsations present. Abdomen: Soft distended, tender. Bowel sounds are present in all 4 quadrants without guarding or rebound, no CVA tenderness. Musculoskeletal: Muscle strength and tone are equal within normal limits, no deformity, crepitus, effusions, cyanosis, clubbing or edema present. Full range of motion intact radial and pedal pulses are normal. Skin: Warm dry and intact without rashes, ulcerations or petechiae. Neuro: Alert and orientated x3, strength is +5/5 in all extremities, sensation to touch intact, no gross deficits noted of cranial nerves. Psych: Patient has a well-kept appearance, appropriate affect, mental status attitude thought context and judgment are appropriate for age. Objective Labs 03/17/23 03:00 03/17/23 03:00 Labs: Laboratory Results - last 24 hr 03/17/23 03/17/23 03:00 03:00 WBC 8.5 RBC 3.87 L Hgb 12.3 Hct 35.8 L MCV 92.6 MCH 31.8 MCHC 34.3 RDW 14.0 Plt Count 217 Neut % (Auto) 84.4 H Lymph % (Auto) 11.6 L [place] % (Auto) 3.1 Eos % (Auto) 0.4 L Baso % (Auto) 0.5 Neut # (Auto) 7100 H Lymph # (Auto) 1000 L [place] # (Auto) 300 Eos # (Auto) 0 Baso # (Auto) 0 Sodium 135 L Potassium 4.0 Chloride 99 Carbon Dioxide 29 BUN 19 H Creatinine 0.67 Estimated GFR > 60 BUN/Creatinine Ratio 28.4 H Glucose 174 H Calcium 9.8 Total Bilirubin 1.1 AST 24 ALT 17 Alkaline Phosphatase 99 Total Protein 7.6 Albumin 4.3 Globulin 3.3 Albumin/Globulin Ratio 1.3 Lipase 76 Assessment & Plan Assessment & Plan narrative: 87-year-old female with history of recurrent SBO, history of radiation treatment and multiple abdominal surgeries for cervical and bladder cancer, presence of urostomy presents with recurrent abdominal pain, distension nausea and vomiting.? Recurrent small-bowel obstruction, acute on chronic, present on admission -likely secondary to adhesions -CT consistent with SBO -Dr. Ardon for surgery consult -NPO, IV fluids, analgesics, anti emetic -patient currently not actively vomiting- if place NG tube if vomiting presents History of uterine and bladder cancer s/p urostomy -previous records reviewed and she has repeated SBO from adhesions from above -currently asymptomatic with no acute issues Hypertension, chronic, present on admission -hold losartan -labetalol 10 mg IV q.4 hours as needed BP greater than 180/100 Malnutrition,moderate, acute on chronic, present on admission -BMI 21 -patient's malnutrition places them at high risk for medical and surgical complications in relation to acute illness/chronic illness. This increases the difficulty in complexity of medical management and increases the chances poor outcomes such as mortality and morbidity as well as impaired wound healing, and immune suppression. -dietary consult ordered to evaluate and implement steps to improve caloric intake and nutrition. Code status: Full Surrogate decision maker: Susana Lin daughter DVT/VTE prophylaxis: Lovenox and SCDs Disposition: Patient admitted for observation expected length of stay not to exceed 2 midnights I have utilized all available immediate resources to obtain, update, or review the patient's current medications. I confirmed that the patient's advanced care plan is present, Code status is documented and/or surrogate decision maker is listed in the patient's medical record. I have personally reviewed patient's chart notes from PCP, specialists, diagnostic imaging, and laboratory results.
[2023-03-17 05:16] LABS: Magnesium 1.7 mg/dL (1.6-2.3)
[2023-03-17 06:12] LABS: Appearance Urine UA CLEAR; Bilirubin Urine UA NEGATIVE (NEGATIVE); Color Urine UA YELLOW; Glucose Urine UA NEGATIVE (Negative); Ketones Urine UA NEGATIVE (NEGATIVE); Leukocyte Esterase Urine UA TRACE (NEGATIVE); Nitrite Urine UA NEGATIVE (Negative); Occult Blood Urine UA NEGATIVE (Negative); Protein Urine UA NEGATIVE (Negative); Specific Gravity Urine UA <=1.005 (1.000-1.035); Urobilinogen Urine UA 0.2 E.U./dL (0.2)
[2023-03-17] MEDS: SODIUM CHLORIDE 0.9% 1,000 ML 84 ML IV (06:15)
[2023-03-17 06:18] LABS: pH Urine UA 7.5 (4.5-8.0)
[2023-03-17 06:19] LABS: RBC Urine None Seen (0-5/HPF); Squamous Epithelial Cell Urine 0-1 /HPF (0-5/HPF); WBC Urine 1-5/HPF (0-5/HPF)
[2023-03-17 06:20] LABS: Bacteria Urine Many (>30); Culture Indicated Urine Specimen Cultured
[2023-03-17] MEDS: ENOXAPARIN 30 MG/0.3 ML SYRINGE SUBCUT (09:05)
[2023-03-17 09:59] LABS: COVID19 -Nasal RAPID Negative (Negative)
--- NOTE | 2023-03-17 12:07 | PM.CN ---
History of Present Illness Consult details Date Patient Seen: 03/17/23 Time Patient Seen: 12:07 Chief complaint: ilieus vs SBO Narrative: Hortencia is an 87-year-old woman who has had multiple small bowel obstructions in the past. She has had multiple prior abdominal surgeries including a bladder resection with ileal conduit and a ventral hernia repair. She presented to the emergency department yesterday because of obstructive symptoms after eating corn and pork. Since admission she has started passing gas again. Meds Home Medications and Allergies Home Medications Medication Instructions Recorded Confirmed Type Bifidobacterium infantis 4 mg 4 mg PO DAILY 08/24/20 02/02/23 History capsule (Align) cholecalciferol (vitamin D3) 50 mcg PO QAM 08/24/20 02/20/23 History loperamide 2 mg tablet (Imodium 2 mg PO Q6H PRN Loose Stool 08/24/20 02/20/23 History A-D) vitamin B complex [B 1 tab PO QAM 08/24/20 02/20/23 History Complex-Vitamin B12] simethicone 125 mg capsule (Gas-X 125 mg PO QD-BID PRN gas 08/12/21 02/20/23 History Extra Strength) psyllium [Metamucil] 1 tbsp PO QAM 01/03/22 02/20/23 History [id number] 333 mg-133 See Rx Instructions .Route .COMPLEX 01/11/22 02/20/23 History mg-5 mg tablet losartan 100 mg tablet 100 mg PO DAILY #90 tabs 04/03/22 02/20/23 Rx omeprazole 20 mg capsule,delayed 20 mg PO DAILY #90 caps 04/03/22 02/20/23 Rx release fluticasone propionate 50 2 spray intranasal DAILY dry nasal 02/04/23 02/20/23 History mcg/actuation nasal passages spray,suspension acetaminophen 325 mg tablet 650 mg PO Q6H PRN Fever/Mild Pain 02/06/23 02/20/23 Rx (1-3) #60 tabs oxycodone 5 mg tablet 5 mg PO 02/20/23 02/20/23 History denosumab 60 mg/mL subcutaneous 60 mg SUBCUT [id number] #1 mL 03/10/23 Rx syringe (Prolia) magnesium oxide 400 mg (241.3 mg 800 mg PO DAILY #60 tabs 03/10/23 Rx magnesium) tablet Allergies Allergy/AdvReac Type Severity Reaction Status Date / Time Sulfa (Sulfonamide Allergy Unknown Verified 02/20/23 11:35 Antibiotics) trimethaphan Allergy Unknown Verified 02/20/23 11:35 Exam Vital Signs (past 8 hours): - 03/17/23 04:58 03/17/23 05:59 03/17/23 08:44 Temperature 97.4 F L 98.3 F Pulse Rate 78 74 Respiratory Rate 18 18 Blood Pressure 180/74 H 178/79 H Pulse Oximetry 96 97 96 Oxygen Delivery Method Room Air Oxygen Flow Rate 0 03/17/23 11:29 Temperature 97.8 F Pulse Rate 78 Respiratory Rate 18 Blood Pressure 144/82 H Pulse Oximetry 98 Oxygen Delivery Method Oxygen Flow Rate 0 Oxygen Delivery Method Room Air Oxygen Flow Rate 0 Const General: No acute distress Objective Labs 03/17/23 03:00 03/17/23 03:00 Labs: Laboratory Results - last 24 hr 03/17/23 03/17/23 03/17/23 03:00 03:00 03:00 WBC 8.5 RBC 3.87 L Hgb 12.3 Hct 35.8 L MCV 92.6 MCH 31.8 MCHC 34.3 RDW 14.0 Plt Count 217 Neut % (Auto) 84.4 H Lymph % (Auto) 11.6 L [place] % (Auto) 3.1 Eos % (Auto) 0.4 L Baso % (Auto) 0.5 Neut # (Auto) 7100 H Lymph # (Auto) 1000 L [place] # (Auto) 300 Eos # (Auto) 0 Baso # (Auto) 0 Sodium 135 L Potassium 4.0 Chloride 99 Carbon Dioxide 29 BUN 19 H Creatinine 0.67 Estimated GFR > 60 BUN/Creatinine Ratio 28.4 H Glucose 174 H Calcium 9.8 Magnesium 1.7 Total Bilirubin 1.1 AST 24 ALT 17 Alkaline Phosphatase 99 Total Protein 7.6 Albumin 4.3 Globulin 3.3 Albumin/Globulin Ratio 1.3 Lipase 76 Urine Color Urine Appearance Urine pH Ur Specific Farrell Urine Protein Urine Glucose (UA) Urine Ketones Urine Occult Blood Urine Nitrate Urine Bilirubin Urine Urobilinogen Ur Leukocyte Esterase Urine RBC Urine WBC Ur Squamous Epith Cells Urine Bacteria Ur Culture Indicated? SARS-CoV-2 (PCR) 03/17/23 03/17/23 06:00 09:04 WBC RBC Hgb Hct MCV MCH MCHC RDW Plt Count Neut % (Auto) Lymph % (Auto) [place] % (Auto) Eos % (Auto) Baso % (Auto) Neut # (Auto) Lymph # (Auto) [place] # (Auto) Eos # (Auto) Baso # (Auto) Sodium Potassium Chloride Carbon Dioxide BUN Creatinine Estimated GFR BUN/Creatinine Ratio Glucose Calcium Magnesium Total Bilirubin AST ALT Alkaline Phosphatase Total Protein Albumin Globulin Albumin/Globulin Ratio Lipase Urine Color Yellow Urine Appearance Clear Urine pH 7.5 Ur Specific Farrell <=1.005 Urine Protein Negative Urine Glucose (UA) Negative Urine Ketones Negative Urine Occult Blood Negative Urine Nitrate Negative Urine Bilirubin Negative Urine Urobilinogen 0.2 Ur Leukocyte Esterase Trace H Urine RBC None seen Urine WBC 1-5/hpf Ur Squamous Epith Cells 0-1 /hpf Urine Bacteria Many (>30) H Ur Culture Indicated? Specimen cultured SARS-CoV-2 (PCR) Negative PFSH Medical History Abnormal Pap smear of cervix (~2001) Anxiety (~1977) Cervical cancer Depression (~1977) GERD (gastroesophageal reflux disease) (~1989) Hemorrhoid (~1959) Hernia, perineal High risk for hip fracture History of bladder cancer (~2002) History of cervical cancer (~2002) History of hip fracture History of urinary incontinence (~2019) History of uterine cancer (~2002) Human papilloma virus (~2001) Hypertension Measles (~194) Osteopenia Osteopenia Osteopenia with high risk of fracture Recurrent sinusitis (~1964) Surgical History Anesthesia History of cholecystectomy (~2001) History of hemorrhoidectomy (~1970) History of radical hysterectomy History of urostomy Family History Father Cancer Mother Hypertension Mental health problem Grandfather Diabetes mellitus Grandmother Diabetes mellitus Grandmother Diabetes mellitus Social History household members: none Tobacco & Substance Use Smoking Status: Former smoker alcohol intake: current Assessment & Plan Assessment and plan (1) Small bowel obstruction: Status: Acute Plan Okay to advance diet and if she tolerates she could be discharged home.
--- NOTE | 2023-03-17 13:37 | CM.DANOTE ---
DCP: Patient is a 87yo F here following a small bowel obstruction. PCP: Dr. Gan Payer: Medicare and [employer] PRODUCTION LINE MECHANIC spoke with nurse who informed this author of no potential additional needs upon d/c. PRODUCTION LINE MECHANIC entered the room and introduced self and role. Patient was A/Ox4 and was pleasant and talkative. Patient reported that the doctors told her that they did not believe they would need to do surgery and that she could discharge after having a bowel movement. Patient reported living at [facility] and being relatively happy and independent there. Patient drives at baseline and is pretty independent with most ADLs. Patient's only complaint was [facility] not having a gold buyer and being limited in her diet while there. Patient reported that her daughter and son live in the area and can help her as necessary. Daughter, Estuardo Grant [phone], is her emergency contact and who is also likely to drive her back home upon d/c. Patient reported that her executor of her estate, Katie Mock ([phone]) is her DPOA and she lives in [place], but she can be contacted in the event of an emergency. Plan: d/c home when medically stable via POV, likely daughter. CM team to follow for further needs. UNRULY Nguyen Discharge Planning/Care Management CM Discharge Assessment Start: 03/17/23 12:57 Freq: Status: Active Protocol: Document 03/17/23 12:57 (Rec: 03/17/23 13:36 [id number]) Discharge Planning Assessment Assigned Tool Drawing Checker UNRULY Nguyen DPOA/Assigned Designee Name Katie Mock (power of energy attorney) Contact Information [phone] Advance Directives? Yes Advance Directives on File Yes History Provided By Patient,Medical Record Has Patient been admitted in last 30 No days? Comment Here 02/02/23 and 11/07/22 Prior Living Arrangements Custodial Facility Household Members none Type of transporation used prior to Drives own vehicle admit Facility Name Admitted From: [facility] [address] Willing to Return to Facility? Yes Independent with ADL's Yes Is patient alert and oriented? Yes Needs Assistance With Meal Prep Caregiver for Another No Comment Has walker but does not use. Barriers to Discharge No Discharge Plan Home Transportation Arrangement Dtr Edith or son can transport at d/c if home Referrals Initiated None needed Whiteboard Updated in Patient Room with Yes name and ext. # of Tool Drawing Checker Review Status In Process Next Review Type Continued Stay Review
--- NOTE | 2023-03-17 14:18 | PM.DS.1 ---
History of Present Illness History of Present Illness Chief complaint: ilieus vs SBO Narrative: per history and physical: Ms. 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 She has had previous admissions June 2021, October, December & April 2022, and last 10/2022 for SBO which improved with non-surgical management. She states she has felt poorly over the last few days. But in the last day she has noted vomiting what she has described as bile. She has felt nauseous. She was initially having loose stools but over the last day has not had a bowel movement and has not been passing gas.? Patient denies chest pain, shortness in, fever, body aches, chills, cough, upper respiratory symptoms, urinary frequency, dysuria, hematuria, melena. Patient's labs are unremarkable with the exception of glucose 174, patient's vitals are stable temp 97.8?, 142/63, 80, 16, 94% on room air.? On abdominal imaging Enteritis, Distended proximal small bowel without definite abrupt transition point probably ileus.? Mechanical obstruction not excluded, Mild perisplenic fluid portion of which higher attenuation than expected for simple fluid maybe incidental, can not exclude hemorrhagic or purulent component.? ED consulted Dr. Ardon, general surgery will consult.? Patient admitted for small-bowel obstruction. Discharge Providers Provider Date of admission: 03/17/23 04:54 Discharge Date: 03/17/23 Primary care physician: ROBINSON Murcia Consults: 03/17/23 05:04 Consult to Dietitian, Adult Routine Comment: Reason For Exam: BMI 21.2 Consult to Physician Routine Comment: Consulting Provider: Rei Ardon Reason for consultation: ilieus vs SBO Has provider been notified: Yes Discharge provider: Tamika Gupta MD Summary Hospital Course Discharge Diagnosis: 1. Partial small-bowel obstruction, right lower quadrant, resolved 2. Nausea and vomiting, secondary to partial small-bowel obstruction, resolved 3. Asymptomatic bacteriuria 4. Hypertension, chronic, stable 5. History of uterine and bladder cancer, status post ileal conduit and urostomy placement 6. Acute on chronic moderate malnutrition Hospital Course: patient was admitted with recurrent small-bowel obstruction with a transition point in the right lower quadrant. She was admitted for conservative care. General surgery consultation requested. Patient had resolution of her symptoms by late morning on the date of admission. She had no nausea or vomiting. No abdominal pain. She tolerated a full liquid lunch and successfully had a bowel movement. General surgery felt she was safe to discharge home. Counseled her on monitoring her bowels and trying to promote daily bowel movements as well as monitoring and ensuring adequate hydration. CT scan did show mild heterogeneous attenuation of the kidneys which was felt possibly to be secondary to chronic low-grade infection. Patient had no symptoms, specifically no fever, chills, flank pain, back pain. UA was fairly bland with the exception of trace leukocyte esterase and many bacteria. Patient reports difficulty with the skin around her urostomy for which she is been following with Wound Care. It is possible the bacteria in the urine is related to the ostomy skin issues. As she had no symptoms of UTI, antibiotics were deferred. She was counseled on follow-up should she develop any symptoms or signs of infection. Patient is discharged in stable condition. Status at Discharge Cognitive/behavioral status at discharge: at baseline, oriented Overall status at discharge: patient is back to baseline Exam Vital Signs (past 8 hours): - 03/17/23 08:44 03/17/23 11:29 03/17/23 07:30 Temperature 98.3 F 97.8 F Pulse Rate 74 78 Respiratory Rate 18 18 Blood Pressure 178/79 H 144/82 H Pulse Oximetry 96 98 Oxygen Delivery Method Room Air Oxygen Flow Rate 0 0 03/17/23 07:30 Temperature Pulse Rate Respiratory Rate Blood Pressure Pulse Oximetry 98 Oxygen Delivery Method Room Air Oxygen Flow Rate Oxygen Delivery Method Room Air Oxygen Flow Rate 0 Narrative Exam Narrative: GEN: Pleasant elderly female,Alert and oriented x 3, NAD HEENT:NC, Face symmetric CHEST: Respiratory excursions symmetric, CTAB CV: RRR, no M/R/G ABD: Soft, NT/ND, BT present in all 4 quadrants, no organomegaly or masses, urostomy draining clear urine EXTR: warm, well perfused, no C/C/E SKIN: warm and dry, no rash NEURO: Alert and oriented x 3, nonfocal Objective Labs 03/17/23 03:00 03/17/23 03:00 Labs: Laboratory Results - last 24 hr 03/17/23 03/17/23 03/17/23 03:00 03:00 03:00 WBC 8.5 RBC 3.87 L Hgb 12.3 Hct 35.8 L MCV 92.6 MCH 31.8 MCHC 34.3 RDW 14.0 Plt Count 217 Neut % (Auto) 84.4 H Lymph % (Auto) 11.6 L [place] % (Auto) 3.1 Eos % (Auto) 0.4 L Baso % (Auto) 0.5 Neut # (Auto) 7100 H Lymph # (Auto) 1000 L [place] # (Auto) 300 Eos # (Auto) 0 Baso # (Auto) 0 Sodium 135 L Potassium 4.0 Chloride 99 Carbon Dioxide 29 BUN 19 H Creatinine 0.67 Estimated GFR > 60 BUN/Creatinine Ratio 28.4 H Glucose 174 H Calcium 9.8 Magnesium 1.7 Total Bilirubin 1.1 AST 24 ALT 17 Alkaline Phosphatase 99 Total Protein 7.6 Albumin 4.3 Globulin 3.3 Albumin/Globulin Ratio 1.3 Lipase 76 Urine Color Urine Appearance Urine pH Ur Specific [place] Urine Protein Urine Glucose (UA) Urine Ketones Urine Occult Blood Urine Nitrate Urine Bilirubin Urine Urobilinogen Ur Leukocyte Esterase Urine RBC Urine WBC Ur Squamous Epith Cells Urine Bacteria Ur Culture Indicated? SARS-CoV-2 (PCR) 03/17/23 03/17/23 06:00 09:04 WBC RBC Hgb Hct MCV MCH MCHC RDW Plt Count Neut % (Auto) Lymph % (Auto) [place] % (Auto) Eos % (Auto) Baso % (Auto) Neut # (Auto) Lymph # (Auto) [place] # (Auto) Eos # (Auto) Baso # (Auto) Sodium Potassium Chloride Carbon Dioxide BUN Creatinine Estimated GFR BUN/Creatinine Ratio Glucose Calcium Magnesium Total Bilirubin AST ALT Alkaline Phosphatase Total Protein Albumin Globulin Albumin/Globulin Ratio Lipase Urine Color Yellow Urine Appearance Clear Urine pH 7.5 Ur Specific [place] <=1.005 Urine Protein Negative Urine Glucose (UA) Negative Urine Ketones Negative Urine Occult Blood Negative Urine Nitrate Negative Urine Bilirubin Negative Urine Urobilinogen 0.2 Ur Leukocyte Esterase Trace H Urine RBC None seen Urine WBC 1-5/hpf Ur Squamous Epith Cells 0-1 /hpf Urine Bacteria Many (>30) H Ur Culture Indicated? Specimen cultured SARS-CoV-2 (PCR) Negative [facility] Medical History Abnormal Pap smear of cervix (~2001) Anxiety (~1977) Cervical cancer Depression (~1977) GERD (gastroesophageal reflux disease) (~1989) Hemorrhoid (~1959) Hernia, perineal High risk for hip fracture History of bladder cancer (~2002) History of cervical cancer (~2002) History of hip fracture History of urinary incontinence (~2019) History of uterine cancer (~2002) Human papilloma virus (~2001) Hypertension Measles (~194) Osteopenia Osteopenia Osteopenia with high risk of fracture Recurrent sinusitis (~1964) Surgical History Anesthesia History of cholecystectomy (~2001) History of hemorrhoidectomy (~1970) History of radical hysterectomy History of urostomy Family History Father Cancer Mother Hypertension Mental health problem Grandfather Diabetes mellitus Grandmother Diabetes mellitus Grandmother Diabetes mellitus Social History household members: none Smoking Status: Former smoker alcohol intake: current Discharge Plan Discharge Plan Patient Disposition: Home Provider Discharge Comment: You were admitted with a partial small bowel obstruction due to old scar tissue in your right lower abdomen. It has now resolved. Continue to monitor your bowel habits. Your goal is to have soft formed stool daily. Adjust your metamucil accordingly. Make sure you stay hydrated. Return to the ED for: Fevers/chills/flank or back pain Inability to hold down food/fluids Nursing Discharge Comment: You had a urinalysis which is still pending. Follow up your results with your primary care doctor. Discharge orders & Medications Prescriptions: Continued magnesium oxide 400 mg (241.3 mg magnesium) tablet 800 mg PO DAILY Qty: 60 1RF Prolia 60 mg/mL syringe 60 mg SUBCUT [id number] Qty: 1 1RF psyllium [Metamucil] 1 tbsp PO QAM losartan 100 mg tablet 100 mg PO DAILY Qty: 90 3RF omeprazole 20 mg capsule,delayed release(DR/EC) 20 mg PO DAILY Qty: 90 3RF oxycodone 5 mg tablet 5 mg PO loperamide [Imodium A-D] 2 mg tablet 2 mg PO Q6H PRN (Reason: Loose Stool) Align 4 mg capsule 4 mg PO DAILY vitamin B complex 1 tab PO QAM cholecalciferol (vitamin D3) 50 mcg PO QAM simethicone [Gas-X Extra Strength] 125 mg capsule 125 mg PO QD-BID PRN (Reason: gas) fluticasone propionate 50 mcg/actuation [place],Suspension 2 spray INTRANASAL DAILY Rx Instructions: 2 sprays each nare acetaminophen 325 mg Tablet 650 mg PO Q6H PRN (Reason: Fever/Mild Pain (1-3)) Qty: 60 0RF [id number] 333-133-5 mg tablet See Rx Instructions .ROUTE .COMPLEX Patient Comments: qd Rx Instructions: take one tablet by mouth daily Follow up/Referrals: Blue Gan ARNP [Primary Care Provider] - Discharge Health Status Multidrug resistant organism: No MDRO Diet/Activity/Treatments Diet: Diet as Tolerated and Regular Activity: As tolerated Oxygen: N/A Visit Report/Discharge Packet Instructions: DI for Small Bowel Obstruction, How to Prevent Falls Stand Alone Forms: Patient Portal/API, Stroke Signs & Symptoms Discharge Data Primary Care Provider: Blue Gan
--- NOTE | 2023-03-17 14:50 | PC.NURSE ---
Discharge: Pt feels ready to d/c to home. Has tolerated a full liquid diet w/out problems. Has had several bowel movements. Cares for urostomy indep. Understands she has a pending UA and to ask her doctor about that. Reviewed discharge packet. Questions answered. Pt d/c to home via auto with son.
== END 2023-03-17 14:50 | disposition home or self-care (01) ==
LOC: ED 03:16 → AC 05:06
PROVIDERS: Admitting Provider Nurse Practitioner Family; Emergency Provider Emergency Medicine; PCP Registered Nurse Diabetes Educator; Referring Provider Emergency Medicine; Visit Provider Nurse Practitioner Family
DX: K56.609 Unspecified intestinal obstruction, unspecified as to partial versus complete obstruction (principal); E44.0 Moderate protein-calorie malnutrition; I10 Essential (primary) hypertension; R82.71 Bacteriuria; Z20.822 Contact with and (suspected) exposure to COVID-19
CPT/HCPCS: 36415; 74177; 80053; 81001; 82962; 83690; 83735; 85025; 87077; 87086; 87186; 87635; 96372; 96374; 99232; 99284; C9803; G0378; J1650; J2405; Q9967

== ENCOUNTER → 2023-03-21 14:48 | Outpatient (CLI) | payer MEDICARE, OTHER, SELFPAY ==
[2023-03-17 05:43] VITALS: BMI 21.2
== END ==
PROVIDERS: PCP Registered Nurse Diabetes Educator; Referring Provider Registered Nurse Diabetes Educator; Visit Provider Surgery
DX: Z93.8 Other artificial opening status (principal)
CPT/HCPCS: 99212

== ENCOUNTER → 2023-03-28 11:50 | Outpatient (CLI) | payer MEDICARE, OTHER, SELFPAY ==
[2023-03-17 05:43] VITALS: BMI 21.2
== END ==
PROVIDERS: PCP Registered Nurse Diabetes Educator; Referring Provider Registered Nurse Diabetes Educator; Visit Provider Surgery
DX: Z93.8 Other artificial opening status (principal)
CPT/HCPCS: 99212

== ENCOUNTER → 2023-04-04 11:13 | Outpatient (CLI) | payer MEDICARE, OTHER, SELFPAY ==
[2023-03-17 05:43] VITALS: BMI 21.2
== END ==
PROVIDERS: PCP Registered Nurse Diabetes Educator; Referring Provider Registered Nurse Diabetes Educator; Visit Provider Surgery
DX: Z93.8 Other artificial opening status (principal)
CPT/HCPCS: 99212

== ENCOUNTER → 2023-04-11 12:23 | Outpatient (CLI) | payer MEDICARE, OTHER, SELFPAY ==
[2023-03-17 05:43] VITALS: BMI 21.2
== END ==
PROVIDERS: PCP Registered Nurse Diabetes Educator; Referring Provider Registered Nurse Diabetes Educator; Visit Provider Surgery
DX: N99.528 Other complication of incontinent external stoma of urinary tract (principal); R21 Rash and other nonspecific skin eruption
CPT/HCPCS: 99212; 99213

== ENCOUNTER → 2023-04-18 09:53 | Outpatient (CLI) | payer MEDICARE, OTHER, SELFPAY ==
[2023-03-17 05:43] VITALS: BMI 21.2
== END ==
PROVIDERS: PCP Registered Nurse Diabetes Educator; Referring Provider Registered Nurse Diabetes Educator; Visit Provider Surgery
DX: Z93.59 Other cystostomy status (principal)
CPT/HCPCS: 99212

== ENCOUNTER → 2023-04-25 11:41 | Outpatient (CLI) | payer MEDICARE, OTHER, SELFPAY ==
[2023-03-17 05:43] VITALS: BMI 21.2
== END ==
PROVIDERS: PCP Registered Nurse Diabetes Educator; Referring Provider Registered Nurse Diabetes Educator; Visit Provider Surgery
DX: Z93.59 Other cystostomy status (principal)
CPT/HCPCS: 99212

== ENCOUNTER → 2023-05-02 10:01 | Outpatient (CLI) | payer MEDICARE, OTHER, SELFPAY ==
[2023-03-17 05:43] VITALS: BMI 21.2
== END ==
PROVIDERS: PCP Registered Nurse Diabetes Educator; Referring Provider Registered Nurse Diabetes Educator; Visit Provider Surgery
DX: Z93.8 Other artificial opening status (principal)
CPT/HCPCS: 99212

== ENCOUNTER → 2023-05-09 10:11 | Outpatient (CLI) | payer MEDICARE, OTHER, SELFPAY ==
[2023-03-17 05:43] VITALS: BMI 21.2
== END ==
PROVIDERS: PCP Registered Nurse Diabetes Educator; Referring Provider Registered Nurse Diabetes Educator; Visit Provider Surgery
DX: Z93.8 Other artificial opening status (principal)
CPT/HCPCS: 99212

== ENCOUNTER → 2023-05-10 13:21 | Outpatient (CLI) | payer MEDICARE, OTHER, SELFPAY ==
[2023-03-17 05:43] VITALS: BMI 21.2
[2023-05-10 15:23] LABS: BUN Creatinine Ratio 20.7 (6-22); Blood Urea Nitrogen 17 mg/dL (7-17); Calcium 9.2 mg/dL (8.4-10.2); Carbon Dioxide 29 mmol/L (22-32); Chloride 103 mmol/L (98-107); Estimated Glomerular Filt Rate > 60 mL/min (>60); Glucose 101 mg/dL (80-110); HEMOLYSIS < 15 (0-50); Magnesium 2.1 mg/dL (1.6-2.3); Phosphorous 3.5 mg/dL (2.8-4.1); Potassium 4.3 mmol/L (3.4-5.1); Sodium 138 mmol/L (137-145)
== END ==
PROVIDERS: PCP Registered Nurse Diabetes Educator; Referring Provider Nurse Practitioner; Visit Provider Nurse Practitioner
DX: E61.2 Magnesium deficiency (principal); M85.80 Other specified disorders of bone density and structure, unspecified site; Z51.81 Encounter for therapeutic drug level monitoring
CPT/HCPCS: 36415; 80048; 83735; 84100

== ENCOUNTER → 2023-05-30 14:30 | Outpatient (CLI) | payer MEDICARE, OTHER, SELFPAY ==
[2023-03-17 05:43] VITALS: BMI 21.2
== END ==
PROVIDERS: PCP Registered Nurse Diabetes Educator; Referring Provider Registered Nurse Diabetes Educator; Visit Provider Surgery
DX: N99.528 Other complication of incontinent external stoma of urinary tract (principal)
CPT/HCPCS: 99212

== ENCOUNTER → 2023-06-13 10:41 | Outpatient (CLI) | payer MEDICARE, OTHER, SELFPAY ==
[2023-03-17 05:43] VITALS: BMI 21.2
== END ==
PROVIDERS: PCP Registered Nurse Diabetes Educator; Referring Provider Registered Nurse Diabetes Educator; Visit Provider Surgery
DX: N99.528 Other complication of incontinent external stoma of urinary tract (principal)
CPT/HCPCS: 99212

== ENCOUNTER → 2023-06-27 11:11 | Outpatient (CLI) | payer MEDICARE, OTHER, SELFPAY ==
[2023-03-17 05:43] VITALS: BMI 21.2
== END ==
PROVIDERS: PCP Registered Nurse Diabetes Educator; Referring Provider Registered Nurse Diabetes Educator; Visit Provider Surgery
DX: N99.528 Other complication of incontinent external stoma of urinary tract (principal)
CPT/HCPCS: 99212

== ENCOUNTER 2023-08-21 11:22 | Inpatient (IN) | payer MEDICARE, OTHER, SELFPAY ==
[2023-03-17 05:43] VITALS: BMI 21.2
[2023-08-21] VITALS (10 sets, daily range): BP systolic 109–177; BP diastolic 54–85; PULSE 78–96; RESP 14–23; TEMP 36.7–37.3; O2SAT 93–98; BMI 21.9
--- NOTE | 2023-08-21 12:13 | DI.CT.S_ITS ---
PROCEDURE: CT ABDOMEN PELVIS W CON INDICATIONS: N/V HX SBO TECHNIQUE: After the administration of intravenous contrast, axial sections acquired from the lung bases to the pubic symphysis. Coronal and sagittal reformats were performed. For radiation dose reduction, the following was used: automated exposure control, adjustment of mA and/or kV according to patient size. COMPARISON: [facility], CT, CT ABDOMEN PELVIS W CON, 03/17/2023, 3:31. FINDINGS: Image quality: Excellent. Lung bases: Unremarkable. Heart: No significant findings. ABDOMEN: Liver: Unremarkable. Gallbladder: Surgically absent Biliary ducts: Stable biliary prominence status post cholecystectomy. Pancreas: Unremarkable. Spleen: Stable microlobulated lymphangioma or hemangioma. Adrenal Glands: Unremarkable. Kidneys and Ureters: Subcentimeter bilateral cortical hypodensities. No nephrolithiasis. Mild hydroureteronephrosis since 03/17/2023. Ureters connect to the ileal conduit, as before. Stomach and Bowel: Multiple dilated and fluid filled loops of small bowel. There is anastomosis of the small bowel in the mid right abdomen (). There is a transition point distal to the anastomosis ( with decompression of the distal small bowel with mild bowel wall edema, for example . Peritoneum: Trace interloop mesenteric fluid. No free air. Ventral Wall: No hernias. Abdominal Nodes: No retroperitoneal or mesenteric adenopathy by size criteria. Vessels: Aorta and inferior vena cava are normal in size. Aorto bi iliac atherosclerotic calcifications. PELVIS: Pelvic Organs: Absent. Bladder: Absent. Pelvic Nodes: No enlarged lymph nodes. Miscellaneous: No hernias are seen. Bones: No acute or suspicious osseous abnormality. Status post right hip intramedullary fixation. Mild degenerative change of the spine. Grade 1 anterolisthesis of L3 on L4. IMPRESSION: 1. Dilated proximal and mid small bowel with transition point just distal to the anastomosis with distal small bowel decompressed demonstrating mild edema. Findings consistent with small-bowel obstruction. 2. Status post cystectomy with ileal conduit urinary diversion. Mild hydronephrosis, new since prior CT 03/17/2023. Findings communicated to Dr. Prasad by Dr. Valentine at 2:30 p.m. on 08/21/2023. Approved by: Shruthi Valentine M.D. on 08/21/2023 at 14:32
[2023-08-21] MEDS: METOCLOPRAMIDE 10 MG/2 ML INJ IV ×2 (12:33→23:56)
[2023-08-21] MEDS: MORPHINE 4 MG/ML INJ IV (12:33)
[2023-08-21] MEDS: ONDANSETRON 4 MG/2 ML INJ IV ×2 (12:33→16:28)
--- NOTE | 2023-08-21 12:33 | ED.ABDPAIN ---
HPI - Abdominal Pain General Chief Complaint: Abdominal Pain Stated Complaint: per pt intestinal blockage Time Seen by Provider: 08/21/23 12:08 Source: patient Mode of arrival: Ambulatory History of Present Illness HPI narrative: 87-year-old female with history of recurrent small-bowel obstructions, previous history of urologic cancer status post diverting urostomy (currently in remission, no active chemo/radiation) presents for nausea, vomiting, abdominal pain for 2 days. States this is similar to previous bowel obstructions. Patient was able to pass a small amount of flatus earlier this morning, but none since. She is belching and vomiting at home. Related Data Home Medications Medication Instructions Recorded Confirmed Bifidobacterium infantis 4 mg 4 mg PO DAILY 08/24/20 08/07/23 capsule (Align) cholecalciferol (vitamin D3) 50 mcg PO QAM 08/24/20 08/07/23 loperamide 2 mg tablet (Imodium 2 mg PO Q6H PRN Loose Stool 08/24/20 08/07/23 A-D) vitamin B complex [B 1 tab PO QAM 08/24/20 08/07/23 Complex-Vitamin B12] simethicone 125 mg capsule (Gas-X 125 mg PO QD-BID PRN gas 08/12/21 08/07/23 Extra Strength) psyllium [Metamucil] 1 tbsp PO QAM 01/03/22 08/07/23 [id number] 333 mg-133 See Rx Instructions .Route .COMPLEX 01/11/22 08/07/23 mg-5 mg tablet fluticasone propionate 50 2 spray intranasal DAILY dry nasal 02/04/23 08/07/23 mcg/actuation nasal passages spray,suspension clotrimazole-betamethasone 1 applic topical DAILY 05/07/23 08/07/23 %-0.05 % topical cream Previous Rx's Medication Instructions Recorded acetaminophen 325 mg tablet 650 mg (2 x 325 mg) PO Q6H PRN 02/06/23 Fever/Mild Pain (1-3) #60 tabs denosumab 60 mg/mL subcutaneous 60 mg SUBCUT [id number] #1 mL 03/10/23 syringe (Prolia) omeprazole 20 mg capsule,delayed 20 mg PO DAILY #90 caps 05/07/23 release amlodipine 2.5 mg tablet 2.5 mg PO DAILY #90 tabs 08/07/23 losartan 100 mg tablet 100 mg PO DAILY #90 tabs 08/07/23 Allergies Allergy/AdvReac Type Severity Reaction Status Date / Time Sulfa (Sulfonamide Allergy Unknown Verified 08/07/23 09:43 Antibiotics) trimethaphan Allergy Unknown Verified 08/07/23 09:43 Review of Systems Review of Systems Narrative: Negative except as noted above Patient History Medical History Presence of urostomy History of arthritis History of hip fracture Osteopenia with high risk of fracture High risk for hip fracture Osteopenia Osteopenia Hernia, perineal Anxiety (~1977) Measles (~1944) Recurrent sinusitis (~1964) Human papilloma virus (~2001) Abnormal Pap smear of cervix (~2001) History of urinary incontinence (~2019) Hemorrhoid (~1959) History of cervical cancer (~2002) Depression (~1977) History of uterine cancer (~2002) History of bladder cancer (~2002) Hypertension Cervical cancer GERD (gastroesophageal reflux disease) (~1989) Surgical History Hx of tubal ligation History of hip surgery Hx of total cystectomy History of colon surgery Anesthesia History of hemorrhoidectomy (~1970) History of urostomy History of radical hysterectomy History of cholecystectomy (~2001) Family History Father Cancer Renal failure Mother Hypertension Mental health problem Grandfather Diabetes mellitus Grandmother Diabetes mellitus Grandmother Diabetes mellitus Social History marital status: number of children: 3 household members: none Smoking Status: Former smoker Tobacco: How many years used: 20 alcohol intake: current caffeine: Yes Type(s) of exercise: walking frequency: 1-2 times per week duration: > 90 minutes/day Smoking Status: Former smoker tobacco type: vaping alcohol intake frequency: 0-2 drinks per day Alcohol type: wine Substance Use Type: does not use Exam Initial Vital Signs Initial Vital Signs: Vital Signs Temperature 98.9 F 08/21/23 11:31 Pulse Rate 96 H 08/21/23 11:31 Respiratory Rate 18 08/21/23 11:31 Blood Pressure 109/54 L 08/21/23 11:31 Pulse Oximetry 98 08/21/23 11:31 Oxygen Delivery Method Room Air 08/21/23 11:31 Const: Awake, alert, nontoxic appearing, uncomfortable Eyes: PERRL, EOMI, conjunctiva normal Cardiac: regular rate, regular rhythm RESP: unlabored, clear bilaterally, no wheezing GI: Soft, moderate distention, generalized tenderness to palpation without rebound or guarding, urostomy in lower quadrant draining clear yellow urine MSK: Atraumatic, full range of motion, pulses equal Skin: Warm, Dry, intact, no rashes Neuro: AO x3, CN II-XII grossly intact, moves all extremities Psych: affect normal, mood normal, not suicidal, not homicidal Course Course Course Narrative: Nontoxic appearing patient with the above complaint. She is belching in the exam room, abdomen is distended and generally tender to deep palpation. Vitals are reviewed. Pain and nausea medications provided. Labs and imaging ordered. Orders Ordered: ED Orders 08/21/23 12:13 CT abdomen pelvis w con Stat 08/21/23 12:55 Complete Blood Count AUTO DIFF Stat Comprehensive Metabolic Panel Stat Lipase Stat Prothrombin Time INR Stat 08/21/23 13:05 EKG-12 Lead Stat 08/21/23 13:27 Urinalysis and Microscopic Stat Urine Culture Stat 08/21/23 14:33 Consult to General Surgery Stat Sodium Chloride (Normal Saline 0.9%) 1,000 mls @ 125 mls/hr IV CONT SMILEY Last Admin: 08/21/23 14:23 Dose: 125 mls/hr Documented By: DEBO Ondansetron HCl (Ondansetron 4 Mg Odt) 4 mg PO NOW PRN PRN Reason: Nausea And Vomiting Ondansetron HCl (Ondansetron 4 Mg/2 Ml Inj) 4 mg IV NOW PRN PRN Reason: Nausea And Vomiting Last Admin: 08/21/23 12:33 Dose: 4 mg Documented By: DEBO Discontinued Medications Sodium Chloride (Normal Saline 0.9%) 1,000 mls @ 1,000 mls/hr IV BOLUS ONE Stop: 08/21/23 13:36 Last Infusion: 08/21/23 13:29 Dose: Infused Documented By: Admin: 08/21/23 12:38 Dose: 1,000 mls/hr Documented By: DEBO Metoclopramide HCl (Metoclopramide 10 Mg/2 Ml Inj) 10 mg IV NOW ONE Stop: 08/21/23 12:14 Last Admin: 08/21/23 12:33 Dose: 10 mg Documented By: DEBO Morphine Sulfate (Morphine 4 Mg/Ml Inj) 4 mg IV NOW ONE Stop: 08/21/23 12:14 Last Admin: 08/21/23 12:33 Dose: 4 mg Documented By: DEBO Reevaluation(s) Reevaluation #1: Laboratory work is reviewed. Elevation in neutrophil percentage, slight elevation of T bili from prior (1.4 on 08/21 compared to 1.1 on 03/17). Creatinine normal. Patient resting comfortably in bed, vitals remain unremarkable. Preliminary review of CT does appear to show a small bowel obstruction. Patient stated that she did not want an NG tube as she finds it very uncomfortable and she has had SBO in the past that resolved without an NG tube. Reevaluation #2: CT confirmed small bowel obstruction with transition point distally. Patient again declined NG tube, stating she would like to see if this obstruction resolves without the NG Tube. General surgery consulted, who will evaluate the patient routinely and requested admit to medicine service. Vital Signs Vital signs: Vital Signs - 8 hr 08/21/23 11:31 08/21/23 13:06 08/21/23 13:06 Temperature 98.9 F Pulse Rate 96 H 83 Respiratory Rate 18 23 Blood Pressure 109/54 L 155/77 H Pulse Oximetry 98 94 Oxygen Delivery Method Room Air 08/21/23 13:35 08/21/23 13:36 08/21/23 13:36 Temperature Pulse Rate 89 Respiratory Rate 15 Blood Pressure 174/82 H Pulse Oximetry 98 98 Oxygen Delivery Method 08/21/23 14:00 08/21/23 14:00 Temperature Pulse Rate 86 Respiratory Rate 20 Blood Pressure 164/80 H Pulse Oximetry 94 Oxygen Delivery Method MDM - Abdominal Pain Lab Data 08/21/23 12:55 08/21/23 12:55 Labs: Lab Results 08/21/23 08/21/23 Range/Units 12:55 13:27 WBC 10.8 (4.5-11.0) X10^3/uL RBC 4.31 (4.0-5.2) X10^6/uL Hgb 13.7 (12.0-16.0) g/dL Hct 39.8 (36-46) % MCV 92.2 (80-100) fL MCH 31.8 (26-34) PG MCHC 34.6 (30-36) % RDW 13.6 (11.6-14.8) % Plt Count 234 (150-400) X10^3/uL Neut % (Auto) 86.5 H (50-75) % Lymph % (Auto) 7.9 L (25-40) % [place] % (Auto) 5.3 (3-14) % Eos % (Auto) 0.0 L (2-4) % Baso % (Auto) 0.3 (0-2) % Neut # (Auto) 9300 H (5593-9459) /uL Lymph # (Auto) 900 L (3775-4994) /uL [place] # (Auto) 600 (0-900) /uL Eos # (Auto) 0 (0-450) /uL Baso # (Auto) 0 (0-100) /uL PT 12.1 (10.1-12.7) SECONDS INR 1.1 (0.9-1.3) Sodium 138 (137-145) mmol/L Potassium 4.0 (3.4-5.1) mmol/L Chloride 101 (98-107) mmol/L Carbon Dioxide 28 (22-32) mmol/L BUN 26 H (7-17) mg/dL Creatinine 0.95 (0.52-1.04) mg/dL Estimated GFR 58 L (>60) mL/min BUN/Creatinine Ratio 27.4 H (6-22) Glucose 132 H (80-110) mg/dL Calcium 10.3 H (8.4-10.2) mg/dL Total Bilirubin 1.4 H (0.2-1.3) mg/dL AST 29 (14-36) IU/L ALT 22 (<35) IU/L Alkaline Phosphatase 48 (38-126) U/L Total Protein 7.5 (6.3-8.2) g/dL Albumin 4.3 (3.5-5.0) g/dL Globulin 3.2 (1.7-4.1) g/dL Albumin/Globulin Ratio 1.3 (1.0-2.8) Lipase 49 (23-300) U/L Urine Color Yellow Urine Appearance Sl cloudy Urine pH 5.5 (4.5-8.0) Ur Specific [place] 1.020 (1.000-1.035) Urine Protein 1+ H (Negative) Urine Glucose (UA) Negative (Negative) g/dL Urine Ketones Trace H (NEGATIVE) Urine Occult Blood Negative (Negative) Urine Nitrate Positive H (Negative) Urine Bilirubin Negative (NEGATIVE) Urine Urobilinogen 1.0 (0.2) E.U./dL Ur Leukocyte Esterase Trace H (NEGATIVE) Urine RBC None seen (0-5/HPF) Urine WBC 1-5/hpf (0-5/HPF) Ur Squamous Epith Cells 1-5 /hpf (0-5/HPF) Urine Bacteria Many (>30) H (None) Ur Culture Indicated? Specimen cultured ECG Data Interpretation: Normal sinus rhythm, rate 79 beats per minute. Left axis deviation, normal [place] interval, no ST T wave changes, no STEMI Discharge Plan Departure Patient Disposition: Admitted as Observation Clinical Impression: Small bowel obstruction, Nausea & vomiting, Abdominal pain
[2023-08-21] MEDS: SODIUM CHLORIDE 0.9% 1,000 ML 1000 ML IV (12:38)
[2023-08-21 13:03] LABS: Add Manual Diff / Slide Review NO; Basophils Absolute Auto 0 /uL (0-100); Basophils Percent Auto 0.3 % (0-2); Eosinophils Absolute Auto 0 /uL (0-450); Hematocrit 39.8 % (36-46); Hemoglobin 13.7 g/dL (12.0-16.0); Lymphocytes Absolute Auto 900 /uL (1100-4500); Lymphocytes Percent Auto 7.9 % (25-40); Mean Corpuscular HGB Conc 34.6 % (30-36); Mean Corpuscular Hemoglobin 31.8 PG (26-34); Mean Corpuscular Volume 92.2 fL (80-100); Monocytes Absolute Auto 600 /uL (0-900); Monocytes Percent Auto 5.3 % (3-14); Neutrophils Absolute Auto 9300 /uL (1500-7000); Neutrophils Percent Auto 86.5 % (50-75); Platelet Count 234 X10^3/uL (150-400); Red Blood Cell Count 4.31 X10^6/uL (4.0-5.2); Red Cell Distribution Width 13.6 % (11.6-14.8); White Blood Cell Count 10.8 X10^3/uL (4.5-11.0)
[2023-08-21 13:19] LABS: Alanine Aminotransferase 22 IU/L (<35); Albumin 4.3 g/dL (3.5-5.0); Albumin Globulin Ratio 1.3 (1.0-2.8); Alkaline Phosphatase 48 U/L (38-126); Aspartate Aminotransferase 29 IU/L (14-36); BUN Creatinine Ratio 27.4 (6-22); Bilirubin Total 1.4 mg/dL (0.2-1.3); Blood Urea Nitrogen 26 mg/dL (7-17); Calcium 10.3 mg/dL (8.4-10.2); Carbon Dioxide 28 mmol/L (22-32); Chloride 101 mmol/L (98-107); Estimated Glomerular Filt Rate 58 mL/min (>60); Globulin 3.2 g/dL (1.7-4.1); Glucose 132 mg/dL (80-110); HEMOLYSIS 21 (0-50); Lipase 49 U/L (23-300); Sodium 138 mmol/L (137-145); Total Protein 7.5 g/dL (6.3-8.2)
[2023-08-21 13:33] LABS: INR 1.1 (0.9-1.3); Prothrombin Time 12.1 SECONDS (10.1-12.7)
[2023-08-21 14:00] LABS: Appearance Urine UA SL CLOUDY; Bacteria Urine Many (>30); Bilirubin Urine UA NEGATIVE (NEGATIVE); Color Urine UA YELLOW; Culture Indicated Urine Specimen Cultured; Glucose Urine UA NEGATIVE (Negative); Ketones Urine UA TRACE (NEGATIVE); Leukocyte Esterase Urine UA TRACE (NEGATIVE); Nitrite Urine UA POSITIVE (Negative); Occult Blood Urine UA NEGATIVE (Negative); Protein Urine UA 1+ (Negative); RBC Urine None Seen (0-5/HPF); Squamous Epithelial Cell Urine 1-5 /HPF (0-5/HPF); WBC Urine 1-5/HPF (0-5/HPF); pH Urine UA 5.5 (4.5-8.0)
[2023-08-21] MEDS: SODIUM CHLORIDE 0.9% 1,000 ML 125 ML IV (14:23)
[2023-08-21] MEDS: LACTATED RINGERS 1,000 ML 100 ML IV (16:23)
[2023-08-21] MEDS: MORPHINE 2 MG/ML INJ IV (16:26)
[2023-08-21] MEDS: cefTRIAXone 1,000 MG in SODIUM CHLORIDE 0.9% 100 ML 200 MG IV (16:28)
--- NOTE | 2023-08-21 17:04 | PM.HP.1 ---
History of Present Illness History of Present Illness Date Patient Seen: 08/21/23 Time Patient Seen: 17:00 Chief complaint: per pt intestinal blockage Narrative: Ms. 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 She started having abdominal pain two days ago. She was also having nausea and vomiting, last vomited earlier today. No bowel movements or passing gas. She has had admissions for SBO previously which resolved with medical management. She was advised by the ED and me to have an NG tube due to attempt to improve abdominal pain and to risk of aspiration if she were to vomit. She declined after risk was described, and said she would reconsider if she felt worse. In the ED, workup was done, vitals notable for afebrile, blood pressure 170s/70s, heart rate 70s, sats 96% on room air. Labs reviewed by me and notable for WBC 10.8, hgb 13.7, plts 23. INR 1.1. Na 138, creatinine 0.95. UA positive nitrates, leuk esterase, and bacteria. CT abdomen with dilated proximal small bowel with transition point distal to anastamosis. Surgery was consulted and recommended medical management. She was ordered for pain and nausea control. She was admitted for further treatment. [facility], [facility] Medical History Presence of urostomy History of arthritis History of hip fracture Osteopenia with high risk of fracture High risk for hip fracture Osteopenia Osteopenia Hernia, perineal Anxiety (~1977) Measles (~1945) Recurrent sinusitis (~1964) Human papilloma virus (~2001) Abnormal Pap smear of cervix (~2001) History of urinary incontinence (~2019) Hemorrhoid (~1959) History of cervical cancer (~2002) Depression (~1977) History of uterine cancer (~2002) History of bladder cancer (~2002) Hypertension Cervical cancer GERD (gastroesophageal reflux disease) (~1989) Surgical History Hx of tubal ligation History of hip surgery Hx of total cystectomy History of colon surgery Anesthesia History of hemorrhoidectomy (~1970) History of urostomy History of radical hysterectomy History of cholecystectomy (~2001) Family History Father Cancer Renal failure Mother Hypertension Mental health problem Grandfather Diabetes mellitus Grandmother Diabetes mellitus Grandmother Diabetes mellitus Social History marital status: number of children: 3 household members: none Smoking Status: Former smoker Tobacco: How many years used: 20 alcohol intake: current caffeine: Yes Type(s) of exercise: walking frequency: 1-2 times per week duration: > 90 minutes/day Meds Home Medications and Allergies Home Medications Medication Instructions Recorded Confirmed Type Bifidobacterium infantis 4 mg 4 mg PO DAILY 08/24/20 08/21/23 History capsule (Align) cholecalciferol (vitamin D3) 50 mcg PO QAM 08/24/20 08/21/23 History loperamide 2 mg tablet (Imodium 2 mg PO Q6H PRN Loose Stool 08/24/20 08/07/23 History A-D) vitamin B complex [B 1 tab PO QAM 08/24/20 08/07/23 History Complex-Vitamin B12] simethicone 125 mg capsule (Gas-X 125 mg PO QD-BID PRN gas 08/12/21 08/07/23 History Extra Strength) psyllium [Metamucil] 1 tbsp PO QAM 01/03/22 08/07/23 History [id number] 333 mg-133 See Rx Instructions .Route .COMPLEX 01/11/22 08/21/23 History mg-5 mg tablet fluticasone propionate 50 2 spray intranasal DAILY dry nasal 02/04/23 08/21/23 History mcg/actuation nasal passages spray,suspension acetaminophen 325 mg tablet 650 mg (2 x 325 mg) PO Q6H PRN 02/06/23 08/21/23 Rx Fever/Mild Pain (1-3) #60 tabs denosumab 60 mg/mL subcutaneous 60 mg SUBCUT [id number] #1 mL 03/10/23 08/21/23 Rx syringe (Prolia) clotrimazole-betamethasone 1 1 applic topical DAILY 05/07/23 08/21/23 History %-0.05 % topical cream omeprazole 20 mg capsule,delayed 20 mg PO DAILY #90 caps 05/07/23 08/07/23 Rx release amlodipine 2.5 mg tablet 2.5 mg PO DAILY #90 tabs 08/07/23 08/21/23 Rx losartan 100 mg tablet 100 mg PO DAILY #90 tabs 08/07/23 08/07/23 Rx Allergies Allergy/AdvReac Type Severity Reaction Status Date / Time Sulfa (Sulfonamide Allergy Unknown Verified 08/07/23 09:43 Antibiotics) trimethaphan Allergy Unknown Verified 08/07/23 09:43 Review of Systems Review of Systems Narrative: 14 systems reviewed and negative aside from what is noted in HPI Exam Vital Signs (past 8 hours): - 08/21/23 11:31 08/21/23 13:06 08/21/23 13:06 Temperature 98.9 F Pulse Rate 96 H 83 Respiratory Rate 18 23 Blood Pressure 109/54 L 155/77 H Pulse Oximetry 98 94 Oxygen Delivery Method Room Air Oxygen Flow Rate 08/21/23 13:35 08/21/23 13:36 08/21/23 13:36 Temperature Pulse Rate 89 Respiratory Rate 15 Blood Pressure 174/82 H Pulse Oximetry 98 98 Oxygen Delivery Method Oxygen Flow Rate 08/21/23 14:00 08/21/23 14:00 08/21/23 14:30 Temperature Pulse Rate 86 85 Respiratory Rate 20 14 Blood Pressure 164/80 H Pulse Oximetry 94 93 Oxygen Delivery Method Oxygen Flow Rate 08/21/23 14:30 08/21/23 15:00 08/21/23 15:00 Temperature Pulse Rate 83 Respiratory Rate 16 Blood Pressure 139/74 160/74 H Pulse Oximetry 96 Oxygen Delivery Method Oxygen Flow Rate 08/21/23 15:30 08/21/23 15:30 08/21/23 15:58 Temperature 98.1 F Pulse Rate 81 78 Respiratory Rate 15 16 Blood Pressure 163/77 H 177/79 H Pulse Oximetry 94 96 Oxygen Delivery Method Oxygen Flow Rate 0 Oxygen Delivery Method Room Air Oxygen Flow Rate 0 Narrative Exam Narrative: GEN: in distress from pain CV: regular rate and rhythm PULM: clear bilaterally ABD: distended, soft, tender to palpation, bowel sounds presents EXT: warm and well perfused, no edema NEURO: awake, alert, oriented Objective Labs 08/21/23 12:55 08/21/23 12:55 Labs: Laboratory Results - last 24 hr 08/21/23 08/21/23 12:55 13:27 WBC 10.8 RBC 4.31 Hgb 13.7 Hct 39.8 MCV 92.2 MCH 31.8 MCHC 34.6 RDW 13.6 Plt Count 234 Neut % (Auto) 86.5 H Lymph % (Auto) 7.9 L [place] % (Auto) 5.3 Eos % (Auto) 0.0 L Baso % (Auto) 0.3 Neut # (Auto) 9300 H Lymph # (Auto) 900 L [place] # (Auto) 600 Eos # (Auto) 0 Baso # (Auto) 0 PT 12.1 INR 1.1 Sodium 138 Potassium 4.0 Chloride 101 Carbon Dioxide 28 BUN 26 H Creatinine 0.95 Estimated GFR 58 L BUN/Creatinine Ratio 27.4 H Glucose 132 H Calcium 10.3 H Total Bilirubin 1.4 H AST 29 ALT 22 Alkaline Phosphatase 48 Total Protein 7.5 Albumin 4.3 Globulin 3.2 Albumin/Globulin Ratio 1.3 Lipase 49 Urine Color Yellow Urine Appearance Sl cloudy Urine pH 5.5 Ur Specific [place] 1.020 Urine Protein 1+ H Urine Glucose (UA) Negative Urine Ketones Trace H Urine Occult Blood Negative Urine Nitrate Positive H Urine Bilirubin Negative Urine Urobilinogen 1.0 Ur Leukocyte Esterase Trace H Urine RBC None seen Urine WBC 1-5/hpf Ur Squamous Epith Cells 1-5 /hpf Urine Bacteria Many (>30) H Ur Culture Indicated? Specimen cultured Assessment & Plan Assessment & Plan narrative: 1. Acute small bowel obstruction likely from adhesion -has had multiple recurrences in the past -pain medications and nausea meds ordered -I recommended NG tube and discussed risks, she declined -keep NPO -continue IV fluids -consulted surgery 2. Possible UTI -will order ceftriaxone for now -may be abnormal UA due to urostomy -follow up cultures, stop abx if negative 3. Hypertension -hold anti-hypertensives for now 4. History of uterine and bladder cancer s/p urostomy -previous records reviewed and she has repeated SBO from adhesions from above -currently asymptomatic with no acute issues I have discussed plan and obtained history from the patient. I have discussed plan of care with ED physician and bedside nurse. I have reviewed labs, imaging, and previous medical records. CODE: Full Proxy: Hortencia Lin, daughter
--- NOTE | 2023-08-21 17:50 | PM.CN ---
History of Present Illness Consult details Date Patient Seen: 08/21/23 Time Patient Seen: 17:50 Chief complaint: per pt intestinal blockage Reason for consult: recurrent SBO Requesting provider: Shona Krishnamurthy Narrative: History of recurrent SBO, this one related to eating spinach. transition point is at SB anastomosis. Large emesis prior to arrival, none since. No flatus. Crampy pain. Meds Home Medications and Allergies Home Medications Medication Instructions Recorded Confirmed Type Bifidobacterium infantis 4 mg 4 mg PO DAILY 08/24/20 08/21/23 History capsule (Align) cholecalciferol (vitamin D3) 50 mcg PO QAM 08/24/20 08/21/23 History loperamide 2 mg tablet (Imodium 2 mg PO Q6H PRN Loose Stool 08/24/20 08/07/23 History A-D) vitamin B complex [B 1 tab PO QAM 08/24/20 08/07/23 History Complex-Vitamin B12] simethicone 125 mg capsule (Gas-X 125 mg PO QD-BID PRN gas 08/12/21 08/07/23 History Extra Strength) psyllium [Metamucil] 1 tbsp PO QAM 01/03/22 08/07/23 History [id number]-[id number] 333 mg-133 See Rx Instructions .Route .COMPLEX 01/11/22 08/21/23 History mg-5 mg tablet fluticasone propionate 50 2 spray intranasal DAILY dry nasal 02/04/23 08/21/23 History mcg/actuation nasal passages spray,suspension acetaminophen 325 mg tablet 650 mg (2 x 325 mg) PO Q6H PRN 02/06/23 08/21/23 Rx Fever/Mild Pain (1-3) #60 tabs denosumab 60 mg/mL subcutaneous 60 mg SUBCUT [id number] #1 mL 03/10/23 08/21/23 Rx syringe (Prolia) clotrimazole-betamethasone 1 1 applic topical DAILY 05/07/23 08/21/23 History %-0.05 % topical cream omeprazole 20 mg capsule,delayed 20 mg PO DAILY #90 caps 05/07/23 08/07/23 Rx release amlodipine 2.5 mg tablet 2.5 mg PO DAILY #90 tabs 08/07/23 08/21/23 Rx losartan 100 mg tablet 100 mg PO DAILY #90 tabs 08/07/23 08/07/23 Rx Allergies Allergy/AdvReac Type Severity Reaction Status Date / Time Sulfa (Sulfonamide Allergy Unknown Verified 08/07/23 09:43 Antibiotics) trimethaphan Allergy Unknown Verified 08/07/23 09:43 Review of Systems Review of Systems ROS: Yes All systems reviewed with the patient and are negative except as otherwise documented Exam Vital Signs (past 8 hours): - 08/21/23 11:31 08/21/23 13:06 08/21/23 13:06 Temperature 98.9 F Pulse Rate 96 H 83 Respiratory Rate 18 23 Blood Pressure 109/54 L 155/77 H Pulse Oximetry 98 94 Oxygen Delivery Method Room Air Oxygen Flow Rate 08/21/23 13:35 08/21/23 13:36 08/21/23 13:36 Temperature Pulse Rate 89 Respiratory Rate 15 Blood Pressure 174/82 H Pulse Oximetry 98 98 Oxygen Delivery Method Oxygen Flow Rate 08/21/23 14:00 08/21/23 14:00 08/21/23 14:30 Temperature Pulse Rate 86 85 Respiratory Rate 20 14 Blood Pressure 164/80 H Pulse Oximetry 94 93 Oxygen Delivery Method Oxygen Flow Rate 08/21/23 14:30 08/21/23 15:00 08/21/23 15:00 Temperature Pulse Rate 83 Respiratory Rate 16 Blood Pressure 139/74 160/74 H Pulse Oximetry 96 Oxygen Delivery Method Oxygen Flow Rate 08/21/23 15:30 08/21/23 15:30 08/21/23 15:58 Temperature 98.1 F Pulse Rate 81 78 Respiratory Rate 15 16 Blood Pressure 163/77 H 177/79 H Pulse Oximetry 94 96 Oxygen Delivery Method Oxygen Flow Rate 0 Oxygen Delivery Method Room Air Oxygen Flow Rate 0 Const General: cooperative and well groomed Nutritional Appearance: underweight Orientation: alert, awake and oriented x3 HENMT Head: normocephalic and atraumatic Face and sinus: normal facial exam Eyes Sclera: scleral abnormality Neck Neck: trachea midline Resp Effort & Inspection: normal respiratory effort and able to speak in complete sentences Cardio Rate: regular rate Rhythm: regular rhythm GI Inspection: distended, no obesity and visible peristalsis Palpation: soft and No tender Skin General: atrophy, No induration and No jaundice Neuro General: patient alert, patient awake and patient oriented x3 Psych Mental Status: mental status grossly normal Judgment: judgment good Objective Labs 08/21/23 12:55 08/21/23 12:55 Labs: Laboratory Results - last 24 hr 08/21/23 08/21/23 12:55 13:27 WBC 10.8 RBC 4.31 Hgb 13.7 Hct 39.8 MCV 92.2 MCH 31.8 MCHC 34.6 RDW 13.6 Plt Count 234 Neut % (Auto) 86.5 H Lymph % (Auto) 7.9 L [place] % (Auto) 5.3 Eos % (Auto) 0.0 L Baso % (Auto) 0.3 Neut # (Auto) 9300 H Lymph # (Auto) 900 L [place] # (Auto) 600 Eos # (Auto) 0 Baso # (Auto) 0 PT 12.1 INR 1.1 Sodium 138 Potassium 4.0 Chloride 101 Carbon Dioxide 28 BUN 26 H Creatinine 0.95 Estimated GFR 58 L BUN/Creatinine Ratio 27.4 H Glucose 132 H Calcium 10.3 H Total Bilirubin 1.4 H AST 29 ALT 22 Alkaline Phosphatase 48 Total Protein 7.5 Albumin 4.3 Globulin 3.2 Albumin/Globulin Ratio 1.3 Lipase 49 Urine Color Yellow Urine Appearance Sl cloudy Urine pH 5.5 Ur Specific [place] 1.020 Urine Protein 1+ H Urine Glucose (UA) Negative Urine Ketones Trace H Urine Occult Blood Negative Urine Nitrate Positive H Urine Bilirubin Negative Urine Urobilinogen 1.0 Ur Leukocyte Esterase Trace H Urine RBC None seen Urine WBC 1-5/hpf Ur Squamous Epith Cells 1-5 /hpf Urine Bacteria Many (>30) H Ur Culture Indicated? Specimen cultured [facility] Medical History Presence of urostomy History of arthritis History of hip fracture Osteopenia with high risk of fracture High risk for hip fracture Osteopenia Osteopenia Hernia, perineal Anxiety (~1977) Measles (~1945) Recurrent sinusitis (~1964) Human papilloma virus (~2001) Abnormal Pap smear of cervix (~2001) History of urinary incontinence (~2019) Hemorrhoid (~1959) History of cervical cancer (~2002) Depression (~1977) History of uterine cancer (~2002) History of bladder cancer (~2002) Hypertension Cervical cancer GERD (gastroesophageal reflux disease) (~1989) Surgical History Hx of tubal ligation History of hip surgery Hx of total cystectomy History of colon surgery Anesthesia History of hemorrhoidectomy (~1970) History of urostomy History of radical hysterectomy History of cholecystectomy (~2001) Family History Father Cancer Renal failure Mother Hypertension Mental health problem Grandfather Diabetes mellitus Grandmother Diabetes mellitus Grandmother Diabetes mellitus Social History marital status: number of children: 3 household members: none Tobacco & Substance Use Smoking Status: Former smoker Tobacco: How many years used: 20 alcohol intake: current Diet and Exercise caffeine: Yes Type(s) of exercise: walking frequency: 1-2 times per week duration: > 90 minutes/day Assessment & Plan Assessment & Plan narrative: Recurrent SBO at anastomotic site Plan: Bowel rest, hydration, possible gastrografin challenge Time Spent With Patient Time with patient: 30 to 49 minutes with 50% spent counseling/coordinating care
--- NOTE | 2023-08-21 19:49 | PC.NURSE ---
new admit: diagnosis of SBO. alert and oriented. voices needs. independant w/ mobility and ambulation in room. appears to be weak at times: bed alarm on, instructed to call staff if OOB. 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 stoma is pink/moist, no breakdown noted. patient manages urostomy. she reports since the surgery for bladder removal, i had a special procedure where they fashioned a mesh to hold my colon up by grafting a piece of my intestion. ever since above surgery, patient has sensitive responses to particular foods. patient reports living at [facility].. and is not fully satisfied w/ the dietary offerings there. we discussed options for stocking her kitchenette in her apartment w/ foods that are to her liking that wont cause GI upset/constipation. NPO status, hospitalist declined ice chips. lemon swabs and toothettes available at bedside. dietary consult requested. ctm -
[2023-08-22] VITALS: BP 159/78; PULSE 80; RESP 17; TEMP 37.3; O2SAT 96
[2023-08-22] MEDS: MORPHINE 2 MG/ML INJ IV (02:07)
[2023-08-22] MEDS: ONDANSETRON 4 MG/2 ML INJ IV (02:07)
[2023-08-22 04:00] VITALS: BP 148/63; PULSE 77; RESP 16; TEMP 36.7; O2SAT 95
[2023-08-22 06:37] LABS: Add Manual Diff / Slide Review NO; Basophils Absolute Auto 0 /uL (0-100); Basophils Percent Auto 0.3 % (0-2); Eosinophils Absolute Auto 0 /uL (0-450); Eosinophils Percent Auto 0.2 % (2-4); Hematocrit 32.8 % (36-46); Hemoglobin 11.4 g/dL (12.0-16.0); Lymphocytes Absolute Auto 1100 /uL (1100-4500); Lymphocytes Percent Auto 16.7 % (25-40); Mean Corpuscular HGB Conc 34.9 % (30-36); Mean Corpuscular Hemoglobin 32.4 PG (26-34); Mean Corpuscular Volume 92.8 fL (80-100); Monocytes Absolute Auto 400 /uL (0-900); Monocytes Percent Auto 6.4 % (3-14); Neutrophils Absolute Auto 5100 /uL (1500-7000); Neutrophils Percent Auto 76.4 % (50-75); Platelet Count 181 X10^3/uL (150-400); Red Blood Cell Count 3.53 X10^6/uL (4.0-5.2); White Blood Cell Count 6.6 X10^3/uL (4.5-11.0)
[2023-08-22 06:57] LABS: BUN Creatinine Ratio 28.9 (6-22); Blood Urea Nitrogen 22 mg/dL (7-17); Carbon Dioxide 27 mmol/L (22-32); Chloride 107 mmol/L (98-107); Estimated Glomerular Filt Rate > 60 mL/min (>60); Glucose 106 mg/dL (80-110); HEMOLYSIS < 15 (0-50); Potassium 3.6 mmol/L (3.4-5.1); Sodium 137 mmol/L (137-145)
[2023-08-22 08:00] VITALS: BP 156/87; PULSE 85; RESP 18; TEMP 36.8; O2SAT 96
--- NOTE | 2023-08-22 10:22 | CM.DANOTE ---
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 Patient admitted OBS and will likely discharge home later today if symptoms have improved and patient able to tolerate a diet. PCP: Blue Gan Payer: SHAYLA/filomena Reviewed chart, met w/patient to introduce self and role. Patient lives alone at [facility], independent in all aspects. Patient's daughter Katie Mock P [phone] is her DPOA, has been moving around lately but currently dog sitting in [place]. Available as needed for assist. No barriers identified at this time to patient's safe discharge home w/family to assist as needed; close outpatient f/u recommended. CM team will plan to follow closely in case any DC needs or concerns arise. UNRULY Young Discharge Planning/Care Management Advanced directive, confirm from FAMILY Start: 08/21/23 16:07 Freq: Q24H Status: Active Protocol: Document 08/21/23 16:07 HCW (Rec: 08/21/23 16:19 HCW [id number]) Advance Directive, confirm on record Time 16:19 Person contacted patient Copy received No CM Discharge Assessment Start: 08/22/23 10:20 Freq: Status: Active Protocol: Document 08/22/23 10:20 JW (Rec: 08/22/23 10:22 JW [id number]) Discharge Planning Assessment Assigned Flask Pusher UNRULY Canales DPOA/Assigned Designee Name Katie Mock, daughter/DPOA ([place]) Contact Information [phone] Advance Directives? Yes Advance Directives on File Yes History Provided By Patient,Medical Record Prior Living Arrangements Alf Facility Comment Formerly [facility] Household Members none Type of transporation used prior to Drives own vehicle admit Facility Name Admitted From: [facility] Independent with ADL's Yes Is patient alert and oriented? Yes Needs Assistance With Meal Prep,Home Chores / Shopping Comment Has walker but does not use. Barriers to Discharge No Discharge Plan Home Transportation Arrangement Family Referrals Initiated None needed
--- NOTE | 2023-08-22 10:39 | PM.PN.1 ---
Subjective Subjective Date Patient Seen: 08/22/23 Time Patient Seen: 10:39 Interval history: Feels back to normal. Multiple bowel movements Exam Vital Signs (past 8 hours): - 08/22/23 04:00 08/22/23 08:00 Temperature 98.0 F 98.2 F Pulse Rate 77 85 Respiratory Rate 16 18 Blood Pressure 148/63 H 156/87 H Pulse Oximetry 95 96 Oxygen Flow Rate 0 0 Oxygen Delivery Method Room Air Oxygen Flow Rate 0 Narrative Exam Narrative: abdomen is benign. Objective Labs 08/22/23 06:14 08/22/23 06:14 Labs: Laboratory Results - last 24 hr 08/21/23 08/21/23 08/22/23 12:55 13:27 06:14 WBC 10.8 6.6 RBC 4.31 3.53 L Hgb 13.7 11.4 L Hct 39.8 32.8 L MCV 92.2 92.8 MCH 31.8 32.4 MCHC 34.6 34.9 RDW 13.6 14.0 Plt Count 234 181 Neut % (Auto) 86.5 H 76.4 H Lymph % (Auto) 7.9 L 16.7 L [place] % (Auto) 5.3 6.4 Eos % (Auto) 0.0 L 0.2 L Baso % (Auto) 0.3 0.3 Neut # (Auto) 9300 H 5100 Lymph # (Auto) 900 L 1100 [place] # (Auto) 600 400 Eos # (Auto) 0 0 Baso # (Auto) 0 0 PT 12.1 INR 1.1 Sodium 138 137 Potassium 4.0 3.6 Chloride 101 107 Carbon Dioxide 28 27 BUN 26 H 22 H Creatinine 0.95 0.76 Estimated GFR 58 L > 60 BUN/Creatinine Ratio 27.4 H 28.9 H Glucose 132 H 106 Calcium 10.3 H 9.0 Total Bilirubin 1.4 H AST 29 ALT 22 Alkaline Phosphatase 48 Total Protein 7.5 Albumin 4.3 Globulin 3.2 Albumin/Globulin Ratio 1.3 Lipase 49 Urine Color Yellow Urine Appearance Sl cloudy Urine pH 5.5 Ur Specific [place] 1.020 Urine Protein 1+ H Urine Glucose (UA) Negative Urine Ketones Trace H Urine Occult Blood Negative Urine Nitrate Positive H Urine Bilirubin Negative Urine Urobilinogen 1.0 Ur Leukocyte Esterase Trace H Urine RBC None seen Urine WBC 1-5/hpf Ur Squamous Epith Cells 1-5 /hpf Urine Bacteria Many (>30) H Ur Culture Indicated? Specimen cultured PFS Medical History Presence of urostomy History of arthritis History of hip fracture Osteopenia with high risk of fracture High risk for hip fracture Osteopenia Osteopenia Hernia, perineal Anxiety (~1977) Measles (~194) Recurrent sinusitis (~1964) Human papilloma virus (~2001) Abnormal Pap smear of cervix (~2001) History of urinary incontinence (~2019) Hemorrhoid (~1959) History of cervical cancer (~2002) Depression (~1977) History of uterine cancer (~2002) History of bladder cancer (~2002) Hypertension Cervical cancer GERD (gastroesophageal reflux disease) (~1989) Surgical History Hx of tubal ligation History of hip surgery Hx of total cystectomy History of colon surgery Anesthesia History of hemorrhoidectomy (~1970) History of urostomy History of radical hysterectomy History of cholecystectomy (~2001) Family History Father Cancer Renal failure Mother Hypertension Mental health problem Grandfather Diabetes mellitus Grandmother Diabetes mellitus Grandmother Diabetes mellitus Social History marital status: number of children: 3 household members: none Smoking Status: Former smoker Tobacco: How many years used: 20 alcohol intake: current caffeine: Yes Type(s) of exercise: walking frequency: 1-2 times per week duration: > 90 minutes/day Assessment & Plan Assessment & Plan narrative: spontaneous resolution of SBO. Recommend limiting raw fruits and vegetables in the future. Discharge home w/o restrictions Time Spent With Patient Time with patient: less than 30 minutes
--- NOTE | 2023-08-22 10:41 | PM.DS.1 ---
History of Present Illness History of Present Illness Date Patient Seen: 08/22/23 Time Patient Seen: 10:41 Chief complaint: per pt intestinal blockage Narrative: Recurrent SBO associated with small bowel anastomosis. Resolved with bowel rest and hydration. Discharge Providers Provider Date of admission: 08/21/23 14:49 Discharge Date: 08/22/23 Primary care physician: ROBINSON Murcia Consults: 08/21/23 14:33 Consult to General Surgery Stat Comment: Consulting Provider: Edna Poe Reason for consultation: SBO Has provider been notified: Yes Discharge provider: Edna Poe MD Summary Hospital Course Discharge Diagnosis: Recurrent SBO Hospital Course: Hydration and bowel rest. Status at Discharge Cognitive/behavioral status at discharge: at baseline, oriented Functional status at discharge: independent ambulation Overall status at discharge: patient is progressing back to baseline Time Spent with Patient Time spent: Less than 30 minutes Exam Vital Signs (past 8 hours): - 08/22/23 04:00 08/22/23 08:00 Temperature 98.0 F 98.2 F Pulse Rate 77 85 Respiratory Rate 16 18 Blood Pressure 148/63 H 156/87 H Pulse Oximetry 95 96 Oxygen Flow Rate 0 0 Oxygen Delivery Method Room Air Oxygen Flow Rate 0 Objective Labs 08/22/23 06:14 08/22/23 06:14 Labs: Laboratory Results - last 24 hr 08/21/23 08/21/23 08/22/23 12:55 13:27 06:14 WBC 10.8 6.6 RBC 4.31 3.53 L Hgb 13.7 11.4 L Hct 39.8 32.8 L MCV 92.2 92.8 MCH 31.8 32.4 MCHC 34.6 34.9 RDW 13.6 14.0 Plt Count 234 181 Neut % (Auto) 86.5 H 76.4 H Lymph % (Auto) 7.9 L 16.7 L [place] % (Auto) 5.3 6.4 Eos % (Auto) 0.0 L 0.2 L Baso % (Auto) 0.3 0.3 Neut # (Auto) 9300 H 5100 Lymph # (Auto) 900 L 1100 [place] # (Auto) 600 400 Eos # (Auto) 0 0 Baso # (Auto) 0 0 PT 12.1 INR 1.1 Sodium 138 137 Potassium 4.0 3.6 Chloride 101 107 Carbon Dioxide 28 27 BUN 26 H 22 H Creatinine 0.95 0.76 Estimated GFR 58 L > 60 BUN/Creatinine Ratio 27.4 H 28.9 H Glucose 132 H 106 Calcium 10.3 H 9.0 Total Bilirubin 1.4 H AST 29 ALT 22 Alkaline Phosphatase 48 Total Protein 7.5 Albumin 4.3 Globulin 3.2 Albumin/Globulin Ratio 1.3 Lipase 49 Urine Color Yellow Urine Appearance Sl cloudy Urine pH 5.5 Ur Specific [place] 1.020 Urine Protein 1+ H Urine Glucose (UA) Negative Urine Ketones Trace H Urine Occult Blood Negative Urine Nitrate Positive H Urine Bilirubin Negative Urine Urobilinogen 1.0 Ur Leukocyte Esterase Trace H Urine RBC None seen Urine WBC 1-5/hpf Ur Squamous Epith Cells 1-5 /hpf Urine Bacteria Many (>30) H Ur Culture Indicated? Specimen cultured [facility] Medical History Presence of urostomy History of arthritis History of hip fracture Osteopenia with high risk of fracture High risk for hip fracture Osteopenia Osteopenia Hernia, perineal Anxiety (~1977) Measles (~1944) Recurrent sinusitis (~1964) Human papilloma virus (~2001) Abnormal Pap smear of cervix (~2001) History of urinary incontinence (~2019) Hemorrhoid (~1959) History of cervical cancer (~2002) Depression (~1977) History of uterine cancer (~2002) History of bladder cancer (~2002) Hypertension Cervical cancer GERD (gastroesophageal reflux disease) (~1989) Surgical History Hx of tubal ligation History of hip surgery Hx of total cystectomy History of colon surgery Anesthesia History of hemorrhoidectomy (~1970) History of urostomy History of radical hysterectomy History of cholecystectomy (~2001) Family History Father Cancer Renal failure Mother Hypertension Mental health problem Grandfather Diabetes mellitus Grandmother Diabetes mellitus Grandmother Diabetes mellitus Social History marital status: number of children: 3 household members: none Smoking Status: Former smoker Tobacco: How many years used: 20 alcohol intake: current caffeine: Yes Type(s) of exercise: walking frequency: 1-2 times per week duration: > 90 minutes/day Discharge Plan Discharge Plan Patient Disposition: Home Discharge orders & Medications Prescriptions: Continued Prolia 60 mg/mL syringe 60 mg SUBCUT [id number] Qty: 1 1RF Patient Comments: next dose is on september psyllium [Metamucil] 1 tbsp PO QAM clotrimazole-betamethasone 1-0.05 % cream 1 applic topical DAILY omeprazole 20 mg capsule,delayed release(DR/EC) 20 mg PO DAILY Qty: 90 3RF loperamide [Imodium A-D] 2 mg tablet 2 mg PO Q6H PRN (Reason: Loose Stool) Align 4 mg capsule 4 mg PO DAILY vitamin B complex 1 tab PO QAM cholecalciferol (vitamin D3) 50 mcg PO QAM simethicone [Gas-X Extra Strength] 125 mg capsule 125 mg PO QD-BID PRN (Reason: gas) amlodipine 2.5 mg tablet 2.5 mg PO DAILY Qty: 90 3RF losartan 100 mg tablet 100 mg PO DAILY Qty: 90 2RF fluticasone propionate 50 mcg/actuation [place],Suspension 2 spray INTRANASAL DAILY Rx Instructions: 2 sprays each nare acetaminophen 325 mg Tablet 650 mg PO Q6H PRN (Reason: Fever/Mild Pain (1-3)) Qty: 60 0RF [id number] 333-133-5 mg tablet See Rx Instructions .ROUTE .COMPLEX Patient Comments: qd Rx Instructions: take one tablet by mouth daily Follow up/Referrals: Blue Gan ARNP [Primary Care Provider] - Diet/Activity/Treatments Diet: Diet as Tolerated Visit Report/Discharge Packet Stand Alone Forms: Patient Portal/API, Stroke Signs & Symptoms Discharge Data Primary Care Provider: Blue Gan Attending Provider: Benito Horton Admjustine Date/Time: 08/21/23 14:49
--- NOTE | 2023-08-22 13:16 | PC.NURSE ---
Addendum entered by Shana Joy R.N. 08/22/23 13:19: Amended to fix time. Pt left at approximately 1300. Original Note: Discharge: Pt A&Ox4, pt agreeable to discharge plan. Multiple formed stools passed. Pt denies pain. Education provided to pt on worsening symptoms, follow up, and resumption of new medications. Pt wheeled via WC to facility vehicle at approximately 1400.
--- NOTE | 2023-08-22 15:32 | PM.PN.1 ---
Subjective Subjective Date Patient Seen: 08/22/23 Time Patient Seen: 08:00 Interval history: She has no complaints. She had bowel movement earlier and feels back to normal with no pain, nausea, or vomiting. Exam Vital Signs (past 8 hours): - 08/22/23 08:00 Temperature 98.2 F Pulse Rate 85 Respiratory Rate 18 Blood Pressure 156/87 H Pulse Oximetry 96 Oxygen Flow Rate 0 Oxygen Delivery Method Room Air Oxygen Flow Rate 0 Narrative Exam Narrative: GEN: no acute distress CV: regular rate and rhythm PULM: clear bilaterally ABD: soft,nontender, bowel sounds presents EXT: warm and well perfused, no edema NEURO: awake, alert, oriented Objective Labs 08/22/23 06:14 08/22/23 06:14 Labs: Laboratory Results - last 24 hr 08/22/23 06:14 WBC 6.6 RBC 3.53 L Hgb 11.4 L Hct 32.8 L MCV 92.8 MCH 32.4 MCHC 34.9 RDW 14.0 Plt Count 181 Neut % (Auto) 76.4 H Lymph % (Auto) 16.7 L [place] % (Auto) 6.4 Eos % (Auto) 0.2 L Baso % (Auto) 0.3 Neut # (Auto) 5100 Lymph # (Auto) 1100 [place] # (Auto) 400 Eos # (Auto) 0 Baso # (Auto) 0 Sodium 137 Potassium 3.6 Chloride 107 Carbon Dioxide 27 BUN 22 H Creatinine 0.76 Estimated GFR > 60 BUN/Creatinine Ratio 28.9 H Glucose 106 Calcium 9.0 PFSH Medical History Presence of urostomy History of arthritis History of hip fracture Osteopenia with high risk of fracture High risk for hip fracture Osteopenia Osteopenia Hernia, perineal Anxiety (~1977) Measles (~1945) Recurrent sinusitis (~1964) Human papilloma virus (~2001) Abnormal Pap smear of cervix (~2001) History of urinary incontinence (~2019) Hemorrhoid (~1959) History of cervical cancer (~2002) Depression (~1977) History of uterine cancer (~2002) History of bladder cancer (~2002) Hypertension Cervical cancer GERD (gastroesophageal reflux disease) (~1989) Surgical History Hx of tubal ligation History of hip surgery Hx of total cystectomy History of colon surgery Anesthesia History of hemorrhoidectomy (~1970) History of urostomy History of radical hysterectomy History of cholecystectomy (~2001) Family History Father Cancer Renal failure Mother Hypertension Mental health problem Grandfather Diabetes mellitus Grandmother Diabetes mellitus Grandmother Diabetes mellitus Social History marital status: number of children: 3 household members: none Smoking Status: Former smoker Tobacco: How many years used: 20 alcohol intake: current caffeine: Yes Type(s) of exercise: walking frequency: 1-2 times per week duration: > 90 minutes/day Assessment & Plan Assessment & Plan narrative: 1. Acute small bowel obstruction likely from adhesion, resolved -has had multiple recurrences in the past -pain medications and nausea meds ordered -I recommended NG tube and discussed risks, she declined -advance diet -continue IV fluids -consulted surgery 2. Abnormal UA -taken from urostomy, is frequently colonized -she has no symptoms currently 3. Hypertension -hold anti-hypertensives for now 4. History of uterine and bladder cancer s/p urostomy -previous records reviewed and she has repeated SBO from adhesions from above -currently asymptomatic with no acute issues Plan to discharge today due to resolution of SBO.
== END 2023-08-22 13:00 | disposition home or self-care (01) | DRG 390 ==
LOC: ED 14:49 → AC 08-22 07:50
PROVIDERS: Admitting Provider Internal Medicine; Emergency Provider Emergency Medicine; PCP Registered Nurse Diabetes Educator; Visit Provider Internal Medicine
DX: K56.50 Intestinal adhesions [bands], unspecified as to partial versus complete obstruction (principal); K21.9 Gastro-esophageal reflux disease without esophagitis; I10 Essential (primary) hypertension; Z85.51 Personal history of malignant neoplasm of bladder; Z87.891 Personal history of nicotine dependence; Z93.6 Other artificial openings of urinary tract status; Z85.42 Personal history of malignant neoplasm of other parts of uterus
CPT/HCPCS: 36415; 74177; 80048; 80053; 81001; 83690; 85025; 85610; 87077; 87086; 87186; 93005; 96374; 96375; 99232; 99238; 99284; J0696; J2270; J2405; J2765

== ENCOUNTER → 2023-09-10 10:05 | Outpatient (CLI) | payer MEDICARE, OTHER, SELFPAY ==
[2023-03-17 05:43] VITALS: BMI 21.2
[2023-08-21 16:02] VITALS: BMI 21.9
--- NOTE | 2023-09-10 10:06 | DI.US.S_ITS ---
PROCEDURE: US RENAL COMPLETE INDICATIONS: HISTORY OF URETERAL CANCER AND ILEAL LOOP. TECHNIQUE: Real-time scanning was performed of the kidneys and bladder, with image documentation. COMPARISON: [facility], CT, CT ABDOMEN PELVIS W CON, 08/21/2023, 13:27. FINDINGS: Kidneys: Kidneys are normal in size. Right kidney measures 8.5 cm long; left kidney measures 8.3 cm long. Right renal cortical thickness is 0.9 cm; left renal cortical thickness is 1.3 cm. Mild right hydronephrosis is again seen. Proximal right ureter is mildly dilated. Mild left pelviectasis. Bladder: Absent. Miscellaneous: No free pelvic fluid. Small septated avascular cyst in the spleen measuring 1.9 cm. IMPRESSION: Similar mild right hydronephrosis. Dictated by: Roby Juarez M.D. on 09/10/2023 at 12:13 Approved by: Roby Juarez M.D. on 09/10/2023 at 12:17
== END ==
PROVIDERS: PCP Registered Nurse Diabetes Educator; Referring Provider Urology; Visit Provider Urology
DX: N13.30 Unspecified hydronephrosis (principal); D73.4 Cyst of spleen; Z93.6 Other artificial openings of urinary tract status; Z85.51 Personal history of malignant neoplasm of bladder; Z85.42 Personal history of malignant neoplasm of other parts of uterus
CPT/HCPCS: 76770

== ENCOUNTER → 2023-09-20 12:13 | Outpatient (CLI) | payer MEDICARE, OTHER, SELFPAY ==
[2023-08-21 16:02] VITALS: BMI 21.9
[2023-09-20 13:57] LABS: BUN Creatinine Ratio 29.1 (6-22); Blood Urea Nitrogen 23 mg/dL (7-17); Calcium 10.1 mg/dL (8.4-10.2); Carbon Dioxide 26 mmol/L (22-32); Chloride 102 mmol/L (98-107); Estimated Glomerular Filt Rate > 60 mL/min (>60); Glucose 108 mg/dL (80-110); HEMOLYSIS < 15 (0-50); Potassium 4.2 mmol/L (3.4-5.1); Sodium 136 mmol/L (137-145)
[2023-09-20 16:40] LABS: Vitamin D 25 Hydroxy (D3) 65.7 ng/mL (30.0-100.0)
== END ==
PROVIDERS: PCP Registered Nurse Diabetes Educator; Referring Provider Internal Medicine Endocrinology, Diabetes & Metabolism; Visit Provider Internal Medicine Endocrinology, Diabetes & Metabolism
DX: M81.0 Age-related osteoporosis without current pathological fracture (principal)
CPT/HCPCS: 36415; 80048; 82306

== ENCOUNTER → 2024-01-09 15:02 | Outpatient (CLI) | payer MEDICARE, OTHER, SELFPAY ==
[2023-08-21 16:02] VITALS: BMI 21.9
[2024-01-09 15:47] LABS: Add Manual Diff / Slide Review NO; Basophils Absolute Auto 0 /uL (0-100); Basophils Percent Auto 0.4 % (0-2); Eosinophils Absolute Auto 100 /uL (0-450); Eosinophils Percent Auto 0.7 % (2-4); Hematocrit 31.3 % (36-46); Hemoglobin 10.9 g/dL (12.0-16.0); Lymphocytes Absolute Auto 1000 /uL (1100-4500); Lymphocytes Percent Auto 12.1 % (25-40); Mean Corpuscular HGB Conc 34.7 % (30-36); Mean Corpuscular Hemoglobin 31.6 PG (26-34); Monocytes Absolute Auto 700 /uL (0-900); Monocytes Percent Auto 8.4 % (3-14); Neutrophils Absolute Auto 6700 /uL (1500-7000); Neutrophils Percent Auto 78.4 % (50-75); Platelet Count 280 X10^3/uL (150-400); Red Blood Cell Count 3.44 X10^6/uL (4.0-5.2); Red Cell Distribution Width 12.5 % (11.6-14.8); White Blood Cell Count 8.5 X10^3/uL (4.5-11.0)
[2024-01-09 15:58] LABS: HEMOLYSIS < 15 (0-50); Iron 35 ug/dL (37-170)
[2024-01-09 16:06] LABS: Alanine Aminotransferase 14 IU/L (<35); Albumin 3.9 g/dL (3.5-5.0); Albumin Globulin Ratio 1.1 (1.0-2.8); Alkaline Phosphatase 59 U/L (38-126); Aspartate Aminotransferase 19 IU/L (14-36); BUN Creatinine Ratio 16.9 (6-22); Bilirubin Total 0.6 mg/dL (0.2-1.3); Blood Urea Nitrogen 14 mg/dL (7-17); Calcium 9.6 mg/dL (8.4-10.2); Carbon Dioxide 30 mmol/L (22-32); Chloride 98 mmol/L (98-107); Estimated Glomerular Filt Rate > 60 mL/min (>60); Globulin 3.7 g/dL (1.7-4.1); Glucose 113 mg/dL (80-110); HEMOLYSIS < 15 (0-50); Potassium 3.8 mmol/L (3.4-5.1); Sodium 134 mmol/L (137-145); Total Protein 7.6 g/dL (6.3-8.2)
[2024-01-09 16:11] LABS: Percent Iron Saturation 12 % (15-50); Total Iron Binding Capacity 288 ug/dL (265-497); Transferrin 229 mg/dL (206-381)
[2024-01-09 16:33] LABS: TSH w/ Reflex to FT4 1.28 uIU/mL (0.47-4.68)
[2024-01-09 16:57] LABS: Vitamin B12 283 pg/mL (239-931)
[2024-01-09 19:56] LABS: Ferritin 67 ng/mL (11-264)
== END ==
PROVIDERS: PCP Registered Nurse Diabetes Educator; Referring Provider Physician Assistant; Visit Provider Physician Assistant
DX: R53.83 Other fatigue (principal); R61 Generalized hyperhidrosis; Z93.6 Other artificial openings of urinary tract status; D50.9 Iron deficiency anemia, unspecified
CPT/HCPCS: 36415; 80053; 82607; 82728; 83540; 83550; 84443; 85025

== ENCOUNTER → 2024-02-06 12:10 | Outpatient (CLI) | payer MEDICARE, OTHER, SELFPAY ==
[2023-08-21 16:02] VITALS: BMI 21.9
--- NOTE | 2024-02-06 12:16 | DI.US.S_ITS ---
PROCEDURE: US RENAL COMPLETE INDICATIONS: HX BLADDER CA/UROSTOMY TECHNIQUE: Real-time scanning was performed of the kidneys, with image documentation. COMPARISON: [facility], , RENAL COMPLETE, 09/10/2023, 10:44. FINDINGS: Kidneys: Kidneys are diminutive in size. Right kidney measures 8.2 cm long; left kidney measures 8.8 cm long. Right renal cortical thickness is 1.0 cm; left renal cortical thickness is 1.4 cm. Renal cortical echotexture is normal. Mild bilateral hydronephrosis, less extensive than the right compared to the prior exam. Ureters were not seen. No free fluid perinephric regions. IMPRESSION: Mild chronic right hydronephrosis. New mild left hydronephrosis. Dictated by: Chari Stubbs M.D. on 02/06/2024 at 17:37 Approved by: Chari Stubbs M.D. on 02/06/2024 at 17:40
== END ==
LOC: US 12:11
PROVIDERS: PCP Registered Nurse Diabetes Educator; Referring Provider Urology; Visit Provider Urology
DX: N13.30 Unspecified hydronephrosis (principal); Z93.6 Other artificial openings of urinary tract status; Z90.6 Acquired absence of other parts of urinary tract
CPT/HCPCS: 76770

== ENCOUNTER 2024-03-01 02:07 | Inpatient (IN) | payer MEDICARE, OTHER, SELFPAY ==
[2023-08-21 16:02] VITALS: BMI 21.9
[2024-03-01] VITALS (16 sets, daily range): BP systolic 115–145; BP diastolic 59–83; PULSE 70–100; RESP 16–18; TEMP 36.5–37.1; O2SAT 91–96; BMI 21.9
[2024-03-01 03:48] LABS: Add Manual Diff / Slide Review NO; Basophils Absolute Auto 100 /uL (0-100); Basophils Percent Auto 0.6 % (0-2); Eosinophils Absolute Auto 0 /uL (0-450); Eosinophils Percent Auto 0.2 % (2-4); Hematocrit 35.3 % (36-46); Lymphocytes Absolute Auto 800 /uL (1100-4500); Lymphocytes Percent Auto 8.3 % (25-40); Mean Corpuscular HGB Conc 34.1 % (30-36); Mean Corpuscular Hemoglobin 30.6 PG (26-34); Monocytes Absolute Auto 400 /uL (0-900); Monocytes Percent Auto 4.3 % (3-14); Neutrophils Absolute Auto 8000 /uL (1500-7000); Neutrophils Percent Auto 86.6 % (50-75); Platelet Count 262 X10^3/uL (150-400); Red Blood Cell Count 3.93 X10^6/uL (4.0-5.2); Red Cell Distribution Width 14.8 % (11.6-14.8); White Blood Cell Count 9.2 X10^3/uL (4.5-11.0)
[2024-03-01 03:58] LABS: Alanine Aminotransferase 17 IU/L (<35); Albumin 4.4 g/dL (3.5-5.0); Albumin Globulin Ratio 1.4 (1.0-2.8); Alkaline Phosphatase 59 U/L (38-126); Aspartate Aminotransferase 24 IU/L (14-36); BUN Creatinine Ratio 26.6 (6-22); Blood Urea Nitrogen 25 mg/dL (7-17); Calcium 9.8 mg/dL (8.4-10.2); Carbon Dioxide 30 mmol/L (22-32); Chloride 101 mmol/L (98-107); Estimated Glomerular Filt Rate 59 mL/min (>60); Globulin 3.2 g/dL (1.7-4.1); Glucose 144 mg/dL (80-110); HEMOLYSIS < 15 (0-50); Lipase 51 U/L (23-300); Potassium 3.5 mmol/L (3.4-5.1); Sodium 137 mmol/L (137-145); Total Protein 7.6 g/dL (6.3-8.2)
--- NOTE | 2024-03-01 04:23 | DI.CT.S_ITS ---
PROCEDURE: CT ABDOMEN PELVIS W CON INDICATIONS: abdominal pain, r/o SBO TECHNIQUE: After the administration of intravenous contrast, axial sections acquired from the lung bases to the pubic symphysis. Coronal and sagittal reformats were performed. For radiation dose reduction, the following was used: automated exposure control, adjustment of mA and/or kV according to patient size. COMPARISON: [facility], CT, CT ABDOMEN PELVIS W CON, 08/21/2023, 13:27. FINDINGS: Lower thorax: The lung bases are clear. Heart size normal. No hiatal hernia. Liver: The liver is diffusely decreased in attenuation without focal mass lesion. Biliary system: Cholecystectomy. No intra or extrahepatic bile duct dilation. Pancreas: Unremarkable without mass or inflammation evident. Spleen: Stable complex cystic structure in the spleen remains unchanged. Adrenals: Normal morphology and density. Reproductive system: Hysterectomy. Urinary system: Normal renal size and attenuation. No renal calculi, hydronephrosis, or solid mass present. Urinary bladder unremarkable. Gastrointestinal system: Proximal small bowel dilated up to 3.4 cm distal small bowel decompression. Right lower quadrant ostomy and postsurgical changes present. Appendix: No findings to suggest acute appendicitis. Peritoneal spaces: No mesenteric or retroperitoneal adenopathy. No free air. No free fluid. Vasculature: The IVC, aorta and iliac vasculature are unremarkable. Abdominal wall: Abdominal wall intact without evidence of ventral or inguinal hernias. Musculoskeletal: Normal bone mineralization. Degenerative disc disease and arthropathy noted in lower lumbar spine. Right femoral nail and blade instrumentation No acute fractures. Presacral soft tissue thickening unchanged IMPRESSION: 1. Small-bowel obstruction. Right lower quadrant ileostomy noted. 2. Presacral soft tissue swelling and complex splenic cyst remain unchanged. Additional stable chronic findings as above. Note: This final report is concordant with the preliminary after-hours interpretation provided by [email or web address] Approved by: Munir Bautista M.D. on 03/01/2024 at 8:17
--- NOTE | 2024-03-01 05:06 | ED.ABDPAIN ---
HPI - Abdominal Pain General Chief Complaint: Abdominal Pain Stated Complaint: constipated, vomiting, abd pain Time Seen by Provider: 03/01/24 03:58 Mode of arrival: Ambulatory History of Present Illness HPI narrative: 88-year-old female with history of stage IV cervical cancer diagnosis approximately 2005 had radical resection in [facility] including uterus and both ovaries as well as a portion of the bowel and bladder, with subsequent right-sided urostomy, prior cholecystectomy, prior prolapse vaginal cuff repair approximately 3 years ago at [facility] in [place]. Having 2 days' duration of increasing lower abdominal discomfort, some nausea with nonbloody emesis, had a small hard stool yesterday that was not black or red in color, did not seem to make her feel any better, no response to [id number] laxative, increasing abdominal pain through the day yesterday. No injury or trauma. Related Data Home Medications Medication Instructions Recorded Confirmed Bifidobacterium infantis 4 mg 4 mg PO DAILY 08/24/20 01/09/24 capsule (Align) cholecalciferol (vitamin D3) 50 mcg PO QAM 08/24/20 01/09/24 loperamide 2 mg tablet (Imodium 2 mg PO Q6H PRN Loose Stool 08/24/20 01/09/24 A-D) vitamin B complex [B 1 tab PO QAM 08/24/20 01/09/24 Complex-Vitamin B12] simethicone 125 mg capsule (Gas-X 125 mg PO QD-BID PRN gas 08/12/21 01/09/24 Extra Strength) psyllium [Metamucil] 1 tbsp PO QAM 01/03/22 01/09/24 [id number] 333 mg-133 See Rx Instructions .Route .COMPLEX 01/11/22 01/09/24 mg-5 mg tablet fluticasone propionate 50 2 spray intranasal DAILY dry nasal 02/04/23 01/09/24 mcg/actuation nasal passages spray,suspension clotrimazole-betamethasone 1 1 applic topical DAILY 05/07/23 01/09/24 %-0.05 % topical cream Previous Rx's Medication Instructions Recorded acetaminophen 325 mg tablet 650 mg (2 x 325 mg) PO Q6H PRN 02/06/23 Fever/Mild Pain (1-3) #60 tabs denosumab 60 mg/mL subcutaneous 60 mg SUBCUT [id number] #1 mL 03/10/23 syringe (Prolia) amlodipine 2.5 mg tablet 2.5 mg PO DAILY #90 tabs 12/03/23 losartan 100 mg tablet 100 mg PO DAILY #90 tabs 12/03/23 omeprazole 20 mg capsule,delayed 20 mg PO DAILY #90 caps 12/03/23 release Allergies Allergy/AdvReac Type Severity Reaction Status Date / Time Sulfa (Sulfonamide Allergy Unknown Verified 01/09/24 14:23 Antibiotics) trimethaphan Allergy Unknown Verified 01/09/24 14:23 Review of Systems Constitutional Constitutional: Denies chills, Denies fever(s) and Denies weakness Eyes Eyes: Denies irritation ENT Ears, Nose, Mouth, and Throat: Denies neck pain and Denies sore throat Cardiovascular Cardiovascular: Denies chest pain, Denies irregular heart rhythm, Denies lightheadedness, Denies palpitations, Denies dyspnea and Denies dyspnea on exertion Respiratory Respiratory: Denies cough, Denies dyspnea and Denies dyspnea on exertion Gastrointestinal Gastrointestinal: Reports abdominal pain, Denies coffee ground emesis, Reports nausea, Reports vomiting and Denies hematemesis Comments: Abdominal discomfort as per HPI, some nausea and vomiting nonbloody Genitourinary Comments: Has urostomy bag status post remote bladder excision with radical cervical cancer stage IV with surgery 2005, no gross discoloration in bag Musculoskeletal Musculoskeletal: Denies neck pain Integumentary/Breasts Skin/Breast: Denies rash Neurologic Neurologic: Denies weakness Endocrine Endocrine: Denies palpitations Patient History Medical History (Updated 03/01/24 @ 05:56 by Tommy Malin MD) Closed intertrochanteric fracture of right femur Recurrent intestinal obstruction Hydronephrosis, right Presence of urostomy History of arthritis History of hip fracture Osteopenia with high risk of fracture High risk for hip fracture Osteopenia Osteopenia Hernia, perineal Anxiety (~1977) Measles (~194) Recurrent sinusitis (~1964) Human papilloma virus (~2001) Abnormal Pap smear of cervix (~2001) History of urinary incontinence (~2019) Hemorrhoid (~1959) History of cervical cancer (~2002) Depression (~1977) History of uterine cancer (~2002) History of bladder cancer (~2002) Hypertension Cervical cancer GERD (gastroesophageal reflux disease) (~1989) Surgical History Hx of tubal ligation History of hip surgery Hx of total cystectomy History of colon surgery Anesthesia History of hemorrhoidectomy (~1970) History of urostomy History of radical hysterectomy History of cholecystectomy (~2001) Family History Father Cancer Renal failure Mother Hypertension Mental health problem Grandfather Diabetes mellitus Grandmother Diabetes mellitus Grandmother Diabetes mellitus Social History marital status: number of children: 3 household members: none Smoking Status: Former smoker Tobacco: How many years used: 20 alcohol intake: current caffeine: Yes Type(s) of exercise: walking frequency: 1-2 times per week duration: > 90 minutes/day Smoking Status: Former smoker tobacco type: vaping alcohol intake frequency: 0-2 drinks per day Alcohol type: wine Substance Use Type: does not use Exam Initial Vital Signs Initial Vital Signs: Vital Signs Temperature 97.7 F 03/01/24 02:20 Pulse Rate 100 H 03/01/24 02:20 Respiratory Rate 18 03/01/24 02:20 Blood Pressure 115/78 03/01/24 02:20 Pulse Oximetry 96 03/01/24 02:20 Oxygen Delivery Method Room Air 03/01/24 02:20 HENMT Head: atraumatic Face and sinus: face symmetric Eyes Eyelids: eyelids normal Conjunctivae: conjunctivae normal Chest Chest: normal inspection of the chest Resp Effort & Inspection: normal respiratory effort, able to speak in complete sentences, no respiratory distress and no use of accessory muscles Auscultation: clear to auscultation bilaterally, no rales, no rhonchi and no wheezes Cardio Rate: regular rate Rhythm: regular rhythm GI Other: Abdomen with midline scar, and right mid lower urostomy site, bag in place with clear yellow fluid. Nondistended. Some tenderness to the right greater than the left abdomen, nonrigid, no rebound tenderness. Neuro General: patient alert Extrem General: no pedal edema and no calf tenderness Psych Attitude: cooperative Course Course Course Narrative: Elderly female with complex abdominal pelvic surgical history, 2005 remote radical cervical cancer surgery including removal of uterus and ovaries and bladder and partial component of bowel done in [place], urostomy from that procedure, also vaginal cuff prolapse that was surgically repaired more recently 2 years ago at [facility], increasing abdominal discomfort, small hard stool yesterday, triage afebrile, sirs screen negative, some tenderness on exam right-sided greater than left-sided, urostomy bag not with any cloudy appearing urine at this time, nor any blood in the urostomy bag, khoi unremarkable appearing. Labs showed normal white count, hemoglobin, renal function, LFTs. Urine not sent since difficult to interpret from urostomy bag, there is not appearing cloudy or bloody. CT abdomen and pelvis with IV contrast, shows small bowel obstruction versus enteritis with transition point in the right pelvis. Keep NPO. We will consult General surgery Decision to Admit Date: 03/01/24 Decision to Admit time: 05:32 Orders Ordered: ED Orders 03/01/24 03:18 EKG-12 Lead Stat 03/01/24 03:40 Complete Blood Count AUTO DIFF Stat Comprehensive Metabolic Panel Stat Lipase Stat 03/01/24 04:23 CT abdomen pelvis w con Stat Acetaminophen (Acetaminophen 325 Mg Tablet) 975 mg PO Q6HR PRN PRN Reason: Fever/Mild Pain (1-3) Hydromorphone HCl (Hydromorphone 0.5 Mg Inj) 0.5 mg IV Q4H PRN PRN Reason: Pain, Moderate (4-6) Hydromorphone HCl (Hydromorphone 1 Mg Inj) 1 mg IV Q4H PRN PRN Reason: Pain, Severe (7-10) Sodium Chloride (Normal Saline 0.9%) 1,000 mls @ 75 mls/hr IV CONT SMILEY Stop: 03/01/24 19:44 Melatonin (Melatonin 3 Mg Tablet) 6 mg PO BEDTIME PRN PRN Reason: Insomnia Metoclopramide HCl (Metoclopramide 10 Mg/2 Ml Inj) 10 mg IV Q6HR PRN PRN Reason: Nausea And Vomiting Naloxone HCl (Naloxone 0.4 Mg/Ml Vial) 0.2 mg IV Q2MIN PRN PRN Reason: Opiate Reversal Ondansetron HCl (Ondansetron 4 Mg/2 Ml Inj) 4 mg IV NOW PRN PRN Reason: Nausea And Vomiting Ondansetron HCl (Ondansetron 4 Mg Odt) 4 mg PO NOW PRN PRN Reason: Nausea And Vomiting Ondansetron HCl (Ondansetron 4 Mg/2 Ml Inj) 4 mg IV Q4HR PRN PRN Reason: Nausea And Vomiting Discontinued Medications Morphine Sulfate (Morphine 2 Mg/Ml Inj) 2 mg IV NOW ONE Stop: 03/01/24 06:33 Last Admin: 03/01/24 06:39 Dose: 2 mg Documented By: AB Ondansetron HCl (Ondansetron 4 Mg/2 Ml Inj) 4 mg IV NOW ONE Stop: 03/01/24 06:36 Last Admin: 03/01/24 06:39 Dose: 4 mg Documented By: AB Reevaluation(s) Reevaluation #1: CT abdomen and pelvis with IV contrast. Impressions: ?Small bowel obstruction. Underlying enteritis not excluded. ? See real Radiology dictated report, Dr. Lopez Reevaluation #2: Patient prefers to be admitted and managed at [facility], we will contact their general surgeon on-call. Schedule was contacted, they are currently on saturation and can not accommodate transfer at this time. Patient informed, would like to be admitted here. We will consult General surgery Consultations Consultation #1: Case discussed with general surgery Dr. Poe, she will consult, okay with no NG tube for now per patient preference, requests admission to hospitalist service. Will consult hospitalist. [facility], [facility] contacted night hospitalist Dr. Norris, who requests patient be admitted to day hospitalist service Consultation #2: Case discussed this morning with daytime hospitalist Dr. Gee, accepts patient for admission to observation Vital Signs Vital signs: Vital Signs - 8 hr 03/01/24 02:20 03/01/24 03:29 03/01/24 03:30 Temperature 97.7 F Pulse Rate 100 H 82 84 Respiratory Rate 18 Blood Pressure 115/78 Pulse Oximetry 96 92 Oxygen Delivery Method Room Air 03/01/24 03:30 03/01/24 04:00 03/01/24 04:00 Temperature Pulse Rate 79 Respiratory Rate Blood Pressure 145/70 H 129/71 Pulse Oximetry 93 Oxygen Delivery Method 03/01/24 04:30 03/01/24 04:30 03/01/24 05:00 Temperature Pulse Rate 81 77 Respiratory Rate Blood Pressure 138/69 Pulse Oximetry 92 95 Oxygen Delivery Method 03/01/24 05:30 03/01/24 06:00 03/01/24 06:30 Temperature Pulse Rate 80 79 85 Respiratory Rate Blood Pressure Pulse Oximetry 92 92 96 Oxygen Delivery Method 03/01/24 07:00 03/01/24 07:18 03/01/24 07:18 Temperature Pulse Rate 81 84 Respiratory Rate Blood Pressure 137/83 Pulse Oximetry 91 94 Oxygen Delivery Method 03/01/24 07:30 Temperature Pulse Rate 77 Respiratory Rate Blood Pressure Pulse Oximetry 93 Oxygen Delivery Method MDM - Abdominal Pain Lab Data 03/01/24 03:40 03/01/24 03:40 Labs: Lab Results 03/01/24 Range/Units 03:40 WBC 9.2 (4.5-11.0) X10^3/uL RBC 3.93 L (4.0-5.2) X10^6/uL Hgb 12.0 (12.0-16.0) g/dL Hct 35.3 L (36-46) % MCV 90.0 (80-100) fL MCH 30.6 (26-34) PG MCHC 34.1 (30-36) % RDW 14.8 (11.6-14.8) % Plt Count 262 (150-400) X10^3/uL Neut % (Auto) 86.6 H (50-75) % Lymph % (Auto) 8.3 L (25-40) % [place] % (Auto) 4.3 (3-14) % Eos % (Auto) 0.2 L (2-4) % Baso % (Auto) 0.6 (0-2) % Neut # (Auto) 8000 H (4417-5411) /uL Lymph # (Auto) 800 L (4019-7640) /uL [place] # (Auto) 400 (0-900) /uL Eos # (Auto) 0 (0-450) /uL Baso # (Auto) 100 (0-100) /uL Sodium 137 (137-145) mmol/L Potassium 3.5 (3.4-5.1) mmol/L Chloride 101 (98-107) mmol/L Carbon Dioxide 30 (22-32) mmol/L BUN 25 H (7-17) mg/dL Creatinine 0.94 (0.52-1.04) mg/dL Estimated GFR 59 L (>60) mL/min BUN/Creatinine Ratio 26.6 H (6-22) Glucose 144 H (80-110) mg/dL Calcium 9.8 (8.4-10.2) mg/dL Total Bilirubin 1.0 (0.2-1.3) mg/dL AST 24 (14-36) IU/L ALT 17 (<35) IU/L Alkaline Phosphatase 59 (38-126) U/L Total Protein 7.6 (6.3-8.2) g/dL Albumin 4.4 (3.5-5.0) g/dL Globulin 3.2 (1.7-4.1) g/dL Albumin/Globulin Ratio 1.4 (1.0-2.8) Lipase 51 (23-300) U/L Critical Care Time Critical Care Time Critical Care Time: Yes Total Critical Care Time: 45 Attestation: The high probability of a clinically significant, sudden or life threatening deterioration of the [45] system(s) required my full and direct attention, intervention and personal management. The aggregate critical care time was [] minutes. This time is in addition to time spent performing reported procedures but includes the following: [x] Data Review and interpretation [x] Patient assessment and monitoring of vital signs [x] Documentation [x] Medication orders and management Discharge Plan Departure Patient Disposition: Admitted As Inpatient Clinical Impression: Small bowel obstruction Admit Date/Time: 03/01/24 07:31 Admit Provider: Kobe Gee
--- NOTE | 2024-03-01 05:55 | PC.NURSE ---
Night Hospitalist was contacted at 0550 and they said it would have to wait for the day-shift hospitalist to see them
[2024-03-01] MEDS: MORPHINE 2 MG/ML INJ IV (06:39)
[2024-03-01] MEDS: ONDANSETRON 4 MG/2 ML INJ IV ×4 (06:39→18:22)
--- NOTE | 2024-03-01 07:30 | PM.HP.1 ---
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 Patient states for about 2.5 days she has had worsening NV, abd pain distention and cramping. She notes 6+ prior SBO's in the past. She states she has ongoing nausea and near vomiting. She is hesitant to do an NG tube, but thinks if it would help her symptoms and speed things up she is amenable to it. Her last BM was yesterday and was hard. She denies CP, SOB, dizziness, headache or LE swelling. [facility] Medical History Closed intertrochanteric fracture of right femur Recurrent intestinal obstruction Hydronephrosis, right Presence of urostomy History of arthritis History of hip fracture Osteopenia with high risk of fracture High risk for hip fracture Osteopenia Osteopenia Hernia, perineal Anxiety (~1977) Measles (~194) Recurrent sinusitis (~1964) Human papilloma virus (~2001) Abnormal Pap smear of cervix (~2001) History of urinary incontinence (~2019) Hemorrhoid (~1960) History of cervical cancer (~2002) Depression (~1977) History of uterine cancer (~2002) History of bladder cancer (~2002) Hypertension Cervical cancer GERD (gastroesophageal reflux disease) (~1989) Surgical History Hx of tubal ligation History of hip surgery Hx of total cystectomy History of colon surgery Anesthesia History of hemorrhoidectomy (~1970) History of urostomy History of radical hysterectomy History of cholecystectomy (~2001) Family History Father Cancer Renal failure Mother Hypertension Mental health problem Grandfather Diabetes mellitus Grandmother Diabetes mellitus Grandmother Diabetes mellitus Social History marital status: number of children: 3 household members: none Smoking Status: Former smoker Tobacco: How many years used: 20 alcohol intake: current caffeine: Yes Type(s) of exercise: walking frequency: 1-2 times per week duration: > 90 minutes/day Meds Home Medications and Allergies Home Medications Medication Instructions Recorded Confirmed Type Bifidobacterium infantis 4 mg 4 mg PO DAILY 08/24/20 01/09/24 History capsule (Align) cholecalciferol (vitamin D3) 50 mcg PO QAM 08/24/20 01/09/24 History loperamide 2 mg tablet (Imodium 2 mg PO Q6H PRN Loose Stool 08/24/20 01/09/24 History A-D) vitamin B complex [B 1 tab PO QAM 08/24/20 01/09/24 History Complex-Vitamin B12] simethicone 125 mg capsule (Gas-X 125 mg PO QD-BID PRN gas 08/12/21 01/09/24 History Extra Strength) psyllium [Metamucil] 1 tbsp PO QAM 01/03/22 01/09/24 History [id number] 333 mg-133 See Rx Instructions .Route .COMPLEX 01/11/22 01/09/24 History mg-5 mg tablet fluticasone propionate 50 2 spray intranasal DAILY dry nasal 02/04/23 01/09/24 History mcg/actuation nasal passages spray,suspension acetaminophen 325 mg tablet 650 mg (2 x 325 mg) PO Q6H PRN 02/06/23 01/09/24 Rx Fever/Mild Pain (1-3) #60 tabs denosumab 60 mg/mL subcutaneous 60 mg SUBCUT [id number] #1 mL 03/10/23 01/09/24 Rx syringe (Prolia) clotrimazole-betamethasone 1 1 applic topical DAILY 05/07/23 01/09/24 History %-0.05 % topical cream amlodipine 2.5 mg tablet 2.5 mg PO DAILY #90 tabs 12/03/23 01/09/24 Rx losartan 100 mg tablet 100 mg PO DAILY #90 tabs 12/03/23 01/09/24 Rx omeprazole 20 mg capsule,delayed 20 mg PO DAILY #90 caps 12/03/23 01/09/24 Rx release Allergies Allergy/AdvReac Type Severity Reaction Status Date / Time Sulfa (Sulfonamide Allergy Unknown Verified 01/09/24 14:23 Antibiotics) trimethaphan Allergy Unknown Verified 01/09/24 14:23 Review of Systems Review of Systems Narrative: All other systems reviewed with the patient and are negative unless otherwise stated. Exam Vital Signs (past 8 hours): - 03/01/24 02:20 Temperature 97.7 F Pulse Rate 100 H Respiratory Rate 18 Blood Pressure 115/78 Pulse Oximetry 96 Oxygen Delivery Method Room Air Oxygen Delivery Method Room Air Narrative Exam Narrative: GEN: mild distress, nauseated HEENT: moist mucous membranes, PERRL NECK: trachea midline, no JVD CV: regular rate and rhythm, no murmurs PULM: clear bilaterally ABD: soft, mildly tender, distended, R-sided urostomy with bag in place EXT: warm and well perfused with no edema NEURO: awake, alert, oriented, no focal deficits Objective Labs 03/01/24 03:40 03/01/24 03:40 Labs: Laboratory Results - last 24 hr 03/01/24 03:40 WBC 9.2 RBC 3.93 L Hgb 12.0 Hct 35.3 L MCV 90.0 MCH 30.6 MCHC 34.1 RDW 14.8 Plt Count 262 Neut % (Auto) 86.6 H Lymph % (Auto) 8.3 L [place] % (Auto) 4.3 Eos % (Auto) 0.2 L Baso % (Auto) 0.6 Neut # (Auto) 8000 H Lymph # (Auto) 800 L [place] # (Auto) 400 Eos # (Auto) 0 Baso # (Auto) 100 Sodium 137 Potassium 3.5 Chloride 101 Carbon Dioxide 30 BUN 25 H Creatinine 0.94 Estimated GFR 59 L BUN/Creatinine Ratio 26.6 H Glucose 144 H Calcium 9.8 Total Bilirubin 1.0 AST 24 ALT 17 Alkaline Phosphatase 59 Total Protein 7.6 Albumin 4.4 Globulin 3.2 Albumin/Globulin Ratio 1.4 Lipase 51 Assessment & Plan Assessment & Plan narrative: # recurrent SBO likely from adhesion -has had multiple recurrences in the past -CT with SBO and transition point in RLQ -pain medications and nausea meds ordered -NG tube ordered, patient had 425cc brown liquid out -keep NPO, ice chips ok -continue IV fluids -consulted surgery who will follow # hypertension -normotensive -hold anti-hypertensives for now # history of uterine and bladder cancer s/p urostomy -previous records reviewed and she has repeated SBO from adhesions from above -currently in remission Code status is full code. DVT prophylaxis with SCDs. Proxy is Katie GODWIN. I have reviewed home meds and used all available resources to reconcile the home meds. Case discussed with ED physician/APC and patient will be admitted to the hospitalist service for further workup and management. This patient will be admitted as inpatient and will require greater than 2 midnights of hospital time to treat recurrent SBO.
[2024-03-01] MEDS: SODIUM CHLORIDE 0.9% 1,000 ML 75 ML IV ×2 (08:17→23:39)
[2024-03-01 08:29] LABS: Magnesium 1.8 mg/dL (1.6-2.3)
[2024-03-01] MEDS: HYDROMORPHONE 1 MG INJ IV ×5 (10:06→22:23)
--- NOTE | 2024-03-01 10:33 | PM.CN ---
History of Present Illness Consult details Date Patient Seen: 03/01/24 Time Patient Seen: 10:33 Chief complaint: constipated, vomiting, abd pain Reason for consult: early SBO Requesting provider: Kobe Gee Narrative: Two days of increasing abdominal discomfort, hard stool yesterday. Nausea with the pain being of a cramping nature. Meds Home Medications and Allergies Home Medications Medication Instructions Recorded Confirmed Type Bifidobacterium infantis 4 mg 4 mg PO DAILY 08/24/20 01/09/24 History capsule (Align) cholecalciferol (vitamin D3) 50 mcg PO QAM 08/24/20 01/09/24 History loperamide 2 mg tablet (Imodium 2 mg PO Q6H PRN Loose Stool 08/24/20 01/09/24 History A-D) vitamin B complex [B 1 tab PO QAM 08/24/20 01/09/24 History Complex-Vitamin B12] simethicone 125 mg capsule (Gas-X 125 mg PO QD-BID PRN gas 08/12/21 01/09/24 History Extra Strength) psyllium [Metamucil] 1 tbsp PO QAM 01/03/22 01/09/24 History [id number] 333 mg-133 See Rx Instructions .Route .COMPLEX 01/11/22 01/09/24 History mg-5 mg tablet fluticasone propionate 50 2 spray intranasal DAILY dry nasal 02/04/23 01/09/24 History mcg/actuation nasal passages spray,suspension acetaminophen 325 mg tablet 650 mg (2 x 325 mg) PO Q6H PRN 02/06/23 01/09/24 Rx Fever/Mild Pain (1-3) #60 tabs denosumab 60 mg/mL subcutaneous 60 mg SUBCUT [id number] #1 mL 03/10/23 01/09/24 Rx syringe (Prolia) clotrimazole-betamethasone 1 1 applic topical DAILY 05/07/23 01/09/24 History %-0.05 % topical cream amlodipine 2.5 mg tablet 2.5 mg PO DAILY #90 tabs 12/03/23 01/09/24 Rx losartan 100 mg tablet 100 mg PO DAILY #90 tabs 12/03/23 01/09/24 Rx omeprazole 20 mg capsule,delayed 20 mg PO DAILY #90 caps 12/03/23 01/09/24 Rx release Allergies Allergy/AdvReac Type Severity Reaction Status Date / Time Sulfa (Sulfonamide Allergy Unknown Verified 01/09/24 14:23 Antibiotics) trimethaphan Allergy Unknown Verified 01/09/24 14:23 Review of Systems Review of Systems Narrative: No emesis, +nausea, no flatus ROS: Yes All systems reviewed with the patient and are negative except as otherwise documented Exam Vital Signs (past 8 hours): - 03/01/24 03:29 03/01/24 03:30 03/01/24 03:30 Pulse Rate 82 84 Blood Pressure 145/70 H Pulse Oximetry 92 03/01/24 04:00 03/01/24 04:00 03/01/24 04:30 Pulse Rate 79 81 Blood Pressure 129/71 Pulse Oximetry 93 92 03/01/24 04:30 03/01/24 05:00 03/01/24 05:30 Pulse Rate 77 80 Blood Pressure 138/69 Pulse Oximetry 95 92 03/01/24 06:00 03/01/24 06:30 03/01/24 07:00 Pulse Rate 79 85 81 Blood Pressure Pulse Oximetry 92 96 91 03/01/24 07:18 03/01/24 07:18 03/01/24 07:30 Pulse Rate 84 77 Blood Pressure 137/83 Pulse Oximetry 94 93 Oxygen Delivery Method Room Air Const General: cooperative and No in distress Nutritional Appearance: thin HENMT Head: normal to inspection, normocephalic and atraumatic Ears: hearing grossly normal bilaterally Eyes General: appearance normal, both eyes and all related structures Neck Neck: trachea midline and No JVD Resp Effort & Inspection: normal respiratory effort and able to speak in complete sentences Cardio Rate: regular rate Rhythm: regular rhythm GI Inspection: distended and visible peristalsis Palpation: soft and tender Skin General: No elasticity normal, No turgor normal and atrophy Neuro General: patient alert, patient awake, patient oriented x3 and moves all extremities Cognition: normal cognition Psych Mental Status: mental status grossly normal Affect: normal affect Judgment: judgment good Objective Labs 03/01/24 03:40 03/01/24 03:40 Labs: Laboratory Results - last 24 hr 03/01/24 03:40 WBC 9.2 RBC 3.93 L Hgb 12.0 Hct 35.3 L MCV 90.0 MCH 30.6 MCHC 34.1 RDW 14.8 Plt Count 262 Neut % (Auto) 86.6 H Lymph % (Auto) 8.3 L [place] % (Auto) 4.3 Eos % (Auto) 0.2 L Baso % (Auto) 0.6 Neut # (Auto) 8000 H Lymph # (Auto) 800 L [place] # (Auto) 400 Eos # (Auto) 0 Baso # (Auto) 100 Sodium 137 Potassium 3.5 Chloride 101 Carbon Dioxide 30 BUN 25 H Creatinine 0.94 Estimated GFR 59 L BUN/Creatinine Ratio 26.6 H Glucose 144 H Calcium 9.8 Magnesium 1.8 Total Bilirubin 1.0 AST 24 ALT 17 Alkaline Phosphatase 59 Total Protein 7.6 Albumin 4.4 Globulin 3.2 Albumin/Globulin Ratio 1.4 Lipase 51 PFSH Medical History Closed intertrochanteric fracture of right femur Recurrent intestinal obstruction Hydronephrosis, right Presence of urostomy History of arthritis History of hip fracture Osteopenia with high risk of fracture High risk for hip fracture Osteopenia Osteopenia Hernia, perineal Anxiety (~1977) Measles (~194) Recurrent sinusitis (~1964) Human papilloma virus (~2001) Abnormal Pap smear of cervix (~2001) History of urinary incontinence (~2019) Hemorrhoid (~1959) History of cervical cancer (~2002) Depression (~1977) History of uterine cancer (~2002) History of bladder cancer (~2002) Hypertension Cervical cancer GERD (gastroesophageal reflux disease) (~1989) Surgical History Hx of tubal ligation History of hip surgery Hx of total cystectomy History of colon surgery Anesthesia History of hemorrhoidectomy (~1970) History of urostomy History of radical hysterectomy History of cholecystectomy (~2001) Family History Father Cancer Renal failure Mother Hypertension Mental health problem Grandfather Diabetes mellitus Grandmother Diabetes mellitus Grandmother Diabetes mellitus Social History marital status: number of children: 3 household members: none Tobacco & Substance Use Smoking Status: Former smoker Tobacco: How many years used: 20 alcohol intake: current Diet and Exercise caffeine: Yes Type(s) of exercise: walking frequency: 1-2 times per week duration: > 90 minutes/day Assessment & Plan Assessment & Plan narrative: Early SBO with long history of abdominal surgeries with h/o SBO. Plan: continue hydration and bowel rest. trial of rectal suppository Time Spent With Patient Time with patient: 30 to 49 minutes with 50% spent counseling/coordinating care
[2024-03-01] MEDS: METOCLOPRAMIDE 10 MG/2 ML INJ IV ×2 (13:59→19:58)
[2024-03-01] MEDS: HYDROMORPHONE 0.5 MG INJ IV ×2 (13:59→16:55)
[2024-03-01] MEDS: LORazepam 2 MG/ML INJ 1 MG IV (14:00)
--- NOTE | 2024-03-01 14:10 | CM.DANOTE ---
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 Patient admitted OBS and will likely discharge home if symptoms have improved and patient able to tolerate a diet. PCP: [facility] Payer: [email or web address] Reviewed chart, met w/patient to introduce self and role. Patient lives alone at [facility], independent in all aspects. Patient's daughter Katie Mock P [phone] is her DPOA. Available as needed for assist. Patient walking to the BR with walker and assist to get OOB. No barriers identified at this time to patient's safe discharge home w/family to assist as needed; close outpatient f/u recommended. CM team will plan to follow clinical closely in case any DC needs or concerns arise. UNRULY Yuong Discharge Planning/Care Management CM Discharge Assessment Start: 03/01/24 14:07 Freq: Status: Active Protocol: Document 03/01/24 14:07 REJI (Rec: 03/01/24 14:09 REJI [id number]) Discharge Planning Assessment Assigned Patient Centered Care Specialist UNRULY Canales DPOA/Assigned Designee Name Katie MockTATO Contact Information [phone] Advance Directives? Yes Advance Directives on File Yes History Provided By Patient,Family Member,Medical Record Has Patient been admitted in last 30 No days? Prior Living Arrangements [facility] Household Members none Type of transporation used prior to Relies on Others admit Facility Name Admitted From: [facility] Willing to Return to Facility? Yes Independent with ADL's Yes Is patient alert and oriented? Yes Comment Has walker but does not use. Barriers to Discharge No Discharge Plan Home Transportation Arrangement Family Additional Comment TBD
[2024-03-02 00:35] VITALS: BP 170/89; PULSE 97; RESP 17; TEMP 36.9; O2SAT 92
[2024-03-02 05:10] VITALS: BP 195/82; PULSE 103; RESP 16; TEMP 36.3; O2SAT 95
[2024-03-02] MEDS: METOCLOPRAMIDE 10 MG/2 ML INJ IV (05:13)
[2024-03-02] MEDS: HYDROMORPHONE 1 MG INJ IV (05:14)
[2024-03-02 05:17] VITALS: BP 142/71; PULSE 96
[2024-03-02 06:43] LABS: Add Manual Diff / Slide Review NO; Basophils Absolute Auto 0 /uL (0-100); Basophils Percent Auto 0.3 % (0-2); Eosinophils Absolute Auto 0 /uL (0-450); Eosinophils Percent Auto 0.1 % (2-4); Hematocrit 34.6 % (36-46); Hemoglobin 11.7 g/dL (12.0-16.0); Lymphocytes Absolute Auto 800 /uL (1100-4500); Lymphocytes Percent Auto 8.6 % (25-40); Mean Corpuscular HGB Conc 33.7 % (30-36); Mean Corpuscular Hemoglobin 30.7 PG (26-34); Monocytes Absolute Auto 500 /uL (0-900); Monocytes Percent Auto 5.2 % (3-14); Neutrophils Absolute Auto 8300 /uL (1500-7000); Neutrophils Percent Auto 85.8 % (50-75); Platelet Count 213 X10^3/uL (150-400); Red Cell Distribution Width 15.1 % (11.6-14.8); White Blood Cell Count 9.7 X10^3/uL (4.5-11.0)
--- NOTE | 2024-03-02 06:48 | PC.NURSE ---
At 0510 patient's BP 195/82. HR 103. Patient had just repositioned and c/o pain 7/10. Dilaudid 1 mg IV given. BP recheck at 0517 142/71, HR 96. Patient rated pain 4/10. Patient sleeping at this time.
[2024-03-02 07:04] LABS: BUN Creatinine Ratio 31.3 (6-22); Blood Urea Nitrogen 26 mg/dL (7-17); Calcium 8.7 mg/dL (8.4-10.2); Carbon Dioxide 27 mmol/L (22-32); Chloride 107 mmol/L (98-107); Estimated Glomerular Filt Rate > 60 mL/min (>60); Glucose 123 mg/dL (80-110); HEMOLYSIS < 15 (0-50); Potassium 3.4 mmol/L (3.4-5.1); Sodium 142 mmol/L (137-145)
[2024-03-02] MEDS: PANTOPRAZOLE 40 MG VIAL 20 MG IV (08:58)
[2024-03-02] MEDS: ACETAMINOPHEN 325 MG TABLET 975 MG PO (08:59)
--- NOTE | 2024-03-02 09:34 | DI.RAD.S_ITS ---
PROCEDURE: XR ABDOMEN 1V INDICATIONS: eval for free air TECHNIQUE: One view of the abdomen acquired. COMPARISON: [facility], CR, XR ABDOMEN MIN 2V, 05/17/2022, 0:15. FINDINGS: Surgical changes and devices: Endotracheal tube tip in the gastric fundus and side port in the distal esophagus Bowel: Bowel gas pattern is normal. Soft tissues: No suspicious abdominal calcifications. Visualized solid organ contours appear normal in size. Bones: No suspicious bony lesions. Degenerative changes noted lower lumbar spine IMPRESSION: Nonobstructive bowel gas pattern. No radiographic evidence of pneumoperitoneum. Nasogastric tube side port in the distal esophagus. Consider 15-20 cm advancement Approved by: Munir Bautista M.D. on 03/02/2024 at 9:37
[2024-03-02] MEDS: POTASSIUM CHLORIDE IN WATER 10 MEQ/100 ML PIGGYBACK 100 MEQ IV ×2 (10:42→11:48)
[2024-03-02 11:18] VITALS: BP 133/67; PULSE 101; RESP 18; TEMP 37.1; O2SAT 96
--- NOTE | 2024-03-02 11:42 | P.PN_ITS ---
Subjective Subjective Date Patient Seen: 03/02/24 Time Patient Seen: 07:20 Interval history: The patient reports to be feeling better, with passage of flatus and no significant abdominal pain. after clamping of her NG tube for 4 hours there is no significant output and she had a large bowel movement. Exam Vital Signs (past 8 hours): - 03/02/24 05:10 03/02/24 05:17 03/02/24 11:18 Temperature 97.4 F L 98.7 F Pulse Rate 103 H 96 H 101 H Respiratory Rate 16 18 Blood Pressure 195/82 H 142/71 H 133/67 Pulse Oximetry 95 96 Oxygen Flow Rate 0 Oxygen Delivery Method Room Air Oxygen Flow Rate 0 Narrative Exam Narrative: GENERAL: This is a well-nourished, well-developed patient, in no apparent distress, and G-tube in place with scant output in the last 4 hours. EYES: Pupils equal round and reactive. Extraocular motions intact. No scleral icterus. No injection or drainage. ENT: Mucous membranes pink and moist. NECK: Trachea midline. No JVD, bruits or lymphadenopathy. Supple, nontender, no meningeal signs. CARDIOVASCULAR: Regular rate and rhythm without murmurs, gallops, or rubs. RESPIRATORY: Clear to auscultation. GASTROINTESTINAL: Abdomen soft, infrequent bowel tones, non-tender, nondistended. Urostomy in place. EXTREMITIES: No clubbing, cyanosis, or edema. NEUROLOGIC: Alert, oriented, speech fluent, full upper and lower motor strength, no focal deficits evident. DERMATOLOGIC: No rashes or skin lesions. Objective Labs 03/02/24 06:25 03/02/24 06:25 Labs: Laboratory Results - last 24 hr 03/02/24 06:25 WBC 9.7 RBC 3.80 L Hgb 11.7 L Hct 34.6 L MCV 91.0 MCH 30.7 MCHC 33.7 RDW 15.1 H Plt Count 213 Neut % (Auto) 85.8 H Lymph % (Auto) 8.6 L [place] % (Auto) 5.2 Eos % (Auto) 0.1 L Baso % (Auto) 0.3 Neut # (Auto) 8300 H Lymph # (Auto) 800 L [place] # (Auto) 500 Eos # (Auto) 0 Baso # (Auto) 0 Sodium 142 Potassium 3.4 Chloride 107 Carbon Dioxide 27 BUN 26 H Creatinine 0.83 Estimated GFR > 60 BUN/Creatinine Ratio 31.3 H Glucose 123 H Calcium 8.7 PFSH Medical History Closed intertrochanteric fracture of right femur Recurrent intestinal obstruction Hydronephrosis, right Presence of urostomy History of arthritis History of hip fracture Osteopenia with high risk of fracture High risk for hip fracture Osteopenia Osteopenia Hernia, perineal Anxiety (~1977) Measles (~194) Recurrent sinusitis (~1964) Human papilloma virus (~2001) Abnormal Pap smear of cervix (~2001) History of urinary incontinence (~2019) Hemorrhoid (~1959) History of cervical cancer (~2002) Depression (~1977) History of uterine cancer (~2002) History of bladder cancer (~2002) Hypertension Cervical cancer GERD (gastroesophageal reflux disease) (~1989) Surgical History Hx of tubal ligation History of hip surgery Hx of total cystectomy History of colon surgery Anesthesia History of hemorrhoidectomy (~1970) History of urostomy History of radical hysterectomy History of cholecystectomy (~2001) Family History Father Cancer Renal failure Mother Hypertension Mental health problem Grandfather Diabetes mellitus Grandmother Diabetes mellitus Grandmother Diabetes mellitus Social History marital status: number of children: 3 household members: none Smoking Status: Former smoker Tobacco: How many years used: 20 alcohol intake: current caffeine: Yes Type(s) of exercise: walking frequency: 1-2 times per week duration: > 90 minutes/day Assessment & Plan Assessment & Plan narrative: # recurrent SBO likely from adhesion -doing well at this point. DC NG tube and advance to clear liquid diet -has had multiple recurrences in the past -CT with SBO and transition point in RLQ -pain medications and nausea meds ordered -NG tube ordered, patient had 425cc brown liquid out -continue IV fluids -consulted surgery who will follow # hypertension -normotensive -hold anti-hypertensives for now # history of uterine and bladder cancer s/p urostomy -previous records reviewed and she has repeated SBO from adhesions from above -currently in remission Code status is full code. DVT prophylaxis with SCDs. Proxy is Katie GODWIN. I have reviewed home meds and used all available resources to reconcile the home meds. This patient will be admitted as inpatient and will require greater than 2 midnights of hospital time to treat recurrent SBO. Quality MIPS - Admit I confirm the patient?s Advance Care Plan is present, Code status is documented, Surrogate decision maker is in patient?s record [If Yes, STOP here]: Yes MIPS - Meds 'Current medications' to include all prescriptions, [id number] products, herbals, cannabis/cannabidiol products, and vitamin/mineral/dietary (nutritional) supplements. I have utilized all available resources to obtain, update, or review the patient?s current medications. [If Yes, STOP here]: Yes PROFEE Charge codes Subsequent inpatient/observation care: [id number]
--- NOTE | 2024-03-02 13:28 | CM.DPNOTE ---
DCP Note MANAGER IN HOME reviewed EMR. Per provider in morning rounds, potential dc for tomorrow to return home. pending tolerating advancing diet. Per RN report, pt had a BM, NG tube out, and on clears now. Anticipate home tomorrow. Plan: home to [address] tomorrow anticipated, local family likely to provide transport. CM team will continue to follow closely in case DCP needs arise. UNRULY Nguyen
[2024-03-02 17:42] LABS: Clostridium Difficile Tox PCR Positive for C. diff (Negative)
--- NOTE | 2024-03-02 17:43 | P.PN_ITS ---
Subjective Subjective Date Patient Seen: 03/02/24 Time Patient Seen: 17:44 Interval history: pass large BM. feels back to normal Exam Vital Signs (past 8 hours): - 03/02/24 11:18 Temperature 98.7 F Pulse Rate 101 H Respiratory Rate 18 Blood Pressure 133/67 Pulse Oximetry 96 Oxygen Delivery Method Room Air Oxygen Flow Rate 0 Narrative Exam Narrative: abdomen soft and non tender. KUB shows no SBO Objective Labs 03/02/24 06:25 03/02/24 06:25 Labs: Laboratory Results - last 24 hr 03/02/24 03/02/24 06:25 16:30 WBC 9.7 RBC 3.80 L Hgb 11.7 L Hct 34.6 L MCV 91.0 MCH 30.7 MCHC 33.7 RDW 15.1 H Plt Count 213 Neut % (Auto) 85.8 H Lymph % (Auto) 8.6 L [place] % (Auto) 5.2 Eos % (Auto) 0.1 L Baso % (Auto) 0.3 Neut # (Auto) 8300 H Lymph # (Auto) 800 L [place] # (Auto) 500 Eos # (Auto) 0 Baso # (Auto) 0 Sodium 142 Potassium 3.4 Chloride 107 Carbon Dioxide 27 BUN 26 H Creatinine 0.83 Estimated GFR > 60 BUN/Creatinine Ratio 31.3 H Glucose 123 H Calcium 8.7 C. difficile Tox (PCR) Positive for c. diff H [facility] Medical History Closed intertrochanteric fracture of right femur Recurrent intestinal obstruction Hydronephrosis, right Presence of urostomy History of arthritis History of hip fracture Osteopenia with high risk of fracture High risk for hip fracture Osteopenia Osteopenia Hernia, perineal Anxiety (~1977) Measles (~1945) Recurrent sinusitis (~1964) Human papilloma virus (~2001) Abnormal Pap smear of cervix (~2001) History of urinary incontinence (~2019) Hemorrhoid (~1959) History of cervical cancer (~2002) Depression (~1977) History of uterine cancer (~2002) History of bladder cancer (~2002) Hypertension Cervical cancer GERD (gastroesophageal reflux disease) (~1989) Surgical History Hx of tubal ligation History of hip surgery Hx of total cystectomy History of colon surgery Anesthesia History of hemorrhoidectomy (~1970) History of urostomy History of radical hysterectomy History of cholecystectomy (~2001) Family History Father Cancer Renal failure Mother Hypertension Mental health problem Grandfather Diabetes mellitus Grandmother Diabetes mellitus Grandmother Diabetes mellitus Social History marital status: number of children: 3 household members: none Smoking Status: Former smoker Tobacco: How many years used: 20 alcohol intake: current caffeine: Yes Type(s) of exercise: walking frequency: 1-2 times per week duration: > 90 minutes/day Assessment & Plan Assessment & Plan narrative: SBO resolved Plan: advance diet with possible discharge tomorrow
[2024-03-02 18:00] VITALS: BP 151/63; PULSE 89; RESP 16; TEMP 37; O2SAT 98
[2024-03-02] MEDS: VANCOMYCIN 125 MG CAPSULE PO ×2 (18:34→23:56)
[2024-03-02 19:00] VITALS: BP 160/71; PULSE 87; RESP 18; TEMP 36.6; O2SAT 96
[2024-03-03] MEDS: VANCOMYCIN 125 MG CAPSULE PO ×3 (05:13→17:10)
[2024-03-03 06:00] VITALS: BP 170/84; PULSE 85; RESP 20; TEMP 36.7; O2SAT 95
[2024-03-03 06:22] LABS: Add Manual Diff / Slide Review NO; Basophils Absolute Auto 0 /uL (0-100); Basophils Percent Auto 0.6 % (0-2); Eosinophils Absolute Auto 100 /uL (0-450); Eosinophils Percent Auto 1.6 % (2-4); Hematocrit 32.4 % (36-46); Lymphocytes Absolute Auto 1100 /uL (1100-4500); Lymphocytes Percent Auto 16.3 % (25-40); Mean Corpuscular Hemoglobin 30.7 PG (26-34); Mean Corpuscular Volume 90.4 fL (80-100); Monocytes Absolute Auto 300 /uL (0-900); Neutrophils Absolute Auto 5200 /uL (1500-7000); Neutrophils Percent Auto 76.5 % (50-75); Platelet Count 200 X10^3/uL (150-400); Red Blood Cell Count 3.59 X10^6/uL (4.0-5.2); Red Cell Distribution Width 14.6 % (11.6-14.8); White Blood Cell Count 6.8 X10^3/uL (4.5-11.0)
[2024-03-03 06:33] LABS: BUN Creatinine Ratio 31.1 (6-22); Blood Urea Nitrogen 19 mg/dL (7-17); Calcium 8.6 mg/dL (8.4-10.2); Carbon Dioxide 29 mmol/L (22-32); Chloride 105 mmol/L (98-107); Estimated Glomerular Filt Rate > 60 mL/min (>60); Glucose 105 mg/dL (80-110); HEMOLYSIS 22 (0-50); Potassium 3.4 mmol/L (3.4-5.1); Sodium 138 mmol/L (137-145)
[2024-03-03 08:00] VITALS: BP 168/90; PULSE 87; RESP 18; TEMP 36.1; O2SAT 98
[2024-03-03] MEDS: PANTOPRAZOLE 40 MG VIAL 20 MG IV (08:06)
--- NOTE | 2024-03-03 10:51 | PM.CALLCOV.1 ---
Call Coverage Note Note Date of Patient Contact: 03/03/24 Narrative of Care Provided: General surgery to sign off. SBO resolved, Cdif +. Call if you need anything
[2024-03-03 12:39] VITALS: BP 129/75; PULSE 86; TEMP 37.3; O2SAT 97
[2024-03-03] MEDS: SODIUM CHLORIDE 0.9% 500 ML IV (13:13)
--- NOTE | 2024-03-03 13:35 | PC.NURSE ---
500 ml NS bolus was not given due to pt lost her IV access. Asked pt if we can place new IV line to give the bolus but pt refused stated I'm going home anyway today I don't want to have a new IV. Dr. Gee made aware and ordered to cancel the bolus.
--- NOTE | 2024-03-03 15:06 | P.DS_ITS ---
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 Patient states for about 2.5 days she has had worsening NV, abd pain distention and cramping. She notes 6+ prior SBO's in the past. She states she has ongoing nausea and near vomiting. She is hesitant to do an NG tube, but thinks if it would help her symptoms and speed things up she is amenable to it. Her last BM was yesterday and was hard. She denies CP, SOB, dizziness, headache or LE swelling. 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 diff colitis -patient developed 5 watery BM's and C. diff PCR positive, toxins still pending -started po vanc and diarrhea now improving # hypertension -normotensive -hold anti-hypertensives for now, resumed on discharge # history of uterine and bladder cancer s/p urostomy -previous records reviewed and she has repeated SBO from adhesions from above -currently in remission Hospital Course: Admitted for SBO with transition point in RLQ. Initially did not want NG, but continued to have nausea and felt very bloated. Agreed to NG and had almost 500cc of brown fluid out. She felt much better the next day and was passing gas so the NG was removed. She then developed watery diarrhea and C. diff returned positive. Patient started on po vanc and her diarrhea improved. She was discharged home on 9 more days of po vanc. Exam Vital Signs (past 8 hours): - 03/03/24 08:00 03/03/24 12:39 Temperature 97.0 F L 99.1 F Pulse Rate 87 86 Respiratory Rate 18 Blood Pressure 168/90 H 129/75 Pulse Oximetry 98 97 Oxygen Flow Rate 0 Oxygen Delivery Method Room Air Oxygen Flow Rate 0 Narrative Exam Narrative: GENERAL: This is a well-nourished, well-developed patient, in no apparent distress, and G-tube in place with scant output in the last 4 hours. EYES: Pupils equal round and reactive. Extraocular motions intact. No scleral icterus. No injection or drainage. ENT: Mucous membranes pink and moist. NECK: Trachea midline. No JVD, bruits or lymphadenopathy. Supple, nontender, no meningeal signs. CARDIOVASCULAR: Regular rate and rhythm without murmurs, gallops, or rubs. RESPIRATORY: Clear to auscultation. GASTROINTESTINAL: Abdomen soft, infrequent bowel tones, non-tender, nondistended. Urostomy in place. EXTREMITIES: No clubbing, cyanosis, or edema. NEUROLOGIC: Alert, oriented, speech fluent, full upper and lower motor strength, no focal deficits evident. DERMATOLOGIC: No rashes or skin lesions. Objective Labs 03/03/24 06:10 03/03/24 06:10 Labs: Laboratory Results - last 24 hr 03/02/24 03/03/24 16:30 06:10 WBC 6.8 RBC 3.59 L Hgb 11.0 L Hct 32.4 L MCV 90.4 MCH 30.7 MCHC 34.0 RDW 14.6 Plt Count 200 Neut % (Auto) 76.5 H Lymph % (Auto) 16.3 L [place] % (Auto) 5.0 Eos % (Auto) 1.6 L Baso % (Auto) 0.6 Neut # (Auto) 5200 Lymph # (Auto) 1100 [place] # (Auto) 300 Eos # (Auto) 100 Baso # (Auto) 0 Sodium 138 Potassium 3.4 Chloride 105 Carbon Dioxide 29 BUN 19 H Creatinine 0.61 Estimated GFR > 60 BUN/Creatinine Ratio 31.1 H Glucose 105 Calcium 8.6 C. difficile Tox (PCR) Positive for c. diff H [facility] Medical History Closed intertrochanteric fracture of right femur Recurrent intestinal obstruction Hydronephrosis, right Presence of urostomy History of arthritis History of hip fracture Osteopenia with high risk of fracture High risk for hip fracture Osteopenia Osteopenia Hernia, perineal Anxiety (~1977) Measles (~194) Recurrent sinusitis (~1964) Human papilloma virus (~2001) Abnormal Pap smear of cervix (~2001) History of urinary incontinence (~2019) Hemorrhoid (~1959) History of cervical cancer (~2002) Depression (~1977) History of uterine cancer (~2002) History of bladder cancer (~2002) Hypertension Cervical cancer GERD (gastroesophageal reflux disease) (~1989) Surgical History Hx of tubal ligation History of hip surgery Hx of total cystectomy History of colon surgery Anesthesia History of hemorrhoidectomy (~1970) History of urostomy History of radical hysterectomy History of cholecystectomy (~2001) Family History Father Cancer Renal failure Mother Hypertension Mental health problem Grandfather Diabetes mellitus Grandmother Diabetes mellitus Grandmother Diabetes mellitus Social History marital status: number of children: 3 household members: none Smoking Status: Former smoker Tobacco: How many years used: 20 alcohol intake: current caffeine: Yes Type(s) of exercise: walking frequency: 1-2 times per week duration: > 90 minutes/day Discharge Plan Discharge Plan Patient Disposition: Home Provider Discharge Comment: You had a small bowel obstruction, which resolved with an NG tube. You then developed C. diff and are on oral antibiotics for it. Please finish 9 days at home. You are no longer contagious when your diarrhea has resolved. Discharge orders & Medications Prescriptions: New vancomycin 125 mg Capsule 125 mg PO Q6H 9 Days Qty: 36 0RF Continued Prolia 60 mg/mL syringe 60 mg SUBCUT [id number] Qty: 1 1RF psyllium [Metamucil] 1 tbsp PO DAILY clotrimazole-betamethasone 1-0.05 % cream 1 applic topical DAILY PRN (Reason: dry itchy skin) loperamide [Imodium A-D] 2 mg tablet 2 mg PO Q6H PRN (Reason: Loose Stool) Align 4 mg capsule 4 mg PO DAILY vitamin B complex 1 tab PO DAILY cholecalciferol (vitamin D3) 50 mcg PO DAILY simethicone [Gas-X Extra Strength] 125 mg capsule 125 mg PO BID PRN (Reason: GAS) losartan 100 mg tablet 100 mg PO DAILY Qty: 90 2RF amlodipine 2.5 mg tablet 2.5 mg PO DAILY Qty: 90 2RF omeprazole 20 mg capsule,delayed release(DR/EC) 20 mg PO DAILY Qty: 90 2RF fluticasone propionate 50 mcg/actuation [place],Suspension 2 spray INTRANASAL DAILY Rx Instructions: 2 sprays each nare acetaminophen 325 mg Tablet 650 mg PO Q6H PRN (Reason: Fever/Mild Pain (1-3)) Qty: 60 0RF [id number] 333-133-5 mg tablet See Rx Instructions .ROUTE .COMPLEX Patient Comments: qd Rx Instructions: take one tablet by mouth daily Follow up/Referrals: Blue Gan ARNP [Primary Care Provider] - 2 Weeks Visit Report/Discharge Packet Stand Alone Forms: Patient Portal/API, Stroke Signs & Symptoms Discharge Data Primary Care Provider: Blue Gan
--- NOTE | 2024-03-03 15:09 | CM.DPC ---
DCP Discharge Home Per MD, pt's NGT removed and had bowel movement but now diarrhea and CDiff+ but started on PO Vanco and diarrhea reduced and medically stable to discharge home today with outpt f/u and no identified barriers to discharge. Per RN, pt agreeable with discharge home today and no bolus orders cancelled and pt preference is home this afternoon. Plan: Patient to discharge back to her independent apt at [facility] and family to provide transport home today. UNRULY Currie
[2024-03-04 14:09] LABS: C difficie Toxins A and B, EIA Negative (Negative)
== END 2024-03-03 17:50 | disposition home or self-care (01) | DRG 389 ==
LOC: ED 05:56 → AC 13:36
PROVIDERS: Admitting Provider Student in an Organized Health Care Education/Training Program; Emergency Provider Emergency Medicine; PCP Registered Nurse Diabetes Educator; Referring Provider Emergency Medicine; Visit Provider Student in an Organized Health Care Education/Training Program
DX: K56.50 Intestinal adhesions [bands], unspecified as to partial versus complete obstruction (principal); A04.72 Enterocolitis due to Clostridium difficile, not specified as recurrent; I10 Essential (primary) hypertension; K21.9 Gastro-esophageal reflux disease without esophagitis; Z87.891 Personal history of nicotine dependence; Z85.42 Personal history of malignant neoplasm of other parts of uterus; Z85.51 Personal history of malignant neoplasm of bladder; Z93.6 Other artificial openings of urinary tract status
CPT/HCPCS: 36415; 74018; 74177; 80048; 80053; 83690; 83735; 85025; 87324; 87493; 93005; 93010; 96374; 96375; 99284; 99291; C9113; J1170; J2060; J2270; J2405; J2765; Q9967

== ENCOUNTER → 2024-03-13 13:01 | Outpatient (CLI) | payer MEDICARE, OTHER, SELFPAY ==
[2024-03-01 09:50] VITALS: BMI 21.9
[2024-03-13 15:03] LABS: BUN Creatinine Ratio 18.8 (6-22); Blood Urea Nitrogen 16 mg/dL (7-17); Calcium 9.7 mg/dL (8.4-10.2); Carbon Dioxide 27 mmol/L (22-32); Chloride 98 mmol/L (98-107); Estimated Glomerular Filt Rate > 60 mL/min (>60); Glucose 105 mg/dL (80-110); HEMOLYSIS < 15 (0-50); Potassium 3.7 mmol/L (3.4-5.1); Sodium 132 mmol/L (137-145)
[2024-03-13 15:48] LABS: Vitamin B12 > 1000 pg/mL (239-931)
== END ==
PROVIDERS: Physician Assistant; PCP Registered Nurse Diabetes Educator; Referring Provider Urology; Visit Provider Urology
DX: D51.8 Other vitamin B12 deficiency anemias (principal); Z93.6 Other artificial openings of urinary tract status; Z90.6 Acquired absence of other parts of urinary tract
CPT/HCPCS: 80048; 82607; 83921

== ENCOUNTER → 2024-04-17 10:09 | Outpatient (CLI) | payer MEDICARE, OTHER, SELFPAY ==
[2024-03-01 09:50] VITALS: BMI 21.9
--- NOTE | 2024-04-17 10:11 | DI.ECHO.S_ITS ---
[facility] : : [id number] : [place] : : [id number] : : Phone: [phone] Echocardiogram Report + + :Name: YNES JEWELL Study Date: 04/17/2024 Height: 60 in : :[facility] ReadingLocation: Weight: 107 lb : : Gender: Female BSA: 1.4 m2 : :: 1935 Age: 88 yrs BP: 136/90 mmHg: :Reason For Study: HEART MURMUR : :Ordering Physician: YOVANI, : :CORNELIA Mandujano Performed By: Honorio Hansen : :Referring: CORNELIA PINA : + + Interpretation Summary 1) Normal left ventricular thickness and size with mildly reduced systolic function (EF 45-50%). 2) Normal right ventricular size and function. 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 4) There is mild aortic stenosis (valve area 1.8cm2, mean gradient 10mmHg, severity ratio 0.56); 5) No prior Echo available for comparison. Procedure: A two-dimensional transthoracic echocardiogram with color flow and Doppler was performed. The study quality was technically adequate. There is no prior echocardiogram noted for this patient. The patient had frequent PVCs during the exam. The heart rate ranged between 67-78 bpm during the study. Left Ventricle: The left ventricle is normal in size and wall thickness. The ejection fraction is estimated to be 45-50%. There is mild global hypokinesis of the left ventricle. Right Ventricle: The right ventricle is normal size. The right ventricular systolic function is normal. Atria: The left atrium is moderately dilated. Right atrial size is normal. 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 Mitral Valve: The mitral valve is normal. There is no mitral valve stenosis. There is trace mitral regurgitation. Aortic Valve: The aortic valve is trileaflet. Calcified NCC. There is mild aortic stenosis. The peak aortic velocity is 2.06 m/sec. The aortic valve mean gradient is 10.0 mmHg. No aortic regurgitation is present. Tricuspid Valve: The tricuspid valve is normal. There is no tricuspid stenosis. No tricuspid regurgitation. Pulmonary artery pressures cannot be estimated because of the lack of a measurable TR jet velocity. Pulmonic Valve: The pulmonic valve is not well visualized. There is no pulmonic valvular stenosis. There is no pulmonic valvular regurgitation. Great Vessels: The aortic root is normal size. The dimensions of the ascending aorta are normal. The IVC is of normal diameter and collapses greater than 50% with a sniff. This suggests a low right atrial pressure of 3 mm Hg. Pericardium/ Pleura There is no pericardial effusion. There is no pleural effusion. MMode/2D Measurements & Calculations LVIDd: 4.2 cm LVOT diam: 1.8 cm LVIDs: 3.1 cm Ao root diam: 2.6 cm FS: 26.6 % asc Aorta Diam: 3.1 cm IVSd: 1.1 cm Ao Arch Diam (Prox Trans): 2.0 cm LVPWd: 0.88 cm LV davison. diameter/BSA (cm/m^2): 2.9 LV sys. diameter/BSA (cm/m^2): 2.1 LA A2 area: 19.4 cm2 RA long axis: 4.8 cm LA A4 area: 16.8 cm2 RA area: 11.1 cm2 LA length (vol): 5.2 cm RA vol: 21.8 ml LA vol: 53.9 ml RA : 15.2 ml/m2 LA vol index: 37.6 ml/m2 IVC diam: 1.9 cm RVD1 (basal): 3.2 cm RVD2 (mid): 3.1 cm TAPSE: 2.0 cm Doppler Measurements & Calculations Ao V2 max: 206.0 cm/sec LVOT Max Jeff: 135.7 cm/sec Ao V2 mean: 150.7 cm/sec LV V1 max P.4 mmHg Ao max P.0 mmHg LV V1 VTI: 26.2 cm Ao mean P.0 mmHg HI(I,D): 1.5 cm2 Ao V2 VTI: 46.5 cm HI(V,D): 1.8 cm2 sev ratio: 0.56 HI indexed to BSA (cm^2/m^2): 1.1 MV E max jeff: 59.8 cm/sec PA V2 max: 104.1 cm/sec MV A max jeff: 107.3 cm/sec PA V2 mean: 73.5 cm/sec MV E/A: 0.56 PA mean P.5 mmHg Med Peak E' Jeff: 6.6 cm/sec PA pr(Accel): 32.2 mmHg E/E' med: 9.1 Lat Peak E' Jeff: 7.2 cm/sec E/E' lat: 8.3 E/e' average: 8.7 MV dec time: 0.20 sec SVLVOT): 70.3 ml Reading Physician:02:32 PM
== END ==
PROVIDERS: PCP Family Medicine; Referring Provider Physician Assistant; Visit Provider Physician Assistant
DX: I35.0 Nonrheumatic aortic (valve) stenosis (principal); R01.1 Cardiac murmur, unspecified
CPT/HCPCS: 93306

== ENCOUNTER → 2024-04-18 12:35 | Outpatient (CLI) | payer MEDICARE, OTHER, SELFPAY ==
[2024-03-01 09:50] VITALS: BMI 21.9
== END ==
PROVIDERS: PCP Family Medicine; Referring Provider Family Medicine; Visit Provider Family Medicine
DX: R19.7 Diarrhea, unspecified (principal); Z86.19 Personal history of other infectious and parasitic diseases
CPT/HCPCS: 87045

== ENCOUNTER 2024-05-11 20:53 | Observation (INO) | payer MEDICARE, OTHER, SELFPAY ==
[2024-03-01 09:50] VITALS: BMI 21.9
[2024-05-11] VITALS (7 sets, daily range): BP systolic 123–148; BP diastolic 67–77; PULSE 83–98; RESP 16; O2SAT 93–99; BMI 21.4
[2024-05-11 21:28] LABS: Add Manual Diff / Slide Review NO; Basophils Absolute Auto 0 /uL (0-100); Basophils Percent Auto 0.1 % (0-2); Eosinophils Absolute Auto 0 /uL (0-450); Eosinophils Percent Auto 0.2 % (2-4); Hematocrit 39.4 % (36-46); Hemoglobin 13.2 g/dL (12.0-16.0); Lymphocytes Absolute Auto 1300 /uL (1100-4500); Mean Corpuscular HGB Conc 33.6 % (30-36); Mean Corpuscular Hemoglobin 30.5 PG (26-34); Monocytes Absolute Auto 800 /uL (0-900); Monocytes Percent Auto 5.5 % (3-14); Neutrophils Absolute Auto 12400 /uL (1500-7000); Neutrophils Percent Auto 85.2 % (50-75); Platelet Count 238 X10^3/uL (150-400); Red Blood Cell Count 4.33 X10^6/uL (4.0-5.2); Red Cell Distribution Width 14.1 % (11.6-14.8); White Blood Cell Count 14.6 X10^3/uL (4.5-11.0)
[2024-05-11] MEDS: ONDANSETRON 4 MG/2 ML INJ IV (21:30)
--- NOTE | 2024-05-11 21:32 | DI.CT.S_ITS ---
PROCEDURE: CT ABDOMEN WO CON INDICATIONS: abdomenal pain hx blockage TECHNIQUE: After the administration of oral contrast, 5 mm thick sections acquired from the diaphragms to the iliac crests. 5 mm coronal and sagittal reformats were then performed. For radiation dose reduction, the following was used: automated exposure control, adjustment of mA and/or kV according to patient size. COMPARISON: [facility], CT, CT ABDOMEN PELVIS W CON, 03/01/2024, 4:33. FINDINGS: Image quality: Diagnostic. Lower Chest: No significant findings. ABDOMEN: Liver: No contour-deforming mass. Gallbladder: Surgically absent Biliary ducts: No biliary dilation. Prominent common bile duct likely related to prior cholecystectomy. This is stable Pancreas: No ductal dilation. Spleen: Size is within normal limits. Stable splenic hypodensity Adrenal Glands: No adrenal nodules. Kidneys and Ureters: No hydronephrosis. No contour-deforming mass. Stomach and Bowel: Stable postsurgical changes of the bowel. Anastomotic suture line noted in the lower right abdomen/pelvis. Stable postsurgical changes of partial colectomy. Right lower quadrant ostomy unchanged. Long segment of moderately distended small bowel with air-fluid levels. Small bowel measures up to 3.6 cm in diameter. No significant mesenteric stranding or edema. No significant wall thickening identified. A definite transition point is not visualized. However, somewhat decompressed bowel noted in the right lower quadrant proximal to the anastomotic suture line. Peritoneum: No abnormal intraperitoneal fluid. No free air. Ventral Wall: No hernia. Abdominal Nodes: No retroperitoneal or mesenteric adenopathy by size criteria. Vessels: Aorta and inferior vena cava are normal in size. Dense atherosclerotic calcifications. Bones: No acute vertebral body compression fractures. Multilevel spondylitic changes throughout the imaged spine. No suspicious osseous lesions. IMPRESSION: Long segment of diffusely scattered dilated small bowel with air-fluid levels compatible with small bowel obstruction. A definite transition point is not visualized although there appears to be decompressed bowel in the right lower quadrant near site of prior bowel resection anastomotic suture line. Stable postsurgical changes with right lower quadrant ostomy. Other chronic findings as above. Dictated by: Alberto Mei M.D. on 05/11/2024 at 23:39 Approved by: Alberto Mei M.D. on 05/11/2024 at 23:46
[2024-05-11 21:37] LABS: Alanine Aminotransferase 15 IU/L (<35); Albumin 4.6 g/dL (3.5-5.0); Albumin Globulin Ratio 1.3 (1.0-2.8); Alkaline Phosphatase 65 U/L (38-126); Aspartate Aminotransferase 24 IU/L (14-36); Bilirubin Total 0.9 mg/dL (0.2-1.3); Blood Urea Nitrogen 18 mg/dL (7-17); Calcium 10.3 mg/dL (8.4-10.2); Carbon Dioxide 20 mmol/L (22-32); Chloride 104 mmol/L (98-107); Estimated Glomerular Filt Rate > 60 mL/min (>60); Globulin 3.6 g/dL (1.7-4.1); Glucose 163 mg/dL (80-110); HEMOLYSIS < 15 (0-50); Lipase 142 U/L (23-300); Potassium 4.2 mmol/L (3.4-5.1); Sodium 135 mmol/L (137-145); Total Protein 8.2 g/dL (6.3-8.2)
[2024-05-11] MEDS: HYDROMORPHONE 0.5 MG INJ IV (22:06)
--- NOTE | 2024-05-11 22:15 | PC.NURSE ---
gave 0.5mg of dilaudid and patient began to desat to 86%, placed the patient on 2L NC to maintain sats above 91%
--- NOTE | 2024-05-11 22:55 | ED.ABDPAIN ---
HPI - Abdominal Pain General Chief Complaint: Abdominal Pain Stated Complaint: Hx bowel blockages/same symptoms/V Time Seen by Provider: 05/11/24 22:10 History of Present Illness HPI narrative: 88-year-old female with history of remote stage IV cervical cancer diagnosis 2005, treated [facility], radiation therapy, diverting urostomy, felt to be cured. She also had more recent surgery 2021 [facility] for hernia in the cervical/labial area, repaired with General surgery and plastic surgery together, felt to be successful. Prior hysterectomy and oophorectomy 30 years ago, prior cholecystectomy. She complains of central left abdominal discomfort since yesterday afternoon, no injury trauma. No nausea or vomiting, no loose stools, she feels that she is passing some gas. No black or red stools. She is making urine in her urostomy bag, does not seem to have any blood or cloudy appearance, no strange foul odor. She denies chest pain shortness of breath. Flank pain. Related Data Home Medications Medication Instructions Recorded Confirmed Bifidobacterium infantis 4 mg 4 mg PO DAILY 08/24/20 05/12/24 capsule (Align) cholecalciferol (vitamin D3) 50 mcg PO DAILY 08/24/20 05/12/24 loperamide 2 mg tablet (Imodium 2 mg PO Q6H PRN Loose Stool 08/24/20 05/12/24 A-D) vitamin B complex [B 1 tab PO DAILY 08/24/20 05/12/24 Complex-Vitamin B12] simethicone 125 mg capsule (Gas-X 125 mg PO BID PRN GAS 08/12/21 05/12/24 Extra Strength) psyllium [Metamucil] 1 tbsp PO DAILY 01/03/22 05/12/24 [id number] 333 mg-133 See Rx Instructions .Route .COMPLEX 01/11/22 05/12/24 mg-5 mg tablet fluticasone propionate 50 2 spray intranasal DAILY dry nasal 02/04/23 05/12/24 mcg/actuation nasal passages spray,suspension clotrimazole-betamethasone 1 1 applic topical DAILY PRN dry 05/07/23 05/12/24 %-0.05 % topical cream itchy skin Previous Rx's Medication Instructions Recorded acetaminophen 325 mg tablet 650 mg (2 x 325 mg) PO Q6H PRN 02/06/23 Fever/Mild Pain (1-3) #60 tabs denosumab 60 mg/mL subcutaneous 60 mg SUBCUT [id number] #1 mL 03/10/23 syringe (Prolia) amlodipine 2.5 mg tablet 2.5 mg PO DAILY #90 tabs 12/03/23 losartan 100 mg tablet 100 mg PO DAILY #90 tabs 12/03/23 omeprazole 20 mg capsule,delayed 20 mg PO DAILY #90 caps 12/03/23 release escitalopram oxalate 5 mg tablet 5 mg PO DAILY #30 tabs 05/05/24 Allergies Allergy/AdvReac Type Severity Reaction Status Date / Time Sulfa (Sulfonamide Allergy Unknown Verified 05/07/24 13:08 Antibiotics) trimethaphan Allergy Unknown Verified 05/07/24 13:08 Review of Systems Review of Systems Narrative: see HPI Patient History Medical History (Updated 05/12/24 @ 00:29 by Tommy Malin MD) Small bowel obstruction Anxiety (~1977) Closed intertrochanteric fracture of right femur Recurrent intestinal obstruction Hydronephrosis, right Presence of urostomy History of arthritis History of hip fracture Osteopenia with high risk of fracture High risk for hip fracture Osteopenia Osteopenia Hernia, perineal Measles (~194) Recurrent sinusitis (~1964) Human papilloma virus (~2001) Abnormal Pap smear of cervix (~2001) History of urinary incontinence (~2019) Hemorrhoid (~1959) History of cervical cancer (~2002) Depression (~1977) History of uterine cancer (~2002) History of bladder cancer (~2002) Hypertension Cervical cancer GERD (gastroesophageal reflux disease) (~1989) Surgical History Hx of tubal ligation History of hip surgery Hx of total cystectomy History of colon surgery Anesthesia History of hemorrhoidectomy (~1970) History of urostomy History of radical hysterectomy History of cholecystectomy (~2001) Family History Father Cancer Renal failure Mother Hypertension Mental health problem Grandfather Diabetes mellitus Grandmother Diabetes mellitus Grandmother Diabetes mellitus Social History marital status: number of children: 3 household members: none lives independently: Yes occupational status: previously employed Smoking Status: Former smoker Tobacco: How many years used: 20 alcohol intake: current substance use type: does not use caffeine: Yes Type(s) of exercise: walking frequency: 1-2 times per week duration: > 90 minutes/day Smoking Status: Former smoker tobacco type: vaping alcohol intake frequency: a few times a week Alcohol type: wine Substance Use Type: does not use Exam Narrative Exam Narrative: GENERAL: Well-developed patient, in mild distress. HEAD: Atraumatic. Normocephalic. EYES: Pupils equal round and reactive. Extraocular motions intact. No scleral icterus. No injection or drainage. ENT: Nose without bleeding, purulent drainage. Throat without erythema, tonsillar hypertrophy or exudate. Airway patent. NECK: Trachea midline. Non tender CARDIOVASCULAR: Regular rate and rhythm without murmurs, gallops, or rubs. RESPIRATORY: Clear to auscultation. Breath sounds equal bilaterally. No wheezes, rales, or rhonchi. GASTROINTESTINAL: Well-healed ventral abdominal scars, right middle position urostomy with clear yellow fluid in clear collection bag, urostomy khoi unremarkable. Abdomen with some mild tenderness mid left quadrant, nondistended. EXTREMITIES: No edema or joint tenderness. BACK: Nontender without deformity or crepitance. No flank tenderness. NEURO: AOx3. SKIN: No rash or erythema of visible areas Initial Vital Signs Initial Vital Signs: Vital Signs Pulse Rate 98 H 05/11/24 21:04 Respiratory Rate 16 05/11/24 21:04 Blood Pressure 148/77 H 05/11/24 21:04 Pulse Oximetry 97 05/11/24 21:04 Oxygen Delivery Method Room Air 05/11/24 21:04 Course Orders Ordered: ED Orders 05/11/24 21:12 EKG-12 Lead Stat 05/11/24 21:19 Complete Blood Count AUTO DIFF Stat Comprehensive Metabolic Panel Stat Lipase Stat 05/11/24 21:32 CT abdomen wo con Stat Hydromorphone HCl (Hydromorphone 0.5 Mg Inj) 0.5 mg IV Q2H PRN PRN Reason: Pain, Moderate (4-6) Ondansetron HCl (Ondansetron 4 Mg/2 Ml Inj) 4 mg IV NOW PRN PRN Reason: Nausea And Vomiting Last Admin: 05/11/24 21:30 Dose: 4 mg Documented By: JESSE Ondansetron HCl (Ondansetron 4 Mg Odt) 4 mg PO NOW PRN PRN Reason: Nausea And Vomiting Discontinued Medications Hydromorphone HCl (Hydromorphone 0.5 Mg Inj) 0.5 mg IV NOW ONE Stop: 05/11/24 21:40 Last Admin: 05/11/24 22:06 Dose: 0.5 mg Documented By: KEKE Vital Signs Vital signs: Vital Signs - 8 hr 05/11/24 22:05 05/11/24 22:06 05/11/24 22:06 Pulse Rate 92 H 89 Blood Pressure 123/67 Pulse Oximetry 99 93 05/11/24 22:30 05/11/24 22:30 05/11/24 23:00 Pulse Rate 83 86 Blood Pressure 130/68 Pulse Oximetry 98 97 05/11/24 23:00 05/11/24 23:30 05/11/24 23:31 Pulse Rate 86 Blood Pressure 147/71 H 136/74 Pulse Oximetry 97 05/11/24 23:31 05/12/24 00:00 05/12/24 00:00 Pulse Rate 83 78 Blood Pressure 128/61 Pulse Oximetry 97 97 05/12/24 00:30 05/12/24 00:30 05/12/24 01:00 Pulse Rate 75 Blood Pressure 122/61 131/61 Pulse Oximetry 98 05/12/24 01:00 Pulse Rate 69 Blood Pressure Pulse Oximetry 98 MDM - Abdominal Pain Lab Data Attestation: I reviewed the patient's lab results. Lab results narrative: White blood cell count 41430, unremarkable BNP, liver functions unremarkable, urinalysis negative 05/11/24 21:19 05/11/24 21:19 Labs: Lab Results 05/11/24 Range/Units 21:19 WBC 14.6 H (4.5-11.0) X10^3/uL RBC 4.33 (4.0-5.2) X10^6/uL Hgb 13.2 (12.0-16.0) g/dL Hct 39.4 (36-46) % MCV 91.0 (80-100) fL MCH 30.5 (26-34) PG MCHC 33.6 (30-36) % RDW 14.1 (11.6-14.8) % Plt Count 238 (150-400) X10^3/uL Neut % (Auto) 85.2 H (50-75) % Lymph % (Auto) 9.0 L (25-40) % Wood % (Auto) 5.5 (3-14) % Eos % (Auto) 0.2 L (2-4) % Baso % (Auto) 0.1 (0-2) % Neut # (Auto) 62637 H (9479-6637) /uL Lymph # (Auto) 1300 (5742-1436) /uL Wood # (Auto) 800 (0-900) /uL Eos # (Auto) 0 (0-450) /uL Baso # (Auto) 0 (0-100) /uL Sodium 135 L (137-145) mmol/L Potassium 4.2 (3.4-5.1) mmol/L Chloride 104 (98-107) mmol/L Carbon Dioxide 20 L (22-32) mmol/L BUN 18 H (7-17) mg/dL Creatinine 0.90 (0.52-1.04) mg/dL Estimated GFR > 60 (>60) mL/min BUN/Creatinine Ratio 20.0 (6-22) Glucose 163 H (80-110) mg/dL Calcium 10.3 H (8.4-10.2) mg/dL Total Bilirubin 0.9 (0.2-1.3) mg/dL AST 24 (14-36) IU/L ALT 15 (<35) IU/L Alkaline Phosphatase 65 (38-126) U/L Total Protein 8.2 (6.3-8.2) g/dL Albumin 4.6 (3.5-5.0) g/dL Globulin 3.6 (1.7-4.1) g/dL Albumin/Globulin Ratio 1.3 (1.0-2.8) Lipase 142 (23-300) U/L Imaging Data CT scan - abdomen/pelvis: Radiologist's Impression: [address] [address] [address] Scan Report Signed Patient: Hortencia Lin MR#: [id number] : 1935 Acct:[id number] Age/Sex: 88 / F Date of Service: 05/11/24 Loc: ED Accession Number: [id number] Procedure: CT abdomen wo con Ordering Provider: Tommy Malin MD PROCEDURE: CT ABDOMEN WO CON INDICATIONS: abdomenal pain hx blockage TECHNIQUE: After the administration of oral contrast, 5 mm thick sections acquired from the diaphragms to the iliac crests. 5 mm coronal and sagittal reformats were then performed. For radiation dose reduction, the following was used: automated exposure control, adjustment of mA and/or kV according to patient size. COMPARISON: [facility], CT, CT ABDOMEN PELVIS W CON, 03/01/2024, 4:33. FINDINGS: Image quality: Diagnostic. Lower Chest: No significant findings. ABDOMEN: Liver: No contour-deforming mass. Gallbladder: Surgically absent Biliary ducts: No biliary dilation. Prominent common bile duct likely related to prior cholecystectomy. This is stable Pancreas: No ductal dilation. Spleen: Size is within normal limits. Stable splenic hypodensity Adrenal Glands: No adrenal nodules. Kidneys and Ureters: No hydronephrosis. No contour-deforming mass. Stomach and Bowel: Stable postsurgical changes of the bowel. Anastomotic suture line noted in the lower right abdomen/pelvis. Stable postsurgical changes of partial colectomy. Right lower quadrant ostomy unchanged. Long segment of moderately distended small bowel with air-fluid levels. Small bowel measures up to 3.6 cm in diameter. No significant mesenteric stranding or edema. No significant wall thickening identified. A definite transition point is not visualized. However, somewhat decompressed bowel noted in the right lower quadrant proximal to the anastomotic suture line. Peritoneum: No abnormal intraperitoneal fluid. No free air. Ventral Wall: No hernia. Abdominal Nodes: No retroperitoneal or mesenteric adenopathy by size criteria. Vessels: Aorta and inferior vena cava are normal in size. Dense atherosclerotic calcifications. Bones: No acute vertebral body compression fractures. Multilevel spondylitic changes throughout the imaged spine. No suspicious osseous lesions. IMPRESSION: Long segment of diffusely scattered dilated small bowel with air-fluid levels compatible with small bowel obstruction. A definite transition point is not visualized although there appears to be decompressed bowel in the right lower quadrant near site of prior bowel resection anastomotic suture line. Stable postsurgical changes with right lower quadrant ostomy. Other chronic findings as above. Dictated by: Alberto Mei M.D. on 05/11/2024 at 23:39 Approved by: Alberto Mei M.D. on 05/11/2024 at 23:46 MDM Narrative Medical decision making narrative: 88-year-old female with history of abdominal pain, prior bowel obstructions, increasing abdominal pain, at triage labs sent, CT abdomen and pelvis noncontrast study ordered from triage, performed, results still pending at this time. Patient given IV Dilaudid for pain, improved, some desats placed on oxygen. White blood cell count 44327 noted, urinalysis pending. CMP were unremarkable. Await results CT scan abdomen and pelvis. CT shows small bowel obstruction, no definite transition point, see report above. Case discussed with general surgery Dr. Ardon, he would like to manage the patient here, admit to hospitalist service. We will contact hospitalist. NG tube to low intermittent wall suction ordered, but patient refused, ordered canceled. Await call back from hospitalist [phone], case discussed with hospitalist Dr. Carey, accepts patient for admission to observation. Critical Care Time Critical Care Time Critical Care Time: Yes Total Critical Care Time: 35 Attestation: The high probability of a clinically significant, sudden or life threatening deterioration of the [genitourinary, gastrointestinal, abdominopelvic, urologic] system(s) required my full and direct attention, intervention and personal management. The aggregate critical care time was [35] minutes. This time is in addition to time spent performing reported procedures but includes the following: [x] Data Review and interpretation [x] Patient assessment and monitoring of vital signs [x] Documentation [x] Medication orders and management Discharge Plan Departure Patient Disposition: Admitted as Observation Clinical Impression: Small bowel obstruction Clinical Impression: (Ruled Out): Presence of urostomy Admit Date/Time: 05/12/24 01:27 Admit Provider: Rj Lew
--- NOTE | 2024-05-11 23:01 | PC.NURSE ---
Patient's daughter Katie (daughter/POA) went home for the night; call to update/ride home [phone]
[2024-05-12] VITALS (25 sets, daily range): BP systolic 111–173; BP diastolic 56–89; PULSE 68–90; RESP 9–25; TEMP 36.9–37.1; O2SAT 90–98; BMI 21.4
--- NOTE | 2024-05-12 01:41 | PC.NURSE ---
Called Hannah (daughter/POA) for update on admission. Advised her that her mother should be going upstairs soon and she can call the main number in the morning before coming in if that is easier for her.
--- NOTE | 2024-05-12 05:43 | PC.NURSE ---
Admitted from the ED for observation. Refused NG placement. Initially complaining of belly pain but able to rest without additional pain medications. Presence of a urostomy with clear, yellow urine. ID bracelet in place with allergy and DNR identifiers
--- NOTE | 2024-05-12 08:54 | PM.HP.1 ---
History of Present Illness History of Present Illness Chief complaint: Hx bowel blockages/same symptoms/V Narrative: From ED doctor: 88-year-old female with history of remote stage IV cervical cancer diagnosis 2005, treated [facility], radiation therapy, diverting urostomy, felt to be cured. She also had more recent surgery 2021 [facility] for hernia in the cervical/labial area, repaired with General surgery and plastic surgery together, felt to be successful. Prior hysterectomy and oophorectomy 30 years ago, prior cholecystectomy. She complains of central left abdominal discomfort since yesterday afternoon, no injury trauma. No nausea or vomiting, no loose stools, she feels that she is passing some gas. No black or red stools. She is making urine in her urostomy bag, does not seem to have any blood or cloudy appearance, no strange foul odor. She denies chest pain shortness of breath. Flank pain. S: She was a history of many bowel obstructions. She did not fell well on Sunday and then developed abdominal distention and nausea with vomiting on Sunday. Ultimately EMS was called and she was transported to the ED by POV. CT scan indicated a partial small-bowel obstruction. This morning she feels better, resolution of nausea and vomiting. No flatus. A lot of abdominal grumbling. She denies any pain and would like to advance her diet. She denies any chest pain, shortness for breath, or urinary symptoms. She was have a urostomy from a previous cancer resection. [facility] Medical History Small bowel obstruction Anxiety (~1977) Closed intertrochanteric fracture of right femur Recurrent intestinal obstruction Hydronephrosis, right Presence of urostomy History of arthritis History of hip fracture Osteopenia with high risk of fracture High risk for hip fracture Osteopenia Osteopenia Hernia, perineal Measles (~194) Recurrent sinusitis (~1964) Human papilloma virus (~2001) Abnormal Pap smear of cervix (~2001) History of urinary incontinence (~2019) Hemorrhoid (~1959) History of cervical cancer (~2002) Depression (~1977) History of uterine cancer (~2002) History of bladder cancer (~2002) Hypertension Cervical cancer GERD (gastroesophageal reflux disease) (~1989) Surgical History Hx of tubal ligation History of hip surgery Hx of total cystectomy History of colon surgery Anesthesia History of hemorrhoidectomy (~1970) History of urostomy History of radical hysterectomy History of cholecystectomy (~2001) Family History Father Cancer Renal failure Mother Hypertension Mental health problem Grandfather Diabetes mellitus Grandmother Diabetes mellitus Grandmother Diabetes mellitus Social History marital status: number of children: 3 household members: none lives independently: Yes occupational status: previously employed Smoking Status: Former smoker Tobacco: How many years used: 20 alcohol intake: current substance use type: does not use caffeine: Yes Type(s) of exercise: walking frequency: 1-2 times per week duration: > 90 minutes/day Meds Home Medications and Allergies Home Medications Medication Instructions Recorded Confirmed Type Bifidobacterium infantis 4 mg 4 mg PO DAILY 08/24/20 05/12/24 History capsule (Align) cholecalciferol (vitamin D3) 50 mcg PO DAILY 08/24/20 05/12/24 History loperamide 2 mg tablet (Imodium 2 mg PO Q6H PRN Loose Stool 08/24/20 05/12/24 History A-D) vitamin B complex [B 1 tab PO DAILY 08/24/20 05/12/24 History Complex-Vitamin B12] simethicone 125 mg capsule (Gas-X 125 mg PO BID PRN GAS 08/12/21 05/12/24 History Extra Strength) psyllium [Metamucil] 1 tbsp PO DAILY 01/03/22 05/12/24 History [id number] 333 mg-133 See Rx Instructions .Route .COMPLEX 01/11/22 05/12/24 History mg-5 mg tablet fluticasone propionate 50 2 spray intranasal DAILY dry nasal 02/04/23 05/12/24 History mcg/actuation nasal passages spray,suspension acetaminophen 325 mg tablet 650 mg (2 x 325 mg) PO Q6H PRN 02/06/23 05/12/24 Rx Fever/Mild Pain (1-3) #60 tabs denosumab 60 mg/mL subcutaneous 60 mg SUBCUT [id number] #1 mL 03/10/23 05/12/24 Rx syringe (Prolia) clotrimazole-betamethasone 1 1 applic topical DAILY PRN dry 05/07/23 05/12/24 History %-0.05 % topical cream itchy skin amlodipine 2.5 mg tablet 2.5 mg PO DAILY #90 tabs 12/03/23 05/12/24 Rx losartan 100 mg tablet 100 mg PO DAILY #90 tabs 12/03/23 05/12/24 Rx omeprazole 20 mg capsule,delayed 20 mg PO DAILY #90 caps 12/03/23 05/12/24 Rx release escitalopram oxalate 5 mg tablet 5 mg PO DAILY #30 tabs 05/05/24 05/12/24 Rx Allergies Allergy/AdvReac Type Severity Reaction Status Date / Time Sulfa (Sulfonamide Allergy Unknown Verified 05/07/24 13:08 Antibiotics) trimethaphan Allergy Unknown Verified 05/07/24 13:08 Review of Systems Review of Systems Narrative: All else reviewed and otherwise unremarkable except as noted in the history and physical. Exam Vital Signs (past 8 hours): - 05/12/24 01:00 05/12/24 01:00 05/12/24 01:30 Temperature Pulse Rate 69 69 Respiratory Rate Blood Pressure 131/61 Pulse Oximetry 98 98 Oxygen Delivery Method Room Air Oxygen Flow Rate 05/12/24 01:30 05/12/24 08:00 Temperature 98.5 F Pulse Rate 71 Respiratory Rate 17 Blood Pressure 117/56 L 142/67 H Pulse Oximetry 97 Oxygen Delivery Method Oxygen Flow Rate 0 Oxygen Delivery Method Room Air Oxygen Flow Rate 0 Narrative Exam Narrative: NAD, alert and oriented, fluent speech, calm. Normocephalic skull, EOMI, anicteric sclera, symmetric pupils. Oropharynx unremarkable, no droop. Neck supple, midline trachea, no adenopathy. Lungs clear, normal rate and effort. Heart regular, no murmur gallop or rub. Abdomen is soft, non distended and non tender. She has a urostomy in place with clear urine. Increased bowel tones. Extremities are free of edema. Skin is free of rash or lesions. Joints are not swollen or deformed. Judgment appears to be normal. Objective Imaging CT scan - abdomen: Radiologist's impression: Long segment of diffusely scattered dilated small bowel with air-fluid levels compatible with small bowel obstruction. A definite transition point is not visualized although there appears to be decompressed bowel in the right lower quadrant near site of prior bowel resection anastomotic suture line. Stable postsurgical changes with right lower quadrant ostomy. Other chronic findings as above. Labs 05/11/24 21:19 05/11/24 21:19 Labs: Laboratory Results - last 24 hr 05/11/24 21:19 WBC 14.6 H RBC 4.33 Hgb 13.2 Hct 39.4 MCV 91.0 MCH 30.5 MCHC 33.6 RDW 14.1 Plt Count 238 Neut % (Auto) 85.2 H Lymph % (Auto) 9.0 L Gonzales % (Auto) 5.5 Eos % (Auto) 0.2 L Baso % (Auto) 0.1 Neut # (Auto) 38089 H Lymph # (Auto) 1300 Gonzales # (Auto) 800 Eos # (Auto) 0 Baso # (Auto) 0 Sodium 135 L Potassium 4.2 Chloride 104 Carbon Dioxide 20 L BUN 18 H Creatinine 0.90 Estimated GFR > 60 BUN/Creatinine Ratio 20.0 Glucose 163 H Calcium 10.3 H Total Bilirubin 0.9 AST 24 ALT 15 Alkaline Phosphatase 65 Total Protein 8.2 Albumin 4.6 Globulin 3.6 Albumin/Globulin Ratio 1.3 Lipase 142 Assessment & Plan Assessment & Plan narrative: 1. SBO, present on admission and active. 2. HTN, present on admission and stable. PLAN: Discuss with surgery. Advance clear liquid diet. Monitor for pain, flatus, bowel movement, and vomiting. She has a 1 night expectation of hospital care, she was admitted to observation status. Full resuscitation. Time-Based Coding :: 35 min spent with patient and on the chart (including review of chart, obtaining history, exam, reviewing outside data, placing orders, documenting exam and treatment plan, and counseling patient) on 05/12/2024. Quality MIPS - Admit I confirm the patient?s Advance Care Plan is present, Code status is documented, Surrogate decision maker is in patient?s record [If Yes, STOP here]: Yes MIPS - Meds 'Current medications' to include all prescriptions, [id number] products, herbals, cannabis/cannabidiol products, and vitamin/mineral/dietary (nutritional) supplements. I have utilized all available resources to obtain, update, or review the patient?s current medications. [If Yes, STOP here]: Yes
[2024-05-12] MEDS: HYDROMORPHONE 0.5 MG INJ IV ×2 (13:24→20:36)
[2024-05-12] MEDS: SODIUM CHLORIDE 0.9% FLUSH 10 ML IV ×2 (13:24→20:42)
--- NOTE | 2024-05-12 14:18 | CM.DANOTE ---
DCP Assessment Note-brief Pt is an 88yo F here following SBO. Has been admitted here at for similar concerns February 2023, Jul 2023, February 2024, and this most recent admission. Per chart review, SBO has in the past resolved over time. PCP Britney Shelton Payer Medicare and [employer]. WOMEN'S [employer]IES [employer]ER reviewed EMR. Per hospitalist in morning rounds, plan is to advance diet anticipate dc home Sunday with no CM needs likely. Per chart review, pt lives independently at [facility]. has a walker that she could use but mainly ambulates indep. Dtr Katie ([phone]) is POA and here locally to assist pt as well. Per RN, pt was recently given pain meds and sleeping heavily. Has been OOB since admission as ambulating indep. No anticipated CM needs for RN as well. WOMEN'S STUDIES L[employer]URER attempted to meet with pt, sleeping heavily allowed to rest. P: anticipate dc home to [facility] Sunday with dtr support when medically stable. Dtr likely to transport. No obvious CM needs identified from chart review. CM team will follow as needed UNRULY Nguyen Discharge Planning/Care Management CM Discharge Assessment Start: 05/12/24 14:14 Freq: Status: Active Protocol: Document 05/12/24 14:14 JIM (Rec: 05/12/24 14:18 [id number]) Discharge Planning Assessment Assigned Director Of Physical Therapy UNRULY Nguyen DPOA/Assigned Designee Name garrett Wilson/TATO Contact Information [phone] Advance Directives? Yes Advance Directives on File Yes History Provided By Patient,Family Member,Medical Record Prior Living Arrangements [facility] Facility Household Members none Comment [facility] Type of transporation used prior to Relies on Others admit Facility Name Admitted From: [facility] Willing to Return to Facility? Yes Comment Has walker but does not use. Discharge Plan Home Transportation Arrangement Family Referrals Initiated None needed Additional Comment TBD Review Status In Process Please Provide Date Initial DC 05/12/24 Assessment Was Performed Next Review Type Continued Stay Review
[2024-05-12] MEDS: DEXTROSE 5%-0.9% NS 1,000 ML 100 ML IV (14:28)
--- NOTE | 2024-05-12 18:07 | PM.CN ---
History of Present Illness Consult details Date Patient Seen: 05/12/24 Time Patient Seen: 18:07 Chief complaint: Hx bowel blockages/same symptoms/V Narrative: Jeffrey is a 88-year-old woman with a complicated surgical history who has presented with multiple small bowel obstructions over the years. She presented overnight with abdominal pain, nausea, vomiting and no flatus. Her last bowel movement was yesterday morning. CT scan showed a small-bowel obstruction. She has not needed to vomit since she came up to the room but she has not passed any flatus either. Meds Home Medications and Allergies Home Medications Medication Instructions Recorded Confirmed Type Bifidobacterium infantis 4 mg 4 mg PO DAILY 08/24/20 05/12/24 History capsule (Align) cholecalciferol (vitamin D3) 50 mcg PO DAILY 08/24/20 05/12/24 History loperamide 2 mg tablet (Imodium 2 mg PO Q6H PRN Loose Stool 08/24/20 05/12/24 History A-D) vitamin B complex [B 1 tab PO DAILY 08/24/20 05/12/24 History Complex-Vitamin B12] simethicone 125 mg capsule (Gas-X 125 mg PO BID PRN GAS 08/12/21 05/12/24 History Extra Strength) psyllium [Metamucil] 1 tbsp PO DAILY 01/03/22 05/12/24 History [id number] 333 mg-133 See Rx Instructions .Route .COMPLEX 01/11/22 05/12/24 History mg-5 mg tablet fluticasone propionate 50 2 spray intranasal DAILY dry nasal 02/04/23 05/12/24 History mcg/actuation nasal passages spray,suspension acetaminophen 325 mg tablet 650 mg (2 x 325 mg) PO Q6H PRN 02/06/23 05/12/24 Rx Fever/Mild Pain (1-3) #60 tabs denosumab 60 mg/mL subcutaneous 60 mg SUBCUT [id number] #1 mL 03/10/23 05/12/24 Rx syringe (Prolia) clotrimazole-betamethasone 1 1 applic topical DAILY PRN dry 05/07/23 05/12/24 History %-0.05 % topical cream itchy skin amlodipine 2.5 mg tablet 2.5 mg PO DAILY #90 tabs 12/03/23 05/12/24 Rx losartan 100 mg tablet 100 mg PO DAILY #90 tabs 12/03/23 05/12/24 Rx omeprazole 20 mg capsule,delayed 20 mg PO DAILY #90 caps 12/03/23 05/12/24 Rx release escitalopram oxalate 5 mg tablet 5 mg PO DAILY #30 tabs 05/05/24 05/12/24 Rx Allergies Allergy/AdvReac Type Severity Reaction Status Date / Time Sulfa (Sulfonamide Allergy Unknown Verified 05/07/24 13:08 Antibiotics) trimethaphan Allergy Unknown Verified 05/07/24 13:08 Exam Vital Signs (past 8 hours): - 05/12/24 10:30 05/12/24 11:00 05/12/24 11:09 Temperature Pulse Rate 75 72 Respiratory Rate 18 11 L Blood Pressure 173/77 H Pulse Oximetry 94 96 Oxygen Flow Rate 05/12/24 11:09 05/12/24 11:10 05/12/24 11:10 Temperature Pulse Rate 73 72 Respiratory Rate 11 L 18 Blood Pressure 171/78 H Pulse Oximetry 97 96 Oxygen Flow Rate 05/12/24 11:11 05/12/24 11:11 05/12/24 11:16 Temperature 98.6 F Pulse Rate 78 73 Respiratory Rate 25 H 17 Blood Pressure 145/69 H 145/69 H Pulse Oximetry 95 95 Oxygen Flow Rate 0 05/12/24 11:30 05/12/24 11:30 05/12/24 12:00 Temperature 98.6 F Pulse Rate 70 73 Respiratory Rate 12 16 Blood Pressure 148/70 H 145/69 H Pulse Oximetry 95 93 Oxygen Flow Rate 0 05/12/24 12:00 05/12/24 12:00 05/12/24 12:30 Temperature Pulse Rate 72 Respiratory Rate 14 Blood Pressure 142/67 H 154/74 H Pulse Oximetry 92 Oxygen Flow Rate 05/12/24 12:30 05/12/24 13:00 05/12/24 13:00 Temperature Pulse Rate 74 79 Respiratory Rate 16 13 Blood Pressure 156/74 H Pulse Oximetry 95 94 Oxygen Flow Rate 05/12/24 13:30 05/12/24 13:30 05/12/24 14:21 Temperature Pulse Rate 80 68 Respiratory Rate 24 10 L Blood Pressure 150/68 H 111/63 Pulse Oximetry 90 L 96 Oxygen Flow Rate 2 05/12/24 14:46 Temperature Pulse Rate 69 Respiratory Rate 24 Blood Pressure 115/63 Pulse Oximetry 93 Oxygen Flow Rate 0 Oxygen Delivery Method Room Air Oxygen Flow Rate 0 Narrative Exam Narrative: Abdomen is soft, minimally tender There is a urostomy in the right lower quadrant Objective Labs 05/11/24 21:19 05/11/24 21:19 Labs: Laboratory Results - last 24 hr 05/11/24 21:19 WBC 14.6 H RBC 4.33 Hgb 13.2 Hct 39.4 MCV 91.0 MCH 30.5 MCHC 33.6 RDW 14.1 Plt Count 238 Neut % (Auto) 85.2 H Lymph % (Auto) 9.0 L [place] % (Auto) 5.5 Eos % (Auto) 0.2 L Baso % (Auto) 0.1 Neut # (Auto) 31129 H Lymph # (Auto) 1300 [place] # (Auto) 800 Eos # (Auto) 0 Baso # (Auto) 0 Sodium 135 L Potassium 4.2 Chloride 104 Carbon Dioxide 20 L BUN 18 H Creatinine 0.90 Estimated GFR > 60 BUN/Creatinine Ratio 20.0 Glucose 163 H Calcium 10.3 H Total Bilirubin 0.9 AST 24 ALT 15 Alkaline Phosphatase 65 Total Protein 8.2 Albumin 4.6 Globulin 3.6 Albumin/Globulin Ratio 1.3 Lipase 142 [facility] Medical History Small bowel obstruction Anxiety (~1977) Closed intertrochanteric fracture of right femur Recurrent intestinal obstruction Hydronephrosis, right Presence of urostomy History of arthritis History of hip fracture Osteopenia with high risk of fracture High risk for hip fracture Osteopenia Osteopenia Hernia, perineal Measles (~1945) Recurrent sinusitis (~1964) Human papilloma virus (~2001) Abnormal Pap smear of cervix (~2001) History of urinary incontinence (~2019) Hemorrhoid (~1959) History of cervical cancer (~2002) Depression (~1977) History of uterine cancer (~2002) History of bladder cancer (~2002) Hypertension Cervical cancer GERD (gastroesophageal reflux disease) (~1989) Surgical History Hx of tubal ligation History of hip surgery Hx of total cystectomy History of colon surgery Anesthesia History of hemorrhoidectomy (~1970) History of urostomy History of radical hysterectomy History of cholecystectomy (~2001) Family History Father Cancer Renal failure Mother Hypertension Mental health problem Grandfather Diabetes mellitus Grandmother Diabetes mellitus Grandmother Diabetes mellitus Social History marital status: number of children: 3 household members: none lives independently: Yes occupational status: previously employed Tobacco & Substance Use Smoking Status: Former smoker Tobacco: How many years used: 20 alcohol intake: current substance use type: does not use Diet and Exercise caffeine: Yes Type(s) of exercise: walking frequency: 1-2 times per week duration: > 90 minutes/day Assessment & Plan Assessment and plan (1) Small bowel obstruction: Status: Acute Plan Recommend observation. If she fails to improve at some point we would need to proceed with a Gastrografin challenge. If she starts vomiting more she should get an NG-tube. Time-Based Coding :: [TOTAL MINUTES] spent with patient and on the chart (including review of chart, obtaining history, exam, reviewing outside data, placing orders, documenting exam and treatment plan, and counseling patient) on [DATE].
[2024-05-12 20:22] LABS: HEMOLYSIS < 15 (0-50); Phosphorous 3.7 mg/dL (2.8-4.1); Potassium 4.6 mmol/L (3.4-5.1)
[2024-05-13] MEDS: DEXTROSE 5%-0.9% NS 1,000 ML 100 ML IV (00:48)
[2024-05-13 01:00] VITALS: BP 144/68; PULSE 78; RESP 18; TEMP 36.1; O2SAT 100
[2024-05-13] MEDS: ACETAMINOPHEN 325 MG TABLET 650 MG PO (01:31)
[2024-05-13 06:33] VITALS: BP 152/87; PULSE 76; RESP 17; TEMP 36.7; O2SAT 96
[2024-05-13 10:00] VITALS: BP 178/84; PULSE 84; RESP 22; TEMP 36.3; O2SAT 96
--- NOTE | 2024-05-13 10:00 | PM.PN.1 ---
Subjective Subjective Date Patient Seen: 05/13/24 Time Patient Seen: 10:00 Interval history: Jeffrey had a bowel movement last night and this morning. Maybe some flatus. She feels slightly better today. She has tolerated some clear liquid diet. She has some concerns about C diff because she had it last time and she has not sure it is cleared. She wants to retest for it. Exam Vital Signs (past 8 hours): - 05/13/24 06:33 05/13/24 06:35 Temperature 98.1 F Pulse Rate 76 Respiratory Rate 17 Blood Pressure 152/87 H Pulse Oximetry 96 Oxygen Delivery Method Room Air Oxygen Delivery Method Room Air Oxygen Flow Rate 0 Const General: No acute distress Objective Labs 05/11/24 21:19 05/12/24 19:55 Labs: Laboratory Results - last 24 hr 05/12/24 19:55 Potassium 4.6 Phosphorus 3.7 Magnesium 2.0 PFSH Medical History Small bowel obstruction Anxiety (~1977) Closed intertrochanteric fracture of right femur Recurrent intestinal obstruction Hydronephrosis, right Presence of urostomy History of arthritis History of hip fracture Osteopenia with high risk of fracture High risk for hip fracture Osteopenia Osteopenia Hernia, perineal Measles (~194) Recurrent sinusitis (~1964) Human papilloma virus (~2001) Abnormal Pap smear of cervix (~2001) History of urinary incontinence (~2019) Hemorrhoid (~1959) History of cervical cancer (~2002) Depression (~1977) History of uterine cancer (~2002) History of bladder cancer (~2002) Hypertension Cervical cancer GERD (gastroesophageal reflux disease) (~1989) Surgical History Hx of tubal ligation History of hip surgery Hx of total cystectomy History of colon surgery Anesthesia History of hemorrhoidectomy (~1970) History of urostomy History of radical hysterectomy History of cholecystectomy (~2001) Family History Father Cancer Renal failure Mother Hypertension Mental health problem Grandfather Diabetes mellitus Grandmother Diabetes mellitus Grandmother Diabetes mellitus Social History marital status: number of children: 3 household members: none lives independently: Yes occupational status: previously employed Smoking Status: Former smoker Tobacco: How many years used: 20 alcohol intake: current substance use type: does not use caffeine: Yes Type(s) of exercise: walking frequency: 1-2 times per week duration: > 90 minutes/day Assessment & Plan Assessment and plan (1) Small bowel obstruction: Status: Acute Plan Slowly advance diet as tolerates Recheck C diff Time-Based Coding :: [TOTAL MINUTES] spent with patient and on the chart (including review of chart, obtaining history, exam, reviewing outside data, placing orders, documenting exam and treatment plan, and counseling patient) on [DATE].
--- NOTE | 2024-05-13 12:16 | PM.DS.1 ---
History of Present Illness History of Present Illness Chief complaint: Hx bowel blockages/same symptoms/V Narrative: From ED doctor: 88-year-old female with history of remote stage IV cervical cancer diagnosis 2005, treated [facility], radiation therapy, diverting urostomy, felt to be cured. She also had more recent surgery 2021 [facility] for hernia in the cervical/labial area, repaired with General surgery and plastic surgery together, felt to be successful. Prior hysterectomy and oophorectomy 30 years ago, prior cholecystectomy. She complains of central left abdominal discomfort since yesterday afternoon, no injury trauma. No nausea or vomiting, no loose stools, she feels that she is passing some gas. No black or red stools. She is making urine in her urostomy bag, does not seem to have any blood or cloudy appearance, no strange foul odor. She denies chest pain shortness of breath. Flank pain. S: She was a history of many bowel obstructions. She did not fell well on Sunday and then developed abdominal distention and nausea with vomiting on Sunday. Ultimately EMS was called and she was transported to the ED by POV. CT scan indicated a partial small-bowel obstruction. This morning she feels better, resolution of nausea and vomiting. No flatus. A lot of abdominal grumbling. She denies any pain and would like to advance her diet. She denies any chest pain, shortness for breath, or urinary symptoms. She was have a urostomy from a previous cancer resection. Discharge Providers Provider Date of admission: 05/12/24 01:27 Discharge Date: 05/13/24 Primary care physician: Britney Shelton DO Consults: Dr. Cotton, general surgery. Discharge provider: Jc Hogue MD Summary Hospital Course Discharge Diagnosis: 1. SBO, present on admission and resolved. 2. HTN, present on admission and stable. Hospital Course: She was admitted with recurrent bowel obstruction, 1 of many. She had right. A bowel rest and then improved with analgesia and IV fluids. She slowly advanced her diet and felt that she was back at baseline and over her bowel obstruction in the morning of May 13. She will stick to full liquids for the next several days and a very slow advance. Status at Discharge Cognitive/behavioral status at discharge: at baseline, oriented Functional status at discharge: independent ambulation Overall status at discharge: patient is back to baseline Time Spent with Patient Time spent: Greater than 30 minutes Exam Vital Signs (past 8 hours): - 05/13/24 06:33 05/13/24 06:35 05/13/24 08:00 Temperature 98.1 F Pulse Rate 76 Respiratory Rate 17 Blood Pressure 152/87 H Pulse Oximetry 96 Oxygen Delivery Method Room Air Room Air Oxygen Flow Rate 05/13/24 10:00 Temperature 97.3 F L Pulse Rate 84 Respiratory Rate 22 Blood Pressure 178/84 H Pulse Oximetry 96 Oxygen Delivery Method Oxygen Flow Rate 0 Oxygen Delivery Method Room Air Oxygen Flow Rate 0 Narrative Exam Narrative: NAD, alert and oriented. Fluent speech. Lungs are clear, normal rate and effort. Heart is regular, no murmur gallop or rub. Abdomen is soft, non distended. No tenderness. Extremities are free of edema. Objective Imaging CT scan - abdomen: Radiologist's impression: Long segment of diffusely scattered dilated small bowel with air-fluid levels compatible with small bowel obstruction. A definite transition point is not visualized although there appears to be decompressed bowel in the right lower quadrant near site of prior bowel resection anastomotic suture line. Stable postsurgical changes with right lower quadrant ostomy. Labs 05/11/24 21:19 05/12/24 19:55 Labs: Laboratory Results - last 24 hr 05/12/24 19:55 Potassium 4.6 Phosphorus 3.7 Magnesium 2.0 [facility] Medical History Small bowel obstruction Anxiety (~1977) Closed intertrochanteric fracture of right femur Recurrent intestinal obstruction Hydronephrosis, right Presence of urostomy History of arthritis History of hip fracture Osteopenia with high risk of fracture High risk for hip fracture Osteopenia Osteopenia Hernia, perineal Measles (~1945) Recurrent sinusitis (~1964) Human papilloma virus (~2001) Abnormal Pap smear of cervix (~2001) History of urinary incontinence (~2019) Hemorrhoid (~1959) History of cervical cancer (~2002) Depression (~1977) History of uterine cancer (~2002) History of bladder cancer (~2002) Hypertension Cervical cancer GERD (gastroesophageal reflux disease) (~1989) Surgical History Hx of tubal ligation History of hip surgery Hx of total cystectomy History of colon surgery Anesthesia History of hemorrhoidectomy (~1970) History of urostomy History of radical hysterectomy History of cholecystectomy (~2001) Family History Father Cancer Renal failure Mother Hypertension Mental health problem Grandfather Diabetes mellitus Grandmother Diabetes mellitus Grandmother Diabetes mellitus Social History marital status: number of children: 3 household members: none lives independently: Yes occupational status: previously employed Smoking Status: Former smoker Tobacco: How many years used: 20 alcohol intake: current substance use type: does not use caffeine: Yes Type(s) of exercise: walking frequency: 1-2 times per week duration: > 90 minutes/day Discharge Assessment & Plan Assessment and Plan Assessment: 1. SBO, present on admission and resolved. 2. HTN, present on admission and stable. Plan of Treatment: Discharge home on full liqs and slow advance. PCP within the next week. Discharge Plan Discharge Plan Patient Disposition: Home Provider Discharge Comment: Stable for discharge home. Bowel obstruction has resolved. Discharge orders & Medications Prescriptions: Continued Prolia 60 mg/mL syringe 60 mg SUBCUT [id number] Qty: 1 1RF escitalopram oxalate 5 mg tablet 5 mg PO DAILY Qty: 30 1RF psyllium [Metamucil] 1 tbsp PO DAILY clotrimazole-betamethasone 1-0.05 % cream 1 applic topical DAILY PRN (Reason: dry itchy skin) Patient Comments: rarely apply loperamide [Imodium A-D] 2 mg tablet 2 mg PO Q6H PRN (Reason: Loose Stool) Align 4 mg capsule 4 mg PO DAILY vitamin B complex 1 tab PO DAILY cholecalciferol (vitamin D3) 50 mcg PO DAILY simethicone [Gas-X Extra Strength] 125 mg capsule 125 mg PO BID PRN (Reason: GAS) Patient Comments: rarely losartan 100 mg tablet 100 mg PO DAILY Qty: 90 2RF amlodipine 2.5 mg tablet 2.5 mg PO DAILY Qty: 90 2RF omeprazole 20 mg capsule,delayed release(DR/EC) 20 mg PO DAILY Qty: 90 2RF fluticasone propionate 50 mcg/actuation [place],Suspension 2 spray INTRANASAL DAILY Rx Instructions: 2 sprays each nare acetaminophen 325 mg Tablet 650 mg PO Q6H PRN (Reason: Fever/Mild Pain (1-3)) Qty: 60 0RF [id number] 333-133-5 mg tablet See Rx Instructions .ROUTE .COMPLEX Patient Comments: qd Rx Instructions: take one tablet by mouth daily Medication counseling provided by Pharmacist: No Follow up/Referrals: Britney Shelton DO [Primary Care Provider] - Discharge Health Status Multidrug resistant organism: No MDRO Diet/Activity/Treatments Diet: Full Liquid Activity: As tolerated. Visit Report/Discharge Packet Instructions: DI for Small Bowel Obstruction Stand Alone Forms: Patient Portal/API Discharge Data Primary Care Provider: Britney Shelton Attending Provider: Rj Lew Admit Date/Time: 05/12/24 01:27
[2024-05-13 15:12] LABS: Clostridium Difficile Tox PCR Negative for C. diff (Negative)
--- NOTE | 2024-05-13 15:20 | CM.DPNOTE ---
DCP Note [employer] reviewed EMR. per chart review, pt had BM overnight. Per RN, likely home today dtr no new needs. P: home today with dtr support to [facility]. CM team will continue to follow as needed UNRULY Nguyen
== END 2024-05-13 15:15 | disposition home or self-care (01) ==
LOC: ED 05-12 01:17 → AC 05-12 01:28 → ICU 05-12 02:29
PROVIDERS: Internal Medicine; Surgery; Admitting Provider Internal Medicine; Emergency Provider Emergency Medicine; PCP Family Medicine; Visit Provider Internal Medicine
DX: K56.600 Partial intestinal obstruction, unspecified as to cause (principal); I10 Essential (primary) hypertension
CPT/HCPCS: 36415; 74150; 80053; 83690; 83735; 84100; 84132; 85025; 87493; 96361; 96374; 96375; 96376; 99284; G0378; J1170; J2405

== ENCOUNTER 2024-08-14 07:47 | Observation (INO) | payer MEDICARE, OTHER, SELFPAY ==
[2024-05-12 02:35] VITALS: BMI 21.4
[2024-08-14] VITALS (13 sets, daily range): BP systolic 119–162; BP diastolic 70–82; PULSE 56–94; RESP 15–20; TEMP 36.5–37.6; O2SAT 94–99; BMI 20.5; BMI 19.5
--- NOTE | 2024-08-14 07:58 | ED_ITS ---
HPI - General Adult General Chief complaint: Nausea/Vomiting/Diarrhea Stated complaint: vomiting, possible blockage Time Seen by Provider: 08/14/24 07:58 History of Present Illness HPI narrative: 88-year-old woman with a complex medical history including cervical cancer, total hysterectomy, urostomy, pelvic radiation, cholecystectomy and additional abdominal surgeries who approximately quarterly ends up with a small-bowel obstruction. She has not had a bowel movement for 48 hours and feels that she needs to do so. She has not passed gas same timeframe. She began having bilious emesis last night. Rates her nausea is a 4/10, pain as a 2/10 comes in for further evaluation. Most recent admission was April of 2024 for bowel obstruction. This did resolve with medical management. Patient has had multiple abdominal CT scans for similar findings. Related Data Home Medications Medication Instructions Recorded Confirmed Bifidobacterium infantis 4 mg 4 mg PO DAILY 08/24/20 07/14/24 capsule (Align) cholecalciferol (vitamin D3) 50 mcg PO DAILY 08/24/20 07/14/24 loperamide 2 mg tablet (Imodium 2 mg PO Q6H PRN Loose Stool 08/24/20 07/14/24 A-D) vitamin B complex [B 1 tab PO DAILY 08/24/20 07/14/24 Complex-Vitamin B12] simethicone 125 mg capsule (Gas-X 125 mg PO BID PRN GAS 08/12/21 07/14/24 Extra Strength) psyllium [Metamucil] 1 tbsp PO DAILY 01/03/22 07/14/24 [id number] 333 mg-133 See Rx Instructions .Route .COMPLEX 01/11/22 07/14/24 mg-5 mg tablet fluticasone propionate 50 2 spray intranasal DAILY dry nasal 02/04/23 07/14/24 mcg/actuation nasal passages spray,suspension clotrimazole-betamethasone 1 1 applic topical DAILY PRN dry 05/07/23 07/14/24 %-0.05 % topical cream itchy skin Previous Rx's Medication Instructions Recorded acetaminophen 325 mg tablet 650 mg (2 x 325 mg) PO Q6H PRN 02/06/23 Fever/Mild Pain (1-3) #60 tabs denosumab 60 mg/mL subcutaneous 60 mg SUBCUT [id number] #1 mL 03/10/23 syringe (Prolia) amlodipine 2.5 mg tablet 2.5 mg PO DAILY #90 tabs 12/03/23 losartan 100 mg tablet 100 mg PO DAILY #90 tabs 12/03/23 omeprazole 20 mg capsule,delayed 20 mg PO DAILY #90 caps 12/03/23 release escitalopram oxalate 10 mg tablet 10 mg PO DAILY #90 tabs 07/14/24 (Lexapro) Allergies Allergy/AdvReac Type Severity Reaction Status Date / Time Sulfa (Sulfonamide Allergy Unknown Verified 08/14/24 08:03 Antibiotics) trimethaphan Allergy Unknown Verified 08/14/24 08:03 Review of Systems Review of Systems Narrative: Pertinent positive and negative findings as per HPI Patient History Medical History Small bowel obstruction Anxiety (~1977) Closed intertrochanteric fracture of right femur Recurrent intestinal obstruction Hydronephrosis, right Presence of urostomy History of arthritis History of hip fracture Osteopenia with high risk of fracture High risk for hip fracture Osteopenia Osteopenia Hernia, perineal Measles (~194) Recurrent sinusitis (~1964) Human papilloma virus (~2001) Abnormal Pap smear of cervix (~2001) History of urinary incontinence (~2019) Hemorrhoid (~1959) History of cervical cancer (~2002) Depression (~1977) History of uterine cancer (~2002) History of bladder cancer (~2002) Hypertension Cervical cancer GERD (gastroesophageal reflux disease) (~1989) Surgical History Hx of tubal ligation History of hip surgery Hx of total cystectomy History of colon surgery Anesthesia History of hemorrhoidectomy (~1970) History of urostomy History of radical hysterectomy History of cholecystectomy (~2001) Family History Father Cancer Renal failure Mother Hypertension Mental health problem Grandfather Diabetes mellitus Grandmother Diabetes mellitus Grandmother Diabetes mellitus Social History marital status: number of children: 3 household members: none lives independently: Yes occupational status: previously employed Smoking Status: Former smoker Tobacco: How many years used: 20 alcohol intake: current substance use type: does not use caffeine: Yes Type(s) of exercise: walking frequency: 1-2 times per week duration: > 90 minutes/day Smoking Status: Former smoker tobacco type: vaping alcohol intake frequency: a few times a week Alcohol type: wine Substance Use Type: does not use Exam Initial Vital Signs Initial Vital Signs: Vital Signs Pulse Oximetry 98 08/14/24 07:58 General: Older somewhat frail-appearing but, in no acute distress. Able to give a complete and coherent history. HEENT: Moist mucous membranes, normal sclera with reactive pupils, Respiratory: Lungs are clear to auscultation, no wheezing no rales no rhonchi. Full and symmetrical air movement Cardiac: Regular rate and rhythm no murmurs no bruits Abdomen: Soft, no significant distention, mild diffuse tenderness. She does have scattered borborygmi in the upper portion of the abdomen. There is no rebound or guarding. Urostomy site in the right lower quadrant appears healthy. She is making urine Skin: Warm and dry, no rashes Neurologic: Grossly neurologically intact with no obvious asymmetries or abnormalities Extremities: No trauma, well perfused Psych: Cooperative, appropriate insight and affect Course Orders Ordered: ED Orders 08/14/24 08:02 Complete Blood Count AUTO DIFF Stat Comprehensive Metabolic Panel Stat Lactate (Lactic Acid) Stat 08/14/24 08:12 XR abdomen 1V Stat Hydromorphone HCl (Hydromorphone 0.5 Mg Inj) 0.5 mg IV Q15MIN PRN PRN Reason: Pain, Discontinued Medications Sodium Chloride (Normal Saline 0.9%) 1,000 mls @ 1,000 mls/hr IV BOLUS ONE Stop: 08/14/24 09:11 Last Admin: 08/14/24 08:24 Dose: 1,000 mls/hr Documented By: JESSE Ondansetron HCl (Ondansetron 4 Mg/2 Ml Inj) 4 mg IV NOW ONE Stop: 08/14/24 08:13 Last Admin: 08/14/24 08:19 Dose: 4 mg Documented By: JESSE Vital Signs Vital signs: Vital Signs - 8 hr 08/14/24 07:58 08/14/24 07:59 08/14/24 08:00 Temperature 97.7 F Pulse Rate 56 L Respiratory Rate 18 Blood Pressure 148/70 H Pulse Oximetry 98 95 98 Oxygen Delivery Method Room Air 08/14/24 08:30 08/14/24 08:31 08/14/24 08:31 Temperature Pulse Rate 78 78 Respiratory Rate Blood Pressure 122/70 Pulse Oximetry 95 94 Oxygen Delivery Method Room Air Medical Decision Making Lab Data 08/14/24 08:02 08/14/24 08:02 Labs: Lab Results 08/14/24 Range/Units 08:02 WBC 10.5 (4.5-11.0) X10^3/uL RBC 4.63 (4.0-5.2) X10^6/uL Hgb 14.5 (12.0-16.0) g/dL Hct 43.2 (36-46) % MCV 93.3 (80-100) fL MCH 31.4 (26-34) PG MCHC 33.6 (30-36) % RDW 14.4 (11.6-14.8) % Plt Count 280 (150-400) X10^3/uL Neut % (Auto) 80.6 H (50-75) % Lymph % (Auto) 13.9 L (25-40) % [place] % (Auto) 4.7 (3-14) % Eos % (Auto) 0.3 L (2-4) % Baso % (Auto) 0.5 (0-2) % Neut # (Auto) 8400 H (6764-8248) /uL Lymph # (Auto) 1500 (4188-4548) /uL [place] # (Auto) 500 (0-900) /uL Eos # (Auto) 0 (0-450) /uL Baso # (Auto) 100 (0-100) /uL Sodium 137 (137-145) mmol/L Potassium 4.4 (3.4-5.1) mmol/L Chloride 99 (98-107) mmol/L Carbon Dioxide 28 (22-32) mmol/L BUN 23 H (7-17) mg/dL Creatinine 1.12 H (0.52-1.04) mg/dL Estimated GFR 48 L (>60) mL/min BUN/Creatinine Ratio 20.5 (6-22) Glucose 148 H (80-110) mg/dL Lactate 1.9 (0.7-2.1) mmol/L Calcium 10.4 H (8.4-10.2) mg/dL Total Bilirubin 1.5 H (0.2-1.3) mg/dL AST 44 H (14-36) IU/L ALT 23 (<35) IU/L Alkaline Phosphatase 51 (38-126) U/L Total Protein 8.5 H (6.3-8.2) g/dL Albumin 5.0 (3.5-5.0) g/dL Globulin 3.5 (1.7-4.1) g/dL Albumin/Globulin Ratio 1.4 (1.0-2.8) MDM Narrative Medical decision making narrative: CC: Vomiting, concern for recurrent bowel obstruction Complicating co-morbidities: Multiple abdominal surgeries, history of cervical cancer, urostomy, multiple prior bowel obstructions Data collected from: patient, daughter Medical records reviewed: Most recent bowel obstruction discharge summary from April is reviewed Differential considered: Constipation, bowel obstruction, colitis, gastroenteritis Exam documented above, pertinent findings include: Patient is frail but awake and appropriate. Able to cooperate completely with exam. Belly exam does not show significant distention she does have mild tenderness and some borborygmi in the upper quadrants. Lab Test results independently reviewed as above. Pertinent findings: CBC is reassuring Chemistries show slight bump in creatinine from 0.9-1.12. Minimal increased a bilirubin at 1.5. Minimal increased AST from 24-44 Imaging studies independently reviewed: Partial small-bowel obstruction noted on abdominal x-ray Treatments: Dilaudid, fluids, Zofran Discussion: 88-year-old woman with multiple prior bowel obstructions recurrent partial bowel obstruction no flatus or stool for 2 days now vomiting. Vomiting has been controlled. She very much does not want an NG tube. With shared decision-making we opted to place her in the hospital she will make sure that she stays hydrated while we give her bowels a chance to or past the obstruction. Hopefully surgical consultation will not be required. Will discuss with the hospitalist service Discharge Plan Departure Patient Disposition: Admitted as Observation Clinical Impression: Partial small bowel obstruction
--- NOTE | 2024-08-14 08:12 | DI.RAD.S_ITS ---
PROCEDURE: XR ABDOMEN 1V INDICATIONS: possible SBO TECHNIQUE: One view of the abdomen acquired. COMPARISON: [facility], CT, CT ABDOMEN WO CON, 05/11/2024, 21:37. [facility], CR, XR ABDOMEN 1V, 03/02/2024, 9:37. FINDINGS: Surgical changes and devices: Right femoral fixation. Bowel: Mildly dilated fluid-filled loop of small bowel within the mid abdomen, with scattered small bowel fluid levels. Soft tissues: No suspicious abdominal calcifications. Visualized solid organ contours appear normal in size. Bones: No suspicious bony lesions. IMPRESSION: Persistent appearance of partial small bowel obstruction, questionably slightly improved. Dictated by: Rebekah Reed M.D. on 08/14/2024 at 8:57 Approved by: Rebekah Reed M.D. on 08/14/2024 at 8:58
[2024-08-14] MEDS: ONDANSETRON 4 MG/2 ML INJ IV (08:19)
[2024-08-14] MEDS: SODIUM CHLORIDE 0.9% 1,000 ML 1000 ML IV (08:24)
[2024-08-14 08:26] LABS: Add Manual Diff / Slide Review NO; Basophils Absolute Auto 100 /uL (0-100); Basophils Percent Auto 0.5 % (0-2); Eosinophils Absolute Auto 0 /uL (0-450); Eosinophils Percent Auto 0.3 % (2-4); Hematocrit 43.2 % (36-46); Hemoglobin 14.5 g/dL (12.0-16.0); Lymphocytes Absolute Auto 1500 /uL (1100-4500); Lymphocytes Percent Auto 13.9 % (25-40); Mean Corpuscular HGB Conc 33.6 % (30-36); Mean Corpuscular Hemoglobin 31.4 PG (26-34); Mean Corpuscular Volume 93.3 fL (80-100); Monocytes Absolute Auto 500 /uL (0-900); Monocytes Percent Auto 4.7 % (3-14); Neutrophils Absolute Auto 8400 /uL (1500-7000); Neutrophils Percent Auto 80.6 % (50-75); Platelet Count 280 X10^3/uL (150-400); Red Blood Cell Count 4.63 X10^6/uL (4.0-5.2); Red Cell Distribution Width 14.4 % (11.6-14.8); White Blood Cell Count 10.5 X10^3/uL (4.5-11.0)
[2024-08-14 08:32] LABS: Alanine Aminotransferase 23 IU/L (<35); Albumin Globulin Ratio 1.4 (1.0-2.8); Alkaline Phosphatase 51 U/L (38-126); Aspartate Aminotransferase 44 IU/L (14-36); BUN Creatinine Ratio 20.5 (6-22); Bilirubin Total 1.5 mg/dL (0.2-1.3); Blood Urea Nitrogen 23 mg/dL (7-17); Calcium 10.4 mg/dL (8.4-10.2); Carbon Dioxide 28 mmol/L (22-32); Chloride 99 mmol/L (98-107); Estimated Glomerular Filt Rate 48 mL/min (>60); Globulin 3.5 g/dL (1.7-4.1); Glucose 148 mg/dL (80-110); Potassium 4.4 mmol/L (3.4-5.1); Sodium 137 mmol/L (137-145); Total Protein 8.5 g/dL (6.3-8.2)
[2024-08-14 08:33] LABS: Lactate (Lactic Acid) 1.9 mmol/L (0.7-2.1)
[2024-08-14 08:41] LABS: HEMOLYSIS 63 (0-50)
--- NOTE | 2024-08-14 09:56 | P.HP_ITS ---
History of Present Illness History of Present Illness Date Patient Seen: 08/14/24 Chief complaint: vomiting, possible blockage Narrative: From ED doctor: 88-year-old woman with a complex medical history including cervical cancer, total hysterectomy, urostomy, pelvic radiation, cholecystectomy and additional abdominal surgeries who approximately quarterly ends up with a small-bowel obstruction. She has not had a bowel movement for 48 hours and feels that she needs to do so. She has not passed gas same timeframe. She began having bilious emesis last night. Rates her nausea is a 4/10, pain as a 2/10 comes in for further evaluation. Most recent admission was April of 2024 for bowel obstruction. This did resolve with medical management. Patient has had multiple abdominal CT scans for similar findings. Additional information: She began having symptoms yesterday which persisted to this morning. This included abdominal discomfort mild distention, and repeated nausea and vomiting. The emesis was bilious. Today she was feeling better. She has been taking some ice chips. She was having some gas, out and notes that she feels like she was going to have a bowel movement. She was hungry. She denies any obvious dietary indiscretions that may have led up to this over the last several days. [facility] Medical History Small bowel obstruction Anxiety (~1977) Closed intertrochanteric fracture of right femur Recurrent intestinal obstruction Hydronephrosis, right Presence of urostomy History of arthritis History of hip fracture Osteopenia with high risk of fracture High risk for hip fracture Osteopenia Osteopenia Hernia, perineal Measles (~194) Recurrent sinusitis (~1964) Human papilloma virus (~2001) Abnormal Pap smear of cervix (~2001) History of urinary incontinence (~2019) Hemorrhoid (~1959) History of cervical cancer (~2002) Depression (~1977) History of uterine cancer (~2002) History of bladder cancer (~2002) Hypertension Cervical cancer GERD (gastroesophageal reflux disease) (~1989) Surgical History Hx of tubal ligation History of hip surgery Hx of total cystectomy History of colon surgery Anesthesia History of hemorrhoidectomy (~1970) History of urostomy History of radical hysterectomy History of cholecystectomy (~2001) Family History Father Cancer Renal failure Mother Hypertension Mental health problem Grandfather Diabetes mellitus Grandmother Diabetes mellitus Grandmother Diabetes mellitus Social History marital status: number of children: 3 household members: none lives independently: Yes occupational status: previously employed Smoking Status: Former smoker Tobacco: How many years used: 20 alcohol intake: current substance use type: does not use caffeine: Yes Type(s) of exercise: walking frequency: 1-2 times per week duration: > 90 minutes/day Meds Home Medications and Allergies Home Medications Medication Instructions Recorded Confirmed Type Bifidobacterium infantis 4 mg 4 mg PO DAILY 08/24/20 08/14/24 History capsule (Align) cholecalciferol (vitamin D3) 50 mcg PO DAILY 08/24/20 08/14/24 History loperamide 2 mg tablet (Imodium 2 mg PO Q6H PRN Loose Stool 08/24/20 08/14/24 History A-D) vitamin B complex [B 1 tab PO DAILY 08/24/20 08/14/24 History Complex-Vitamin B12] simethicone 125 mg capsule (Gas-X 125 mg PO BID PRN GAS 08/12/21 08/14/24 History Extra Strength) psyllium [Metamucil] 1 tbsp PO DAILY 01/03/22 08/14/24 History rdwmqrc-[id number]-ihpm 333 mg-133 333 tab PO DAILY 01/11/22 08/14/24 History mg-5 mg tablet fluticasone propionate 50 2 spray intranasal DAILY dry nasal 02/04/23 08/14/24 History mcg/actuation nasal passages spray,suspension acetaminophen 325 mg tablet 650 mg (2 x 325 mg) PO Q6H PRN 02/06/23 08/14/24 Rx Fever/Mild Pain (1-3) #60 tabs denosumab 60 mg/mL subcutaneous 60 mg SUBCUT [id number] #1 mL 03/10/23 08/14/24 Rx syringe (Prolia) clotrimazole-betamethasone 1 1 applic topical DAILY PRN dry 05/07/23 08/14/24 History %-0.05 % topical cream itchy skin amlodipine 2.5 mg tablet 2.5 mg PO DAILY #90 tabs 12/03/23 08/14/24 Rx losartan 100 mg tablet 100 mg PO DAILY #90 tabs 12/03/23 08/14/24 Rx omeprazole 20 mg capsule,delayed 20 mg PO DAILY #90 caps 12/03/23 08/14/24 Rx release escitalopram oxalate 10 mg tablet 10 mg PO DAILY #90 tabs 07/14/24 08/14/24 Rx (Lexapro) Allergies Allergy/AdvReac Type Severity Reaction Status Date / Time Sulfa (Sulfonamide Allergy Unknown Verified 08/14/24 08:03 Antibiotics) trimethaphan Allergy Unknown Verified 08/14/24 08:03 Review of Systems Review of Systems Narrative: All else reviewed and otherwise unremarkable except as noted in the history and physical. Exam Vital Signs (past 8 hours): - 08/14/24 07:58 08/14/24 07:59 08/14/24 08:00 Temperature 97.7 F Pulse Rate 56 L Respiratory Rate 18 Blood Pressure 148/70 H Pulse Oximetry 98 95 98 Oxygen Delivery Method Room Air 08/14/24 08:30 08/14/24 08:31 08/14/24 08:31 Temperature Pulse Rate 78 78 Respiratory Rate Blood Pressure 122/70 Pulse Oximetry 95 94 Oxygen Delivery Method Room Air Oxygen Delivery Method Room Air Narrative Exam Narrative: NAD, alert and oriented, fluent speech, calm. Normocephalic skull, EOMI, anicteric sclera, symmetric pupils. Oropharynx unremarkable, no droop. Neck supple, midline trachea, no adenopathy. Lungs clear, normal rate and effort. Heart regular, no murmur gallop or rub. Abdomen is soft, non distended and non tender. Not hypertympanic. Extremities are free of edema. Skin is free of rash or lesions. Joints are not swollen or deformed. Judgment appears to be normal. Objective Imaging Abdominal x-ray: Radiologist's impression: Persistent appearance of partial small bowel obstruction, questionably slightly improved. Labs 08/14/24 08:02 08/14/24 08:02 Labs: Laboratory Results - last 24 hr 08/14/24 08:02 WBC 10.5 RBC 4.63 Hgb 14.5 Hct 43.2 MCV 93.3 MCH 31.4 MCHC 33.6 RDW 14.4 Plt Count 280 Neut % (Auto) 80.6 H Lymph % (Auto) 13.9 L [place] % (Auto) 4.7 Eos % (Auto) 0.3 L Baso % (Auto) 0.5 Neut # (Auto) 8400 H Lymph # (Auto) 1500 [place] # (Auto) 500 Eos # (Auto) 0 Baso # (Auto) 100 Sodium 137 Potassium 4.4 Chloride 99 Carbon Dioxide 28 BUN 23 H Creatinine 1.12 H Estimated GFR 48 L BUN/Creatinine Ratio 20.5 Glucose 148 H Lactate 1.9 Calcium 10.4 H Total Bilirubin 1.5 H AST 44 H ALT 23 Alkaline Phosphatase 51 Total Protein 8.5 H Albumin 5.0 Globulin 3.5 Albumin/Globulin Ratio 1.4 Assessment & Plan Assessment & Plan narrative: 1. SBO, present on admission and resolved. 2. HTN, present on admission and stable. Plan: -NPO, IV fluids -analgesia -monitor bowel function and pain. -NG tube if she worsens. Full resuscitation Observation status, anticipate 1 midnight of hospital care ROCIO: August 15. Home. Time-Based Coding :: 35 min spent with patient and on the chart (including review of chart, obtaining history, exam, reviewing outside data, placing orders, documenting exam and treatment plan, and counseling patient) on Aug 14. Quality MIPS - Admit The patient?s Advance Care plan is not present because I confirmed today that the patient does not wish or was not able to name a surrogate decision maker or provide an Advance Care Plan.: Yes MIPS - Meds 'Current medications' to include all prescriptions, [id number] products, herbals, cannabis/cannabidiol products, and vitamin/mineral/dietary (nutritional) supplements. I have utilized all available resources to obtain, update, or review the patient?s current medications. [If Yes, STOP here]: Yes
[2024-08-14] MEDS: HEPARIN 5,000 UNIT/ML VIAL 5000 UNIT SUBCUT ×2 (12:54→21:33)
[2024-08-14] MEDS: DEXTROSE 5%-0.45% NS 1,000 ML 100 ML IV ×2 (12:55→22:56)
[2024-08-15] VITALS: BP 157/84; PULSE 69; RESP 18; TEMP 36.9; O2SAT 95
[2024-08-15 06:00] VITALS: BP 152/77; PULSE 66; RESP 20; TEMP 36.5; O2SAT 96
[2024-08-15 06:49] LABS: Add Manual Diff / Slide Review NO; Basophils Absolute Auto 0 /uL (0-100); Basophils Percent Auto 0.3 % (0-2); Eosinophils Absolute Auto 100 /uL (0-450); Hematocrit 32.6 % (36-46); Hemoglobin 11.1 g/dL (12.0-16.0); Lymphocytes Absolute Auto 1100 /uL (1100-4500); Lymphocytes Percent Auto 20.2 % (25-40); Mean Corpuscular Hemoglobin 31.7 PG (26-34); Mean Corpuscular Volume 93.3 fL (80-100); Monocytes Absolute Auto 300 /uL (0-900); Monocytes Percent Auto 6.1 % (3-14); Neutrophils Absolute Auto 4000 /uL (1500-7000); Neutrophils Percent Auto 72.4 % (50-75); Platelet Count 146 X10^3/uL (150-400); Red Blood Cell Count 3.49 X10^6/uL (4.0-5.2); Red Cell Distribution Width 14.5 % (11.6-14.8); White Blood Cell Count 5.5 X10^3/uL (4.5-11.0)
[2024-08-15 06:58] LABS: BUN Creatinine Ratio 16.7 (6-22); Blood Urea Nitrogen 13 mg/dL (7-17); Calcium 8.6 mg/dL (8.4-10.2); Carbon Dioxide 26 mmol/L (22-32); Chloride 105 mmol/L (98-107); Estimated Glomerular Filt Rate > 60 mL/min (>60); Glucose 114 mg/dL (80-110); HEMOLYSIS < 15 (0-50); Potassium 3.5 mmol/L (3.4-5.1); Sodium 135 mmol/L (137-145)
[2024-08-15 07:51] VITALS: BP 174/78; PULSE 70; RESP 15; TEMP 36.7; O2SAT 96
[2024-08-15] MEDS: DEXTROSE 5%-0.45% NS 1,000 ML 100 ML IV (08:47)
--- NOTE | 2024-08-15 10:34 | CM.DANOTE ---
DCP Assessment Note: Pt is a 88yo female, resident of [place], is admitted for a partial SBO. Pt lives at [facility]. Pt's Primary Care Provider is Dr. Britney Shelton and insurance is Medicare and [employer]. Reviewed chart and team rounds for pt's medical status and initial discharge needs. DCP met w/patient at bedside; introduced self and role. Patient was found in bed, alert and oriented, cooperative with assessment. Pt confirmed living situation and good support in family who are local, as well as her half-way facility. Pt expressed preference in discharging home today. Pt has a hx of attending Skilled Rehab at [facility], no home health hx. DCP relayed pt's request to shower to her nurse. Plan: Anticipating discharge home today with [facility] crump, to transport when medically cleared. CM team will follow closely for coordination of discharge plans. DUSTIN Haile Discharge Planning/Care Management CM Discharge Assessment Start: 08/15/24 10:25 Freq: Status: Active Protocol: Document 08/15/24 10:26 MW (Rec: 08/15/24 10:34 MW [id number]) Discharge Planning Assessment Assigned Intensive Care Nurse UNRULY Gusman DPOA/Assigned Designee Name Katie Mock, Daughter/POA Contact Information [phone] Advance Directives? Yes Advance Directives on File Yes History Provided By Patient,Family Member,Medical Record Has Patient been admitted in last 30 No days? Prior Living Arrangements Fpc Facility Comment Independent side of [facility] Household Members none Type of transporation used prior to Drives own vehicle admit Facility Name Admitted From: [facility] Independent with ADL's Yes Is patient alert and oriented? Yes Caregiver for Another No Barriers to Discharge No Discharge Plan Home Transportation Arrangement [facility] Crump Referrals Initiated None needed Whiteboard Updated in Patient Room with Yes name and ext. # of Intensive Care Nurse Comment [phone] Review Status In Process Please Provide Date Initial DC 08/15/24 Assessment Was Performed Next Review Type Continued Stay Review
[2024-08-15 10:38] VITALS: BP 146/90; PULSE 75; RESP 16; TEMP 37.2; O2SAT 99
[2024-08-15 12:00] VITALS: BP 161/85; PULSE 72; RESP 16; TEMP 37.3; O2SAT 97
--- NOTE | 2024-08-15 14:12 | PM.DS.1 ---
History of Present Illness History of Present Illness Chief complaint: vomiting, possible blockage Narrative: From ED doctor: 88-year-old woman with a complex medical history including cervical cancer, total hysterectomy, urostomy, pelvic radiation, cholecystectomy and additional abdominal surgeries who approximately quarterly ends up with a small-bowel obstruction. She has not had a bowel movement for 48 hours and feels that she needs to do so. She has not passed gas same timeframe. She began having bilious emesis last night. Rates her nausea is a 4/10, pain as a 2/10 comes in for further evaluation. Most recent admission was April of 2024 for bowel obstruction. This did resolve with medical management. Patient has had multiple abdominal CT scans for similar findings. Additional information: She began having symptoms yesterday which persisted to this morning. This included abdominal discomfort mild distention, and repeated nausea and vomiting. The emesis was bilious. Today she was feeling better. She has been taking some ice chips. She was having some gas, out and notes that she feels like she was going to have a bowel movement. She was hungry. She denies any obvious dietary indiscretions that may have led up to this over the last several days. Discharge Providers Provider Date of admission: 08/14/24 09:27 Discharge Date: 08/15/24 Primary care physician: Britney Shelton DO Consults: None. Discharge provider: Jc Hogue MD Summary Hospital Course Discharge Diagnosis: 1. SBO, present on admission and resolved. 2. HTN, present on admission and stable. Hospital Course: She was history of recurrent bowel obstructions and presented with similar symptoms. She had bowel rest and IV fluids overnight and was able to advance to a liquid diet on the 1st day of her admission and then a general diet on the 2nd day. She felt her symptoms had resolved, she had a bowel movement and felt well enough to return home. She will continue to follow a low residue diet and small, more frequent oral intake. Status at Discharge Cognitive/behavioral status at discharge: oriented Functional status at discharge: independent ambulation Overall status at discharge: patient is back to baseline Time Spent with Patient Time spent: Greater than 30 minutes Exam Vital Signs (past 8 hours): - 08/15/24 07:51 08/15/24 09:00 08/15/24 10:38 Temperature 98.1 F 99.0 F Pulse Rate 70 75 Respiratory Rate 15 16 Blood Pressure 174/78 H 146/90 H Pulse Oximetry 96 99 Oxygen Delivery Method Room Air 08/15/24 12:00 Temperature 99.2 F Pulse Rate 72 Respiratory Rate 16 Blood Pressure 161/85 H Pulse Oximetry 97 Oxygen Delivery Method Oxygen Delivery Method Room Air Oxygen Flow Rate 0 Narrative Exam Narrative: NAD, alert and oriented. Fluent speech. Lungs are clear, normal rate and effort. Heart is regular, no murmur gallop or rub. Abdomen is soft, non distended. Urostomy. Extremities are free of edema. Objective Imaging Abdominal x-ray: Radiologist's impression: Persistent appearance of partial small bowel obstruction, questionably slightly improved. Labs 08/15/24 06:06 08/15/24 06:06 Labs: Laboratory Results - last 24 hr 08/15/24 06:06 WBC 5.5 RBC 3.49 L Hgb 11.1 L Hct 32.6 L MCV 93.3 MCH 31.7 MCHC 34.0 RDW 14.5 Plt Count 146 L Neut % (Auto) 72.4 Lymph % (Auto) 20.2 L Warren % (Auto) 6.1 Eos % (Auto) 1.0 L Baso % (Auto) 0.3 Neut # (Auto) 4000 Lymph # (Auto) 1100 Warren # (Auto) 300 Eos # (Auto) 100 Baso # (Auto) 0 Sodium 135 L Potassium 3.5 Chloride 105 Carbon Dioxide 26 BUN 13 Creatinine 0.78 Estimated GFR > 60 BUN/Creatinine Ratio 16.7 Glucose 114 H Calcium 8.6 PFSH Medical History Small bowel obstruction Anxiety (~1977) Closed intertrochanteric fracture of right femur Recurrent intestinal obstruction Hydronephrosis, right Presence of urostomy History of arthritis History of hip fracture Osteopenia with high risk of fracture High risk for hip fracture Osteopenia Osteopenia Hernia, perineal Measles (~194) Recurrent sinusitis (~1964) Human papilloma virus (~2001) Abnormal Pap smear of cervix (~2001) History of urinary incontinence (~2019) Hemorrhoid (~1959) History of cervical cancer (~2002) Depression (~1977) History of uterine cancer (~2002) History of bladder cancer (~2002) Hypertension Cervical cancer GERD (gastroesophageal reflux disease) (~1989) Surgical History Hx of tubal ligation History of hip surgery Hx of total cystectomy History of colon surgery Anesthesia History of hemorrhoidectomy (~1970) History of urostomy History of radical hysterectomy History of cholecystectomy (~2001) Family History Father Cancer Renal failure Mother Hypertension Mental health problem Grandfather Diabetes mellitus Grandmother Diabetes mellitus Grandmother Diabetes mellitus Social History marital status: number of children: 3 household members: none lives independently: Yes occupational status: previously employed Smoking Status: Former smoker Tobacco: How many years used: 20 alcohol intake: current substance use type: does not use caffeine: Yes Type(s) of exercise: walking frequency: 1-2 times per week duration: > 90 minutes/day Discharge Assessment & Plan Assessment and Plan Assessment: 1. SBO, present on admission and resolved. 2. HTN, present on admission and stable. Plan of Treatment: Stable for discharge home with bowel obstruction recommendations and close follow up with PCP. Discharge Plan Discharge Plan Patient Disposition: Home Provider Discharge Comment: Stable for discharge. Discharge orders & Medications Prescriptions: Continued Prolia 60 mg/mL syringe 60 mg SUBCUT [id number] Qty: 1 1RF psyllium [Metamucil] 1 tbsp PO DAILY clotrimazole-betamethasone 1-0.05 % cream 1 applic topical DAILY PRN (Reason: dry itchy skin) Patient Comments: rarely apply escitalopram oxalate [Lexapro] 10 mg tablet 10 mg PO DAILY Qty: 90 3RF loperamide [Imodium A-D] 2 mg tablet 2 mg PO Q6H PRN (Reason: Loose Stool) Align 4 mg capsule 4 mg PO DAILY vitamin B complex 1 tab PO DAILY cholecalciferol (vitamin D3) 50 mcg PO DAILY simethicone [Gas-X Extra Strength] 125 mg capsule 125 mg PO BID PRN (Reason: GAS) Patient Comments: rarely losartan 100 mg tablet 100 mg PO DAILY Qty: 90 2RF amlodipine 2.5 mg tablet 2.5 mg PO DAILY Qty: 90 2RF omeprazole 20 mg capsule,delayed release(DR/EC) 20 mg PO DAILY Qty: 90 2RF fluticasone propionate 50 mcg/actuation [place],Suspension 2 spray INTRANASAL DAILY Rx Instructions: 2 sprays each nare acetaminophen 325 mg Tablet 650 mg PO Q6H PRN (Reason: Fever/Mild Pain (1-3)) Qty: 60 0RF [id number] 333-133-5 mg tablet 333 tab PO DAILY Patient Comments: qd Rx Instructions: take one tablet by mouth daily Follow up/Referrals: Britney Shelton DO [Primary Care Provider] - Discharge Health Status Multidrug resistant organism: No MDRO Diet/Activity/Treatments Diet: Diet as Tolerated Visit Report/Discharge Packet Instructions: DI for Small Bowel Obstruction Stand Alone Forms: Patient Portal/API Discharge Data Primary Care Provider: Britney Shelton Attending Provider: Jc Hogue Admit Date/Time: 08/14/24 09:27 Quality VTE Deep Vein Thrombosis/Pulmonary Embolism Present on Admission: No
[2024-08-15] MEDS: POTASSIUM CHLORIDE 20 MEQ TAB PO (14:28)
--- NOTE | 2024-08-15 15:28 | PC.NURSE ---
Discharge Note Patient A&O, VSS, RA, no complaints of pain/discomfort. Discharge packet reviewed with patient reviewed with patient all questions/concerns addressed. PIV discontinued. Patient able to dress self and pack all belongings. Patient taken down via wheelchair to POV.
== END 2024-08-15 15:20 | disposition home or self-care (01) ==
LOC: ED 09:24 → AC 09:28
PROVIDERS: Admitting Provider Hospitalist; Emergency Provider Emergency Medicine; PCP Family Medicine; Referring Provider Emergency Medicine; Visit Provider Hospitalist
DX: K56.600 Partial intestinal obstruction, unspecified as to cause (principal); I10 Essential (primary) hypertension
CPT/HCPCS: 36415; 74018; 80048; 80053; 83605; 85025; 96361; 96374; 99284; G0378; J1644; J2405

== ENCOUNTER → 2024-09-03 11:09 | Outpatient (CLI) | payer MEDICARE, OTHER, SELFPAY ==
[2024-08-14 11:43] VITALS: BMI 19.5
[2024-09-03 12:21] LABS: Add Manual Diff / Slide Review NO; Basophils Absolute Auto 0 /uL (0-100); Basophils Percent Auto 0.6 % (0-2); Eosinophils Absolute Auto 100 /uL (0-450); Eosinophils Percent Auto 1.5 % (2-4); Hematocrit 37.6 % (36-46); Hemoglobin 12.7 g/dL (12.0-16.0); Lymphocytes Absolute Auto 1100 /uL (1100-4500); Lymphocytes Percent Auto 24.4 % (25-40); Mean Corpuscular HGB Conc 33.8 % (30-36); Mean Corpuscular Hemoglobin 31.3 PG (26-34); Mean Corpuscular Volume 92.4 fL (80-100); Monocytes Absolute Auto 300 /uL (0-900); Monocytes Percent Auto 7.4 % (3-14); Neutrophils Absolute Auto 3000 /uL (1500-7000); Neutrophils Percent Auto 66.1 % (50-75); Platelet Count 203 X10^3/uL (150-400); Red Blood Cell Count 4.07 X10^6/uL (4.0-5.2); Red Cell Distribution Width 13.8 % (11.6-14.8); White Blood Cell Count 4.6 X10^3/uL (4.5-11.0)
[2024-09-03 12:43] LABS: BUN Creatinine Ratio 21.1 (6-22); Blood Urea Nitrogen 19 mg/dL (7-17); Calcium 9.6 mg/dL (8.4-10.2); Carbon Dioxide 27 mmol/L (22-32); Chloride 103 mmol/L (98-107); Estimated Glomerular Filt Rate > 60 mL/min (>60); Glucose 93 mg/dL (80-110); HEMOLYSIS < 15 (0-50); Potassium 4.4 mmol/L (3.4-5.1); Sodium 138 mmol/L (137-145)
[2024-09-03 15:55] LABS: Vitamin D 25 Hydroxy (D3) 60.5 ng/mL (30.0-100.0)
== END ==
LOC: LAB 11:11
PROVIDERS: PCP Family Medicine; Referring Provider Internal Medicine Endocrinology, Diabetes & Metabolism; Visit Provider Urology
DX: N13.30 Unspecified hydronephrosis (principal); M85.80 Other specified disorders of bone density and structure, unspecified site; Z93.6 Other artificial openings of urinary tract status; Z85.51 Personal history of malignant neoplasm of bladder
CPT/HCPCS: 36415; 80048; 82306; 85025

== ENCOUNTER → 2024-09-22 11:05 | Outpatient (CLI) | payer MEDICARE, OTHER, SELFPAY ==
[2024-03-01 09:50] VITALS: BMI 21.9
[2024-08-14 11:43] VITALS: BMI 19.5
--- NOTE | 2024-09-22 11:06 | DI.US.S_ITS ---
PROCEDURE: US RENAL COMPLETE INDICATIONS: Follow-up hydronephrosis TECHNIQUE: Real-time scanning was performed of the kidneys and bladder, with image documentation. COMPARISON: [facility], CR, XR ABDOMEN 1V, 08/14/2024, 8:12. [facility], CT, CT ABDOMEN WO CON, 05/11/2024, 21:37. [facility], US, US RENAL COMPLETE, 02/06/2024, 12:22. [facility], US, US RENAL COMPLETE, 09/10/2023, 10:44. FINDINGS: Kidneys: Kidneys are normal in size. Right kidney measures 9.2 cm long; left kidney measures 9.4 cm long. Right renal cortical thickness is 1.3 cm; left renal cortical thickness is 1.2 cm. Renal cortical echotexture is normal. No hydronephrosis or nephrolithiasis. No suspicious solid mass lesions. Bladder: Not applicable Miscellaneous: No free pelvic fluid. IMPRESSION: No hydronephrosis or obstructive urolithiasis. Dictated by: Dale Fernandes M.D. on 09/22/2024 at 13:15 Approved by: Dale Fernandes M.D. on 09/22/2024 at 13:21
== END ==
PROVIDERS: PCP Family Medicine; Referring Provider Urology; Visit Provider Urology
DX: N13.30 Unspecified hydronephrosis (principal); Z93.6 Other artificial openings of urinary tract status
CPT/HCPCS: 76770

== ENCOUNTER → 2024-10-09 13:38 | Outpatient (CLI) | payer MEDICARE, OTHER, SELFPAY ==
[2024-08-14 11:43] VITALS: BMI 19.5
--- NOTE | 2024-10-09 13:40 | DI.US.S_ITS ---
PROCEDURE: US RENAL COMPLETE INDICATIONS: History of right hydronephrosis TECHNIQUE: Real-time scanning was performed of the kidneys and bladder, with image documentation. COMPARISON: [facility], CT, CT ABDOMEN PELVIS W CON, 03/01/2024, 4:33. [facility], CT, CT ABDOMEN WO CON, 05/11/2024, 21:37. [facility], US, US RENAL COMPLETE, 09/22/2024, 11:11. [facility], US, US RENAL COMPLETE, 02/06/2024, 12:22. [facility], US, US RENAL COMPLETE, 09/10/2023, 10:44. FINDINGS: Kidneys: Kidneys are normal in size. Right kidney measures 7.8 cm long; left kidney measures 8.0 cm long. Right renal cortical thickness is 0.9 cm; left renal cortical thickness is 1.0 cm. Renal cortical echotexture is normal. No hydronephrosis or nephrolithiasis. Right extrarenal pelvis. No suspicious solid mass lesions. Bladder: Surgically absent Miscellaneous: No free pelvic fluid. Re-identified 2.1 x 1.6 x 1.3 cm multiloculated splenic cystic lesion, present on the comparison CT abdomen pelvis exams. IMPRESSION: 1. No sonographic evidence of hydronephrosis or obstructive urolithiasis. 2. Mildly atrophic appearance of the kidneys. Dictated by: Dale Fernandes M.D. on 10/10/2024 at 21:16 Approved by: Dale Fernandes M.D. on 10/10/2024 at 21:19
== END ==
PROVIDERS: PCP Family Medicine; Referring Provider Urology; Visit Provider Urology
DX: N13.30 Unspecified hydronephrosis (principal); D73.4 Cyst of spleen
CPT/HCPCS: 76770

== ENCOUNTER 2025-01-11 23:15 | Emergency (ER) | payer MEDICARE, OTHER, SELFPAY ==
[2024-08-14 11:43] VITALS: BMI 19.5
[2025-01-11 23:00] VITALS: BP 188/85; PULSE 87; RESP 12; TEMP 36.7; O2SAT 92; BMI 21.4
--- NOTE | 2025-01-11 23:12 | EKG_ITS ---
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
[2025-01-11] MEDS: METOCLOPRAMIDE 10 MG/2 ML INJ IV (23:25)
[2025-01-11 23:32] LABS: Add Manual Diff / Slide Review NO; Basophils Absolute Auto 0 /uL (0-100); Basophils Percent Auto 0.3 % (0-2); Eosinophils Absolute Auto 0 /uL (0-450); Eosinophils Percent Auto 0.2 % (2-4); Hematocrit 40.4 % (36-46); Hemoglobin 13.6 g/dL (12.0-16.0); Lymphocytes Absolute Auto 200 /uL (1100-4500); Lymphocytes Percent Auto 2.6 % (25-40); Mean Corpuscular HGB Conc 33.8 % (30-36); Mean Corpuscular Hemoglobin 31.8 PG (26-34); Mean Corpuscular Volume 94.3 fL (80-100); Monocytes Absolute Auto 500 /uL (0-900); Monocytes Percent Auto 5.4 % (3-14); Neutrophils Absolute Auto 8100 /uL (1500-7000); Neutrophils Percent Auto 91.5 % (50-75); Platelet Count 139 X10^3/uL (150-400); Red Blood Cell Count 4.28 X10^6/uL (4.0-5.2); Red Cell Distribution Width 13.7 % (11.6-14.8); White Blood Cell Count 8.8 X10^3/uL (4.5-11.0)
[2025-01-11 23:51] LABS: Alanine Aminotransferase 24 IU/L (<35); Albumin 4.7 g/dL (3.5-5.0); Albumin Globulin Ratio 1.5 (1.0-2.8); Alkaline Phosphatase 45 U/L (38-126); Aspartate Aminotransferase 55 IU/L (14-36); Bilirubin Total 1.2 mg/dL (0.2-1.3); Blood Urea Nitrogen 29 mg/dL (7-17); Calcium 9.8 mg/dL (8.4-10.2); Carbon Dioxide 22 mmol/L (22-32); Chloride 104 mmol/L (98-107); Estimated Glomerular Filt Rate > 60 mL/min (>60); Globulin 3.2 g/dL (1.7-4.1); Glucose 184 mg/dL (80-110); Lipase 109 U/L (23-300); Potassium 4.5 mmol/L (3.4-5.1); Sodium 138 mmol/L (137-145); Total Protein 7.9 g/dL (6.3-8.2)
[2025-01-11 23:55] VITALS: PULSE 87; RESP 15; O2SAT 95
[2025-01-12] VITALS (13 sets, daily range): BP systolic 117–148; BP diastolic 56–69; PULSE 75–90; RESP 12–22; O2SAT 92–97
[2025-01-12 00:04] LABS: HEMOLYSIS 166 (0-50)
--- NOTE | 2025-01-12 01:30 | ED.ABDPAIN ---
HPI - Abdominal Pain General Chief Complaint: Abdominal Pain Stated Complaint: ABD PAIN Time Seen by Provider: 01/12/25 00:28 Source: EMS, RN notes reviewed and old records reviewed Mode of arrival: EMS Limitations: no limitations History of Present Illness HPI narrative: 88-year-old female with complex medical history prior cervical cancer, total hysterectomy, urostomy, pelvic radiation has had multiple abdominal surgeries sounds like she was had a partial colectomy in his had intermittent small-bowel obstruction she was also had cholecystectomy. Patient presents today with sensation she might have a bowel obstruction although states she had a bowel movement during the day on Sunday, she has had nausea and vomiting. She was not had any fevers. No chest pain no shortness of breath. She states bowel movement was soft but formed, had several bowel movements with no black or blood or diarrhea stools. She has not noticed any major changes to her urostomy output. Patient received antiemetics and pain medication for EMS had improvement of her pain still felt nauseated had Reglan here and states her nausea is resolved. States she has allergies to Bactrim. Former smoker, occasional alcohol, no recreational drugs. Dr. Shelton is her primary care physician. Related Data Home Medications Medication Instructions Recorded Confirmed Bifidobacterium infantis 4 mg 4 mg PO DAILY 08/24/20 11/03/24 capsule (Align (B.infantis)) cholecalciferol (vitamin D3) 50 mcg PO DAILY 08/24/20 11/03/24 loperamide 2 mg tablet (Imodium 2 mg PO Q6H PRN Loose Stool 08/24/20 11/03/24 A-D) vitamin B complex [B 1 tab PO DAILY 08/24/20 11/03/24 Complex-Vitamin B12] simethicone 125 mg capsule (Gas-X 125 mg PO BID PRN GAS 08/12/21 11/03/24 Extra Strength) psyllium [Metamucil] 1 tbsp PO DAILY 01/03/22 11/03/24 [id number] 333 mg-133 333 tab PO DAILY 01/11/22 11/03/24 mg-5 mg tablet fluticasone propionate 50 2 spray intranasal DAILY dry nasal 02/04/23 11/03/24 mcg/actuation nasal passages spray,suspension clotrimazole-betamethasone 1 1 applic topical DAILY PRN dry 05/07/23 11/03/24 %-0.05 % topical cream itchy skin Previous Rx's Medication Instructions Recorded acetaminophen 325 mg tablet 650 mg (2 x 325 mg) PO Q6H PRN 02/06/23 Fever/Mild Pain (1-3) #60 tabs denosumab 60 mg/mL subcutaneous 60 mg SUBCUT [id number] #1 mL 03/10/23 syringe (Prolia) escitalopram oxalate 10 mg tablet 10 mg PO DAILY #90 tabs 07/14/24 (Lexapro) amlodipine 2.5 mg tablet 2.5 mg PO DAILY #90 tabs 11/03/24 losartan 100 mg tablet 100 mg PO DAILY #90 tabs 11/03/24 omeprazole 20 mg capsule,delayed 20 mg PO DAILY #90 caps 11/03/24 release Allergies Allergy/AdvReac Type Severity Reaction Status Date / Time Sulfa (Sulfonamide Allergy Unknown Verified 11/03/24 11:30 Antibiotics) trimethaphan Allergy Unknown Verified 11/03/24 11:30 Review of Systems Review of Systems ROS Unobtainable: All systems reviewed & are unremarkable except as noted in HPI and below Patient History Medical History Encounter for subsequent annual wellness visit (AWV) in Medicare patient Osteoporosis Small bowel obstruction Anxiety (~1977) Closed intertrochanteric fracture of right femur Recurrent intestinal obstruction Hydronephrosis, right Presence of urostomy History of arthritis History of hip fracture Osteopenia with high risk of fracture High risk for hip fracture Osteopenia Osteopenia Hernia, perineal Measles (~1945) Recurrent sinusitis (~1964) Human papilloma virus (~2001) Abnormal Pap smear of cervix (~2001) History of urinary incontinence (~2019) Hemorrhoid (~1959) History of cervical cancer (~2002) Depression (~1977) History of uterine cancer (~2002) History of bladder cancer (~2002) Hypertension Cervical cancer GERD (gastroesophageal reflux disease) (~1989) Surgical History Hx of tubal ligation History of hip surgery Hx of total cystectomy History of colon surgery Anesthesia History of hemorrhoidectomy (~1970) History of urostomy History of radical hysterectomy History of cholecystectomy (~2001) Family History Father Cancer Renal failure Mother Hypertension Mental health problem Grandfather Diabetes mellitus Grandmother Diabetes mellitus Grandmother Diabetes mellitus Social History marital status: number of children: 3 household members: none lives independently: Yes occupational status: previously employed Smoking Status: Former smoker Tobacco: How many years used: 20 alcohol intake: current substance use type: does not use caffeine: Yes Type(s) of exercise: walking frequency: 1-2 times per week duration: > 90 minutes/day Smoking Status: Former smoker tobacco type: vaping alcohol intake frequency: a few times a week Alcohol type: wine Exam Narrative Exam Narrative: GENERAL: Alert and oriented x three, elderly female in mild distress. HEENT: Head normocephalic, atraumatic, EOMI, pupils reactive, face symmetric, moist mucous membranes NECK: Supple, full range of motion CARDIOVASCULAR: Regular rate and rhythm without murmurs, rubs or gallops. RESPIRATORY: Breath sounds equal bilaterally, no wheezes rales or rhonchi. ABDOMEN: Soft, nontender. Nondistended. Normoactive bowel sounds all 4 quadrants. No guarding or rebound, rigidity, no mass, patient has urostomy in place has light yellow urine in the bag. : No CVA tenderness EXTREMITIES: Normal range of motion, no clubbing or edema. Neurovascularly intact NEUROLOGICAL: Cranial nerves II through XII grossly intact. Moving all extremities SKIN: Warm, dry, no petechiae, no rashes or lesions. Initial Vital Signs Initial Vital Signs: Vital Signs Temperature 98.1 F 01/11/25 23:00 Pulse Rate 87 01/11/25 23:00 Respiratory Rate 12 01/11/25 23:00 Blood Pressure 188/85 H 01/11/25 23:00 Pulse Oximetry 92 01/11/25 23:00 Oxygen Delivery Method Room Air 01/11/25 23:00 Course Orders Ordered: ED Orders 01/11/25 23:15 Complete Blood Count AUTO DIFF Stat Comprehensive Metabolic Panel Stat Lipase Stat EKG-12 Lead Stat 01/12/25 01:40 CT abdomen pelvis w con Stat 01/12/25 03:50 UA Complete [Urinalysis and Microscopic] Stat Discontinued Medications Metoclopramide HCl (Metoclopramide 10 Mg/2 Ml Inj) 10 mg IV NOW ONE Stop: 01/11/25 23:22 Last Admin: 01/11/25 23:25 Dose: 10 mg Documented By: CIARRA Ondansetron HCl (Ondansetron 4 Mg/2 Ml Inj) 4 mg IV NOW PRN PRN Reason: Nausea And Vomiting Ondansetron HCl (Ondansetron 4 Mg Odt) 4 mg PO NOW PRN PRN Reason: Nausea And Vomiting Vital Signs Vital signs: Vital Signs - 8 hr 01/11/25 23:00 01/11/25 23:55 01/12/25 00:00 Temperature 98.1 F Pulse Rate 87 87 Respiratory Rate 12 15 Blood Pressure 188/85 H 148/67 H Pulse Oximetry 92 95 Oxygen Delivery Method Room Air 01/12/25 00:00 01/12/25 00:30 01/12/25 00:30 Temperature Pulse Rate 86 83 Respiratory Rate 14 13 Blood Pressure 126/69 Pulse Oximetry 94 96 Oxygen Delivery Method 01/12/25 01:00 01/12/25 01:00 01/12/25 01:30 Temperature Pulse Rate 83 Respiratory Rate 13 Blood Pressure 133/69 133/68 Pulse Oximetry 95 Oxygen Delivery Method 01/12/25 01:30 01/12/25 02:05 01/12/25 02:30 Temperature Pulse Rate 87 90 84 Respiratory Rate 14 22 13 Blood Pressure Pulse Oximetry 93 92 96 Oxygen Delivery Method 01/12/25 03:00 01/12/25 03:09 01/12/25 03:09 Temperature Pulse Rate 88 86 Respiratory Rate 21 19 Blood Pressure 145/68 H Pulse Oximetry 97 97 Oxygen Delivery Method 01/12/25 03:30 01/12/25 03:30 01/12/25 04:00 Temperature Pulse Rate 79 80 Respiratory Rate 14 14 Blood Pressure 135/65 Pulse Oximetry 96 92 Oxygen Delivery Method 01/12/25 04:00 01/12/25 04:30 01/12/25 04:30 Temperature Pulse Rate 79 Respiratory Rate 13 Blood Pressure 117/56 L 128/60 Pulse Oximetry 95 Oxygen Delivery Method 01/12/25 05:00 01/12/25 05:00 01/12/25 05:30 Temperature Pulse Rate 76 Respiratory Rate 12 Blood Pressure 132/63 119/59 L Pulse Oximetry 97 Oxygen Delivery Method 01/12/25 05:30 Temperature Pulse Rate 75 Respiratory Rate 13 Blood Pressure Pulse Oximetry 95 Oxygen Delivery Method MDM - Abdominal Pain Lab Data 01/11/25 23:15 01/11/25 23:15 Labs: Lab Results 01/11/25 01/12/25 Range/Units 23:15 03:50 WBC 8.8 (4.5-11.0) X10^3/uL RBC 4.28 (4.0-5.2) X10^6/uL Hgb 13.6 (12.0-16.0) g/dL Hct 40.4 (36-46) % MCV 94.3 (80-100) fL MCH 31.8 (26-34) PG MCHC 33.8 (30-36) % RDW 13.7 (11.6-14.8) % Plt Count 139 L (150-400) X10^3/uL Neut % (Auto) 91.5 H (50-75) % Lymph % (Auto) 2.6 L (25-40) % Simpson % (Auto) 5.4 (3-14) % Eos % (Auto) 0.2 L (2-4) % Baso % (Auto) 0.3 (0-2) % Neut # (Auto) 8100 H (6012-9143) /uL Lymph # (Auto) 200 L (3177-4673) /uL Simpson # (Auto) 500 (0-900) /uL Eos # (Auto) 0 (0-450) /uL Baso # (Auto) 0 (0-100) /uL Sodium 138 (137-145) mmol/L Potassium 4.5 (3.4-5.1) mmol/L Chloride 104 (98-107) mmol/L Carbon Dioxide 22 (22-32) mmol/L BUN 29 H (7-17) mg/dL Creatinine 0.88 (0.52-1.04) mg/dL Estimated GFR > 60 (>60) mL/min BUN/Creatinine Ratio 33.0 H (6-22) Glucose 184 H (80-110) mg/dL Calcium 9.8 (8.4-10.2) mg/dL Total Bilirubin 1.2 (0.2-1.3) mg/dL AST 55 H (14-36) IU/L ALT 24 (<35) IU/L Alkaline Phosphatase 45 (38-126) U/L Total Protein 7.9 (6.3-8.2) g/dL Albumin 4.7 (3.5-5.0) g/dL Globulin 3.2 (1.7-4.1) g/dL Albumin/Globulin Ratio 1.5 (1.0-2.8) Lipase 109 (23-300) U/L Urine Color Yellow Urine Appearance Clear Urine pH 6.0 (4.5-8.0) Ur Specific [place] <=1.005 (1.000-1.035) Urine Protein Negative (Negative) Urine Glucose (UA) Negative (Negative) g/dL Urine Ketones Negative (NEGATIVE) Urine Occult Blood Trace-intact (Negative) Urine Nitrate Negative (Negative) Urine Bilirubin Negative (NEGATIVE) Urine Urobilinogen 0.2 (0.2) E.U./dL Ur Leukocyte Esterase Negative (NEGATIVE) Urine RBC 0-1/hpf (0-5/HPF) Urine WBC None seen (0-5/HPF) Ur Squamous Epith Cells None seen (0-5/HPF) Urine Bacteria None seen (None) Ur Culture Indicated? Cult not indicated Vol Urine Centrifuged 10ml (spun) ECG Data Attestation: I personally reviewed and interpreted this ECG as follows: Interpretation: Sinus rhythm occasional PVCs rate 83 [place] 174 QRS of 90 QTC of 477, left anterior fascicular block. No acute ST elevation depression noted. [facility] Narrative Medical decision making narrative: Labs show normal white count hemoglobin with thrombocytopenia platelets are 139 was low in July 2024 but typically runs about 200s. Predominance of neutrophils. Electrolytes are appropriate BUN 29 creatinine 0.88 glucose is 184 AST is 55 otherwise LFTs are normal. Urine shows trace blood 1 red cell but is otherwise negative. CT abdomen pelvis postsurgical findings status post subtotal colectomy with right lower quadrant ostomy me. Status post cystectomy with diverting your ostomies dilation of small bowel loops measuring up to 3 cm with scattered air-fluid levels present presacral edema cystic structure within the spleen which appears septated measures 2 cm. Findings are suggestive of gastroenteritis ileus or evolving small bowel obstruction. Patient received 8 mg of Zofran and fentanyl 50 mcg per EMS. Patient also received a L of fluid in the department. Still nauseated and received Reglan here in the department 89-year-old female presents with complaint of abdominal pain has had history of bowel obstruction states she did have a bowel movement earlier in the day but states it feels very similar. She has had nausea and vomiting earlier today but none here in the department. She was feeling much better on rechecked. Reviewed findings with the patient that CT shows still for very early bowel obstruction but her pain has been resolved she was not required any additional pain medication she was not had any additional nausea or vomiting. After reviewing her findings from today she was focused comfortable with returning home but with return precautions. Discharge Plan Departure Patient Disposition: Home Clinical Impression: Nausea & vomiting Activity Restrictions/Additional Instructions: Follow up for recheck. Your imaging showed little bit of mild dilation but not a clear obstruction if you have recurrent symptoms please return to the emergency department. Continue to hydrate I would recommend a clear liquid diet for the next 12-24 hours and then advance your diet as tolerated. Please return for fevers, worsening abdominal back or flank pain, vomiting, black or bloody stools, if you are not having any bowel movements or passing any gas, if your urostomy is not draining or other new or concerning changes. Prescriptions: No Action Prolia 60 mg/mL syringe 60 mg SUBCUT [id number] Qty: 1 1RF psyllium [Metamucil] 1 tbsp PO DAILY clotrimazole-betamethasone 1-0.05 % cream 1 applic topical DAILY PRN (Reason: dry itchy skin) Patient Comments: rarely apply escitalopram oxalate [Lexapro] 10 mg tablet 10 mg PO DAILY Qty: 90 3RF loperamide [Imodium A-D] 2 mg tablet 2 mg PO Q6H PRN (Reason: Loose Stool) Align (B.infantis) 4 mg capsule 4 mg PO DAILY vitamin B complex 1 tab PO DAILY cholecalciferol (vitamin D3) 50 mcg PO DAILY simethicone [Gas-X Extra Strength] 125 mg capsule 125 mg PO BID PRN (Reason: GAS) Patient Comments: rarely losartan 100 mg tablet 100 mg PO DAILY Qty: 90 2RF amlodipine 2.5 mg tablet 2.5 mg PO DAILY Qty: 90 2RF omeprazole 20 mg capsule,delayed release(DR/EC) 20 mg PO DAILY Qty: 90 2RF fluticasone propionate 50 mcg/actuation [place],Suspension 2 spray INTRANASAL DAILY Rx Instructions: 2 sprays each nare acetaminophen 325 mg Tablet 650 mg PO Q6H PRN (Reason: Fever/Mild Pain (1-3)) Qty: 60 0RF [id number] 333-133-5 mg tablet 333 tab PO DAILY Patient Comments: qd Rx Instructions: take one tablet by mouth daily Referrals: Britney Shelton DO [Primary Care Provider] - Stand Alone Forms: Patient Portal/API/Survey
--- NOTE | 2025-01-12 01:40 | DI.CT.S_ITS ---
PROCEDURE: CT ABDOMEN PELVIS W CON INDICATIONS: abd pain, n/v, hx of obstruction, urostomy TECHNIQUE: After the administration of intravenous contrast, axial sections acquired from the lung bases to the pubic symphysis. Coronal and sagittal reformats were performed. For radiation dose reduction, the following was used: automated exposure control, adjustment of mA and/or kV according to patient size. COMPARISON: [facility], CT, CT ABDOMEN PELVIS W CON, 03/01/2024, 4:33. FINDINGS: Image quality: Diagnostic. Lower Chest: No significant findings. ABDOMEN: Liver: No solid mass. Focal fatty infiltration at the falciform ligament. Gallbladder: Absent. Biliary ducts: No intrahepatic biliary ductal dilatation. CBD measures 1.1 cm. This is most likely due to reserve phenomenon in this post cholecystectomy patient. Pancreas: No ductal dilation. Spleen: Size is within normal limits. Lobular cyst measuring 2.1 cm is unchanged. Adrenal Glands: No adrenal nodules. Kidneys and Ureters: No hydronephrosis. No solid mass. No complex renal cystic lesion which requires follow up. Diverting ureterostomy. Stomach and Bowel: The colon is mostly decompressed. Right lower quadrant ureterostomy. There are multiple dilated loops of small bowel. The stomach is mildly prominent containing fluid. Peritoneum: No pneumoperitoneum. No ascites. Ventral Wall: No significant ventral hernia. Ventral abdominal wall scar. Abdominal Nodes: No retroperitoneal or mesenteric adenopathy by size criteria. Vessels: Aorta and inferior vena cava are normal in size. PELVIS: Pelvic Organs: Presacral thickening. Uterus is absent. Bladder: Absent. Pelvic Nodes: No enlarged lymph nodes. Miscellaneous: No inguinal hernias are seen. Bones: No aggressive osseous abnormality. DDD. IMPRESSION: 1. Multiple dilated loops of small bowel. This could represent adynamic ileus or small bowel obstruction. 2. Right lower quadrant diverting ureterostomy. This report is concordant with the overnight preliminary interpretation. Dictated by: Roby Juarez M.D. on 01/12/2025 at 7:56 Approved by: Roby Juarez M.D. on 01/12/2025 at 8:02
[2025-01-12 04:03] LABS: Appearance Urine UA CLEAR; Bilirubin Urine UA NEGATIVE (NEGATIVE); Color Urine UA YELLOW; Glucose Urine UA NEGATIVE (Negative); Ketones Urine UA NEGATIVE (NEGATIVE); Leukocyte Esterase Urine UA NEGATIVE (NEGATIVE); Nitrite Urine UA NEGATIVE (Negative); Occult Blood Urine UA TRACE-INTACT (Negative); Protein Urine UA NEGATIVE (Negative); Specific Gravity Urine UA <=1.005 (1.000-1.035); Urobilinogen Urine UA 0.2 E.U./dL (0.2)
[2025-01-12 04:09] LABS: Bacteria Urine None Seen; Culture Indicated Urine Cult Not Indicated; RBC Urine 0-1/HPF (0-5/HPF); Squamous Epithelial Cell Urine None Seen (0-5/HPF); Urine Volume 10mL (spun); WBC Urine None Seen (0-5/HPF)
== END 2025-01-12 06:05 | disposition home or self-care (01) ==
PROVIDERS: Emergency Provider Emergency Medicine; PCP Family Medicine
DX: R11.2 Nausea with vomiting, unspecified (principal); R10.9 Unspecified abdominal pain; Z90.49 Acquired absence of other specified parts of digestive tract; Z93.3 Colostomy status
CPT/HCPCS: 74177; 80053; 81001; 83690; 85025; 93005; 96374; 99283; 99284; J2765; Q9967

== ENCOUNTER → 2025-03-18 15:01 | Outpatient (CLI) | payer MEDICARE, OTHER, SELFPAY ==
[2024-08-14 11:43] VITALS: BMI 19.5
[2025-03-18 16:08] LABS: Add Manual Diff / Slide Review NO; Basophils Absolute Auto 0 /uL (0-100); Basophils Percent Auto 0.5 % (0-2); Eosinophils Absolute Auto 200 /uL (0-450); Hematocrit 33.5 % (36-46); Hemoglobin 11.6 g/dL (12.0-16.0); Lymphocytes Absolute Auto 1200 /uL (1100-4500); Lymphocytes Percent Auto 23.3 % (25-40); Mean Corpuscular HGB Conc 34.4 % (30-36); Mean Corpuscular Hemoglobin 32.1 PG (26-34); Mean Corpuscular Volume 93.3 fL (80-100); Monocytes Absolute Auto 300 /uL (0-900); Neutrophils Absolute Auto 3500 /uL (1500-7000); Neutrophils Percent Auto 67.2 % (50-75); Platelet Count 198 X10^3/uL (150-400); Red Blood Cell Count 3.59 X10^6/uL (4.0-5.2); Red Cell Distribution Width 13.4 % (11.6-14.8); White Blood Cell Count 5.2 X10^3/uL (4.5-11.0)
[2025-03-18 16:28] LABS: BUN Creatinine Ratio 21.4 (6-22); Blood Urea Nitrogen 22 mg/dL (7-17); Calcium 9.3 mg/dL (8.4-10.2); Carbon Dioxide 26 mmol/L (22-32); Chloride 102 mmol/L (98-107); Estimated Glomerular Filt Rate 52 mL/min (>60); Glucose 125 mg/dL (70-99); HEMOLYSIS < 15 (0-50); Potassium 4.1 mmol/L (3.4-5.1); Sodium 136 mmol/L (137-145)
== END ==
PROVIDERS: Urology; PCP Family Medicine; Referring Provider Family Medicine; Visit Provider Family Medicine
DX: Z93.6 Other artificial openings of urinary tract status (principal); Z85.51 Personal history of malignant neoplasm of bladder
CPT/HCPCS: 36415; 80048; 85025

== ENCOUNTER → 2025-05-05 15:50 | Outpatient (CLI) | payer MEDICARE, OTHER, SELFPAY ==
[2024-08-14 11:43] VITALS: BMI 19.5
[2025-05-05 17:48] LABS: Blood Urea Nitrogen 16 mg/dL (7-17); Calcium 9.3 mg/dL (8.4-10.2); Carbon Dioxide 23 mmol/L (22-32); Chloride 99 mmol/L (98-107); Estimated Glomerular Filt Rate > 60 mL/min (>60); Glucose 140 mg/dL (70-99); HEMOLYSIS < 15 (0-50); Potassium 3.7 mmol/L (3.4-5.1); Sodium 132 mmol/L (137-145)
[2025-05-05 18:21] LABS: Vitamin D 25 Hydroxy (D3) 57.0 ng/mL (30.0-100.0)
== END ==
PROVIDERS: PCP Family Medicine; Referring Provider Internal Medicine Endocrinology, Diabetes & Metabolism; Visit Provider Internal Medicine Endocrinology, Diabetes & Metabolism
DX: M81.0 Age-related osteoporosis without current pathological fracture (principal)
CPT/HCPCS: 36415; 80048; 82306

== ENCOUNTER → 2025-09-09 14:34 | Outpatient (CLI) | payer MEDICARE, OTHER, SELFPAY ==
[2024-08-14 11:43] VITALS: BMI 19.5
--- NOTE | 2025-09-09 14:38 | DI.US.S_ITS ---
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 COMPARISON: [facility], CT, CT ABDOMEN PELVIS W CON, 06/16/2025, 1:04. [facility], , US RENAL COMPLETE, 10/09/2024, 14:17. [facility], RENAL COMPLETE, 09/22/2024, 11:11. FINDINGS: Kidneys: Kidneys are normal in size. Right kidney measures 9.7 cm long; left kidney measures 8.9 cm long. Right renal cortical thickness is 1.5 cm; left renal cortical thickness is 1.3 cm. Renal cortical echotexture is normal. No hydronephrosis or nephrolithiasis on the left but there is moderate hydronephrosis on the right extending into the proximal ureter which can be seen to measure approximately 1.5 cm in diameter. No suspicious solid mass lesions. Bladder: Surgically absent, urinary diversion. Miscellaneous: No free pelvic fluid. IMPRESSION: Asymmetric moderate right hydronephrosis with proximal visualized right ureteral distension also. The degree of prominence of the renal pelvis and collecting system appears worsened from the CT scan 06/16/25, most recent, and cause of that change is indeterminate from this study. Follow-up by CT scanning may become necessary depending on the clinical status. Dictated by: Francisco Viera M.D. on 09/10/2025 at 12:33 Approved by: Francisco Viera M.D. on 09/10/2025 at 12:39
[2025-09-09 15:47] LABS: Hematocrit 36.2 % (36-46); Hemoglobin 12.2 g/dL (12.0-16.0); Mean Corpuscular HGB Conc 33.8 % (30-36); Mean Corpuscular Hemoglobin 31.3 PG (26-34); Mean Corpuscular Volume 92.6 fL (80-100); Platelet Count 200 X10^3/uL (150-400)
[2025-09-09 16:14] LABS: Blood Urea Nitrogen 25 mg/dL (7-17); Calcium 9.8 mg/dL (8.4-10.2); Carbon Dioxide 26 mmol/L (22-32); Chloride 103 mmol/L (98-107); Estimated Glomerular Filt Rate > 60 mL/min (>60); Glucose 105 mg/dL (70-99); HEMOLYSIS < 15 (0-50); Potassium 4.2 mmol/L (3.4-5.1); Sodium 138 mmol/L (137-145)
[2025-09-09 16:26] LABS: Vitamin D 25 Hydroxy (D3) 77.5 ng/mL (30.0-100.0)
== END ==
PROVIDERS: Internal Medicine Endocrinology, Diabetes & Metabolism; PCP Family Medicine; Referring Provider Urology; Visit Provider Urology
DX: N13.30 Unspecified hydronephrosis (principal); M81.0 Age-related osteoporosis without current pathological fracture; Z93.6 Other artificial openings of urinary tract status; Z90.6 Acquired absence of other parts of urinary tract; Z85.51 Personal history of malignant neoplasm of bladder
CPT/HCPCS: 36415; 76770; 80048; 82306; 85027